=== PATIENT | male | born 1970 | race African-American/Black ===

== ENCOUNTER 2020-05-03 10:42 | Outpatient (NON) | payer BC, SELFPAY ==
[2020-05-04 01:42] LABS: SARS-CoV-2 RNA PCR Positive
== END 2020-05-03 10:43 ==
LOC: ANHCOVIDDT 10:43
PROVIDERS: PCP Internal Medicine; Visit Provider Internal Medicine
DX: U07.1 COVID-19 (principal)
CPT/HCPCS: 87635; C9803; U0003

== ENCOUNTER 2021-07-15 07:28 | Inpatient (IN) | payer BC, SELFPAY ==
[2021-07-15] VITALS (13 sets, daily range): BP systolic 119–167; BP diastolic 54–96; PULSE 67–96; RESP 18–32; TEMP 36.2–36.6; O2SAT 94–100; BMI 32.8
--- NOTE | ~2021-07-15 | XR_ITS ---
EXAMINATION: XR chest 2V EXAM DATE: 07/15/2021 07:59 INDICATION: SOB, No Recent Illness, No Cardiac Hx Per Pt. TECHNIQUE: Frontal and lateral projections of the chest obtained and reviewed. There is no prior ole dy for comparison. FINDINGS: Moderate cardiomegaly. Ill-defined basilar airspace disease, edema or pneumonia. No pneumo thorax. Possible small pleural effusions. IMPRESSION: 1. Moderate cardiomegaly. 2. Moderate basilar edema or pneumonia. Reviewed, dictated and finalized at location A. STANT STRENGTH COACH
--- NOTE | 2021-07-15 07:34 | ECG_ITS ---
Measurements Intervals [place] Rate: 91 P: 58 CA: 172 QRS: -53 QRSD: 161 T: 124 QT: 417 QTc: 515 Interpretive Statements SINUS RHYTHM ATRIAL AND VENTRICULAR PREMATURE COMPLEXES LEFT AXIS DEVIATION LEFT ATRIAL ENLARGEMENT IVCD, CONSIDER ATYPICAL LBBB BASELINE ARTIFACT- V1, V3-V6 ABNORMAL ECG Electronically Signed On 07-15-2021 14:08:14 CURB BUILDER by Deric Johnston D.O.
[2021-07-15 08:22] LABS: Alanine Aminotransferase 89 U/L (4-50); Albumin Level 3.8 g/dL (3.5-5.1); Alkaline Phosphatase 88 U/L (38-126); Anion Gap 7 mmol/L (8-16); Aspartate Amino Transferase 86 U/L (17-59); Bilirubin,Total 1.2 mg/dL (0.2-1.3); Blood Urea Nitrogen 29 mg/dL (9-20); Calcium 8.8 mg/dL (8.4-10.2); Carbon Dioxide 26 mmol/L (22-30); Chloride 108 mmol/L (98-107); Estimated CRCL calculation 68 ml/min; Estimated Glomerular Filt Rate > 60; Glucose 135 mg/dL (65-110); Potassium 3.8 mmol/L (3.4-5.0); Sodium 141 mmol/L (137-145)
[2021-07-15 08:22] LABS: Basophils Percent Auto 0.4 % (0.2-1.2); Eosinophils Percent Auto 0.5 % (0-4.4); Hematocrit 46.5 % (42.0-52.0); Hemoglobin 14.7 g/dL (14.0-18.0); Immature Granulocyte Absolute 0.01 K/mm3 (0.00-0.031); Immature Granulocyte Percent A 0.1 % (0-0.5); Lymphocytes Absolute Auto 1.93 K/mm3 (0.9-3.2); Mean Corpuscular HGB Conc 31.6 g/dl (32-36); Mean Corpuscular Hemoglobin 28.4 pg (26-34); Mean Corpuscular Volume 89.8 fl (80-100); Mean Platelet Volume 12.1 fl (7.4-10.4); Monocytes Absolute Auto 0.5 K/mm3 (0.1-0.6); Neutrophils Absolute Auto 5.3 K/mm3 (1.3-6.7); Platelet Count Result 187 k/mm3 (150-375); Red Blood Count 5.18 M/mm3 (4.6-6.20); Red Cell Distribution Width 13.5 % (11.5-14.5); White Blood Count 7.7 K/mm3 (4.5-10.0)
[2021-07-15 08:37] LABS: Troponin I 0.076 ng/mL (0.000-0.034)
--- NOTE | 2021-07-15 08:57 | ED.SOB ---
HPI - SOB/Dyspnea General Chief Complaint: Shortness of Breath/Dyspnea Stated Complaint: sob Time Seen by Provider: 07/15/21 07:32 Source: patient History of Present Illness HPI Narrative: Patient presents with shortness of breath. Patient reports he was sleeping awoke from sleep and had a difficult time breathing he attempted to use cold air it did not alleviate his symptoms he can you try and manage his symptoms at home however he did a finger pulse ox and he was saturating in the low 90s he was concerned so he came to the ER for further evaluation. Reports he had a mild cough recently but denies congestion fevers. Denies any chest pain over the symptoms denies any nausea vomiting or diaphoresis. Patient reports on arrival to the ER symptoms have been gradually improving Related Data Allergies Allergy/AdvReac Type Severity Reaction Status Date / Time tetracycline Allergy Unknown Hives Verified 07/15/21 08:41 Review of Systems Review of Systems: CONSTITUTIONAL: Denies fever, chills, or sweats. EYES: Denies visual changes, redness, or discharge. ENT: Denies rhinorrhea, congestion, sore throat, or otalgia. CARDIOVASCULAR: Denies chest pain, palpitations, or edema. RESPIRATORY: Reports shortness of breath GASTROINTESTINAL: Denies abdominal pain, nausea, vomiting, or diarrhea. GENITOURINARY: Denies dysuria or hematuria. SKIN: Denies rash or itching. MUSCULOSKELETAL: Denies back pain, joint pain, or myalgia. NEUROLOGIC: Denies headache, numbness, dizziness, or weakness. PSYCHIATRIC: Denies anxiety or depression. [facility] Past Medical History Medical History (Updated 07/15/21 @ 09:02 by Anuj Harris MD) BMI 37.0-37.9, adult Body mass index (BMI) 40.0-44.9, adult Morbid (severe) obesity due to excess calories Family History Family History Sibling Hypertension Family history of gastrointestinal disorder Family history of arthritis Mother Family history of malignant neoplasm, Onset Age: 40 Family history of heart disease in male family member before age 55, Onset Age: 40 Patient's mother is , Onset Age: 40 Father Family history of malignant neoplasm, Onset Age: 70 Patient's father is , Onset Age: 70 Social History Social History Smoking status: Never smoker Second hand tobacco smoke exposure: No Alcohol intake: current Exam Narrative: GENERAL: Well-appearing, well-nourished, and in no acute distress. HEAD: Normocephalic, atraumatic. EYES: PERRLA and EOMI. ENT: Nares clear, no rhinorrhea or epistaxis. Mucous membranes moist. NECK: Supple. No masses. No JVD CHEST: Clear to auscultation. No respiratory distress. No wheezes rales or rhonchi HEART: Regular rate and rhythm. No murmur heard. Normal peripheral pulses. ABDOMEN: Soft, nontender, nondistended, normal active bowel sounds. EXTREMITIES: Normal range of motion. No edema. SKIN: Warm, dry, no rash. NEURO: No focal deficits. Alert and oriented x3. PSYCH: Normal mood and affect. Course Reevaluation(s) Reevaluation #1: Patient resting, reports an improvement in symptoms results and plan reviewed with patient. Patient is comfortable inpatient plan. Date: 07/15/21 Time: 09:00 Vital Signs Vital signs: Vital Signs Temperature 36.4 C L 07/15/21 07:37 Pulse Rate 92 07/15/21 07:37 Respiratory Rate 32 H 07/15/21 07:37 Blood Pressure 156/82 H 07/15/21 07:37 Pulse Oximetry 99 07/15/21 07:37 Temperature 36.4 C L 07/15/21 07:37 Pulse Rate 73 07/15/21 08:53 Respiratory Rate 19 07/15/21 08:53 Blood Pressure 119/96 H 07/15/21 08:53 Pulse Oximetry 100 07/15/21 08:53 MDM - SOB/Dyspnea MDM Narrative Medical decision making narrative: Patient presents with improving shortness of breath overall patient looks clinically well labs and imaging obtained. Labs notable for elevated
[2021-07-15 10:08] LABS: SARS-CoV-2 RNA PCR Negative
[2021-07-15] MEDS: ASPIRIN 81 MG CHEWABLE TABLET 324 MG PO (10:10)
--- NOTE | 2021-07-15 10:15 | PC.NURSE ---
Pt states he already took all his normal morning meds today. EDP notified. Canceled ordered dose of 5mg metoprolol
--- NOTE | 2021-07-15 11:05 | PC.NURSE ---
This patient, Pablo Parikh, was admitted to IMU Room 206-01. Patient/family oriented to hospital policies and general routines including ID bracelet, bed and alarms, visiting hours, pain management, procedures, bathroom and other care routines, personal items, smoking policy, room service/diet, and visiting hours. Information on how to activate the Rapid Response Team has been discussed. Patient/Family are encouraged to report perceived risks to care and to ask questions if they do not understand what they are told or what they should do.
[2021-07-15 11:41] LABS: Troponin I 0.072 ng/mL (0.000-0.034)
--- NOTE | 2021-07-15 12:49 | ECG_ITS ---
Measurements Intervals [place] Rate: 83 P: 53 MD: 162 QRS: -53 QRSD: 154 T: 128 QT: 418 QTc: 492 Interpretive Statements SINUS RHYTHM LEFT AXIS DEVIATION LEFT ATRIAL ENLARGEMENT IVCD, CONSIDER ATYPICAL LBBB ABNORMAL ECG Electronically Signed On 07-15-2021 14:17:32 ANTENNA SPECIALIST by Deric Johnston D.O.
--- NOTE | 2021-07-15 13:01 | PM.IMHP ---
H&P: HPI History of Present Illness Date/Time: Patient was placed observation status for expected length of stay less than 23 hours for management, will plan to re-evaluate tomorrow for improvement. 07/15/21 13:01 Chief Complaint: Shortness of breath Narrative: Mr. Parikh he is a 51-year-old gentleman who presented to the emergency with complaints of shortness of breath. Patient has a known history of hypertension and diabetes mellitus. Patient states that at 1:30 a.m. this morning he woke up and he was extremely short of breath he states he finally took some deep breaths and was able to catch his breath. Patient states he then woke up again with shortness of breath had worsened and he had a set of tubular catch his breath. Patient states that it occurred after 3rd time while he was laying down and he had good down stairs and open his front door to catch his breath it is because he felt like he needed cold air. Patient denies any chest discomfort during this time. Patient denies any diaphoresis, nausea, or vomiting. Patient denied any orthopnea. Patient states that he did have an EKG 1 time when he lived in [place] and he was told was within normal limits. Patient states he has lost over 120 lb and he has been able to be taken off of his diabetic medication. Upon evaluation in emergency room patient was noted to have a mildly elevated troponin at 0.072 and EKG was a new left bundle branch block. Review of Systems Review of Systems: A 12 point review of systems was completed patient all pertinent positive and negative per HPI the remainder are unremarkable. [facility] Past Medical History Medical History (Updated 07/15/21 @ 13:21 by Nichelle Giles APRN) BMI 37.0-37.9, adult Body mass index (BMI) 40.0-44.9, adult Essential hypertension Morbid (severe) obesity due to excess calories Type 2 diabetes mellitus without complication, without long-term current use of insulin Surgical History Surgical History (Updated 07/15/21 @ 13:19 by Nichelle Giles APRN) History of hip surgery Status post left rotator cuff repair Family History Family History Sibling Hypertension Family history of gastrointestinal disorder Family history of arthritis Mother Family history of malignant neoplasm, Onset Age: 40 Family history of heart disease in male family member before age 55, Onset Age: 40 Patient's mother is , Onset Age: 40 Father Family history of malignant neoplasm, Onset Age: 70 Patient's father is , Onset Age: 70 Social History Social History Smoking status: Never smoker Second hand tobacco smoke exposure: No Alcohol intake: never Substance use: never Spiritual care concerns: No Meds Home Medications and Allergies Home Medications Medication Instructions Recorded Confirmed Type blood sugar diagnostic #100 ea 04/06/20 07/15/21 Rx lancets 33 gauge #100 ea 04/06/20 07/15/21 Rx hydrochlorothiazide 25 mg tablet 25 mg PO DAILY #90 tablet 05/23/20 07/15/21 Rx lisinopril 20 mg tablet 20 mg PO DAILY #90 tablet 05/23/20 07/15/21 Rx allopurinol 300 mg tablet 300 mg PO DAILY #90 tablet 09/23/20 07/15/21 Rx clonidine HCl 0.2 mg tablet 0.2 mg PO TID #270 tablet 11/17/20 07/15/21 Rx metoprolol tartrate 25 mg tablet 25 mg PO BID #180 tablet 01/09/21 07/15/21 Rx Allergies Allergy/AdvReac Type Severity Reaction Status Date / Time tetracycline Allergy Unknown Hives Verified 07/15/21 08:41 Vital Signs Vital Signs - 24 hr 07/15/21 07:37 07/15/21 08:53 07/15/21 10:50 Temperature 36.4 C L 36.6 C Pulse Rate 92 73 88 Respiratory Rate 32 H 19 22 H Blood Pressure 156/82 H 119/96 H 147/64 H Pulse Oximetry 99 100 95 07/15/21 12:00 Temperature Pulse Rate 84 Respiratory Rate Blood Pressure Pulse Oximetry Exam Narrative: Constitutional: Pat
[2021-07-15 13:33] LABS: Hemoglobin A1C 4.7 % (<5.7)
--- NOTE | 2021-07-15 13:50 | PM.CNCAR ---
Assessment and Plan Additional Plan This is a 51-year-old black male with a history of longstanding hypertension which requires multi-drug regimen for control but generally has been doing well with this. Develops symptoms that are very typical of congestive heart failure last evening. Chest x-ray she appears to show evidence of cardiomegaly and some bilateral pulmonary congestion that is relatively mild at this time. He of concern on physical exam is a significant mitral regurgitant murmur. I am going to give him a dosage of furosemide at this time and continue his hypertension regimen. 2D Doppler echocardiogram has been requested and will be done shortly. I will review those findings in the provide further impression/recommendation. Navdeep Arredondo MD [facility] History of Present Illness History of Present Illness Consult date/time: 07/15/21 13:50 Consult reason: congestive heart failure Reason For Visit: ACS Narrative: This is a 51-year-old man who has not previously been seen by myself who has been admitted to the emergency room because of shortness of breath and findings of left bundle branch block and elevation of troponin levels in the emergency room. The patient states that he has longstanding hypertension since he was a very young man and is on multi-drug regimen to treat this. He sees 1 of the local physicians in this area for a number of years any indicates his blood pressure generally is under good control. He does not have any prior knowledge of any cardiac problems. He states that he came to the emergency room this morning because of shortness of breath which awakened him from sleep at about 130 in the morning. He sat up on the edge of the bed and felt better shortly after lying down again he had the same symptomatology. It happened a 3rd time early in the morning and he went to his front door to breathe some cold air and then he decided it was time to come to the emergency room be evaluated. In the ER his electrocardiogram was found to show a sinus mechanism with left bundle branch block and his troponin level was slightly elevated. The levels are elevated but flat. Not having any sense of chest pain pressure or heaviness. He denies any lower extremity edema palpitations or history of syncope. He states that in the past he was morbidly obese but when on S significant diet several years ago and lost more than 100 lb. He used to require medication for non insulin-dependent diabetes and that no longer is the case after he achieved significant weight loss. He is a lifelong nonsmoker he works for [employer]. Review of Systems Constitutional: Constitutional: Reports no additional constitutional complaints Eyes: Eyes: Reports no additional eye complaints ENT: Reports system reviewed and no additional complaints, except as documented Cardiovascular: Cardiovascular: Reports as per HPI Respiratory: Respiratory: Reports as per HPI Gastrointestinal: Gastrointestinal: Reports no additional gastrointestinal complaints Musculoskeletal: Musculoskeletal: Reports back pain Integumentary/Breasts: Skin/Breast: Reports system reviewed and no additional complaints, except as docu Neurologic: Reports system reviewed and no additional complaints, except as documented Endocrine: Endocrine: Reports no additional endocrine complaints Hematologic/Lymphatic: Hematologic/Lymphatic: Reports no additional hematologic/lymphatic complaints Allergic/Immunologic: Allergic/Immunologic: Reports no additional allergic/immunologic complaints PMFSH Past Medical History Medical History (Updated 07/15/21 @ 13:21 by Nichelle Giles, CHEMISTRY LECTURER) BMI 37.0-37.9, adult Body mass index (BMI) 40.0-44.9, adult Essential hypertension Morbid (severe) obesity due to excess calories Type 2 diabetes mellitus without complication, without long-term current use of insulin Surgical History Surgical History (Updated 07/15/21 @ 13:19 by Nichelle Arambula
[2021-07-15] MEDS: FUROSEMIDE 80 MG TABLET PO (14:37)
[2021-07-15 14:50] LABS: Troponin I 0.086 ng/mL (0.000-0.034)
[2021-07-15] MEDS: cloNIDine HCL 0.2 MG TABLET PO (17:05)
[2021-07-15] MEDS: BENZONATATE 100 MG CAPSULE PO (18:00)
[2021-07-15] MEDS: METOPROLOL TARTRATE 25 MG TABLET PO (20:07)
[2021-07-15 20:40] LABS: Troponin I 0.107 ng/mL (0.000-0.034)
[2021-07-16] VITALS (16 sets, daily range): BP systolic 126–147; BP diastolic 48–69; PULSE 63–85; RESP 15–20; TEMP 36.2–37.2; O2SAT 97–100
--- NOTE | 2021-07-16 00:26 | ECG_ITS ---
Measurements Intervals [place] Rate: 75 P: 56 WI: 165 QRS: -58 QRSD: 156 T: 125 QT: 436 QTc: 489 Interpretive Statements SINUS RHYTHM LEFT AXIS DEVIATION LEFT ATRIAL ENLARGEMENT LEFT BUNDLE BRANCH BLOCK ABNORMAL ECG Electronically Signed On 07-16-2021 7:26:11 DETECTIVE CHIEF by Deric Johnston D.O.
[2021-07-16 05:13] LABS: Basophils Percent Auto 0.5 % (0.2-1.2); Eosinophils Absolute Auto 0.1 K/mm3 (0-0.3); Eosinophils Percent Auto 1.5 % (0-4.4); Hemoglobin 13.5 g/dL (14.0-18.0); Immature Granulocyte Absolute 0.01 K/mm3 (0.00-0.031); Immature Granulocyte Percent A 0.2 % (0-0.5); Lymphocytes Absolute Auto 2.12 K/mm3 (0.9-3.2); Lymphocytes Percent Auto 32.8 % (18.3-44.2); Mean Corpuscular HGB Conc 32.1 g/dl (32-36); Mean Corpuscular Hemoglobin 28.2 pg (26-34); Mean Corpuscular Volume 87.7 fl (80-100); Mean Platelet Volume 11.8 fl (7.4-10.4); Monocytes Absolute Auto 0.5 K/mm3 (0.1-0.6); Monocytes Percent Auto 7.3 % (2.6-8.5); Neutrophils Absolute Auto 3.7 K/mm3 (1.3-6.7); Neutrophils Percent Auto 57.7 % (45.5-73.1); Platelet Count Result 159 k/mm3 (150-375); Red Blood Count 4.79 M/mm3 (4.6-6.20); Red Cell Distribution Width 13.2 % (11.5-14.5); White Blood Count 6.5 K/mm3 (4.5-10.0)
[2021-07-16 05:25] LABS: Alanine Aminotransferase 92 U/L (4-50); Albumin Level 3.7 g/dL (3.5-5.1); Alkaline Phosphatase 74 U/L (38-126); Anion Gap 7 mmol/L (8-16); Aspartate Amino Transferase 65 U/L (17-59); Bilirubin,Total 1.5 mg/dL (0.2-1.3); Blood Urea Nitrogen 25 mg/dL (9-20); Calcium 8.7 mg/dL (8.4-10.2); Carbon Dioxide 26 mmol/L (22-30); Chloride 108 mmol/L (98-107); Estimated CRCL calculation 73 ml/min; Estimated Glomerular Filt Rate > 60; Glucose 103 mg/dL (65-110); Potassium 3.5 mmol/L (3.4-5.0); Sodium 141 mmol/L (137-145)
[2021-07-16] MEDS: cloNIDine HCL 0.2 MG TABLET PO ×2 (08:53→16:33)
[2021-07-16] MEDS: METOPROLOL TARTRATE 25 MG TABLET PO ×2 (08:53→20:06)
[2021-07-16] MEDS: ENOXAPARIN 40 MG/0.4 ML SYRINGE SUB-Q (08:54)
[2021-07-16] MEDS: ASPIRIN 81 MG ENTERIC TABLET PO (08:54)
[2021-07-16] MEDS: lisinopriL 20 MG TABLET PO (08:54)
[2021-07-16] MEDS: hydroCHLOROthiazide 25 MG TABLET PO (08:54)
[2021-07-16] MEDS: allopurinoL 300 MG TABLET PO (08:54)
[2021-07-16] MEDS: BENZONATATE 100 MG CAPSULE PO ×2 (08:57→17:00)
--- NOTE | 2021-07-16 09:48 | PM.PNCARD ---
Progress Note: A&P Additional Plan 51-year-old man with: Congestive heart failure with no prior history of this longstanding hypertension and left bundle branch block of uncertain chronicity. He does feel better following diuresis yesterday I will continue some oral furosemide today. The echocardiogram will be done tomorrow morning at which time I will be able to discuss those findings with him. It is curious that his MR murmur today is obviously less prominent than yesterday. Navdeep Arredondo MD [facility] Subjective Date/time seen: Date of service: 07/16/21 09:48 Interval history: Follow-up visit in this 51-year-old man with: New onset congestive heart failure in the background of longstanding hypertension, left bundle branch block and physical exam evidence of mitral regurgitation. The patient is more comfortable this morning following diuresis with furosemide yesterday he was able to sleep last night with nasal cannula oxygen in place and feels better this morning. Unfortunately the ultrasound/echocardiogram I ordered was not done yesterday so I do not have those results to discuss with him. Exam HENMT: Mouth: Yes moist mucous membranes Eyes: Sclera: sclerae normal Pupils: Equal, round and reactive pupils present Neck: Neck: supple and no JVD Resp: Effort & Inspection: normal respiratory effort Other: Scant basilar crackles noted Cardio: Rate: regular rate Rhythm: regular rhythm Other: MR murmur today is much more subtle than yesterday GI: GI Palp: Yes Soft to palpation Auscultation: normal bowel sounds Skin: General skin exam: normal color Neuro: Cognition (Neuro): normal cognition Extrem: General: normal to inspection Objective Data Vital Signs Vital Signs: Vital Signs - 24 hr 07/15/21 10:50 07/15/21 12:00 07/15/21 14:00 Temperature 36.6 C Pulse Rate 88 84 90 Respiratory Rate 22 H Blood Pressure 147/64 H Pulse Oximetry 95 07/15/21 14:30 07/15/21 16:00 07/15/21 18:00 Temperature 36.2 C L Pulse Rate 90 96 88 Respiratory Rate 18 20 Blood Pressure 143/71 H 167/60 H Pulse Oximetry 99 98 07/15/21 20:00 07/15/21 20:07 07/15/21 22:00 Temperature 36.2 C L Pulse Rate 80 80 67 Respiratory Rate 20 Blood Pressure 131/55 L Pulse Oximetry 94 07/15/21 22:57 07/15/21 23:21 07/16/21 00:00 Temperature 36.3 C L Pulse Rate 75 85 Respiratory Rate 20 Blood Pressure 150/54 H Pulse Oximetry 98 98 07/16/21 02:00 07/16/21 04:00 07/16/21 05:57 Temperature 36.2 C L Pulse Rate 71 63 68 Respiratory Rate 20 Blood Pressure 147/69 H Pulse Oximetry 97 07/16/21 07:51 07/16/21 08:00 07/16/21 08:53 Temperature 37.2 C Pulse Rate 79 80 Respiratory Rate 16 Blood Pressure 136/64 Pulse Oximetry 97 97 Intake/Output Intake/Output: Intake & Output 07/13/21 07/14/21 07/15/21 07/16/21 23:59 23:59 23:59 23:59 Intake Total 1780 360 Output Total 2050 750 Balance -270 -390 Meds/Results Medications: Active Medications Generic Name Dose Route Start Last Admin Trade Name Rebecca PRN Reason Stop Dose Admin Allopurinol 300 mg 07/16/21 09:00 07/16/21 08:54 Allopurinol 300 Mg Tablet PO 300 mg DAILY TOYA Administration Aspirin 81 mg 07/16/21 09:00 07/16/21 08:54 Aspirin 81 Mg Enteric Tablet PO 81 mg QAM TOYA Administration Benzonatate 100 mg 07/15/21 17:26 07/16/21 08:57 Benzonatate 100 Mg Capsule PO 100 mg TID PRN Administration Cough Clonidine HCl 0.2 mg 07/15/21 17:00 07/16/21 08:53 Clonidine Hcl 0.2 Mg Tablet PO 0.2 mg BID TOYA Administration Enoxaparin Sodium 40 mg 07/16/21 09:00 07/16/21 08:54 Enoxaparin 40 Mg/0.4 Ml Syringe SUB-Q 40 mg DAILY TOYA Administration Furosemide 40 mg 07/16/21 09:50 Furosemide 40 Mg Tablet PO BID TOYA Hydrochlorothiazide 25 mg 07/16/21 09:00 07/16/21 08:54 Hydrochlorothiazide 25 Mg Tablet PO 25 mg DAILY TOYA Administration Li
[2021-07-16] MEDS: FUROSEMIDE 40 MG TABLET PO ×2 (10:33→16:33)
--- NOTE | 2021-07-16 15:12 | PM.IMPN ---
Progress Note: A&P Additional Plan Assessment and plan (1) SOB (shortness of breath): Code(s): R06.02 - Shortness of breath Status: Acute Assessment and Plan: Patient appeared to have multiple episodes of PND since he states that he woke up out of a sleep with shortness of breath. Patient does have flat troponins. Patient has a left bundle branch on EKG that as far as we know is new. Cardiology has been consult and is managing. Patient does appear to have some pulmonary vascular congestion on chest x-ray. Cardiology continuing with IV Lasix and continue to monitor. (2) Elevated troponin: Code(s): R77.8 - Other specified abnormalities of plasma proteins Status: Acute Assessment and Plan: Patient's troponins have flattened. Have discussed with Cardiology and they have been consult and appreciate further recommendations. Patient is already on a beta-zahraa and FIDEL-inhibitor. Will add baby aspirin to patient's regimen. Patient's HEART score is a 5. (3) Left bundle branch block: Code(s): I44.7 - Left bundle-branch block, unspecified Status: Acute Assessment and Plan: Patient states he did have an EKG in [place] that he was told was normal. He is unsure where he had this EKG as well will be unable to obtain it. Will repeat EKG to monitor for any changes. (4) Essential hypertension: Code(s): I10 - Essential (primary) hypertension Status: Acute Assessment and Plan: Will resume home medications and adjust medications accordingly for optimal blood pressure control. (5) Type 2 diabetes mellitus without complication, without long-term current use of insulin: Code(s): E11.9 - Type 2 diabetes mellitus without complications Status: Acute Assessment and Plan: Patient states he was able to stop his metformin after losing 120 lb. HgbA1C is 4.7. Time Spent With Patient Time with patient: 15 - 25 minutes Subjective Date/time seen: 07/16/21 0745 This pt. was examined at the bedside in interval assessment. He states he is feeling more comfortable without any CP, minimal dyspnea as compared to yesterday and he has no other complaints or concerns at this time. We are still awaiting his ECHO to be performed and we are aware that it will not be until morning. Cardiology has consulted and has ordered another dose of Lasix for today. Review of Systems Review of Systems: All systems reviewed & are unremarkable except as noted in HPI and below Exam Const: General: comfortable and no acute distress HENMT: Mouth: Yes moist mucous membranes Eyes: Sclera: sclerae normal Neck: Neck: supple and no JVD Resp: Effort & Inspection: normal respiratory effort Auscultation: clear to auscultation bilaterally Cardio: Rate: regular rate Rhythm: regular rhythm GI: GI Palp: Yes Soft to palpation and No Tenderness to palpation present (GI) Auscultation: normal bowel sounds Skin: General skin exam: normal color and no rashes or lesions noted Neuro: General: gait normal Speech: normal speech Extrem: General: normal to inspection Right upper extremity: normal to inspection Left upper extremity: normal to inspection Right lower extremity: normal to inspection Left lower extremity: normal to inspection Psych: Mental Status: mental status grossly normal Affect: normal affect Thought content: Yes Normal thought content present Objective Data Vital Signs Vital Signs: Vital Signs - 24 hr 07/15/21 16:00 07/15/21 18:00 07/15/21 20:00 Temperature 97.2 F L 97.1 F L Pulse Rate 96 88 80 Respiratory Rate 20 20 Blood Pressure 167/60 H 131/55 L Pulse Oximetry 98 94 07/15/21 20:07 07/15/21 22:00 07/15/21 22:57 Temperature 97.3 F L Pulse Rate 80 67 75 Respiratory Rate 20 Blood Pressure 150/54 H Pulse Oximetry 98 07/15/21 23:21 07/16/21 00:00 07/16/21 02:00 Temperature Pulse Rate 85 71 Respiratory Rate Blood Pre
[2021-07-16] MEDS: ACETAMINOPHEN 325 MG TABLET 650 MG PO (18:26)
[2021-07-17] VITALS (18 sets, daily range): BP systolic 122–142; BP diastolic 47–69; PULSE 59–94; RESP 18–20; TEMP 35.5–36.5; O2SAT 95–100
--- NOTE | 2021-07-17 | ECHO_ITS ---
Patient Info Name: Pablo Parikh Age: 51 years : 1970 Gender: Male Ht: 71 in Wt: 235 lbs BSA: 2.34 m2 HR: 82 bpm BP: 122 / 69 mmHg Heart Rhythm: Sinus Rhythm Exam Date: 07/17/2021 8:27 AM Exam Location: [facility] Patient Status: Inpatient Admit Date: 07/15/2021 Staff Ordering Physician: Corrine Macias Computer Operations Analyst: Jamil Gutierrez RDCS, RT Attending Provider: Corrine Macias Referring Physician: Colleen CARPIO; Exam Type: CA echo dop color flow w con Study Info Indications R06.00 - Dyspnea, unspecified Contrast/Agitated Saline Contrast/Ag. Saline: Definity Amount: 2.00 ml Administered By: Jamil Gutierrez RDCS IV Access Condition: patent with no signs of infiltration Summary 1. Definity contrast used to improve exam quality. 2. Left ventricular chamber dimension is severely enlarged. 3. Left ventricular systolic function is severely reduced, estimated at 20-25%. 4. Left atrial chamber dimension is mildly enlarged. 5. There is moderate aortic valve regurgitation. 6. There is mild mitral valve regurgitation. Left Ventricle Left ventricular chamber dimension is severely enlarged. Left ventricular systolic function is severely reduced, estimated at 20-25%. There is mild concentric increased left ventricular wall thickness. The left ventricular diastolic function is grade I diastolic dysfunction. Definity contrast used to improve exam quality. Right Ventricle Right ventricular chamber dimension is normal. Left Atria Left atrial chamber dimension is mildly enlarged. Right Atria Right atrial chamber dimension is normal. Aortic Valve The aortic valve is trileaflet. There is moderate aortic valve regurgitation. Pulmonic Valve The pulmonic valve is normal. Mitral Valve The mitral valve has normal leaflets. There is mild mitral valve regurgitation. Tricuspid Valve The tricuspid valve leaflets are normal. There is mild tricuspid valve regurgitation. Pericardium/Pleural The pericardium appears normal. Aorta The aortic root size at the sinus of Valsalva is normal. Left Ventricular Outflow Tract Name Value Normal LVOT 2D LVOT Diameter 2.20 cm LVOT Doppler LVOT Peak Gradient 3 mmHg LVOT Mean Gradient 2 mmHg LVOT VTI 21.04 cm LVOT VTI/AV VTI Ratio 0.61 LVOT Stroke Volume 80.01 ml LVOT CO 4.46 l/min LVOT CI 1.90 L/min/m2 Mitral Valve Name Value Normal MV Doppler MV Decel Stokes 641.49 cm/s2 MV PHT 0 s MV Area (PHT) 5.07 cm2 4.00-5.00 MV Diastoli
[2021-07-17] MEDS: PERFLUTREN LIPID MICROSPHERES 1.5 ML VIAL DILUTED TO 10 ML TOTAL VOLUME IV PUSH (08:56)
--- NOTE | 2021-07-17 08:57 | IVDEFINITY ---
Prior to administration of IV Definity the patient was educated on the risks and benefits of the imaging enhancing agent including potential adverse side effects. The patient verbalized understanding. Allergies were verified. No exclusion criteria were identified and at least one of the following inclusion criteria were met: 1) physician request, 2) patient technically difficult to image (per the [place] [employer]ocardi[employer] guidelines of two or more segments not discernable within the apical view), or 3) questionable left ventricular function. ?
[2021-07-17] MEDS: allopurinoL 300 MG TABLET PO (09:22)
[2021-07-17] MEDS: lisinopriL 20 MG TABLET PO (09:22)
[2021-07-17] MEDS: hydroCHLOROthiazide 25 MG TABLET PO (09:22)
[2021-07-17] MEDS: METOPROLOL TARTRATE 25 MG TABLET PO (09:22)
[2021-07-17] MEDS: FUROSEMIDE 40 MG TABLET PO ×2 (09:22→16:23)
[2021-07-17] MEDS: cloNIDine HCL 0.2 MG TABLET PO ×2 (09:23→16:23)
[2021-07-17] MEDS: ENOXAPARIN 40 MG/0.4 ML SYRINGE SUB-Q (09:24)
[2021-07-17] MEDS: ASPIRIN 81 MG ENTERIC TABLET PO (09:24)
--- NOTE | 2021-07-17 13:02 | PM.PNCARD ---
Progress Note: A&P Additional Plan 51-year-old man with: Longstanding hypertension presents with decompensated heart failure and left bundle branch block. Found unfortunately on echo to have a severe dilated cardiomyopathy with LVH as well. This certainly could simply be a sign of end-stage or severe hypertensive heart disease. Also possible that he has an ischemic cardiomyopathy. No symptoms to suggest angina however. Because of these findings I am going to transition his beta-zahraa to carvedilol and his thiazide to spironolactone. I will stop the lisinopril and anticipation of starting Entresto. Spoke to the patient about the need for arranging for left heart catheterization probably later this week and the need for a life vest to be supplied to him prior to discharge. Navdeep Arredondo MD [facility] Subjective Date/time seen: 07/17/21 13:02 Interval history: Follow-up visit in this 51-year-old man with: New onset congestive heart failure in the background of longstanding hypertension, left bundle branch block and physical exam evidence of mitral regurgitation. 07/17/2021: Patient being seen today in follow-up reports to be feeling fairly well in terms of his dyspnea. Echocardiogram was done this morning unfortunately demonstrates that he has a severe dilated cardiomyopathy. Spent a good deal of time discussing these results and the implications with the patient. Exam Const: General: no acute distress Other: Pleasant black male appearing his stated age mildly overweight otherwise no obvious distress but appears to still have some conversational dyspnea. HENMT: Mouth: Yes moist mucous membranes Eyes: Sclera: sclerae normal Pupils: Equal, round and reactive pupils present Neck: Neck: supple and no JVD Resp: Effort & Inspection: normal respiratory effort Other: Scant basilar crackles noted Cardio: Rate: regular rate Rhythm: regular rhythm Other: MR murmur today is much more subtle than yesterday GI: Auscultation: normal bowel sounds Skin: General skin exam: normal color Neuro: Cranial nerves: Yes Equal, round and reactive pupils present Cognition (Neuro): normal cognition Extrem: General: normal to inspection Objective Data Vital Signs Vital Signs: Vital Signs - 24 hr 07/16/21 14:00 07/16/21 16:00 07/16/21 18:00 Temperature 37.2 C Pulse Rate 77 84 77 Respiratory Rate 16 Blood Pressure 143/67 H Pulse Oximetry 100 07/16/21 20:00 07/16/21 20:06 07/16/21 22:00 Temperature 36.8 C Pulse Rate 69 80 68 Respiratory Rate 16 Blood Pressure 129/48 L Pulse Oximetry 100 07/16/21 23:36 07/17/21 00:00 07/17/21 01:59 Temperature 35.6 C L Pulse Rate 62 78 Respiratory Rate 20 Blood Pressure 133/68 Pulse Oximetry 100 100 07/17/21 04:00 07/17/21 06:00 07/17/21 08:00 Temperature 36.2 C L Pulse Rate 74 68 92 Respiratory Rate 20 Blood Pressure 122/69 Pulse Oximetry 97 96 07/17/21 08:27 07/17/21 09:22 07/17/21 10:00 Temperature 36.4 C Pulse Rate 82 94 82 Respiratory Rate 18 Blood Pressure 139/65 Pulse Oximetry 95 07/17/21 12:00 07/17/21 12:19 Temperature 35.8 C L Pulse Rate 63 65 Respiratory Rate 18 Blood Pressure 122/47 L Pulse Oximetry 100 Intake/Output Intake/Output: Intake & Output 07/14/21 07/15/21 07/16/21 07/17/21 23:59 23:59 23:59 23:59 Intake Total 1780 960 490 Output Total 2050 750 Balance -270 210 490 Meds/Results Medications: Active Medications Generic Name Dose Route Start Last Admin Trade Name Freq PRN Reason Stop Dose Admin Acetaminophen 650 mg 07/16/21 17:55 07/16/21 18:26 Acetaminophen 325 Mg Tablet PO 650 mg Q6H PRN Administration Mild Pain (1-3) or Fever Allopurinol 300 mg 07/16/21 09:00 07/17/21 09:22 Allopurinol 300 Mg Tablet PO 300 mg DAILY TOYA Administration Aspirin 81 mg 07/16/21 09:00 07/17/21 09:24 Aspirin 81 Mg Enteric Tablet [facility] [place]
--- NOTE | 2021-07-17 14:01 | PM.IMPN ---
Progress Note: A&P Additional Plan Assessment and plan (1) SOB (shortness of breath): Code(s): R06.02 - Shortness of breath Status: Acute Assessment and Plan: - Dyspnea is resolved after being diuresed. Was caused by acute Heart failure. - ECHO today shows a decompensated heart failure with LVSF and EF of 20-25%. - Cardiology has consulted. - Lisinopril to be changed to Entresto and HCTZ to Spironolactone by Cards. - To be fitted for Life vest this week and also have angiography. (2) Elevated troponin: Code(s): R77.8 - Other specified abnormalities of plasma proteins Status: Acute Assessment and Plan: - Troponins flat. (3) Left bundle branch block: Code(s): I44.7 - Left bundle-branch block, unspecified Status: Acute Assessment and Plan: - New BBB, ECHO results as noted. - Cardiology Managing. (4) Essential hypertension: Code(s): I10 - Essential (primary) hypertension Status: Acute Assessment and Plan: - Stable on current medication regimen. (5) Type 2 diabetes mellitus without complication, without long-term current use of insulin: Code(s): E11.9 - Type 2 diabetes mellitus without complications Status: Acute Assessment and Plan: - Patient states he was able to stop his metformin after losing 120 lb. HgbA1C is 4.7. Time Spent With Patient Time with patient: 15 - 25 minutes Subjective Date/time seen: 07/17/21 0900 This pt. was examined at the bedside today in interval assessment. He has no complaints currently and reports that his breathing has definitely improved. He has no CP, dyspnea, N/V/D. He had ECHO today that showed a decompensated heart failure with LVSD represented by an EF of 20-25%. Cardiology has evaluated and made recommendations of changing his Lisinopril and in anticipation of starting Entresto, changing his HCTZ to spironolactone and also fitting patient for a life vest and arranging a heart catheterization for later this week. Pt. is comfortable currently. Review of Systems Review of Systems: A full 12 point ROS was completed and is unremarkable with exception of what is mentioned in HPI. All systems reviewed & are unremarkable except as noted in HPI and below Exam Const: General: comfortable and no acute distress HENMT: Mouth: Yes moist mucous membranes Neck: Neck: supple and no JVD Lymphatic: lymphadenopathy not noted Resp: Effort & Inspection: normal respiratory effort Auscultation: clear to auscultation bilaterally Cardio: Rate: regular rate Rhythm: regular rhythm Heart sounds: Murmur heart sound present GI: GI Palp: Yes Soft to palpation Auscultation: normal bowel sounds Skin: General skin exam: normal color and no erythema Neuro: General: gait normal Cognition (Neuro): normal cognition Extrem: General: normal to inspection Right upper extremity: normal to inspection Left upper extremity: normal to inspection Right lower extremity: normal to inspection Left lower extremity: normal to inspection Psych: Mental Status: mental status grossly normal Affect: normal affect Thought content: Yes Normal thought content present Objective Data Vital Signs Vital Signs: Vital Signs - 24 hr 07/16/21 16:00 07/16/21 18:00 07/16/21 20:00 Temperature 99.0 F 98.2 F Pulse Rate 84 77 69 Respiratory Rate 16 16 Blood Pressure 143/67 H 129/48 L Pulse Oximetry 100 100 07/16/21 20:06 07/16/21 22:00 07/16/21 23:36 Temperature Pulse Rate 80 68 Respiratory Rate Blood Pressure Pulse Oximetry 100 07/17/21 00:00 07/17/21 01:59 07/17/21 04:00 Temperature 96.1 F L 97.1 F L Pulse Rate 62 78 74 Respiratory Rate 20 20 Blood Pressure 133/68 122/69 Pulse Oximetry 100 97 07/17/21 06:00 07/17/21 08:00 07/17/21 08:27 Temperature 97.6 F Pulse Rate 68 92 82 Respiratory Rate 18 Blood Pressure 139/65 Pulse Oximetry 96 95 07/17/21 09:22 07/17/21 10:00 07/17/21
[2021-07-17] MEDS: carvediloL 12.5 MG TABLET PO (20:32)
[2021-07-18] VITALS (20 sets, daily range): BP systolic 107–150; BP diastolic 41–66; PULSE 65–89; RESP 15–22; TEMP 35.6–36.6; O2SAT 95–100
[2021-07-18 08:20] LABS: Basophils Percent Auto 0.5 % (0.2-1.2); Eosinophils Absolute Auto 0.2 K/mm3 (0-0.3); Eosinophils Percent Auto 2.9 % (0-4.4); Hematocrit 44.4 % (42.0-52.0); Hemoglobin 14.5 g/dL (14.0-18.0); Immature Granulocyte Absolute 0.01 K/mm3 (0.00-0.031); Immature Granulocyte Percent A 0.2 % (0-0.5); Lymphocytes Absolute Auto 2.38 K/mm3 (0.9-3.2); Lymphocytes Percent Auto 43.1 % (18.3-44.2); Mean Corpuscular HGB Conc 32.7 g/dl (32-36); Mean Corpuscular Hemoglobin 28.4 pg (26-34); Mean Corpuscular Volume 86.9 fl (80-100); Mean Platelet Volume 10.7 fl (7.4-10.4); Monocytes Absolute Auto 0.4 K/mm3 (0.1-0.6); Monocytes Percent Auto 7.2 % (2.6-8.5); Neutrophils Absolute Auto 2.5 K/mm3 (1.3-6.7); Neutrophils Percent Auto 46.1 % (45.5-73.1); Platelet Count Result 180 k/mm3 (150-375); Red Blood Count 5.11 M/mm3 (4.6-6.20); Red Cell Distribution Width 12.8 % (11.5-14.5); White Blood Count 5.5 K/mm3 (4.5-10.0)
[2021-07-18 08:33] LABS: Alanine Aminotransferase 72 U/L (4-50); Albumin Level 4.1 g/dL (3.5-5.1); Alkaline Phosphatase 73 U/L (38-126); Anion Gap 7 mmol/L (8-16); Aspartate Amino Transferase 40 U/L (17-59); Bilirubin,Total 1.2 mg/dL (0.2-1.3); Blood Urea Nitrogen 28 mg/dL (9-20); Calcium 8.8 mg/dL (8.4-10.2); Carbon Dioxide 29 mmol/L (22-30); Chloride 106 mmol/L (98-107); Estimated CRCL calculation 64 ml/min; Estimated Glomerular Filt Rate 59; Glucose 108 mg/dL (65-110); Potassium 3.4 mmol/L (3.4-5.0); Sodium 142 mmol/L (137-145)
[2021-07-18] MEDS: carvediloL 12.5 MG TABLET PO ×2 (09:10→20:26)
[2021-07-18] MEDS: ASPIRIN 81 MG ENTERIC TABLET PO (09:10)
[2021-07-18] MEDS: allopurinoL 300 MG TABLET PO (09:10)
[2021-07-18] MEDS: cloNIDine HCL 0.2 MG TABLET PO ×2 (09:12→16:55)
[2021-07-18] MEDS: FUROSEMIDE 40 MG TABLET PO ×2 (09:12→16:55)
[2021-07-18] MEDS: SPIRONOLACTONE 25 MG TABLET PO (09:12)
[2021-07-18] MEDS: ENOXAPARIN 40 MG/0.4 ML SYRINGE SUB-Q (09:12)
--- NOTE | 2021-07-18 09:28 | PM.PNCARD ---
Progress Note: A&P Assessment and Plan (1) Cardiomyopathy: Code(s): I42.9 - Cardiomyopathy, unspecified Status: Acute Assessment and Plan: Presented to the hospital in decompensated heart failure. New diagnosis cardiomyopathy with an EF of 20 - 25%. Possibly secondary to longstanding HTN. Will undergo LHC tomorrow to rule out CAD. He has been started on GDMT for HFrEF. Continue coreg 12.5mg b.i.d Continue spironolactone 25mg daily Can start Entresto tomorrow after 36 hr FIDEL washout is complete Continue diuresis - looks nearly euvolemic at this point NPO after MN in anticipation for coronary angiogram (2) Essential hypertension: Code(s): I10 - Essential (primary) hypertension Status: Acute Assessment and Plan: Reasonably controlled. (3) SOB (shortness of breath): Code(s): R06.02 - Shortness of breath Status: Acute Assessment and Plan: Secondary to CHF. Resolved. (4) Left bundle branch block: Code(s): I44.7 - Left bundle-branch block, unspecified Status: Acute (5) Elevated troponin: Code(s): R77.8 - Other specified abnormalities of plasma proteins Status: Acute Assessment and Plan: Elevated at presentation but flat. 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 Subjective Date/time seen: 07/18/21 09:28 Interval history: Follow-up visit in this 51-year-old man with: New onset congestive heart failure in the background of longstanding hypertension, left bundle branch block and physical exam evidence of mitral regurgitation. 07/17/2021: Patient being seen today in follow-up reports to be feeling fairly well in terms of his dyspnea. Echocardiogram was done this morning unfortunately demonstrates that he has a severe dilated cardiomyopathy. Spent a good deal of time discussing these results and the implications with the patient. 07/18/2021: Feeling well this morning. He notes that his breathing has improved significantly. He is on room air. No specific complaints this morning. Review of Systems Constitutional: Constitutional: Reports no additional constitutional complaints Eyes: Eyes: Reports no additional eye complaints ENT: Reports system reviewed and no additional complaints, except as documented Cardiovascular: Cardiovascular: Reports as per HPI Respiratory: Respiratory: Reports as per HPI Gastrointestinal: Gastrointestinal: Reports no additional gastrointestinal complaints Musculoskeletal: Musculoskeletal: Reports back pain Integumentary/Breasts: Skin/Breast: Reports system reviewed and no additional complaints, except as docu Neurologic: Reports system reviewed and no additional complaints, except as documented Endocrine: Endocrine: Reports no additional endocrine complaints Hematologic/Lymphatic: Hematologic/Lymphatic: Reports no additional hematologic/lymphatic complaints Allergic/Immunologic: Allergic/Immunologic: Reports no additional allergic/immunologic complaints Exam Const: General: no acute distress Other: Pleasant black male sitting up in the chair. HENMT: Mouth: Yes moist mucous membranes Eyes: Sclera: sclerae normal Pupils: Equal, round and reactive pupils present Neck: Neck: supple and no JVD Resp: Effort & Inspection: normal respiratory effort Auscultation: crackles (scant bibasalar crackles) Cardio: Rate: regular rate Rhythm: regular rhythm GI: Auscultation: normal bowel sounds Skin: General skin exam: normal color Neuro: Cranial nerves: Yes Equal, round and reactive pupils present Cognition (Neuro): normal cognition Extrem: General: normal to inspection Objective Data Vital Signs Vital Signs: Vital Signs - 24 hr 07/17/21 10:00 07/17/21 12:00 07/17/21 12:19 Temperature 35.8 C L Pulse Rate 82 63 65 Respiratory Rate 18 Blood Pressure 122/47 L Pulse Oximetry 100 07/17/21 14:00 07/17/21 16:00 07/17/21 16:30 Temperature 36.5 C Pulse Rate 85 89 81 Respir
--- NOTE | 2021-07-18 13:08 | PM.IMPN ---
Progress Note: A&P Additional Plan Assessment and plan (1) SOB (shortness of breath): Code(s): R06.02 - Shortness of breath Status: Acute Assessment and Plan: - Dyspnea is resolved after being diuresed. Was caused by acute Heart failure. - ECHO today shows a decompensated heart failure with LVSF and EF of 20-25%. - Cardiology has consulted. - Lisinopril to be changed to Entresto and HCTZ to Spironolactone by Cards. - OK to start Entresto tomorrow. - To be fitted for Life vest this week and also have angiography tomorrow. 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 (2) Elevated troponin: Code(s): R77.8 - Other specified abnormalities of plasma proteins Status: Acute Assessment and Plan: - Troponins flat. (3) Left bundle branch block: Code(s): I44.7 - Left bundle-branch block, unspecified Status: Acute Assessment and Plan: - New BBB, ECHO results as noted. - Cardiology Managing. (4) Essential hypertension: Code(s): I10 - Essential (primary) hypertension Status: Acute Assessment and Plan: - Stable on current medication regimen. (5) Type 2 diabetes mellitus without complication, without long-term current use of insulin: Code(s): E11.9 - Type 2 diabetes mellitus without complications Status: Acute Assessment and Plan: - Patient states he was able to stop his metformin after losing 120 lb. HgbA1C is 4.7. Time Spent With Patient Time with patient: 15 - 25 minutes Subjective Date/time seen: 07/18/21 0940 This pt. was examined at the bedside in interval assessment today. He is going to be taken for Coronary Angiography tomorrow to further evaluate his Coronaries with an EF of 20-25%. This is possibly secondary to his HTN. Cardiology has made recommendations today for medication changes as well as he has been made NPO for angiogram. He has no new complaints at this time and no new symptoms. Review of Systems Review of Systems: A full 12 point ROS was performed and is otherwise unremarkable with exception of what is in HPI. All systems reviewed & are unremarkable except as noted in HPI and below Exam Narrative: Constitutional: Patient is well-nourished in no acute distress. Patient is alert oriented x3 HEENT: Moist mucous membranes. No scleral icterus. No lymphadenopathy. Neck: No carotid bruits noted no JVD noted Lungs: Lung sounds are clear to auscultation bilaterally. No accessory muscle use. No rhonchi, rales, or wheezes noted. Cardiovascular: Apical pulse is regular rate and rhythm. S1-S2 noted, no S3 or S4 noted. No gallops, murmurs, or rubs noted. Abdomen: Soft, round, and nontender. No palpable masses. Extremities: No edema. Nontender. Skin: No rashes or lesions. Warm and dry. Skin is intact. Neurological: No focal neurological deficits. Cranial nerves II-XII grossly intact. Psychiatric: Cooperative, appropriate mood, and affect Objective Data Vital Signs Vital Signs: Vital Signs - 24 hr 07/17/21 14:00 07/17/21 16:00 07/17/21 16:30 Temperature 97.7 F Pulse Rate 85 89 81 Respiratory Rate 18 Blood Pressure 130/62 Pulse Oximetry 97 07/17/21 18:00 07/17/21 19:54 07/17/21 20:00 Temperature 96 F L Pulse Rate 81 62 83 Respiratory Rate 20 Blood Pressure 142/52 H Pulse Oximetry 99 07/17/21 20:18 07/17/21 21:54 07/18/21 00:00 Temperature Pulse Rate 75 71 Respiratory Rate Blood Pressure Pulse Oximetry 98 96 07/18/21 00:17 07/18/21 02:00 07/18/21 04:00 Temperature 96.6 F L 97.7 F Pulse Rate 68 70 70 Respiratory Rate 20 18 Blood Pressure 136/58 L 133/66 Pulse Oximetry 97 95 07/18/21 06:00 07/18/21 08:00 07/18/21 08:56 Temperature 96.1 F L Pulse Rate 71 74 79 Respiratory Rate 22 H Blood Pressure 147/57 H Pulse Oximetry 99 07/18/21 09:10 07/18/21 10:00 07/18/21 12:25 Temperature 97.7 F Pulse Rate 78 79 67 Respiratory Rate 20 Blood Pressure 1
[2021-07-19] VITALS (24 sets, daily range): BP systolic 114–152; BP diastolic 49–78; PULSE 64–130; RESP 11–20; TEMP 36–37; O2SAT 95–100
--- NOTE | 2021-07-19 06:43 | WPDMODSED ---
Moderate Sedation Note-Pt Data Patient Data Diagnosis: Dilated Cardiomyopathy Present Complaint: None Procedure to be performed/Plan: Left heart cath Allergies Allergy/AdvReac Type Severity Reaction Status Date / Time tetracycline Allergy Unknown Hives Verified 07/15/21 08:41 Home Medications Medication Instructions Recorded Confirmed Type blood sugar diagnostic #100 ea 04/06/20 07/15/21 Rx lancets 33 gauge #100 ea 04/06/20 07/15/21 Rx hydrochlorothiazide 25 mg tablet 25 mg PO DAILY #90 tablet 05/23/20 07/15/21 Rx lisinopril 20 mg tablet 20 mg PO DAILY #90 tablet 05/23/20 07/15/21 Rx allopurinol 300 mg tablet 300 mg PO DAILY #90 tablet 09/23/20 07/15/21 Rx metoprolol tartrate 25 mg tablet 25 mg PO BID #180 tablet 01/09/21 07/15/21 Rx clonidine HCl 0.2 mg PO BID 07/15/21 07/15/21 History Current Medications: Active Medications Acetaminophen (Acetaminophen 325 Mg Tablet) 650 mg PO Q6H PRN PRN Reason: Mild Pain (1-3) or Fever Last Admin: 07/16/21 18:26 Dose: 650 mg Documented by: Allopurinol (Allopurinol 300 Mg Tablet) 300 mg PO DAILY [facility] Last Admin: 07/18/21 09:10 Dose: 300 mg Documented by: Aspirin (Aspirin 81 Mg Enteric Tablet) 81 mg PO QAM [facility] Last Admin: 07/18/21 09:10 Dose: 81 mg Documented by: Benzonatate (Benzonatate 100 Mg Capsule) 100 mg PO TID PRN PRN Reason: Cough Last Admin: 07/16/21 17:00 Dose: 100 mg Documented by: Carvedilol (Carvedilol 12.5 Mg Tablet) 12.5 mg PO Q12HR [facility] Last Admin: 07/18/21 20:26 Dose: 12.5 mg Documented by: Clonidine HCl (Clonidine Hcl 0.2 Mg Tablet) 0.2 mg PO BID [facility] Last Admin: 07/18/21 16:55 Dose: 0.2 mg Documented by: Furosemide (Furosemide 40 Mg Tablet) 40 mg PO BID [facility] Last Admin: 07/18/21 16:55 Dose: 40 mg Documented by: Sodium Chloride (Normal Saline Iv) 500 mls @ 100 mls/hr IV CONT .Q5H [facility] Morphine Sulfate (Morphine Sulfate (*Crx) 4 Mg/Ml Inj) 4 mg IV PUSH Q2H PRN PRN Reason: Pain Rated 7-10 Ondansetron HCl (Ondansetron Inj 4 Mg/2 Ml Vial) 4 mg IV PUSH Q4H PRN PRN Reason: Nausea Perflutren Lipid Microsphere (Perflutren Lipid Microspheres 1.5 Ml Vial Diluted To 10 Ml Total Volume) 0 ml IV PUSH ONCE PRN; Protocol PRN Reason: adequate visualization Spironolactone (Spironolactone 25 Mg Tablet) 25 mg PO QAM [facility] Last Admin: 07/18/21 09:12 Dose: 25 mg Documented by: Sedation/Anesthesia: No previous sedation/anesthesia problems (including family history). [facility] Past Medical History Medical History (Updated 07/18/21 @ 10:49 by VERONICA DaleyN-C) BMI 37.0-37.9, adult Body mass index (BMI) 40.0-44.9, adult Essential hypertension Morbid (severe) obesity due to excess calories Type 2 diabetes mellitus without complication, without long-term current use of insulin Surgical History Surgical History (Updated 07/15/21 @ 13:19 by Nichelle Giles APRN) History of hip surgery Status post left rotator cuff repair Family History Family History Sibling Hypertension Family history of gastrointestinal disorder Family history of arthritis Mother Family history of malignant neoplasm, Onset Age: 40 Family history of heart disease in male family member before age 55, Onset Age: 40 Patient's mother is , Onset Age: 40 Father Family history of malignant neoplasm, Onset Age: 70 Patient's father is , Onset Age: 70 Social History Social History Smoking status: Never smoker Second hand tobacco smoke exposure: No Alcohol intake: never Substance use: never Spiritual care concerns: No Mod Sed Physical Exam Physical Exam Pre Procedural Exam: Normal: Appearance, Neck, Throat, Airway, Lungs, Heart Rate, Heart Rhythm, Neuro Exam and Extremities and Variation: Heart Size (PMI displaced ) Hours since solid foods: 12 Hours since liquid intake: 12 Mallampati Classificatio
--- NOTE | 2021-07-19 07:57 | P.PCNCC_ITS ---
Cardiac Cath Procedure Note Date of procedure:: 07/19/21 Performing physician:: Navdeep Arredondo MD Indication:: Newly diagnosed cardiomyopathy longstanding hypertension Brief clinical history:: this is a 51-year-old patient with longstanding hypertension presenting with symptoms of congestive heart failure of new onset. He by echo was found to severely dilated left ventricle with profound hypocontractility. He appears to have mild mitral regurgitation and moderate aortic regurgitation. Procedure Procedure performed:: Coronary angiogram left ventriculogram Angio-Seal to right femoral artery Sedation/Medication given:: fentanyl 25 mg Versed 2 mg case start time Access site:: right femoral artery Estimated blood loss:: 20 cc Procedure note:: patient was brought to the cardiac catheterization lab postabsorptive state where the right femoral triangle was prepared and draped in the normal fashion. Anesthesia was provided with 1% lidocaine infiltrated locally. Using the modified Seldinger technique the right common femoral artery was punctured and a 5 [place] vascular sheath was placed. After this left heart catheterization was carried out. I used a 5 [place] FL4 catheter engage and inject the left coronary artery. I then used 5 [place] JR4 catheter to engage and inject the right coronary artery. A 5 [place] angled pigtail catheter was used to document left-sided hemodynamics and to inject LV g in the ANDERSON projection. Following this an angiogram was done of the femoral artery through the sheath after which Angio-Seal device was deployed with a good hemostatic result. Patient tolerated procedure well there were no apparent complications. 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 Findings:: Hemodynamics: Central aortic pressure was 140/62 left ventricle 1 40/5 end-diastolic pressure 28. No gradient was seen across pullback. Left ventricle: Left ventricle is massively dilated not ideally opacified with standard 30 cc contrast bolus. There was profound hypocontractility with ejection fraction and visually estimated to be about 25%. The left main coronary artery is large in caliber widely patent the left anterior descending is a large caliber artery extends down to around the apex. The LAD and its branches are angiographically unremarkable. Circumflex is a large caliber vessel giving rise to the marginal branches the circumflex system is angiographically unremarkable. The right coronary artery is large caliber and dominant to the posterior circulation. It is also angiographically unremarkable. Conclusion:: 1. Right coronary dominant circulation with no evidence of coronary disease 2. severe dilated cardiomyopathy LV dilatation and marked hypokinesis. Navdeep Arredondo MD [facility]
--- NOTE | 2021-07-19 08:02 | PM.PNCARD ---
Progress Note: A&P Additional Plan 51-year-old man with: Longstanding hypertension with severe profound dilated cardiomyopathy. No ischemic disease. Today I will start weaning his clonidine in hopes of starting Entresto. The patient has profound LV dilatation relatively wide pulse pressure making the somewhat more concerned about his aortic valve regurgitation. Will look at his echo again in terms of that. Navdeep Arredondo [facility] Subjective Date/time seen: 07/19/21 08:02 Interval history: Follow-up visit in this 51-year-old man with: New onset congestive heart failure in the background of longstanding hypertension, left bundle branch block and physical exam evidence of mitral regurgitation. 07/17/2021: Patient being seen today in follow-up reports to be feeling fairly well in terms of his dyspnea. Echocardiogram was done this morning unfortunately demonstrates that he has a severe dilated cardiomyopathy. Spent a good deal of time discussing these results and the implications with the patient. 07/18/2021: Feeling well this morning. He notes that his breathing has improved significantly. He is on room air. No specific complaints this morning. 07/19/2021: Patient without significant complaints today. Left heart catheterization this morning demonstrates normal coronary anatomy. Left ventricle is markedly dilated and markedly hypodynamic. Exam Const: General: no acute distress Other: Pleasant black male sitting up in the chair. HENMT: Mouth: Yes moist mucous membranes Eyes: Sclera: sclerae normal Pupils: Equal, round and reactive pupils present Neck: Neck: supple and no JVD Resp: Effort & Inspection: normal respiratory effort Auscultation: crackles (scant bibasalar crackles) Other: Scant basilar crackles noted Cardio: Rate: regular rate Rhythm: regular rhythm Other: MR murmur today is much more subtle than yesterday GI: Auscultation: normal bowel sounds Skin: General skin exam: normal color Neuro: Cranial nerves: Yes Equal, round and reactive pupils present Cognition (Neuro): normal cognition Extrem: General: normal to inspection Objective Data Vital Signs Vital Signs: Vital Signs - 24 hr 07/18/21 08:56 07/18/21 09:10 07/18/21 10:00 Temperature 35.6 C L Pulse Rate 79 78 79 Respiratory Rate 22 H Blood Pressure 147/57 H Pulse Oximetry 99 07/18/21 12:00 07/18/21 12:25 07/18/21 14:00 Temperature 36.5 C Pulse Rate 65 67 76 Respiratory Rate 20 Blood Pressure 113/42 L Pulse Oximetry 100 07/18/21 15:30 07/18/21 15:31 07/18/21 16:00 Temperature 35.6 C L Pulse Rate 86 89 Respiratory Rate 20 Blood Pressure 150/63 H Pulse Oximetry 99 100 07/18/21 18:00 07/18/21 19:42 07/18/21 20:00 Temperature 36.6 C Pulse Rate 81 74 74 Respiratory Rate 15 Blood Pressure 137/52 L Pulse Oximetry 97 07/18/21 22:00 07/18/21 23:31 07/19/21 00:00 Temperature 36.1 C L Pulse Rate 73 65 84 Respiratory Rate 15 Blood Pressure 107/41 L Pulse Oximetry 99 07/19/21 01:49 07/19/21 04:00 07/19/21 05:57 Temperature 36.3 C L Pulse Rate 65 80 93 Respiratory Rate 15 Blood Pressure 124/62 Pulse Oximetry 97 Intake/Output Intake/Output: Intake & Output 07/16/21 07/17/21 07/18/21 07/19/21 23:59 23:59 23:59 23:59 Intake Total 960 1470 1460 600 Output Total 811 512 7857 900 Balance 210 720 410 -300 Meds/Results Medications: Active Medications Generic Name Dose Route Start Last Admin Trade Name Freq PRN Reason Stop Dose Admin Acetaminophen 650 mg 07/16/21 17:55 07/16/21 18:26 Acetaminophen 325 Mg Tablet PO 650 mg Q6H PRN Administration Mild Pain (1-3) or Fever Allopurinol 300 mg 07/16/21 09:00 07/18/21 09:10 Allopurinol 300 Mg Tablet PO 300 mg DAILY TOYA Administration Aspirin 81 mg 07/16/21 09:00 07/18/21 09:10 Aspirin 81 Mg Enteric Tablet PO 81 mg QAM TOYA Administration Benzonat
[2021-07-19] MEDS: FUROSEMIDE 40 MG TABLET PO ×2 (10:01→16:56)
[2021-07-19] MEDS: BENZONATATE 100 MG CAPSULE PO (10:01)
[2021-07-19] MEDS: SPIRONOLACTONE 25 MG TABLET PO (10:01)
[2021-07-19] MEDS: ASPIRIN 81 MG ENTERIC TABLET PO (10:01)
[2021-07-19] MEDS: carvediloL 12.5 MG TABLET PO ×2 (10:01→20:14)
[2021-07-19] MEDS: allopurinoL 300 MG TABLET PO (10:02)
[2021-07-19] MEDS: cloNIDine HCL 0.1 MG TABLET PO ×2 (10:08→21:42)
[2021-07-19 10:13] LABS: Anion Gap 1 mmol/L (8-16); Blood Urea Nitrogen 26 mg/dL (9-20); Calcium 7.9 mg/dL (8.4-10.2); Carbon Dioxide 29 mmol/L (22-30); Chloride 109 mmol/L (98-107); Estimated CRCL calculation 73 ml/min; Estimated Glomerular Filt Rate > 60; Glucose 94 mg/dL (65-110); Potassium 3.7 mmol/L (3.4-5.0); Sodium 139 mmol/L (137-145)
--- NOTE | 2021-07-19 13:17 | PM.IMPN ---
Progress Note: A&P Assessment and Plan (1) Cardiomyopathy: Code(s): I42.9 - Cardiomyopathy, unspecified Status: Acute Assessment and Plan: Presented with dyspnea, PND - Echo showed decompensated heart failure with LVEF of 20-25% - Appreciate cardiology consultation - He has had symptomatic improvement with diuresis - Lisinopril discontinued with plans to start Entresto after ACEI washout completed - Started on spironolactone - Clonidine being weaned per Cardiology to initiate Entresto - Coronary angiogram today showed normal coronary anatomy with markedly dilated hypodynamic left ventricle - Patient has been fitted for LifeVest, continue with wearing (2) Elevated troponin: Code(s): R77.8 - Other specified abnormalities of plasma proteins Status: Acute Assessment and Plan: Mildly elevated with flat trend - Not felt to be consistent with acute coronary syndrome - Likely due to decompensated HF (3) Left bundle branch block: Code(s): I44.7 - Left bundle-branch block, unspecified Status: Acute Assessment and Plan: New finding on presentation - Appreciate cardiology consultation (4) Essential hypertension: Code(s): I10 - Essential (primary) hypertension Status: Acute Assessment and Plan: Blood pressure reviewed and has been stable. Last BP 119/49 - Continue Lasix, spironolactone, carvedilol. Weaning clonidine - Monitor blood pressure trends (5) Type 2 diabetes mellitus without complication, without long-term current use of insulin: Code(s): E11.9 - Type 2 diabetes mellitus without complications Status: Acute Assessment and Plan: Diet controlled. A1c is 4.7 - He stopped his metformin some time ago after 120 lb weight loss - No further monitoring required Subjective Date/time seen: 07/19/21 13:17 Interval history: Date of service: 07/19/2021 Pablo Parikh is a 51-year-old male with a history of hypertension and type 2 diabetes mellitus who is seen in follow-up for dilated cardiomyopathy. He had cardiac catheterization today and tolerated this well. At this time, he offers no complaints and feels he is in his usual state of health. He tolerated breakfast this morning. He states his shortness of breath has resolved. He denies chest pain. He does endorse a dry cough that has been persistent for about 1 week. No nausea, vomiting, fever, chills, dizziness, lightheadedness, weakness. He has been tolerating the LifeVest well and states it is not bothering him at all. He has no additional concerns today Review of Systems Review of Systems: All systems reviewed & are unremarkable except as noted in HPI and below Exam Narrative: General: Well-nourished, well-appearing 51 year-old male, semi-recumbent in bed, comfortable, NARD Neuro: awake, alert and oriented x4, speech clear, no focal neuro deficits noted HEENMT: normocephalic, atraumatic, EOMI, sclerae anicteric, wearing eyeglasses Respiratory: clear to auscultation bilaterally, nonlabored breathing Cardio: regular rate, regular rhythm with S1-S2, wearing LifeVest Abdomen: nondistended, normoactive bowel sounds, soft, nontender to palpation Extremities: Trace edema, no erythema or tenderness to palpation, DP pulses 2+ bilaterally Skin: no rashes or lesions, warm and dry Psych: appropriate mood and affect, judgment and insight intact Objective Data Vital Signs Vital Signs: Vital Signs - 24 hr 07/18/21 14:00 07/18/21 15:30 07/18/21 15:31 Temperature 96.0 F L Pulse Rate 76 86 Pulse Rate [Right Pedal (Dorsalis Pedis)] Respiratory Rate 20 Blood Pressure 150/63 H Pulse Oximetry 99 100 07/18/21 16:00 07/18/21 18:00 07/18/21 19:42 Temperature 97.8 F Pulse Rate 89 81 74 Pulse Rate [Right Pedal (Dorsalis Pedis)] Respiratory Rate 15 Blood Pressure 137/52 L Pulse Oximetry 97 07/18/21 20:00 07/18/21 22:00 07/18/21 23:31 Temp
[2021-07-20] VITALS (12 sets, daily range): BP systolic 110–143; BP diastolic 59–91; PULSE 63–89; RESP 18; TEMP 36–36.4; O2SAT 97–100
[2021-07-20 05:04] LABS: Hematocrit 40.8 % (42.0-52.0); Hemoglobin 13.2 g/dL (14.0-18.0); Mean Corpuscular HGB Conc 32.4 g/dl (32-36); Mean Corpuscular Hemoglobin 28.1 pg (26-34); Mean Platelet Volume 11.2 fl (7.4-10.4); Platelet Count Result 177 k/mm3 (150-375); Red Blood Count 4.69 M/mm3 (4.6-6.20); Red Cell Distribution Width 12.7 % (11.5-14.5); White Blood Count 5.5 K/mm3 (4.5-10.0)
[2021-07-20 05:18] LABS: Anion Gap 7 mmol/L (8-16); Blood Urea Nitrogen 25 mg/dL (9-20); Calcium 8.5 mg/dL (8.4-10.2); Carbon Dioxide 28 mmol/L (22-30); Chloride 107 mmol/L (98-107); Estimated CRCL calculation 64 ml/min; Estimated Glomerular Filt Rate 59; Glucose 94 mg/dL (65-110); Potassium 3.6 mmol/L (3.4-5.0); Sodium 142 mmol/L (137-145)
[2021-07-20] MEDS: FUROSEMIDE 40 MG TABLET PO (09:34)
[2021-07-20] MEDS: carvediloL 12.5 MG TABLET PO (09:34)
[2021-07-20] MEDS: ASPIRIN 81 MG ENTERIC TABLET PO (09:34)
[2021-07-20] MEDS: allopurinoL 300 MG TABLET PO (09:36)
[2021-07-20] MEDS: cloNIDine HCL 0.1 MG TABLET PO (09:36)
[2021-07-20] MEDS: SPIRONOLACTONE 25 MG TABLET PO (09:36)
[2021-07-20] MEDS: BENZONATATE 100 MG CAPSULE PO (09:36)
--- NOTE | 2021-07-20 09:42 | PM.PNCARD ---
Progress Note: A&P Assessment and Plan (1) Cardiomyopathy: Code(s): I42.9 - Cardiomyopathy, unspecified Status: Acute Assessment and Plan: Presented to the hospital in decompensated heart failure. New diagnosis cardiomyopathy with an EF of 20 - 25%. Possibly secondary to longstanding HTN. [facility] negative for CAD. He has been started on GDMT for HFrEF. Continue coreg 12.5mg b.i.d Continue spironolactone 25mg daily Start Entresto 24- Reduce furosemide to 40mg daily LifeVest in place Appropriate for discharge home today from a cardiac perspective (2) Essential hypertension: Code(s): I10 - Essential (primary) hypertension Status: Acute Assessment and Plan: Reasonably controlled. (3) SOB (shortness of breath): Code(s): R06.02 - Shortness of breath Status: Acute Assessment and Plan: Secondary to CHF. Resolved. (4) Left bundle branch block: Code(s): I44.7 - Left bundle-branch block, unspecified Status: Acute (5) Elevated troponin: Code(s): R77.8 - Other specified abnormalities of plasma proteins Status: Acute Assessment and Plan: Elevated at presentation but flat. Not construction representative of ACS. [facility] yesterday did not show any coronary artery disease. Additional Plan Subjective Date/time seen: 07/20/21 09:42 Interval history: Follow-up visit in this 51-year-old man with: New onset congestive heart failure in the background of longstanding hypertension, left bundle branch block and physical exam evidence of mitral regurgitation. 07/17/2021: Patient being seen today in follow-up reports to be feeling fairly well in terms of his dyspnea. Echocardiogram was done this morning unfortunately demonstrates that he has a severe dilated cardiomyopathy. Spent a good deal of time discussing these results and the implications with the patient. 07/18/2021: Feeling well this morning. He notes that his breathing has improved significantly. He is on room air. No specific complaints this morning. 07/19/2021: Patient without significant complaints today. Left heart catheterization this morning demonstrates normal coronary anatomy. Left ventricle is markedly dilated and markedly hypodynamic. 07/20/2021: Feeling well today. No shortness of breath, chest pain, or palpitations. He is able to lay flat. Review of Systems Constitutional: Constitutional: Reports no additional constitutional complaints Eyes: Eyes: Reports no additional eye complaints ENT: Reports system reviewed and no additional complaints, except as documented Cardiovascular: Cardiovascular: Reports as per HPI Respiratory: Respiratory: Reports as per HPI Gastrointestinal: Gastrointestinal: Reports no additional gastrointestinal complaints Musculoskeletal: Musculoskeletal: Reports back pain Integumentary/Breasts: Skin/Breast: Reports system reviewed and no additional complaints, except as docu Neurologic: Reports system reviewed and no additional complaints, except as documented Endocrine: Endocrine: Reports no additional endocrine complaints Hematologic/Lymphatic: Hematologic/Lymphatic: Reports no additional hematologic/lymphatic complaints Allergic/Immunologic: Allergic/Immunologic: Reports no additional allergic/immunologic complaints Exam Const: General: no acute distress Other: Pleasant black male lying flat in bed HENMT: Mouth: Yes moist mucous membranes Eyes: Sclera: sclerae normal Pupils: Equal, round and reactive pupils present Neck: Neck: supple and no JVD Resp: Effort & Inspection: normal respiratory effort Cardio: Rate: regular rate Rhythm: regular rhythm Heart sounds: Murmur heart sound present GI: Auscultation: normal bowel sounds Skin: General skin exam: normal color Neuro: Cranial nerves: Yes Equal, round and reactive pupils present Cognition (Neuro): normal cognition Extrem: General: normal to inspection Objecti
--- NOTE | 2021-07-20 12:08 | PCCCNOTE ---
On 07/20/21, the student, [Gina Eldridge], provided care and completed [facility] documentation on this patient. I have reviewed the student's documentation and agree with the findings.
--- NOTE | 2021-07-20 12:32 | PM.DS ---
DS: Admitting Diagnosis Discharge Date 07/20/2021 Admitting Diagnosis Shortness of breath DS: Discharge Diagnosis Discharge Diagnosis (1) Cardiomyopathy: Code(s): I42.9 - Cardiomyopathy, unspecified Status: Acute Assessment and Plan: Presented with dyspnea, PND - Echo showed decompensated heart failure with LVEF of 20-25% - He was seen in consultation by cardiology consultation - He had symptomatic improvement with diuresis. PND and SOB resolved. - Underwent coronary angiogram on 07/19/21 which showed no coronary anatomy with markedly dilated hypodynamic left ventricle - Medication regimen adjusted as follows per cardiology recommendations: - Clonidine weaned to 0.1 mg BID - Lisinopril discontinued - Metoprolol discontinued. Carvedilol 12.5 mg BID started - Started Entresto / BID - Lasix 40 mg daily - Spironolactone 25 mg daily - Follow up with cardiology as an outpatient - Fitted for LifeVest which he will continue wearing (2) Elevated troponin: Code(s): R77.8 - Other specified abnormalities of plasma proteins Status: Acute Assessment and Plan: Mildly elevated on presentation with flat trend - Not felt to be consistent with acute coronary syndrome - Likely due to decompensated HF (3) Left bundle branch block: Code(s): I44.7 - Left bundle-branch block, unspecified Status: Acute Assessment and Plan: New finding on presentation - Continue outpatient cardiology follow up (4) Essential hypertension: Code(s): I10 - Essential (primary) hypertension Status: Acute Assessment and Plan: Blood pressure reviewed and remained relatively stable. - Continue medication regimen as noted above. (5) Type 2 diabetes mellitus without complication, without long-term current use of insulin: Code(s): E11.9 - Type 2 diabetes mellitus without complications Status: Acute Assessment and Plan: Diet controlled. A1c is 4.7 - He stopped his metformin some time ago after 120 lb weight loss - No further monitoring required (6) Elevated serum creatinine: Code(s): R79.89 - Other specified abnormal findings of blood chemistry Status: Acute Assessment and Plan: Baseline creatinine is unknown. Last creatinine in April 2020 was 1.4. - Creatinine during admission ranged between 1.3-1.5 - May be slightly elevated due to need for diuresis - He may have some component of chronic kidney disease - Recheck BMP in 1 week and and follow-up with PCP DS: Summary Hospital Course Hospital Course: Date of admission: 07/15/2021 Date of discharge: 07/20/2021 Pablo Parikh is a 51-year-old male with a history of hypertension and type 2 diabetes mellitus who presented to the emergency department on 07/15/2021 with complaints of shortness of breath, especially PND. On presentation to the ED, he was noted to have an elevated troponin and chest x-ray showed moderate edema. He was admitted to the hospitalist service for further evaluation management was seen in consultation by cardiology. Please see above for further details. He had symptomatic improvement with around therapy. He was feeling back to his usual state of health and was eager for discharge home. Discussed case with cardiology was comfortable with plans for discharge. Given the patient's overall improvement, he was determined to no longer require inpatient care and was felt to be stable for discharge. Discussed with the patient worrisome signs and symptoms for which to return he was educated on his medications. He was discharged in hemodynamically stable condition on 07/20/2021. Status at Discharge Functional status at discharge: independent ambulation Overall status at discharge: patient is progressing back to baseline Time Spent with Patient Time attestation: Total time spent providing and/or coordinating discharge services: 40 minutes Time spent: Greater than 30
== END 2021-07-20 14:46 | disposition home or self-care (01) | DRG 286 ==
LOC: ANHED 09:02 → ANHIMU 10:28
PROVIDERS: Nurse Practitioner Adult Health; Specialist; Admitting Provider Internal Medicine; Emergency Provider Emergency Medicine; PCP Internal Medicine; Visit Provider Physician Assistant
PROC: 4A023N7 Measurement of Cardiac Sampling and Pressure, Left Heart, Percutaneous Approach (ICD-10-PCS; CPT 93452; principal; 2021-07-19 07:00)
PROC: 4A023N7 Measurement of Cardiac Sampling and Pressure, Left Heart, Percutaneous Approach (ICD-10-PCS; 2021-07-19 07:00)
DX: I11.0 Hypertensive heart disease with heart failure (principal); I50.23 Acute on chronic systolic (congestive) heart failure; I42.0 Dilated cardiomyopathy; Z20.822 Contact with and (suspected) exposure to COVID-19; E11.9 Type 2 diabetes mellitus without complications; I44.7 Left bundle-branch block, unspecified; I34.0 Nonrheumatic mitral (valve) insufficiency; R77.8 Other specified abnormalities of plasma proteins; E66.9 Obesity, unspecified; Z68.32 Body mass index [BMI] 32.0-32.9, adult
CPT/HCPCS: 36415; 71046; 80048; 80053; 83036; 83735; 84484; 85025; 85027; 93005; 93458; 96372; 96374; 99285; A9270; C1760; C1887; C1894; C8929; C9803; G0269; G0378; G0379; J0583; J1644; J1650; J2250; J3010; J7040; Q9957; U0003; U0005

== ENCOUNTER 2021-10-23 16:30 | Outpatient (RCR) | payer BC, SELFPAY ==
[2021-09-22 16:02] VITALS: PULSE 83
== END 2021-12-13 08:03 | disposition home or self-care (01) ==
LOC: ANHCPREHAB 16:30
PROVIDERS: PCP Internal Medicine; Visit Provider Nurse Practitioner
DX: I50.89 Other heart failure (principal)
CPT/HCPCS: 93798

== ENCOUNTER 2021-12-22 12:13 | Inpatient (IN) | payer BC, SELFPAY ==
[2021-12-22] VITALS (13 sets, daily range): BP systolic 105–144; BP diastolic 45–114; PULSE 89–150; RESP 17–24; TEMP 36–36.6; O2SAT 98–100; BMI 36.1; BMI 37.0
--- NOTE | ~2021-12-22 | US_ITS ---
US renal BI DATE: 12/23/2021 08:20 INDICATION: Elevated serum creatinine level TECHNIQUE: Real-time imaging of the kidneys and urinary bladder COMPARISON: 08/06/2013 retroperitoneal duplex examination FINDINGS: The right kidney measures 11.1 cm length, left kidney 12 cm. No renal mass lesion or hydron ephrosis is evident. Exophytic 1 cm left renal cyst is suggested. There is no hydronephrosis of eithe r kidney. There is diffuse thickening of the urinary bladder wall. No intraluminal filling defect of the urinar y bladder is noted. IMPRESSION: 1 cm left renal cyst; otherwise no renal mass lesion or hydronephrosis Reviewed, dictated and finalized at [facility]. Reviewed, dictated and finalized at location A. IMPRESSION: 1 cm left renal cyst; otherwise no renal mass lesion or hydronephro sis
--- NOTE | ~2021-12-22 | XR_ITS ---
EXAMINATION: XR chest 1V portable DATE: 12/22/2021 12:34 INDICATION: Shortness of breath. TECHNIQUE: A single frontal view of the chest was obtained. COMPARISON: Chest 2 views 07/15/2021 FINDINGS: There is no pneumonia, pleural effusion, or pneumothorax. Cardiomegaly is noted. IMPRESSION: 1. Cardiomegaly. Reviewed, dictated and finalized at location A. IMPRESSION: 1. Cardiomegaly.
--- NOTE | 2021-12-22 12:14 | ECG_ITS ---
Measurements Intervals [place] Rate: 150 P: IA: 0 QRS: -54 QRSD: 138 T: 122 QT: 313 QTc: 494 Interpretive Statements ATRIAL FIBRILLATION WITH RAPID VENTRICULAR RESPONSE MARKED LEFT AXIS DEVIATION [QRS AXIS < -30] INCOMPLETE LEFT BUNDLE BRANCH BLOCK COMPARED TO ECG 07/16/2021 00:31:11 ATRIAL FIBRILLATION NOW PRESENT Electronically Signed On 12-22-2021 16:31:22 CDT by Navdeep Arredondo M.D.
--- NOTE | 2021-12-22 12:20 | ED.GENADULT ---
HPI - General Adult General Chief complaint: Arrhythmia/Palpitations Stated complaint: irregular heart beat Time Seen by Provider: 12/22/21 12:14 Source: RN notes reviewed History of Present Illness HPI narrative: Patient presents emergency department from cardiology's office for atrial fibrillation. Patient states he got into a routine visit today and was found to be in atrial fibrillation and sent to the ER for further evaluation. States he has not noticed his heart has been racing he denies any chest pain he states he has been having some mild shortness of breath with activity recently but denies any other symptoms states he does have a history of cardiomyopathy has been taking his medications as prescribed which includes Coreg and metoprolol he is not currently on any anticoagulation Related Data Home Medications Medication Instructions Recorded Confirmed sacubitril 49 mg-valsartan 51 mg 1 tablet PO BID 09/22/21 09/22/21 tablet (Entresto) carvedilol 12.5 mg tablet (Coreg) 25 mg PO Q12HR 10/12/21 10/12/21 Allergies Allergy/AdvReac Type Severity Reaction Status Date / Time tetracycline Allergy Unknown Hives Verified 12/22/21 12:23 Review of Systems Review of Systems: Gen.: Denies fevers or chills ENT: Denies congestion Respiratory: Reports shortness of breath with activity CV: See HPI GI: Denies abdominal pain nausea, emesis or diarrhea Musculoskeletal: Denies back pain or muscle pain Neuro: Denies numbness, tingling, weakness or focal weakness Skin: Denies rash Except as documented, all other systems reviewed and negative PMFSH Past Medical History Medical History BMI 37.0-37.9, adult Body mass index (BMI) 40.0-44.9, adult Essential hypertension Morbid (severe) obesity due to excess calories Type 2 diabetes mellitus without complication, without long-term current use of insulin Surgical History Surgical History History of hip surgery Status post left rotator cuff repair Family History Family History (Updated 09/22/21 @ 14:53 by Darlin Herrera RN) Sibling Family history of gastrointestinal disorder Family history of arthritis Hypertension Mother Family history of heart disease in male family member before age 55, Onset Age: 40 Family history of malignant neoplasm, Onset Age: 40 Patient's mother is , Onset Age: 40 Hypertension Father Family history of malignant neoplasm, Onset Age: 70 Patient's father is , Onset Age: 70 Hypertension Social History Social History Smoking status: Never smoker Second hand tobacco smoke exposure: No Alcohol intake: never Substance use: never Substance use type: does not use Spiritual care concerns: No Exam Narrative: APPEARANCE: No acute distress, nontoxic, resting in bed EYES: EOMI HEENT: Normocephalic, atraumatic, OMM RESPIRATORY: No respiratory distress Clear to auscultation bilaterally with no rhonchi wheezing or rales. CARDIOVASCULAR: Tachycardic and irregular without murmurs rubs or gallops. ABDOMINAL: Soft, nontender, nondistended, no rebound or guarding MUSCULOSKELETAl: Moves all extremities. No clubbing, cyanosis or edema. NEURO: Awake and alert. Following commands, speech normal, no focal deficits SKIN:: Warm, dry. No rashes lesions or abrasions PSYCHIATRIC: Normal affect/mood, Course Course Emergency Course: Reviewed old records patient with cardiomyopathy recent echo showing EF of 40% Discussed with ENGINEERING DIRECTOR Anastacia Vargas for Dr. Arredondo with patient's cardiomyopathy recommends not giving Cardizem request at this time patient be given Lopressor IV Call back discussed with BRITNI Galaviz she agrees with consult discussed patient getting Lopressor IV heart rate currently in the 120s recommends patient receive metoprolol 25 p.o.
[2021-12-22] MEDS: METOPROLOL TARTRATE INJ 5 MG/5 ML VIAL IV PUSH (12:28)
[2021-12-22 12:39] LABS: Basophils Percent Auto 0.4 % (0.2-1.2); Eosinophils Percent Auto 0.8 % (0-4.4); Hematocrit 41.7 % (42.0-52.0); Hemoglobin 12.9 g/dL (14.0-18.0); Immature Granulocyte Absolute 0.01 K/mm3 (0.00-0.031); Immature Granulocyte Percent A 0.2 % (0-0.5); Lymphocytes Absolute Auto 1.58 K/mm3 (0.9-3.2); Lymphocytes Percent Auto 31.2 % (18.3-44.2); Mean Corpuscular HGB Conc 30.9 g/dl (32-36); Mean Corpuscular Hemoglobin 28.1 pg (26-34); Mean Corpuscular Volume 90.8 fl (80-100); Mean Platelet Volume 11.5 fl (7.4-10.4); Monocytes Absolute Auto 0.4 K/mm3 (0.1-0.6); Monocytes Percent Auto 6.9 % (2.6-8.5); Neutrophils Absolute Auto 3.1 K/mm3 (1.3-6.7); Neutrophils Percent Auto 60.5 % (45.5-73.1); Nucleated Red Blood Cells Perc 0.6 % (0.0-0.2); Platelet Count Result 185 k/mm3 (150-375); Red Blood Count 4.59 M/mm3 (4.6-6.20); Red Cell Distribution Width 15.1 % (11.5-14.5); White Blood Count 5.1 K/mm3 (4.5-10.0)
[2021-12-22 12:47] LABS: Alanine Aminotransferase 31 U/L (6-50); Alkaline Phosphatase 57 U/L (38-126); Anion Gap 12 mmol/L (8-16); Aspartate Amino Transferase 25 U/L (17-59); Bilirubin,Total 1.1 mg/dL (0.2-1.3); Blood Urea Nitrogen 27 mg/dL (9-20); Carbon Dioxide 19 mmol/L (22-30); Chloride 109 mmol/L (98-107); Estimated CRCL calculation 56 ml/min; Estimated Glomerular Filt Rate 48; Glucose 101 mg/dL (65-110); Magnesium 1.9 mg/dL (1.6-2.3); Potassium 4.4 mmol/L (3.4-5.0); Sodium 140 mmol/L (137-145)
[2021-12-22 12:50] LABS: INR 1.3
[2021-12-22 12:58] LABS: NT Pro B Type Natriuretic Pept 4500 pg/mL (5-100); Troponin I 0.024 ng/mL (0.000-0.034)
[2021-12-22] MEDS: METOPROLOL TARTRATE 25 MG TABLET PO (13:13)
[2021-12-22] MEDS: ENOXAPARIN 120 MG/0.8 ML SYRINGE 116 MG SUB-Q (13:14)
[2021-12-22 13:16] LABS: SARS-CoV-2 RNA PCR Negative
--- NOTE | 2021-12-22 14:50 | PM.IMHP ---
H&P: HPI History of Present Illness Date/Time: 12/22/21 14:50 Chief Complaint: Irregular heartbeat. Narrative: This is a 51-year-old male with a relatively recent diagnosis of nonischemic cardiomyopathy (EF improved to 41% on recent echo on medical therapy, previously 20% in June), hypertension, and diabetes who presented to the emergency department from his vp purchasing's office for evaluation after he was found to be in atrial fibrillation with rapid ventricular response. He has not been feeling great since Saturday with vague symptoms to include fatigue, lightheadedness and dizziness, and exertional dyspnea. He made an appointment with Dr. Arredondo today at which time he was found to be in atrial fibrillation with rapid ventricular response with no prior history of the same. He has no sensations of racing heart, irregular heartbeat, or palpitations and he also denies overall chest discomfort. At this time he is being admitted for further evaluation and treatment as well as Cardiology consultation. He remains in AFib with rates in the low 100s after receiving IV Lopressor. Review of Systems Review of Systems: Twelve systems were reviewed. No fever, chills, or sweats. No recent cold or flu symptoms. No sick contacts. He drinks about 4 cups of coffee a day. No concerns for sleep apnea. No significant alcohol intake. Diabetes is well controlled and glucose is always within acceptable limits. Except as documented, all other systems were reviewed and are negative. [facility] Past Medical History Medical History (Updated 12/22/21 @ 22:57 by Annette Murdock PA-C) Chronic kidney disease Baseline creatinine is around 1.40. Essential hypertension Gout, unspecified Nonischemic cardiomyopathy Ejection fraction was 20% in June 2021, improved to 41% in November 2021 with medical treatment. Type 2 diabetes mellitus without complication, without long-term current use of insulin Surgical History Surgical History (Updated 12/22/21 @ 22:55 by Annette Murdock PA-C) History of cardiac catheterization (07/2021) History of hip surgery Left hip pinning in the early s. History of repair of left rotator cuff Family History Family History Sibling Family history of gastrointestinal disorder Family history of arthritis Hypertension Mother Family history of heart disease in male family member before age 55, Onset Age: 40 Family history of malignant neoplasm, Onset Age: 40 Patient's mother is , Onset Age: 40 Hypertension Father Family history of malignant neoplasm, Onset Age: 70 Patient's father is , Onset Age: 70 Hypertension Social History Social History (Updated 12/22/21 @ 22:55 by Annette Murdock PA-C) Social History: Surrogate medical decision maker: Alesia Quiros, sister. Code status: Full code. Smoking status: Never smoker Second hand tobacco smoke exposure: No Alcohol intake: current Drinks per week: 1 Substance use: never Substance use type: does not use Living arrangements: alone Occupation/Education: occupation Additional occupation/education comments: [employer]. Spiritual care concerns: No Meds Home Medications and Allergies Home Medications Medication Instructions Recorded Confirmed Type sacubitril 49 mg-valsartan 51 mg 1 tablet PO BID 09/22/21 12/22/21 History tablet (Entresto) carvedilol 12.5 mg tablet (Coreg) 25 mg PO Q12HR 10/12/21 12/22/21 History blood sugar diagnostic (Contour #100 ea 12/15/21 12/22/21 Rx Next Test Strips) dapagliflozin 10 mg tablet 10 mg PO DAILY #90 tabs 12/15/21 12/22/21 Rx (Farxiga) allopurinol 300 mg tablet 300 mg PO DAILY #90 tabs 12/18/21 12/22/21 Rx lancets (Microlet Lancet) #100 ea 12/18/21 12/22/21 Rx spironolactone 25 mg tablet 25 mg PO QAM #90 tabs 12/18/21 12/22/21 Rx aspirin 325 mg tablet 325 mg PO H
--- NOTE | 2021-12-22 15:48 | ADMGEN ---
This patient, Pablo Parikh, was admitted to IMU Room 205-01. Patient/family oriented to hospital policies and general routines including ID bracelet, bed and alarms, visiting hours, pain management, procedures, bathroom and other care routines, personal items, smoking policy, room service/diet, and visiting hours. Information on how to activate the Rapid Response Team has been discussed. Patient/Family are encouraged to report perceived risks to care and to ask questions if they do not understand what they are told or what they should do.
[2021-12-22 16:48] LABS: Troponin I 0.024 ng/mL (0.000-0.034)
--- NOTE | 2021-12-22 17:21 | PM.CNCAR ---
Assessment and Plan Assessment and plan (1) Atrial fibrillation with rapid ventricular response: Code(s): I48.91 - Unspecified atrial fibrillation Status: Acute (2) Cardiomyopathy: Code(s): I42.9 - Cardiomyopathy, unspecified Status: Acute Plan This is a 51-year-old man with recently diagnosed nonischemic cardiomyopathy. He has had a very nice response to medical therapy as detailed above with a significant improvement in his LV performance. He had just seen last week in the office and was doing very well. In this substrate he has now developed atrial fibrillation which undoubtedly and not surprisingly he is symptomatic but with. I will recommend continuing his heart failure regimen and also starting amiodarone and systemic anticoagulation at this time. As he is in the hospital I am going to start loading him with IV amiodarone and he will be anticoagulated with apixaban starting tomorrow since he did receive therapeutic Lovenox this afternoon. Hopefully he will convert to sinus rhythm with the amiodarone if he does not early next week I will anticipate electrically cardioverting him Navdeep Arredondo MD [facility] History of Present Illness History of Present Illness Consult date/time: 12/22/21 17:21 Consult reason: atrial fibrillation Reason For Visit: a fib with rvr Narrative: This is a very pleasant 51-year-old man who is known to me with a recently diagnosed nonischemic cardiomyopathy. I am seeing him now because his mid to the hospital with the new onset of atrial fibrillation. The patient called my office staff earlier this week on Saturday reporting that he was feeling lightheaded and somewhat more short of breath with activity. He was asked to come into the office for an EKG and the stated he was unable to come in until today. He came into the office today and was actually not in great distress but was in atrial fib with RVR was admitted sent to the emergency room for evaluation and that admitted to the hospital. The patient is known to me with a history of a nonischemic cardiomyopathy that was diagnosed in July of this year. He came into the hospital at that time with a new onset of decompensated heart failure. He had a very low ejection fraction with LV that was moderately dilated ejection fraction of 20-25%. He was placed on standard medical therapy in came into a good state of compensation. He did undergo a coronary angiogram at that time which demonstrated angiographically non diseased coronary arteries. He was discharged in improved condition. He did have a LifeVest. I saw this gentleman in follow-up on 12/14/2021 just last week at which time he was stable and asymptomatic. I presented to him very good news that a GI ejection fraction was improved to 41% and he returned his life vest device and removed follow-up was scheduled in the office for several months from now. In the last couple of days he has developed these symptoms and is now in atrial fibrillation which is a new diagnosis for him. Obviously the substrate for his AFib is his cardiomyopathy and atrial dilation. Seeing him in the a IMU he is in no distress watching television and appears to be remarkably comfortable. He did receive a dose of therapeutic Lovenox in the emergency department this afternoon. Review of Systems Constitutional: Constitutional: Reports no additional constitutional complaints Eyes: Eyes: Reports no additional eye complaints ENT: Reports system reviewed and no additional complaints, except as documented Cardiovascular: Cardiovascular: Reports as per HPI and Reports palpitations Respiratory: Respiratory: Reports dyspnea on exertion Gastrointestinal: Gastrointestinal: Reports no additional gastrointestinal complaints Musculoskeletal: Musculoskeletal: Reports no additional musculoskeletal complaints Integumentary/Breasts: Skin/Breast: Reports system reviewed and no additional complaints, except as docu Endoc
[2021-12-22] MEDS: AMIODARONE 360 MG/D5W 200 ML 360 MG/200 ML BAG 33.33 MG IV CONT (17:49)
[2021-12-22] MEDS: AMIODARONE 150 MG/D5W 100 ML 150 MG/100 ML BAG 600 MG IV CONT (17:49)
[2021-12-22 19:53] LABS: Troponin I 0.025 ng/mL (0.000-0.034)
[2021-12-22] MEDS: carvediloL 25 MG TABLET PO (20:11)
[2021-12-22] MEDS: SACUBITRIL/VALSARTAN 49-51 MG TABLET 1 TABLET PO (21:13)
[2021-12-22] MEDS: AMIODARONE 360 MG/D5W 200 ML 360 MG/200 ML BAG 16.67 MG IV CONT (23:56)
[2021-12-23] VITALS (20 sets, daily range): BP systolic 107–126; BP diastolic 49–69; PULSE 66–99; RESP 16–20; TEMP 36.2–36.8; O2SAT 99–100
[2021-12-23 05:04] LABS: Basophils Percent Auto 0.4 % (0.2-1.2); Eosinophils Absolute Auto 0.1 K/mm3 (0-0.3); Eosinophils Percent Auto 1.3 % (0-4.4); Hematocrit 37.3 % (42.0-52.0); Hemoglobin 11.7 g/dL (14.0-18.0); Immature Granulocyte Absolute 0.01 K/mm3 (0.00-0.031); Immature Granulocyte Percent A 0.2 % (0-0.5); Lymphocytes Percent Auto 46.7 % (18.3-44.2); Mean Corpuscular HGB Conc 31.4 g/dl (32-36); Mean Corpuscular Hemoglobin 28.1 pg (26-34); Mean Corpuscular Volume 89.4 fl (80-100); Mean Platelet Volume 11.7 fl (7.4-10.4); Monocytes Absolute Auto 0.4 K/mm3 (0.1-0.6); Monocytes Percent Auto 8.7 % (2.6-8.5); Neutrophils Percent Auto 42.7 % (45.5-73.1); Nucleated Red Blood Cells Perc 0.6 % (0.0-0.2); Platelet Count Result 157 k/mm3 (150-375); Red Blood Count 4.17 M/mm3 (4.6-6.20); Red Cell Distribution Width 14.8 % (11.5-14.5); White Blood Count 4.7 K/mm3 (4.5-10.0)
[2021-12-23 05:21] LABS: Anion Gap 7 mmol/L (8-16); Blood Urea Nitrogen 26 mg/dL (9-20); Calcium 8.3 mg/dL (8.4-10.2); Carbon Dioxide 22 mmol/L (22-30); Chloride 112 mmol/L (98-107); Estimated CRCL calculation 61 ml/min; Estimated Glomerular Filt Rate 55; Glucose 126 mg/dL (65-110); Potassium 3.9 mmol/L (3.4-5.0); Sodium 141 mmol/L (137-145)
--- NOTE | 2021-12-23 08:06 | PM.PNCARD ---
Progress Note: A&P Assessment and Plan (1) Nonischemic cardiomyopathy: Code(s): I42.8 - Other cardiomyopathies Status: Acute (2) Atrial fibrillation: Code(s): I48.91 - Unspecified atrial fibrillation Status: Acute Plan 51-year-old man with recently diagnosed nonischemic cardiomyopathy he has responded very well to medical therapy with significant improvement in his ejection fraction is mentioned in my note. He enters the hospital with AF/RVR which is new onset. Amiodarone is being given intravenously and systemic anticoagulation with apixaban. Carvedilol Entresto and spironolactone are also continued for his cardial myopathy. For some reason troponin levels were done on admission despite the fact that he is known not to have coronary artery disease?? Plan is to continue the am amiodarone intravenously. If he does convert to sinus rhythm I will transition him to an oral regimen and allow him to be discharged. If he persists in AF electrical cardioversion will be done on Saturday Navdeep Arredondo MD [facility] Subjective Date/time seen: Date of service: 12/23/21 08:06 Interval history: Follow-up visit in this 51-year-old man with: New onset atrial fibrillation with RVR in the setting of recently diagnosed nonischemic dilated cardiomyopathy. Patient started on intravenous amiodarone yesterday and systemic anticoagulation with apixaban. He feels well this morning. He is still in atrial fibrillation although heart rate is now in the 80s. Exam Const: General: comfortable and no acute distress HENMT: Mouth: Yes moist mucous membranes Eyes: Sclera: sclerae normal Neck: Neck: supple and no JVD Resp: Effort & Inspection: normal respiratory effort Auscultation: clear to auscultation bilaterally Cardio: Rhythm: abnormal rhythm irregularly irregular GI: GI Palp: Yes Soft to palpation Auscultation: normal bowel sounds Skin: General skin exam: normal color Neuro: Other: Alert and oriented, normal cognition Extrem: General: normal to inspection Objective Data Vital Signs Vital Signs: Vital Signs - 24 hr 12/22/21 12:15 12/22/21 12:28 12/22/21 13:05 Temperature 36.6 C Pulse Rate 150 H 130 H 121 H Respiratory Rate 22 H 24 H Blood Pressure 144/114 H 106/93 H Pulse Oximetry 99 99 Oxygen Delivery Room Air 12/22/21 13:13 12/22/21 14:03 12/22/21 14:56 Temperature Pulse Rate 126 H 115 H 108 H Respiratory Rate 17 20 Blood Pressure 118/62 105/68 Pulse Oximetry 100 98 Oxygen Delivery 12/22/21 15:48 12/22/21 17:49 12/22/21 17:49 Temperature 36.1 C L Pulse Rate 129 H 124 H 124 H Respiratory Rate 22 H Blood Pressure 134/96 H Pulse Oximetry 100 Oxygen Delivery 12/22/21 18:00 12/22/21 20:00 12/22/21 20:11 Temperature 36.0 C L Pulse Rate 115 H 92 106 H Respiratory Rate 20 Blood Pressure 110/45 L Pulse Oximetry 98 Oxygen Delivery 12/22/21 20:00 12/22/21 20:00 12/22/21 22:00 Temperature Pulse Rate 92 101 H 96 Respiratory Rate 20 Blood Pressure Pulse Oximetry 98 Oxygen Delivery Room Air 12/22/21 23:56 12/23/21 00:00 12/23/21 00:00 Temperature Pulse Rate 89 89 97 Respiratory Rate 20 Blood Pressure 107/55 L Pulse Oximetry 100 Oxygen Delivery Room Air 12/23/21 00:00 12/23/21 02:00 12/23/21 04:00 Temperature 36.4 C Pulse Rate 92 80 98 Respiratory Rate 20 Blood Pressure 107/55 L Pulse Oximetry 100 Oxygen Delivery 12/23/21 04:00 12/23/21 04:00 12/23/21 06:00 Temperature 36.4 C L Pulse Rate 97 97 89 Respiratory Rate 20 20 Blood Pressure 116/65 Pulse Oximetry 100 100 Oxygen Delivery Room Air Intake/Output Intake/Output: Intake & Output 12/20/21 12/21/21 12/22/21 12/23/21 23:59 23:59 23:59 23:59 Intake Total 540 Output Total 0 550 Balance 540 -550 Meds/Results Medications: Active Medications Generic Name Dose Route Start Last Admin Trade
[2021-12-23] MEDS: carvediloL 25 MG TABLET PO ×2 (09:02→20:23)
[2021-12-23] MEDS: allopurinoL 300 MG TABLET PO (09:02)
[2021-12-23] MEDS: APIXABAN 5 MG TABLET PO ×2 (09:02→20:23)
[2021-12-23] MEDS: EMPAGLIFLOZIN 25 MG TABLET BY MOUTH (09:02)
[2021-12-23] MEDS: SACUBITRIL/VALSARTAN 49-51 MG TABLET 1 TABLET PO ×2 (09:03→20:23)
[2021-12-23] MEDS: THERAPEUTIC MULTIVITAMINS/MINERALS TAB (*BKC) 1 TABLET PO (09:03)
[2021-12-23] MEDS: SPIRONOLACTONE 25 MG TABLET PO (09:04)
[2021-12-23 09:21] LABS: Glucose Point of Care 112 mg/dl (65-105)
[2021-12-23 12:16] LABS: Glucose Point of Care 178 mg/dl (65-105)
[2021-12-23] MEDS: AMIODARONE 360 MG/D5W 200 ML 360 MG/200 ML BAG 16.67 MG IV CONT ×2 (12:23→23:51)
--- NOTE | 2021-12-23 13:12 | PM.IMPN ---
Progress Note: A&P Assessment and Plan (1) Atrial fibrillation with rapid ventricular response: Code(s): I48.91 - Unspecified atrial fibrillation Status: Acute Assessment and Plan: Patient referred from outpatient cardiology appointment as he was found to be in atrial fibrillation with rapid ventricular response Appreciate cardiology consultation Continue IV amiodarone Rate is controlled at this time but remains in atrial fibrillation on review of telemetry Received therapeutic Lovenox on presentation and has now been transitioned to Eliquis 5 mg q12h Per Cardiology, electrical cardioversion will be considered on Saturday if AFib remains persistent (2) Nonischemic cardiomyopathy: Code(s): I42.8 - Other cardiomyopathies Status: Acute Assessment and Plan: Recent EF was 41%, up from 20% in June 2021 with medical therapy. He follows with Dr. Arredondo He was fortunately able to return his Life Vest given his improvement in ejection fraction Continue medication regimen (3) Chronic kidney disease: Code(s): N18.9 - Chronic kidney disease, unspecified Status: Acute Assessment and Plan: Baseline creatinine appears to be around 1.3-1.5 Creatinine elevated just slightly from baseline, 1.8 on arrival Slight improvement today at 1.6 May have been elevated due to rapid ventricular rate vs adverse effect from medication (maintained on Entresto and spironolactone) Renal ultrasound showed incidental 1 cm left renal cyst with no mass lesion or hydronephrosis Monitor function closely. Repeat BMP tomorrow (4) Essential hypertension: Code(s): I10 - Essential (primary) hypertension Status: Acute Assessment and Plan: Blood pressures have been stable. Last BP 107/62 Continue antihypertensives (5) Type 2 diabetes mellitus without complication, without long-term current use of insulin: Code(s): E11.9 - Type 2 diabetes mellitus without complications Status: Acute Assessment and Plan: Last A1c was 4.8. Blood sugars have been well controlled Continue Accu-Cheks, sliding scale insulin, and hypoglycemic protocol Continue empagliflozin Subjective Date/time seen: 12/23/21 13:12 Interval history: Date of service: 12/23/2021 Pablo Parikh is a very pleasant 51 year old male with a history of recently diagnosed nonischemic cardiomyopathy maintained on medical therapy with improvement in EF from 20% to 40% on recent echo, HTN, type 2 DM, and CKD who is seen in follow up for new onset atrial fibrillation. He is feeling well today. For the first time in about a week, he was able to walk around without experiencing dizziness or lightheadedness. He denies palpitations. No chest pain. No SOB. Denies peripheral edema. He does endorse fatigue and weakness but feels that this is improving. He denies headache, nausea, vomiting, fever, chills, dysuria, hematuria, diarrhea. Review of Systems Review of Systems: All systems reviewed & are unremarkable except as noted in HPI and below Exam Narrative: General: Well-nourished, well-appearing 51-year-old male, sitting up in bed, comfortable, NARD Neuro: awake, alert and oriented x4, speech clear, no focal neuro deficits noted HEENMT: normocephalic, atraumatic, EOMI, sclerae anicteric Respiratory: clear to auscultation bilaterally, nonlabored breathing Cardio: Regular rate, irregularly irregular rhythm Abdomen: nondistended, normoactive bowel sounds, soft, nontender to palpation Extremities: no edema, erythema, or tenderness to palpation, DP pulses 2+ bilaterally Skin: no rashes or lesions, warm and dry Psych: appropriate mood and affect, judgment and insight intact Objective Data Vital Signs Vital Signs: Vital Signs - 24 hr 12/22/21 13:13 12/22/21 14:03 12/22/21 14:56 Temperature Pulse Rate 126 H 115 H 108 H Respiratory Rate 17 20 Blood Pressure 118/62 105/68 Pulse Oxi
[2021-12-23 18:21] LABS: Glucose Point of Care 97 mg/dl (65-105)
--- NOTE | 2021-12-23 18:52 | ECG_ITS ---
Measurements Intervals [place] Rate: 70 P: 44 NV: 193 QRS: -51 QRSD: 154 T: 122 QT: 425 QTc: 460 Interpretive Statements SINUS RHYTHM MARKED LEFT AXIS DEVIATION [QRS AXIS < -30] LEFT BUNDLE BRANCH BLOCK [120+ ms QRS DURATION, 80+ ms Q/S IN V1/V2, 85+ ms R IN I/aVL/V5/V6] WARNING: DATA QUALITY MAY AFFECT INTERPRETATION COMPARED TO ECG 12/22/2021 12:18:47 SINUS RHYTHM REPLACES ATRIAL FIBRILLATION Electronically Signed On 12-24-2021 8:22:22 CDT by Navdeep Arredondo M.D.
[2021-12-23 20:34] LABS: Glucose Point of Care 140 mg/dl (65-105)
[2021-12-24] VITALS (11 sets, daily range): BP systolic 100–128; BP diastolic 41–49; PULSE 60–70; RESP 20; TEMP 36.4–36.8; O2SAT 97–100
[2021-12-24 05:09] LABS: Anion Gap 6 mmol/L (8-16); Blood Urea Nitrogen 21 mg/dL (9-20); Calcium 8.4 mg/dL (8.4-10.2); Carbon Dioxide 23 mmol/L (22-30); Chloride 109 mmol/L (98-107); Estimated CRCL calculation 64 ml/min; Estimated Glomerular Filt Rate 55; Glucose 86 mg/dL (65-110); Potassium 4.7 mmol/L (3.4-5.0); Sodium 138 mmol/L (137-145)
[2021-12-24 05:10] LABS: Hematocrit 38.4 % (42.0-52.0); Hemoglobin 11.9 g/dL (14.0-18.0)
[2021-12-24 09:41] LABS: Glucose Point of Care 94 mg/dl (65-105)
[2021-12-24] MEDS: APIXABAN 5 MG TABLET PO (10:03)
[2021-12-24] MEDS: EMPAGLIFLOZIN 25 MG TABLET BY MOUTH (10:04)
[2021-12-24] MEDS: THERAPEUTIC MULTIVITAMINS/MINERALS TAB (*BKC) 1 TABLET PO (10:05)
[2021-12-24] MEDS: allopurinoL 300 MG TABLET PO (10:05)
[2021-12-24] MEDS: SPIRONOLACTONE 25 MG TABLET PO (10:15)
[2021-12-24] MEDS: carvediloL 25 MG TABLET PO (10:15)
[2021-12-24] MEDS: SACUBITRIL/VALSARTAN 49-51 MG TABLET 1 TABLET PO (10:16)
--- NOTE | 2021-12-24 10:49 | PM.PNCARD ---
Progress Note: A&P Assessment and Plan (1) Atrial fibrillation: Code(s): I48.91 - Unspecified atrial fibrillation Status: Acute (2) Nonischemic cardiomyopathy: Code(s): I42.8 - Other cardiomyopathies Status: Acute Plan Recently diagnosed nonischemic cardiomyopathy admitted because of symptomatic AFib. Patient is medically converted to sinus rhythm with amiodarone treatment. IV amiodarone will be stopped at this point I will transition to oral regimen of 400 mg per day. Follow-up in the office will be scheduled and we will ultimately intend to wean this down to at least 200 mg daily as a maintenance dose. Systemic anticoagulation with apixaban has been started as well. The remainder of his heart failure regimen remains unchanged. Okay with me to discharge today and I will make sure for appropriate follow-up is scheduled in my office. Navdeep Arredondo MD [facility] Subjective Date/time seen: Date of service: 12/24/21 10:49 Interval history: Follow-up visit in this 51-year-old man with: Recently diagnosed nonischemic dilated cardiomyopathy. Patient had responded very well to initiation of guideline directed medical therapy. Admitted with development of symptomatic atrial fibrillation. Patient was loaded with IV amiodarone and last night converted to sinus rhythm. Systemic anticoagulation with apixaban has been started as well. The patient feels well this morning and offers no complaints. Questioning why a ultrasound was done of his kidneys yesterday Exam Const: General: comfortable and no acute distress Other: Very pleasant gentleman no apparent distress HENMT: Mouth: Yes moist mucous membranes Eyes: Sclera: sclerae normal Pupils: Equal, round and reactive pupils present Neck: Neck: supple and no JVD Resp: Effort & Inspection: normal respiratory effort Auscultation: clear to auscultation bilaterally Cardio: Rate: regular rate Rhythm: regular rhythm GI: GI Palp: Yes Soft to palpation Auscultation: normal bowel sounds Skin: General skin exam: normal color Neuro: Other: Alert and oriented x3 no abnormality Extrem: General: normal to inspection Objective Data Vital Signs Vital Signs: Vital Signs - 24 hr 12/23/21 11:54 12/23/21 12:00 12/23/21 11:56 Temperature 36.8 C Pulse Rate 99 89 Respiratory Rate 20 Blood Pressure 107/62 Pulse Oximetry 99 100 Oxygen Delivery Room Air 12/23/21 12:23 12/23/21 12:00 12/23/21 14:00 Temperature Pulse Rate 89 83 98 Respiratory Rate Blood Pressure Pulse Oximetry Oxygen Delivery 12/23/21 16:00 12/23/21 16:00 12/23/21 18:00 Temperature 36.8 C Pulse Rate 91 90 83 Respiratory Rate 16 Blood Pressure 120/57 L Pulse Oximetry 99 Oxygen Delivery 12/23/21 20:23 12/23/21 20:00 12/23/21 20:00 Temperature 36.2 C L Pulse Rate 69 72 72 Respiratory Rate 20 20 Blood Pressure 126/59 L Pulse Oximetry 100 100 Oxygen Delivery Room Air 12/23/21 20:00 12/23/21 21:59 12/23/21 23:03 Temperature 36.5 C Pulse Rate 70 73 68 Respiratory Rate 20 Blood Pressure 122/49 L Pulse Oximetry 100 Oxygen Delivery 12/23/21 23:15 12/23/21 23:51 12/24/21 00:00 Temperature Pulse Rate 68 66 67 Respiratory Rate 20 Blood Pressure 122/49 L Pulse Oximetry 100 Oxygen Delivery Room Air 12/24/21 01:36 12/24/21 04:00 12/24/21 04:00 Temperature 36.4 C L Pulse Rate 60 63 63 Respiratory Rate 20 20 Blood Pressure 115/45 L Pulse Oximetry 100 100 Oxygen Delivery Room Air 12/24/21 04:00 12/24/21 06:00 12/24/21 08:00 Temperature 36.4 C L Pulse Rate 63 66 66 Respiratory Rate 20 Blood Pressure 100/44 L Pulse Oximetry 99 Oxygen Delivery 12/24/21 10:14 12/24/21 10:15 Temperature Pulse Rate 69 70 Respiratory Rate Blood Pressure 128/49 L Pulse Oximetry Oxygen Delivery Intake/Output Intake/Output: Intake & Output 12/21/21
[2021-12-24] MEDS: AMIODARONE HCL 200 MG TABLET 400 MG PO (11:21)
[2021-12-24 11:30] LABS: Glucose Point of Care 193 mg/dl (65-105)
--- NOTE | 2021-12-24 12:43 | PM.DS ---
DS: Admitting Diagnosis Discharge Date 12/24/2021 Admitting Diagnosis Atrial fibrillation with rapid ventricular response DS: Discharge Diagnosis Discharge Diagnosis (1) Atrial fibrillation with rapid ventricular response: Code(s): I48.91 - Unspecified atrial fibrillation Status: Acute Assessment and Plan: Patient referred from outpatient cardiology appointment as he was found to be in atrial fibrillation with rapid ventricular response He was seen in consultation by Cardiology Started on IV amiodarone and eventually converted to normal sinus rhythm Will continue p.o. amiodarone 400 mg daily Will follow-up with cardiology as an outpatient to wean down amiodarone to maintenance dose Started on Eliquis 5 mg q12h. Patient educated on risks versus benefits of anticoagulation and agreed to proceed. Anticoagulation precautions discussed. (2) Nonischemic cardiomyopathy: Code(s): I42.8 - Other cardiomyopathies Status: Acute Assessment and Plan: Recent EF was 41%, up from 20% in June 2021 with medical therapy. He follows with Dr. Arredondo He was fortunately able to return his Life Vest given his improvement in ejection fraction Continue medication regimen (3) Chronic kidney disease: Code(s): N18.9 - Chronic kidney disease, unspecified Status: Acute Assessment and Plan: Baseline creatinine appears to be around 1.3-1.5 Creatinine elevated just slightly from baseline, 1.8 on arrival Improved to 1.6 and remained stable May have been elevated due to rapid ventricular rate 1.6 may be his new baseline due his medications (maintained on Entresto and spironolactone) Renal ultrasound showed incidental 1 cm left renal cyst with no mass lesion or hydronephrosis (4) Essential hypertension: Code(s): I10 - Essential (primary) hypertension Status: Acute Assessment and Plan: Blood pressures controlled Continue antihypertensives (5) Type 2 diabetes mellitus without complication, without long-term current use of insulin: Code(s): E11.9 - Type 2 diabetes mellitus without complications Status: Acute Assessment and Plan: Last A1c was 4.8. Blood sugars controlled during admission. 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 He had been experiencing dizziness and lightheadedness for approximately 1 week. On presentation to the ED, his heart rate was 150, he was mildly tachypneic and BP was elevated, creatinine was 1.8, CXR showed cardiomegaly and EKG demonstrated atrial fibrillation with rapid ventricular response. He was admitted to the hospitalist service for further evaluation and management was seen in consultation by cardiology. Please see above for further details. Patient was able to convert to sinus rhythm following amiodarone therapy which she will continue as an outpatient. He was started on systemic anticoagulation. He will follow-up with his lead burner. His symptoms improved and he was feeling back to his usual state of health. Given his overall improvement, he was determined to no longer require inpatient care and was discharged in hemodynamically stable condition on 12/24/2021. Cardiology in agreement with discharge plans. Discussed with the patient worrisome signs and symptoms for which to return and he was educated on his medications. Status at Discharge Functional st
== END 2021-12-24 13:22 | disposition home or self-care (01) | DRG 309 ==
LOC: ANHED 13:04 → ANHIMU 15:16
PROVIDERS: Physician Assistant; Admitting Provider Family Medicine; Emergency Provider Emergency Medicine; PCP Family Medicine; Visit Provider Student in an Organized Health Care Education/Training Program
DX: I48.91 Unspecified atrial fibrillation (principal); I13.0 Hypertensive heart and chronic kidney disease with heart failure and stage 1 through stage 4 chronic kidney disease, or unspecified chronic kidney disease; I42.8 Other cardiomyopathies; Z20.822 Contact with and (suspected) exposure to COVID-19; E11.22 Type 2 diabetes mellitus with diabetic chronic kidney disease; I50.9 Heart failure, unspecified; E66.01 Morbid (severe) obesity due to excess calories; M10.9 Gout, unspecified; N18.9 Chronic kidney disease, unspecified; Z68.34 Body mass index [BMI] 34.0-34.9, adult; Z79.82 Long term (current) use of aspirin; Z79.84 Long term (current) use of oral hypoglycemic drugs
CPT/HCPCS: 36415; 71045; 76775; 80048; 80053; 82948; 83735; 83880; 84443; 84484; 85014; 85018; 85025; 85610; 85730; 93005; 96365; 96366; 96372; 96375; 99285; A9270; C9803; G0378; J0282; J1650; U0003; U0005

== ENCOUNTER → 2022-02-02 15:01 | Outpatient (CLI) | payer BC, SELFPAY ==
--- NOTE | ~2022-02-02 | XR_ITS ---
EXAMINATION: XR shoulder RT min 2V DATE: 02/02/2022 15:22 INDICATION: Right shoulder pain. TECHNIQUE: 3 views of right shoulder were obtained. COMPARISON: None. FINDINGS: Bone alignment is normal. No fracture. There is likely an os acromiale. There is severe ost eoarthritis of glenohumeral joint and mild osteoarthritis of acromioclavicular joint. IMPRESSION: 1. Severe right glenohumeral joint osteoarthritis. Reviewed, dictated and finalized at location A.
--- NOTE | ~2022-02-02 | XR_ITS ---
EXAMINATION: XR knee LT min 4V DATE: 02/02/2022 15:21 INDICATION: Left knee pain. TECHNIQUE: 4 views of left knee were obtained. COMPARISON: None. FINDINGS: Bone alignment is normal. No fracture. There is mild osteoarthritis of medial and patellofe moral compartments characterized by tiny osteophytes. No joint space narrowing. There is chondrocalci nosis involving the medial meniscus. No knee joint effusion. IMPRESSION: 1. Mild left knee osteoarthritis. Reviewed, dictated and finalized at location A.
== END ==
PROVIDERS: PCP Family Medicine; Visit Provider Family Medicine
DX: M17.12 Unilateral primary osteoarthritis, left knee (principal); M19.011 Primary osteoarthritis, right shoulder
CPT/HCPCS: 73030; 73564

== ENCOUNTER 2022-04-17 17:33 | Outpatient (CLI) | payer BC, SELFPAY ==
--- NOTE | ~2022-04-17 | CT_ITS ---
EXAMINATION: CT hip LT wo con DATE: 04/17/2022 18:08 INDICATION: Left hip pain. TECHNIQUE: Computed tomography (CT) of the left hip was performed without intravenous contrast. Autom ated exposure control and iterative reconstruction technique were employed. The dose-length product w as 568.13 mGy-cm. 3-D volume rendered reconstructions were created by the technologist on a separate workstation. COMPARISON: Pelvis and left hip radiographs 03/08/2022 FINDINGS: LEFT HIP CT: Bone alignment is normal. No fracture. There are old pin tracks in left femoral neck. Th ere is advanced left hip osteoarthritis with loose bodies. 3D RECONSTRUCTION: There is advanced left hip osteoarthritis. IMPRESSION: 1. Advanced left hip osteoarthritis with loose bodies. Reviewed, dictated and finalized at location A. RRAGE MAN
== END 2022-04-17 17:34 | disposition home or self-care (01) ==
PROVIDERS: PCP Family Medicine; Visit Provider Orthopaedic Surgery
DX: M25.552 Pain in left hip (principal); M16.12 Unilateral primary osteoarthritis, left hip; M23.42 Loose body in knee, left knee; Z98.890 Other specified postprocedural states
CPT/HCPCS: 73700

== ENCOUNTER 2022-04-18 13:04 | Outpatient (CLI) | payer BC, SELFPAY ==
--- NOTE | ~2022-04-18 | XR_ITS ---
EXAMINATION: XR lg joint inject/asp w image DATE: 04/18/2022 13:50 INDICATION: Left hip arthritis. TECHNIQUE: A time-out was performed to verify the patient's name, date of , and procedure to b e performed. The procedure including the risks, benefits, and alternatives was discussed with the pat ient. Risks discussed included bleeding and infection. The patient understood the risks and agreed to proceed. The skin overlying the left hip joint was prepped and draped in usual sterile fashion. An esthetic was administered with 1% lidocaine subcutaneously. A 22 G needle was advanced under fluoros copic guidance into the joint. Subsequently, injectate consisting of 2 mL 0.5% bupivacaine and 1 mL 80 mg/mL Depo-Medrol was instilled. The needle was removed and the entry site was cleaned and dresse d. There were no immediate complications. Fluoroscopy exposure time was 0.0 minutes. The total numbe r of images was 1. FINDINGS: Real-time fluoroscopy demonstrates the needle in the left hip joint. Patient's pain prior t o procedure:07/27. Patient's pain following the procedure: 07/27. IMPRESSION: 1. Fluoroscopy guided left hip joint injection of local anesthetic and steroid . Reviewed, dictated and finalized at location A. DAY DIRECTOR
== END 2022-04-18 13:05 | disposition home or self-care (01) ==
PROVIDERS: PCP Family Medicine; Visit Provider Orthopaedic Surgery
DX: M16.12 Unilateral primary osteoarthritis, left hip (principal)
CPT/HCPCS: 20610; 77002; J1040

== ENCOUNTER 2022-06-25 14:11 | Outpatient (CLI) | payer BC, SELFPAY ==
--- NOTE | 2022-06-25 14:59 | ECG_ITS ---
Measurements Intervals [place] Rate: 53 P: 52 GA: 168 QRS: -58 QRSD: 162 T: 114 QT: 463 QTc: 437 Interpretive Statements SINUS BRADYCARDIA LEFT AXIS DEVIATION LEFT BUNDLE BRANCH BLOCK ABNORMAL ECG COMPARED TO ECG 12/23/2021 18:01:28 HER RATE HAS DECREASED Electronically Signed On 06-25-2022 16:25:27 BUILD MANAGER by Ervin Dukes M.D.
[2022-06-25 15:26] LABS: Basophils Percent Auto 0.4 % (0.2-1.2); Eosinophils Absolute Auto 0.1 K/mm3 (0-0.3); Hematocrit 46.5 % (42.0-52.0); Hemoglobin 14.3 g/dL (14.0-18.0); Immature Granulocyte Absolute 0.01 K/mm3 (0.00-0.031); Immature Granulocyte Percent A 0.2 % (0-0.5); Lymphocytes Absolute Auto 2.23 K/mm3 (0.9-3.2); Lymphocytes Percent Auto 43.1 % (18.3-44.2); Mean Corpuscular HGB Conc 30.8 g/dl (32-36); Mean Corpuscular Volume 94.3 fl (80-100); Mean Platelet Volume 11.2 fl (7.4-10.4); Monocytes Absolute Auto 0.5 K/mm3 (0.1-0.6); Monocytes Percent Auto 9.1 % (2.6-8.5); Neutrophils Absolute Auto 2.4 K/mm3 (1.3-6.7); Neutrophils Percent Auto 46.2 % (45.5-73.1); Platelet Count Result 156 k/mm3 (150-375); Red Blood Count 4.93 M/mm3 (4.6-6.20); White Blood Count 5.2 K/mm3 (4.5-10.0)
[2022-06-25 15:28] LABS: Appearance Urine Clear (Clear); Bilirubin Urine Negative (Negative); Blood Urine Negative (Negative); Color Urine Yellow (Yellow); Glucose Urine UA 2+ mg/dL (Negative); Ketones Urine Negative (Negative); Leukocyte Esterase Ur Negative LEU/UL (Negative); Nitrate Urine Negative (Negative); Protein Urine Negative (Negative); Specific Grav Ur 1.025 (1.001-1.035); Urobilinogen Urine 0.2 mg/dL (<2.0); pH Urine 5.5 (5.0-9.0)
[2022-06-25 15:35] LABS: Mucus Urine Rare /lpf; RBC Urine 0-2 /hpf (0-2); WBC Urine 0-3 /hpf
[2022-06-25 15:36] LABS: Anion Gap 4 mmol/L (8-16); Blood Urea Nitrogen 28 mg/dL (9-20); Carbon Dioxide 29 mmol/L (22-30); Chloride 111 mmol/L (98-107); Estimated Glomerular Filt Rate 45; Glucose 84 mg/dL (65-110); Potassium 4.6 mmol/L (3.4-5.0); Sodium 144 mmol/L (137-145)
[2022-06-25 15:45] LABS: Add Urine Microscopic? YES
== END 2022-06-25 14:12 | disposition home or self-care (01) ==
PROVIDERS: PCP Family Medicine; Visit Provider Orthopaedic Surgery
DX: M17.11 Unilateral primary osteoarthritis, right knee (principal); I10 Essential (primary) hypertension; I44.7 Left bundle-branch block, unspecified; R00.1 Bradycardia, unspecified
CPT/HCPCS: 36415; 80048; 81001; 85025; 93005

== ENCOUNTER 2022-08-08 13:51 | Outpatient (CLI) | payer BC, SELFPAY ==
[2022-08-08 15:24] LABS: Appearance Urine Clear (Clear); Bilirubin Urine Negative (Negative); Blood Urine Negative (Negative); Color Urine Yellow (Yellow); Glucose Urine UA 3+ mg/dL (Negative); Ketones Urine Trace mg/dL (Negative); Leukocyte Esterase Ur Negative LEU/UL (Negative); Nitrate Urine Negative (Negative); Protein Urine Negative (Negative); Specific Grav Ur 1.024 (1.001-1.035); pH Urine 5.5 (5.0-9.0)
[2022-08-08 15:27] LABS: Albumin Level 4.4 g/dL (3.5-5.1)
[2022-08-08 15:31] LABS: Urine Cotinine NEGATIVE
[2022-08-08 15:37] LABS: Add Urine Microscopic? NO
[2022-08-08 15:46] LABS: INR 1.4; Prothrombin Time 16.4 Seconds (11.1-14.7)
[2022-08-08 15:47] LABS: Partial Thromboplastin Time 32.1 SECONDS (22.3-36.8)
[2022-08-08 18:59] LABS: Hemoglobin A1C 4.8 % (<5.7)
== END 2022-08-08 13:52 | disposition home or self-care (01) ==
LOC: ANHSURGERY 14:03
PROVIDERS: PCP Family Medicine; Visit Provider Orthopaedic Surgery
DX: Z01.812 Encounter for preprocedural laboratory examination (principal); M16.12 Unilateral primary osteoarthritis, left hip
CPT/HCPCS: 80307; 81003; 82040; 83036; 85610; 85730; 87081

== ENCOUNTER 2022-08-22 00:03 | Day surgery (SDC) | payer BC, SELFPAY ==
[2022-08-08 14:08] VITALS: BMI 36.4
--- NOTE | 2022-08-08 14:29 | PC.NURSE ---
Report to the Outpatient Waiting Room, entrance under the green pavilion located off [facility], at time ___0600____ on date __08/22/22 . Planned Procedure Time: __729 . Time changes happen often and if your time is changed the preop area will call you the afternoon before. - You and your visitor will be asked to self-screen and do not enter if you have any COVID symptoms. - Only one visitor is requested with a max of two and NO children visitors are allowed at this time. - The patient visitor may be requested to leave or wait in car when not with patient due to distancing restrictions. - A mask is optional within the hospital at this time. Patients may have clear liquids (water, carbonated beverages, clear teas, apple juice) until 3 hours prior to surgery with a maximum of 20 ounces. - No food from midnight until time of surgery - Infants may have breast milk until 4 hours before surgery, formula 6 hours prior to surgery. - Children will be allowed to drink immediately following surgery. If applicable, please bring a bottle or sippy cup to assist with drinking. Juice, water, soda, and popsicles are readily available. For infants on formula, please bring formula the day of surgery. Pacifiers are allowed. Take the following medications with a SIP of water the morning of surgery: __AMIODARONE,CARVEDILOL,_FARXIGA AND ENTRESTO DO NOT STOP ANY OF YOUR OTHER PRESCRIPTION MEDICATIONS PRIOR TO SURGERY ?EXCEPT THE FOLLOWING Medications to discontinue per physician ___ELIQUIS PER DR ARVIZU Please no make-up, nail macedonian, hairspray, perfume, deodorant, or body powder the day of surgery. No jewelry (including any body piercings) or valuables the day of surgery, leave them at home. Please take a shower or bath the night before, or the morning of, surgery with an antibacterial soap. Wear comfortable, loose fitting clothing. Children are encouraged to wear pajamas. - Jewelry must be removed prior to entering the operating room. Rings and piercings that are not removed may be cut off. - The hospital will not accept responsibility for valuables. - Please leave all valuables, including medications, at home the day of surgery. If you are going home after surgery, a licensed compressed air pile driver operator must drive you home. - NO public transportation without another adult if you receive anesthesia. - We recommend that an adult stay with you for 24 hours following discharge. - We also recommend that you do not drive, make important decision, drink alcoholic beverages, or take any drugs that were not prescribed by your health care provider for at least 24 hours after your discharge time. Follow any additional instructions given to you from your surgeon. If you or anyone in your household have experienced Covid symptoms in the past week, please notify your surgeon or the nurse liaison at the phone number below for possible testing. VERBAL AND WRITTEN instructions given to __PATIENT and asked if any additional questions and then verbalized understanding. Patient advised to call surgeon office or pre surgery nurse liaison [phone] if any additional questions.
[2022-08-08 14:50] VITALS: BP 151/54; PULSE 60; RESP 18; TEMP 37.1; O2SAT 97
--- NOTE | 2022-08-21 13:00 | WPDANESEPPF ---
Anes - Initial Pre Proc Eval Procedure: Operation Date: 08/22/22 07:30 Proposed Procedures p Left Total Hip Arthroplasty - Rolando West MD Date/Time: 08/21/22 13:00 Surgeon: Rolando West MD Pre Op Diagnosis: Lt Hip DJD Patient Data Age: 52 Gender: M Height: 1.8 m Weight: 118.6 kg Last Vital Signs Temp 37.1 C 08/08/22 14:50 Pulse 60 08/08/22 14:50 Resp 18 08/08/22 14:50 BP 151/54 H 08/08/22 14:50 Pulse Ox 97 08/08/22 14:50 O2 Del Method Room Air 08/08/22 14:50 Allergies Allergy/AdvReac Type Severity Reaction Status Date / Time tetracycline Allergy Unknown Hives Verified 08/22/22 06:19 Home Medications Medication Instructions Recorded Confirmed Type sacubitril 49 mg-valsartan 51 mg 1 tablet PO BID 09/22/21 08/22/22 History tablet (Entresto) carvedilol 12.5 mg tablet (Coreg) 25 mg PO Q12HR 10/12/21 08/22/22 History allopurinol 300 mg tablet 300 mg PO DAILY #90 tabs 12/18/21 08/22/22 Rx lancets (Microlet Lancet) #100 ea 12/18/21 08/03/22 Rx apixaban 5 mg tablet (Eliquis) 5 mg PO Q12HR #60 tabs 12/24/21 08/22/22 Rx blood sugar diagnostic (Contour #100 ea 06/19/22 08/03/22 Rx Next Test Strips) spironolactone 25 mg tablet 25 mg PO QAM #90 tabs 06/19/22 08/22/22 Rx amiodarone 200 mg tablet (Pacerone) 200 mg PO DAILY@0800 08/08/22 08/22/22 History dapagliflozin 10 mg tablet 10 mg PO DAILY HEARTFAILURE 08/08/22 08/22/22 History (Farxiga) chlorhexidine gluconate 4 % 1 applic topical ONCE #237 mL 08/10/22 08/22/22 Rx topical liquid (Hibiclens) Patient hx anesthesia problems: none Family hx anesthesia problems: none Results Review: All pre-operative results and documents have been reviewed as part of the pre-operative evaluation. [facility] Past Medical History Medical History (Updated 08/21/22 @ 13:01 by Dilip Jones MD) Atrial fibrillation with rapid ventricular response Cardiomyopathy Chronic kidney disease Baseline creatinine is around 1.40. Essential hypertension Gout, unspecified Left hip pain Nonischemic cardiomyopathy Ejection fraction was 20% in June 2021, improved to 41% in November 2021 with medical treatment. Obesity (BMI 30-39.9) Type 2 diabetes mellitus without complication, without long-term current use of insulin Surgical History Surgical History ) History of cardiac catheterization (07/2021) History of hip surgery Left hip pinning in the early s. History of repair of left rotator cuff 1999 Family History Family History ) Sibling Family history of gastrointestinal disorder Family history of arthritis Hypertension Mother Family history of heart disease in male family member before age 55, Onset Age: 40 Family history of malignant neoplasm, Onset Age: 40 Patient's mother is , Onset Age: 40 Hypertension Father Family history of malignant neoplasm, Onset Age: 70 Patient's father is , Onset Age: 70 Hypertension Social History Social History ) Social History: Surrogate medical decision maker: Alesia Pablocey, sister. Code status: Full code. Smoking status: Never smoker Second hand tobacco smoke exposure: No Additional smoking assessment comments: DENIES ANY FORM OF TOBACCO USE Alcohol intake: current Drinks per week: 1 Substance use: never Substance use type: does not use Lack of Transportation: No Lack of Food: Never True Current Housing: I Have Housing Concerned About Future Housing: No Difficulty Paying Gas/Electric Bills: No Difficulty Paying for Meds: No Currently Unemployed: No Education: Bachelor's Degree Difficulty w/ Childcare or Family Care: No Living arrangements: alone Occupation/Education: occupation Additional occupation/education comments: [employer]
[2022-08-22] VITALS (15 sets, daily range): BP systolic 100–162; BP diastolic 34–53; PULSE 55–80; RESP 13–18; TEMP 36–36.6; O2SAT 93–100
--- NOTE | ~2022-08-22 | XR_ITS ---
EXAMINATION: XR surgery orthopedic DATE: 08/22/2022 10:07 INDICATION: Intraoperative evaluation during left total hip arthroplasty TECHNIQUE: Frontal view of the left hip was obtained. COMPARISON: None. FINDINGS: Intraoperative image during a left total hip arthroplasty demonstrate placement of an acetabular comp onent which appears in near anatomic alignment on the single image provided. A femoral broach is in place with the proximal tip centered over the acetabular component. Portions of the pelvis are obscur ed by a bolster. Suggestion of a nondisplaced fracture of the left lesser trochanter. Expected lucent gas the operative bed. IMPRESSION: 1. Intraoperative images during left total hip arthroplasty demonstrate nondisplaced periprosthetic f racture of the left lesser trochanter. Dr. West was aware of this finding. Reviewed, dictated and finalized at location A. IMPRESSION: 1. Intraoperative images during left total hip arthroplasty demonstrate nondisp laced periprosthetic fracture of the left lesser trochanter. Dr. West was aw are of this finding.
--- NOTE | ~2022-08-22 | XR_ITS ---
EXAMINATION: XR hip LT min 2V DATE: 08/22/2022 12:34 INDICATION: Postoperative evaluation following left total hip arthroplasty TECHNIQUE: Anteroposterior and lateral views of the left hip were obtained. COMPARISON: Intraoperative radiograph dated 08/22/2022 FINDINGS: Interval completion of the left total hip arthroplasty which appears well seated in near anatomic ali gnment. There is a nondisplaced periprosthetic fracture of the left lesser trochanter which is fixed with a pin and cerclage wire. No other fractures identified. Expected small amount of soft tissue gas at the operative bed. IMPRESSION: 1. Left total hip arthroplast with internal fixation of a periprosthetic nondisplaced lesser trochant lacey fracture. Reviewed, dictated and finalized at location A. IMPRESSION: 1. Left total hip arthroplast with internal fixation of a periprosthetic nondis placed lesser trochanteric fracture.
[2022-08-22] MEDS: LACTATED RINGERS 1,000 ML 30 ML IV CONT ×2 (06:50→12:17)
[2022-08-22] MEDS: ACETAMINOPHEN 500 MG TABLET 1000 MG PO (06:54)
[2022-08-22] MEDS: TRANEXAMIC ACID 1,000MG/ISO100 1,000 MG/100 ML BAG 200 MG IVPB (07:02)
[2022-08-22 07:08] LABS: INR 1.3; Prothrombin Time 15.5 Seconds (11.1-14.7)
--- NOTE | 2022-08-22 07:14 | WPDHPUPDATE1 ---
History and Physical Update Update Date/Time: 08/22/22 07:14 History and Physical has been reviewed, including an updated exam of the patient. There are NO changes in the patient's condition. Risks, benefits, and alternatives have been discussed and questions answered. Patient agrees to proceed with procedure.
[2022-08-22 07:27] LABS: Glucose Point of Care 77 mg/dl (65-105)
[2022-08-22] MEDS: ceFAZolin 2 GM/D5W 50 ML 2 GM/50 ML BAG IVPB ×3 (07:29→23:20)
[2022-08-22] MEDS: ceFAZolin SODIUM 1 GM VIAL IV PUSH (11:09)
[2022-08-22] MEDS: TRANEXAMIC ACID 1,000 MG/10 ML AMPUL 1000 MG IV PUSH (11:16)
--- NOTE | 2022-08-22 11:54 | SUR.OPER ---
EBL: 500ml
--- NOTE | 2022-08-22 11:56 | SUR.OPER ---
EBL adjusted to 300ml
[2022-08-22 12:27] LABS: Glucose Point of Care 134 mg/dl (65-105)
--- NOTE | 2022-08-22 12:40 | P.OP_ITS ---
Procedure Note - Detailed Date of Procedure 08/22/22 Pre-op Diagnosis Lt Hip Post Traumatic DJD Post-op Diagnosis Same Procedure Performed L CHELE Surgeon Rolando West MD Anesthesia General Description of Procedure THE PATIENT WAS TAKEN TO THE OPERATING ROOM IN STABLE CONDITION AND WAS PLACED IN THE LATERAL DECUBITUS AND THE LEFT LOWER EXTREMITY WAS PREPPED AND DRAPED IN THE STERILE FASHION. INCISION WAS MADE IN THE POSTERIOR LATERAL SIDE OF THE HIP, DOWN TO THE FASCIA LAYER. THE FASCIA WAS INCISED. THE HIP WAS EXPOSED. THE SHORT EXTERNAL ROTATORS WERE EXPOSED. THE SCIATIC NERVE WAS IDENTIFIED. INCISION WAS MADE THROUGH THE SHORT EXTERNAL ROTATORS AND THE CAPSULE OF THE HIP JOINT. THE HIP WAS DISLOCATED. AN OSTEOTOMY WAS MADE TO THE FEMORAL NECK ABOUT 1 CM PROXIMAL TO THE LESSER TROCHANTER. THE ACETABULUM WAS EXPOSED. THERE WAS SEVERE DJD SEEN. BEGINNING WITH A 48 REAMER THE ACETABULUM WAS REAMED TO 53 MM. A 53 MM TRIAL WAS PLACED IN 35 DEG OF ABDUCTION AND ANTEVERSION WAS IN ALIGNMENT WITH THE TRANS ACETABULAR LIGAMENT. THE FIT WAS EXCELLENT. THE TRIAL WAS REMOVED. A 54 MM BIOMET G7 COMPONENT WAS THEN TAPPED IN TO PLACE IN 35 DEG OF ABDUCTION AND ANTEVERSION IN ALIGNMENT WITH THE TRANSVERSE ACETABULAR LIGAMENT. THE FIT WAS EXCELLENT. OSTEOPHYTES WERE REMOVED FROM THE MOJGAN FIDEL TABULAR REGION. THE ACETABULAR LINER WAS PLACED AND CHECKED FOR STABILITY. NEXT, THE PROXIMAL FEMUR WAS IDENTIFIED. THE ENTRANCE TO THE FEMORAL CANAL SHOWED TO BE NARROW DUE TO PRIOR FEMORAL NECK FRACTURE HEALING AND CALLUS FORMATION. THE FEMUR WAS PREPARED WITH INITIAL CANAL FINDER THEN SEQUENTIAL BROACHING WITH A TAPERLOC HIP SYSTEM, UNTIL A 10 BROACH FIT WELL IN 15 OF ANTEVERSION. A +3 HIGH OFFSET NECK WITH 36 MM HEAD TRIAL WAS PLACED. THE SHUCK TEST WAS EXCELLENT AND THE STABILITY IN FLEXION AND ROTATION WAS EXCELLENT. LEG LENGTHS WERE GROSSLY EQUAL. THERE WAS A NON DISPLACED FRACTURE TO THE CALCAR IN THE AREA OF THE OLD FRACTURE. IT EXTENDED IN TO THE LESSER TROCHANTER. INTRAOPERATIVE XRAYS CONFIRMED THR FRACTURE LINE. THE TRIALSWERE REMOVED. THE FRACTURE WAS REDUCED WITH A FRACTURE CLAMP AND MAINTAINED REDUCTION WITH A 0.45 K WIRE. A TITANIUM CABLE WAS PLACED OVER THE FRACTURE SECURING IT IN REDUCTION. THE CABLE WAS STABLE WAS THE FRACTURE. NEXT A BIOMET TAPERLOC 10 STEM WAS PLACED WITH A HIGH OFFSET NECK THE FIT WAS EXCELLENT IN 15 DEG OF ANTEVERSION. THE FRACTURE WAS STABLE WELL WITH NO DISPLACEMENT FROM IMPLANT INSERTION. A +3 CERAMIC 36 MM FEMORAL CERAMIC HEAD WAS PLACED. THE HIP WAS TRIALED AND THE STABILITY WAS EXCELLENT WERE THE LEG LENGTHS AND THE SHUCK TEST.INTRAOPERATIVE XRAYS WERE PREFORMED SHOWING GOOD POSITION OF FRACTURE AND HARDWARE. THE HIP WAS TAKEN THROUGH A RANGE OF MOTION AND THE FRACTURE WAS VISUALIZED WITH NO GROSS MOTION APPRECIATED. THE WOUND WAS IRRIGATED WITH STERILE BETADINE AND WATER FOR 3 MINUTES, THEN WASHED AGAIN. THE CAPSULE AND THE EXTERNAL ROTATORS WERE APPROXIMATED WITH NUMBER 1 VICRYL. THE FASCIA WITH NUMBER 2 QUIL AND THE SUB CUTANEOUS LAYER WITH 2-0 ABSORBABLE SUTURE WITH A RUNNING 3-0 SUBCUTICULAR LAYER WELL. DERMABOND WAS PLACED AND STERILE DRESSING WAS APPLIED. PATIENT WAS PLACED BACK ON TO THE SUPINE POSITION AND WAS EXTUBATED Estimated Blood Loss -300.0 Complications No immediate complications (FRACTURE OF CALCAR) Condition Stable Disposition PACU
--- NOTE | 2022-08-22 12:57 | SUR.PHASEI ---
1230: Dr. Jones at patient bedside. Notified Dr. Jones of patient's low blood pressure. No new orders.
[2022-08-22] MEDS: fentaNYL CITRATE INJ (*CRX) 100 MCG/2 ML VIAL 25 MCG IV PUSH ×4 (13:25→13:45)
[2022-08-22] MEDS: DEXTROSE 5%/0.45% SOD CHL 1,000 ML 80 ML IV CONT (14:12)
--- NOTE | 2022-08-22 14:25 | ADMGEN ---
This patient, Pablo Parikh, was admitted to [facility] Room 329-01 at 1400. Patient/family oriented to hospital policies and general routines including ID bracelet, bed and alarms, visiting hours, pain management, procedures, bathroom and other care routines, personal items, smoking policy, room service/diet, and visiting hours. Information on how to activate the Rapid Response Team has been discussed. Patient/Family are encouraged to report perceived risks to care and to ask questions if they do not understand what they are told or what they should do.
[2022-08-22 14:30] LABS: Hematocrit 38.4 % (42.0-52.0); Hemoglobin 11.9 g/dL (14.0-18.0)
[2022-08-22] MEDS: SENNA/DOCUSATE SODIUM TABLET 2 TAB PO (17:32)
[2022-08-22] MEDS: KETOROLAC 15 MG/ML VIAL (*BKC) IV PUSH ×2 (17:33→23:20)
[2022-08-22] MEDS: BENZOCAINE/MENTHOL (*BKC) 18 EA LOZENGE 1 LOZENGE PO (20:35)
[2022-08-22] MEDS: FAMOTIDINE 20 MG TABLET PO (20:35)
[2022-08-22] MEDS: carvediloL 12.5 MG TABLET 25 MG PO (20:35)
[2022-08-22] MEDS: SACUBITRIL/VALSARTAN 49-51 MG TABLET 1 TABLET PO (20:37)
[2022-08-22 21:32] LABS: Glucose Point of Care 195 mg/dl (65-105)
[2022-08-23] MEDS: DEXTROSE 5%/0.45% SOD CHL 1,000 ML 80 ML IV CONT (02:17)
[2022-08-23 03:36] VITALS: BP 115/34; PULSE 71; RESP 14; TEMP 36.9; O2SAT 100
[2022-08-23] MEDS: KETOROLAC 15 MG/ML VIAL (*BKC) IV PUSH ×2 (05:40→12:58)
[2022-08-23 06:36] LABS: Basophils Percent Auto 0.1 % (0.2-1.2); Hematocrit 33.9 % (42.0-52.0); Hemoglobin 10.5 g/dL (14.0-18.0); Immature Granulocyte Absolute 0.02 K/mm3 (0.00-0.031); Immature Granulocyte Percent A 0.2 % (0-0.5); Immature Platelet Fraction Pct 6.8 % (0.9-11.2); Lymphocytes Percent Auto 10.6 % (18.3-44.2); Mean Corpuscular Hemoglobin 28.6 pg (26-34); Mean Corpuscular Volume 92.4 fl (80-100); Mean Platelet Volume 11.5 fl (7.4-10.4); Monocytes Percent Auto 9.8 % (2.6-8.5); Neutrophils Absolute Auto 7.8 K/mm3 (1.3-6.7); Neutrophils Percent Auto 79.3 % (45.5-73.1); Platelet Count Result 135 k/mm3 (150-375); Red Blood Count 3.67 M/mm3 (4.6-6.20); Red Cell Distribution Width 13.3 % (11.5-14.5); White Blood Count 9.8 K/mm3 (4.5-10.0)
[2022-08-23 06:37] LABS: Lymphocytes Absolute Auto 1.04 K/mm3 (0.9-3.2)
[2022-08-23 06:44] LABS: Anion Gap 4 mmol/L (8-16); Blood Urea Nitrogen 28 mg/dL (9-20); Calcium 8.1 mg/dL (8.4-10.2); Carbon Dioxide 26 mmol/L (22-30); Chloride 109 mmol/L (98-107); Estimated CRCL calculation 58 ml/min; Estimated Glomerular Filt Rate 51; Glucose 138 mg/dL (65-110); Potassium 4.2 mmol/L (3.4-5.0); Sodium 139 mmol/L (137-145)
[2022-08-23 07:36] VITALS: BP 120/41; PULSE 62; RESP 18; TEMP 36.9; O2SAT 100
[2022-08-23 07:41] LABS: Glucose Point of Care 160 mg/dl (65-105)
[2022-08-23] MEDS: ceFAZolin 2 GM/D5W 50 ML 2 GM/50 ML BAG IVPB (09:16)
[2022-08-23] MEDS: SENNA/DOCUSATE SODIUM TABLET 2 TAB PO (09:17)
[2022-08-23] MEDS: carvediloL 12.5 MG TABLET 25 MG PO (09:17)
[2022-08-23] MEDS: EMPAGLIFLOZIN 25 MG TABLET BY MOUTH (09:18)
[2022-08-23] MEDS: SPIRONOLACTONE 25 MG TABLET PO (09:18)
[2022-08-23] MEDS: AMIODARONE HCL 200 MG TABLET PO (09:18)
[2022-08-23] MEDS: FAMOTIDINE 20 MG TABLET PO (09:18)
[2022-08-23] MEDS: SACUBITRIL/VALSARTAN 49-51 MG TABLET 1 TABLET PO (09:18)
[2022-08-23] MEDS: APIXABAN 5 MG TABLET PO (09:18)
[2022-08-23] MEDS: allopurinoL 300 MG TABLET PO (09:18)
--- NOTE | 2022-08-23 09:32 | WPDANESPN ---
Anes - Prog Note Post-Op Date/Time: 08/23/22 09:32 Cardiovascular status: normal Respiratory status: normal Airway patency: baseline Mental status: baseline Post-Op hydration status: normal Vital Signs: Last Vital Signs Temp 36.9 C 08/23/22 03:36 Pulse 71 08/23/22 03:36 Resp 14 08/23/22 03:36 BP 115/34 L 08/23/22 03:36 Pulse Ox 100 08/23/22 03:36 O2 Del Method Room Air 08/23/22 08:39 O2 Flow Rate 3 08/22/22 13:43 Pain Score (VAS): Pt asleep, no nonverbal signs of pain present at this time I/O: Intake & Output 08/22/22 08/23/22 08/23/22 23:59 07:59 15:59 Intake Total 600 1300 Output Total 575 Balance 600 725 Laboratory Tests 08/23/22 06:08 08/23/22 06:08 08/22/22 08/22/22 08/22/22 12:25 14:23 21:29 WBC RBC Hgb 11.9 L Hct 38.4 L MCV MCH MCHC RDW Plt Count MPV Immature Gran % (Auto) Neut % (Auto) Lymph % (Auto) Mckinley % (Auto) Eos % (Auto) Baso % (Auto) Lymph # (Auto) Mckinley # (Auto) Eos # (Auto) Baso # (Auto) Abs Immat Gran (auto) Absolute Neuts (auto) Absolute Nucleated RBC Nucleated RBC % % Immature Plt Fraction Sodium Potassium Chloride Carbon Dioxide Anion Gap BUN Creatinine Estim Creat Clear Calc Estimated GFR Glucose POC Capillary Glucose 134 H 195 H Calcium 08/23/22 08/23/22 08/23/22 06:08 06:08 07:36 WBC 9.8 RBC 3.67 L Hgb 10.5 L Hct 33.9 L MCV 92.4 MCH 28.6 MCHC 31.0 L RDW 13.3 Plt Count 135 L MPV 11.5 H Immature Gran % (Auto) 0.2 Neut % (Auto) 79.3 H Lymph % (Auto) 10.6 L Mckinley % (Auto) 9.8 H Eos % (Auto) 0.0 Baso % (Auto) 0.1 L Lymph # (Auto) 1.04 Mckinley # (Auto) 1.0 H Eos # (Auto) 0.0 Baso # (Auto) 0.0 Abs Immat Gran (auto) 0.02 Absolute Neuts (auto) 7.8 H Absolute Nucleated RBC 0.0 Nucleated RBC % 0.0 % Immature Plt Fraction 6.8 Sodium 139 Potassium 4.2 Chloride 109 H Carbon Dioxide 26 Anion Gap 4 L BUN 28 H Creatinine 1.70 H Estim Creat Clear Calc 58 Estimated GFR 51 L Glucose 138 H POC Capillary Glucose 160 H Calcium 8.1 L Post-procedural complaints: none Patient Feedback: Patient satisfied with anesthetic care.
[2022-08-23 10:11] VITALS: O2SAT 96
[2022-08-23 11:36] VITALS: BP 114/38; PULSE 63; RESP 18; TEMP 36.9; O2SAT 98
[2022-08-23 11:47] LABS: Glucose Point of Care 190 mg/dl (65-105)
--- NOTE | 2022-08-23 12:32 | PM.PNORT ---
Progress Note: A&P Assessment and Plan (1) S/P total hip arthroplasty: Qualifiers: Laterality: left Qualified Code(s): Z96.642 - Presence of left artificial hip joint Code(s): Z96.649 - Presence of unspecified artificial hip joint Status: Acute Assessment and Plan: POD #1 : Left CHELE Continue PT/OT. WBAT. Walker. HIGH FALL RISK. Continue pain control. Ice hip. Protect skin. DVT prophylaxis with resumed Eliquis. SCDs. Incentive Spirometry Use reviewed. Monitor Dressing. Change prior to discharge. Bowel Regimen. Dispo: Home with Home Health pending progress with PT/OT and clearance with stair climbing. (2) Atrial fibrillation with rapid ventricular response: Code(s): I48.91 - Unspecified atrial fibrillation Status: Acute Assessment and Plan: Resumed Eliquis. (3) Cardiomyopathy: Code(s): I42.9 - Cardiomyopathy, unspecified Status: Acute Subjective Subjective Date/Time Seen: 08/23/22 12:32 Post Op day: 1 Interval history: POD #1: Left CHELE Patient doing very well. Pain well controlled. Only concern is ability to stair climb at discharge. Hopeful for discharge today. Review of Systems Constitutional: Constitutional: Denies chills, Denies fatigue, Denies fever(s), Denies night sweats and Denies weakness Cardiovascular: Cardiovascular: Denies chest pain, Denies lightheadedness, Denies palpitations and Denies dyspnea Respiratory: Respiratory: Denies cough, Denies dyspnea and Denies wheezing Gastrointestinal: Gastrointestinal: Denies abdominal pain, Denies diarrhea, Denies nausea and Denies vomiting Musculoskeletal: Musculoskeletal: Reports arthralgias (left hip ), Reports joint swelling (left hip ) and Denies numbness Neurologic: Denies numbness and Denies weakness Endocrine: Endocrine: Denies fatigue and Denies palpitations Allergic/Immunologic: Allergic/Immunologic: Denies wheezing Exam Const: General: comfortable and no acute distress Orientation/consciousness: patient oriented x3 Limitations: no limitations Resp: Effort & Inspection: normal respiratory effort Cardio: Rate: regular rate Rhythm: regular rhythm GI: Inspection: non-distended Skin: General skin exam: normal color and wounds noted (incision left hip C/D/I ) Wounds: wounds noted (incision left hip C/D/I ) Neuro: General: patient oriented x3 Extrem: Left lower extremity: hip/thigh Details: tenderness Location: of the hip Location: laterally and anteriorly, swelling (thigh soft ) Location: of the hip (lateral. ), abnormal ROM (limitations with internal/external rotation and flexion/extension due to recent surgical intervention ) and other (incision lateral hip c/d/i. ), knee Details: normal to inspection and normal ROM; no tenderness and no swelling, lower leg (Negative Lise's Sign ) Details: no edema, ankle (+ankle dorsiflexion/plantarflexion ) Details: normal to inspection, no edema and normal ROM; no tenderness, no swelling and no warmth and foot Details: normal capillary refill, toes with normal ROM, vascular exam Details: dorsalis pedis pulse present and motor-sensory exam light-touch normal in all toes; no tenderness, no ecchymosis and no crepitus Psych: Mental Status: mental status grossly normal Affect: normal affect Objective Data Vital Signs Vital Signs: Vital Signs - 24 hr 08/22/22 12:45 08/22/22 13:00 08/22/22 13:15 Temperature Pulse Rate 61 62 61 Respiratory Rate 16 16 15 Blood Pressure 100/35 L 112/37 L 105/37 L Pulse Oximetry 95 93 93 Oxygen Delivery Room Air Room Air Room Air Oxygen Flow Rate 08/22/22 13:15 08/22/22 13:43 08/22/22 13:30 Temperature Pulse Rate 60 60 55 L Respiratory Rate 15 15 Blood Pressure 106/36 L 104/38 L 105/37 L Pulse Oximetry 93 97 97 Oxygen Delivery Room Air Nasal Cannula Nasal Cannula Oxygen Flow Rate 3 3 08/22/22 13:51 08/22/22 14:06 08/22/22 14:36 Temperature 36.1 C L 36.0 C L 36.2 C L Puls
[2022-08-23 14:00] VITALS: BP 107/32; PULSE 62; RESP 18; TEMP 36.3; O2SAT 98
--- NOTE | 2022-08-23 15:16 | PM.DS ---
DS: Admitting Diagnosis Discharge Date 08/23/2022 Admitting Diagnosis Left CHELE DS: Discharge Diagnosis Discharge Diagnosis (1) S/P total hip arthroplasty: Qualifiers: Laterality: left Qualified Code(s): Z96.642 - Presence of left artificial hip joint Code(s): Z96.649 - Presence of unspecified artificial hip joint Status: Acute Assessment and Plan: POD #1 : Left CHELE Continue PT/OT. WBAT. Walker. HIGH FALL RISK. Continue pain control. Ice hip. Protect skin. DVT prophylaxis with resumed Eliquis. SCDs. Incentive Spirometry Use reviewed. Monitor Dressing. Change prior to discharge. Bowel Regimen. Dispo: Home with Home Health pending progress with PT/OT and clearance with stair climbing. (2) Atrial fibrillation with rapid ventricular response: Code(s): I48.91 - Unspecified atrial fibrillation Status: Acute Assessment and Plan: Resumed Eliquis. (3) Cardiomyopathy: Code(s): I42.9 - Cardiomyopathy, unspecified Status: Acute DS: Summary Hospital Course Reason for hospitalization: Left CHELE Hospital Course: 52 year old male admitted s/p Left CHELE for postoperative medical management, pain control and mobilization with PT/OT. Patient progressed well with PT/OT. Pain and vitals remained stable throughout. The patient has been cleared to be discharged home with home health at this time. He will be toe touch weight bearing per Dr. West. All discharge care instructions reviewed at depth. New medications reviewed. Follow up planned for 3 weeks in the outpatient orthopedic clinic with Dr. West. Status at Discharge Functional status at discharge: uses cane/walker Overall status at discharge: patient is progressing back to baseline Time Spent with Patient Time attestation: Total time spent providing and/or coordinating discharge services: Exam Const: General: comfortable and no acute distress Orientation/consciousness: patient oriented x3 Limitations: no limitations Resp: Effort & Inspection: normal respiratory effort Cardio: Rate: regular rate Rhythm: regular rhythm GI: Inspection: non-distended Skin: General skin exam: normal color and wounds noted (incision left hip C/D/I ) Wounds: wounds noted (incision left hip C/D/I ) Neuro: General: patient oriented x3 Extrem: Left lower extremity: hip/thigh Details: tenderness Location: of the hip Location: laterally and anteriorly, swelling (thigh soft ) Location: of the hip (lateral. ), abnormal ROM (limitations with internal/external rotation and flexion/extension due to recent surgical intervention ) and other (incision lateral hip c/d/i. ), knee Details: normal to inspection and normal ROM; no tenderness and no swelling, lower leg (Negative Lise's Sign ) Details: no edema, ankle (+ankle dorsiflexion/plantarflexion ) Details: normal to inspection, no edema and normal ROM; no tenderness, no swelling and no warmth and foot Details: normal capillary refill, toes with normal ROM, vascular exam Details: dorsalis pedis pulse present and motor-sensory exam light-touch normal in all toes; no tenderness, no ecchymosis and no crepitus Psych: Mental Status: mental status grossly normal Affect: normal affect DS: Data Data Completed and Pending Labs on day of discharge: Labs from last 24 hours 08/23/22 08/23/22 08/23/22 11:18 07:36 06:08 WBC RBC Hgb Hct MCV MCH MCHC RDW Plt Count MPV Immature Gran % (Auto) Neut % (Auto) Lymph % (Auto) Cole % (Auto) Eos % (Auto) Baso % (Auto) Lymph # (Auto) Cole # (Auto) Eos # (Auto) Baso # (Auto) Abs Immat Gran (auto) Absolute Neuts (auto) Absolute Nucleated RBC Nucleated RBC % % Immature Plt Fraction Sodium 139 Potassium 4.2 Chloride 109 H Carbon Dioxide 26 Anion Gap 4 L BUN 28 H Creatinine 1.70 H Estim Creat Clear Calc 58 Estimated GFR 51 L Glucose 1
== END 2022-08-23 16:15 | disposition home health service (06) ==
LOC: ANHSURGERY 06:03 → ANH3MEDSUR 13:54
PROVIDERS: PCP Family Medicine; Visit Provider Orthopaedic Surgery
PROC: (CPT 27130; principal; 2022-08-22 07:30)
DX: M16.52 Unilateral post-traumatic osteoarthritis, left hip (principal); I12.9 Hypertensive chronic kidney disease with stage 1 through stage 4 chronic kidney disease, or unspecified chronic kidney disease; E11.22 Type 2 diabetes mellitus with diabetic chronic kidney disease; N18.9 Chronic kidney disease, unspecified; I42.8 Other cardiomyopathies; M10.9 Gout, unspecified; I48.91 Unspecified atrial fibrillation; Z79.01 Long term (current) use of anticoagulants; Z79.84 Long term (current) use of oral hypoglycemic drugs; E66.9 Obesity, unspecified; Z68.35 Body mass index [BMI] 35.0-35.9, adult
CPT/HCPCS: 27130; 36415; 73502; 80048; 82948; 85014; 85018; 85025; 85055; 85610; 86850; 86900; 86901; 97110; 97116; 97161; 97165; 97530; 97535; 99199; A9270; C1713; C1776; J0171; J0690; J1100; J1170; J1885; J2250; J2270; J2370; J2405; J2704; J2710; J2795; J3010; J7120

== ENCOUNTER 2022-09-07 04:39 | Day surgery (SDC) | payer BC, SELFPAY ==
[2022-09-07] VITALS (22 sets, daily range): BP systolic 113–158; BP diastolic 46–64; PULSE 60–75; RESP 12–20; TEMP 36.6–36.8; O2SAT 96–100
--- NOTE | ~2022-09-07 | CT_ITS ---
EXAMINATION: CT abdomen pelvis w con DATE: 09/07/2022 06:26 INDICATION: Right upper quadrant and epigastric pain TECHNIQUE: Computed tomography (CT) of the abdomen and pelvis was performed without intravenous contr ast. The dose-length product was 1297.55 mGy-cm. Automated exposure control and iterative reconstruct ion technique were employed. COMPARISON: None. FINDINGS: Lung bases are unremarkable. Cardiomegaly. Small pericardial effusion. No pleural effusion. No significant vascular abnormality. No lymphadenopathy. There is thickening of the gallbladder wall with subtle pericholecystic infiltration of the fat, suspicious for cholecystitis. No definite stone s identified. No significant biliary dilatation. The liver, spleen, adrenal glands and right kidney a re unremarkable. There is a small subcentimeter hypodensities of the left kidney, most likely benign cysts. There are pancreatic calcifications, consistent with chronic pancreatitis. Nonobstructive marisol l pattern. Normal appendix. No evidence for diverticulitis. No free air or free fluid. Tiny fat-conta ining umbilical hernia. No lymphadenopathy. There is a left total hip arthroplasty. There is mild lum bar spondylosis. IMPRESSION: 1. Mildly thickened gallbladder with subtle pericholecystic fatty infiltration, suspicious for acute cholecystitis. Correlate clinically. Reviewed, dictated and finalized at location A.
--- NOTE | ~2022-09-07 | US_ITS ---
US abdomen limited INDICATION: Abdominal pain. Concern for cholecystitis. PROCEDURE: Realtime right upper abdominal ultrasound. COMPARISON: CT dated 09/07/2022 FINDINGS: Pancreas is obscured by bowel gas. Liver echotexture is normal without focal mass or intra hepatic biliary dilatation. There is normal directional flow in the portal vein. There is a stone at the gallbladder neck. There is mild gallbladder wall thickening. No definite shaun cholecystic fluid. Common bile duct measures 5.7 mm. No sonographic Gutierrez's sign. IMPRESSION: 1: Cholelithiasis with mild gallbladder wall thickening. Consider cholecystitis in the appropriate cl inical setting. Reviewed, dictated and finalized at location A. IMPRESSION: 1: Cholelithiasis with mild gallbladder wall thickening. Consider cholecystitis in the appropriate clinical setting.
[2022-09-07 05:03] LABS: Basophils Percent Auto 0.3 % (0.2-1.2); Eosinophils Absolute Auto 0.1 K/mm3 (0-0.3); Eosinophils Percent Auto 0.7 % (0-4.4); Hematocrit 31.1 % (42.0-52.0); Hemoglobin 9.4 g/dL (14.0-18.0); Immature Granulocyte Absolute 0.04 K/mm3 (0.00-0.031); Immature Granulocyte Percent A 0.5 % (0-0.5); Lymphocytes Absolute Auto 1.29 K/mm3 (0.9-3.2); Mean Corpuscular HGB Conc 30.2 g/dl (32-36); Mean Corpuscular Hemoglobin 28.7 pg (26-34); Mean Corpuscular Volume 94.8 fl (80-100); Mean Platelet Volume 9.7 fl (7.4-10.4); Monocytes Absolute Auto 0.3 K/mm3 (0.1-0.6); Monocytes Percent Auto 3.7 % (2.6-8.5); Neutrophils Absolute Auto 6.9 K/mm3 (1.3-6.7); Neutrophils Percent Auto 79.8 % (45.5-73.1); Platelet Count Result 283 k/mm3 (150-375); Red Blood Count 3.28 M/mm3 (4.6-6.20); Red Cell Distribution Width 14.1 % (11.5-14.5); White Blood Count 8.6 K/mm3 (4.5-10.0)
[2022-09-07 05:18] LABS: Alanine Aminotransferase 17 U/L (6-50); Albumin Level 3.9 g/dL (3.5-5.1); Alkaline Phosphatase 109 U/L (38-126); Anion Gap 4 mmol/L (8-16); Aspartate Amino Transferase 23 U/L (17-59); Bilirubin,Total 0.8 mg/dL (0.2-1.3); Blood Urea Nitrogen 28 mg/dL (9-20); Calcium 8.8 mg/dL (8.4-10.2); Carbon Dioxide 28 mmol/L (22-30); Chloride 109 mmol/L (98-107); Estimated CRCL calculation 57 ml/min; Estimated Glomerular Filt Rate 51; Glucose 123 mg/dL (65-110); Lipase 58 U/L (23-300); Sodium 141 mmol/L (137-145)
--- NOTE | 2022-09-07 05:40 | ED.ABDPAIN ---
HPI - Abdominal Pain General Chief Complaint: Abdominal Pain <Yolande Hinkle MD - Last Filed: 09/13/22 14:24> Stated Complaint: abd pain <Yolande Hinkle MD - Last Filed: 09/13/22 14:24> Time Seen by Provider: 09/07/22 04:48 <Yolande Hinkle MD - Last Filed: 09/13/22 14:24> History of Present Illness HPI narrative: Patient is a 52-year-old male with a history of hypertension, A-fib, diabetes presenting with abdominal pain. Patient states that for the last 7 or 8 hours he has had right upper quadrant and epigastric pain that radiates into his back. Denies nausea or vomiting. States that he had a normal bowel movement a couple of hours ago. Denies chest pain or shortness of breath. No fevers, cough, headache, numbness or weakness, dysuria, hematuria. <Yolande Hinkle MD - Last Filed: 09/13/22 14:24> Related Data Home Medications: Home Medications Medication Instructions Recorded Confirmed sacubitril 49 mg-valsartan 51 mg 1 tablet PO BID 09/22/21 09/13/22 tablet (Entresto) carvedilol 12.5 mg tablet (Coreg) 25 mg PO Q12HR 10/12/21 09/13/22 amiodarone 200 mg tablet (Pacerone) 200 mg PO DAILY@0800 08/08/22 09/13/22 dapagliflozin 10 mg tablet 10 mg PO DAILY HEARTFAILURE 08/08/22 09/13/22 (Farxiga) <Yolande Hinkle MD - Last Filed: 09/13/22 14:24> Allergies/Adverse Reactions: Allergies Allergy/AdvReac Type Severity Reaction Status Date / Time tetracycline Allergy Unknown Hives Verified 09/13/22 09:17 <Yolande Hinkle MD - Last Filed: 09/13/22 14:24> Review of Systems Review of Systems: All systems reviewed & are unremarkable except as noted in HPI and below <Yolande Hinkle MD - Last Filed: 09/13/22 14:24> [facility] Past Medical History Medical History: Medical History ) Atrial fibrillation with rapid ventricular response Cardiomyopathy Chronic kidney disease Baseline creatinine is around 1.40. Essential hypertension Gout, unspecified Left hip pain Nonischemic cardiomyopathy Ejection fraction was 20% in June 2021, improved to 41% in November 2021 with medical treatment. Obesity (BMI 30-39.9) Type 2 diabetes mellitus without complication, without long-term current use of insulin <Yolande Hinkle MD - Last Filed: 09/13/22 14:24> Surgical History Surgical History: Surgical History (Updated 09/13/22 @ 09:40 by RT Catarino(R)) History of cardiac catheterization (07/2021) History of hip surgery Left hip pinning in the early s. History of repair of left rotator cuff 2000 S/P total hip arthroplasty S/P total left hip arthroplasty <Yolande Hinkle MD - Last Filed: 09/13/22 14:24> Family History Family History: Family History ) Sibling Family history of gastrointestinal disorder Family history of arthritis Hypertension Mother Family history of heart disease in male family member before age 55, Onset Age: 40 Family history of malignant neoplasm, Onset Age: 40 Patient's mother is , Onset Age: 40 Hypertension Father Family history of malignant neoplasm, Onset Age: 70 Patient's father is , Onset Age: 70 Hypertension <Yolande Hinkle MD - Last Filed: 09/13/22 14:24> Social History Social History: Social History ) Social History: Surrogate medical decision maker: Alesia Helms Ishaan, sister. Code status: Full code. Smoking status: Never smoker Second hand tobacco smoke exposure: No Additional smoking assessment comments: DENIES ANY FORM OF TOBACCO USE Alcohol intake: current Drinks per week: 1 Substance use: never Substance use type: does not use Lack of Transportation: No Lack of Food: Never True Current Housing: I Have Housing Concerned About Future
[2022-09-07 05:41] LABS: Appearance Urine Clear (Clear); Bilirubin Urine Negative (Negative); Blood Urine Negative (Negative); Color Urine Yellow (Yellow); Glucose Urine UA 3+ mg/dL (Negative); Ketones Urine Trace mg/dL (Negative); Leukocyte Esterase Ur Negative LEU/UL (Negative); Nitrate Urine Negative (Negative); Protein Urine Negative (Negative); Specific Grav Ur 1.029 (1.001-1.035); pH Urine 5.5 (5.0-9.0)
[2022-09-07] MEDS: HYDROmorphone HCL INJ (*CRX) 1 MG/ML SYR 0.5 MG IV PUSH (05:53)
[2022-09-07] MEDS: FAMOTIDINE 20 MG/2 ML VIAL IV PUSH (05:53)
[2022-09-07] MEDS: SODIUM CHLORIDE 0.9% IV 1,000 ML 999 ML IV CONT (05:54)
[2022-09-07 06:08] LABS: Add Urine Microscopic? NO
--- NOTE | 2022-09-07 09:11 | PM.IMHP ---
H&P: HPI History of Present Illness Date/Time: 09/07/22 09:11 Chief Complaint: acute cholecystitis Narrative: 52 y/o M c multiple med issues presenting to ED c/o severe RUQ abd pain. Pt reports pain started acutely yesterday and was constant, sharp. Pt reports assoc nausea, bloating. Pt denies any previous episodes. Pt reports he is somewhat better now after pain meds but is still quite tender. Review of Systems Constitutional: Constitutional: Reports as per HPI, Reports anorexia, Denies fatigue, Denies fever(s), Denies lethargy, Denies malaise, Reports poor appetite, Denies weakness, Denies weight gain and Denies weight loss Eyes: Eyes: Reports no additional eye complaints ENT: Reports system reviewed and no additional complaints, except as documented Cardiovascular: Cardiovascular: Reports no additional cardiovascular complaints Respiratory: Respiratory: Reports no additional respiratory complaints Gastrointestinal: Gastrointestinal: Reports as per HPI, Reports abdominal pain, Reports bloating, Denies constipation, Reports GI cramping, Reports early satiety, Denies dyspepsia, Denies diarrhea, Denies loose stools, Reports nausea and Denies vomiting Genitourinary: Genitourinary: Reports no additional male genitourinary complaints Musculoskeletal: Musculoskeletal: Reports no additional musculoskeletal complaints Integumentary/Breasts: Skin/Breast: Reports system reviewed and no additional complaints, except as docu Neurologic: Reports system reviewed and no additional complaints, except as documented Psychiatric: Psychiatric: Reports no additional psychiatric complaints Endocrine: Endocrine: Reports no additional endocrine complaints Hematologic/Lymphatic: Hematologic/Lymphatic: Reports no additional hematologic/lymphatic complaints Allergic/Immunologic: Allergic/Immunologic: Reports no additional allergic/immunologic complaints [facility] Past Medical History Medical History Atrial fibrillation with rapid ventricular response Cardiomyopathy Chronic kidney disease Baseline creatinine is around 1.40. Essential hypertension Gout, unspecified Left hip pain Nonischemic cardiomyopathy Ejection fraction was 20% in June 2021, improved to 41% in November 2021 with medical treatment. Obesity (BMI 30-39.9) Type 2 diabetes mellitus without complication, without long-term current use of insulin Surgical History Surgical History History of cardiac catheterization (07/2021) History of hip surgery Left hip pinning in the early 80s. History of repair of left rotator cuff 2000 S/P total hip arthroplasty Family History Family History Sibling Family history of gastrointestinal disorder Family history of arthritis Hypertension Mother Family history of heart disease in male family member before age 55, Onset Age: 40 Family history of malignant neoplasm, Onset Age: 40 Patient's mother is , Onset Age: 40 Hypertension Father Family history of malignant neoplasm, Onset Age: 70 Patient's father is , Onset Age: 70 Hypertension Social History Social History Social History: Surrogate medical decision maker: Alesia Quiros, sister. Code status: Full code. Smoking status: Never smoker Second hand tobacco smoke exposure: No Additional smoking assessment comments: DENIES ANY FORM OF TOBACCO USE Alcohol intake: current Drinks per week: 1 Substance use: never Substance use type: does not use Lack of Transportation: No Lack of Food: Never True Current Housing: I Have Housing Concerned About Future Housing: No Difficulty Paying Gas/Electric Bills: No Difficulty Paying for Meds: No Currently Unemployed: No Education: Bachelor's Degree Diffic
--- NOTE | 2022-09-07 09:18 | WPDHPUPDATE1 ---
History and Physical Update Update Date/Time: 09/07/22 09:18 History and Physical has been reviewed, including an updated exam of the patient. There are NO changes in the patient's condition. Risks, benefits, and alternatives have been discussed and questions answered. Patient agrees to proceed with procedure.
--- NOTE | 2022-09-07 10:07 | WPDANESEPPF ---
Anes - Initial Pre Proc Eval Procedure: Operation Date: 09/07/22 13:30 Proposed Procedures p Laparoscopic Cholecystectomy - Ophelia Broussard MD Date/Time: 09/07/22 10:07 Surgeon: Ophelia Broussard MD Pre Op Diagnosis: abd pain Patient Data Age: 52 Gender: M Height: 1.8 m Weight: 112.49 kg Last Vital Signs Temp 36.8 C 09/07/22 04:42 Pulse 68 09/07/22 09:31 Resp 16 09/07/22 09:31 BP 127/50 L 09/07/22 09:31 Pulse Ox 100 09/07/22 09:31 O2 Del Method Room Air 09/07/22 04:42 Allergies Allergy/AdvReac Type Severity Reaction Status Date / Time tetracycline Allergy Unknown Hives Verified 09/07/22 09:59 Home Medications Medication Instructions Recorded Confirmed Type sacubitril 49 mg-valsartan 51 mg 1 tablet PO BID 09/22/21 08/22/22 History tablet (Entresto) carvedilol 12.5 mg tablet (Coreg) 25 mg PO Q12HR 10/12/21 08/22/22 History allopurinol 300 mg tablet 300 mg PO DAILY #90 tabs 12/18/21 08/22/22 Rx lancets (Microlet Lancet) #100 ea 12/18/21 08/22/22 Rx apixaban 5 mg tablet (Eliquis) 5 mg PO Q12HR #60 tabs 12/24/21 08/22/22 Rx blood sugar diagnostic (Contour #100 ea 06/19/22 08/22/22 Rx Next Test Strips) spironolactone 25 mg tablet 25 mg PO QAM #90 tabs 06/19/22 08/22/22 Rx amiodarone 200 mg tablet (Pacerone) 200 mg PO DAILY@0800 08/08/22 08/22/22 History dapagliflozin 10 mg tablet 10 mg PO DAILY HEARTFAILURE 08/08/22 08/22/22 History (Farxiga) hydrocodone 7.5 mg-acetaminophen 1 tablet PO Q4-6H PRN pain #50 tabs 08/23/22 Rx 325 mg tablet Laboratory Tests 09/07/22 09/07/22 09/07/22 04:58 04:58 05:30 WBC 8.6 K/mm3 K/mm3 (4.5-10.0) RBC 3.28 M/mm3 L M/mm3 (4.6-6.20) Hgb 9.4 g/dL L g/dL (14.0-18.0) Hct 31.1 % L % (42.0-52.0) MCV 94.8 fl fl (80-100) MCH 28.7 pg pg (26-34) MCHC 30.2 g/dl L g/dl (32-36) RDW 14.1 % % (11.5-14.5) Plt Count 283 k/mm3 D k/mm3 (150-375) MPV 9.7 fl fl (7.4-10.4) Immature Gran % (Auto) 0.5 % % (0-0.5) Neut % (Auto) 79.8 % H % (45.5-73.1) Lymph % (Auto) 15.0 % L % (18.3-44.2) Bowman % (Auto) 3.7 % % (2.6-8.5) Eos % (Auto) 0.7 % % (0-4.4) Baso % (Auto) 0.3 % % (0.2-1.2) Lymph # (Auto) 1.29 K/mm3 K/mm3 (0.9-3.2) Bowman # (Auto) 0.3 K/mm3 K/mm3 (0.1-0.6) Eos # (Auto) 0.1 K/mm3 K/mm3 (0-0.3) Baso # (Auto) 0.0 K/mm3 K/mm3 (0.0-0.1) Abs Immat Gran (auto) 0.04 K/mm3 H K/mm3 (0.00-0.031) Absolute Neuts (auto) 6.9 K/mm3 H K/mm3 (1.3-6.7) Absolute Nucleated RBC 0.0 K/mm3 K/mm3 (0.0-0.012) Nucleated RBC % 0.0 % % (0.0-0.2) Sodium 141 mmol/L mmol/L (137-145) Potassium 4.0 mmol/L mmol/L (3.4-5.0) Chloride 109 mmol/L H mmol/L (98-107) Carbon Dioxide 28 mmol/L mmol/L (22-30) Anion Gap 4 mmol/L L mmol/L (8-16) BUN 28 mg/dL H mg/dL (9-20) Creatinine 1.70 mg/dL H mg/dL (0.7-1.3) Estim Creat Clear Calc 57 ml/min ml/min Estimated GFR 51 L (59 - ) Glucose 123 mg/dL H mg/dL (65-110) Calcium 8.8 mg/dL mg/dL (8.4-10.2) Total Bilirubin 0.8 mg/dL mg/dL (0.2-1.3) AST 23 U/L U/L (17-59) ALT 17 U/L U/L (6-50) Alkaline Phosphatase 109 U/L U/L (38-126) Total Protein 7.0 g/dL g/dL (6.3-8.2) Albumin 3.9 g/dL g/dL (3.5-5.1) Lipase 58 U/L U/L (23-300) Urine Color Yellow (Yellow) Urine Appearance Clear (Clear) Urine pH 5.5 (5.0-9.0) Ur Specific Hamilton 1.029 (1.001-1.035) Urine Protein Negative mg/dL mg/dL (Negative) Urine Glucose (UA) 3+ mg/dL H mg/dL (Negative) Urine Ketones Trace mg/dL mg/dL (Negative)
[2022-09-07] MEDS: LACTATED RINGERS 1,000 ML 30 ML IV CONT ×2 (10:32→11:46)
[2022-09-07] MEDS: ceFAZolin 2 GM/D5W 50 ML 2 GM/50 ML BAG IVPB (10:35)
[2022-09-07] MEDS: BUPIVACAINE/EPINEPHRINE 0.5% 50 ML VIAL 30 ML INFILTRATE (11:04)
--- NOTE | 2022-09-07 11:43 | W.PM.PROC2 ---
Procedure Note - Detailed Date of Procedure 09/07/22 Pre-op Diagnosis Acute cholecystitis, cholelithiasis Post-op Diagnosis Same Procedure Performed Laparoscopic cholecystectomy Surgeon Ophelia Broussard MD Anesthesia General Indications 52-year-old male presented to the emergency department complaining of severe right upper quadrant abdominal pain associated with nausea. Workup including imaging significant for acute cholecystitis, cholelithiasis. Findings acute cholecystitis with cholelithiasis Description of Procedure The patient was taken to the operating room placed in the supine position. After adequate induction of general anesthesia, the patient was prepped and draped in normal sterile fashion. A time-out was then performed to verify the patient's identity as well as the procedure being performed. I then made a 5 mm incision in the infraumbilical region. Through this, a Veress needle was placed into the peritoneal cavity and CO2 gas was then insufflated. After adequate pneumoperitoneum was achieved, the Veress needle was removed and a 5 mm optiview trocar was placed through this incision under direct visualization. I then placed the laparoscope through this trocar site and under direct visualization placed a further 12 mm subxiphoid port as well as 2 additional 5 mm ports in the right upper abdomen. The gallbladder was then identified and was noted to be inflamed, distended, and full of gallstones. I was able to place a grasper at the dome of the gallbladder and this was retracted anterior and cephalad up over the liver. A 2nd retractor was then placed at the infundibulum and retracted laterally, this allowed visualization of the triangle of Calot. I then was able to visualize the cystic duct in its entirety from its proximal insertion into the gallbladder, to its distal junction with the common hepatic/common bile duct junction. At this point, I carefully skeletonized the proximal cystic duct with the [place] dissector. I then clipped and transected the proximal cystic duct. Next I visualized the cystic artery. Again the artery was skeletonized, clipped, and transected. I then used the Bovie cautery to take down the peritoneal attachments of the gallbladder off the liver bed. This was somewhat difficult given the amount of inflammation in the posterior space. Once the gallbladder specimen was completely detached, an endo-pouch was placed through the 12 mm port site. I then placed the gallbladder specimen into the Endo pouch and removed the endo-pouch from the 12 mm port site. The specimen will now be sent to pathology for further review. I then copiously irrigated the right upper quadrant. Hemostasis was noted in the liver bed, the clips were noted to be in good position on both the cystic duct stump and the cystic artery stump. No other pathology was noted in the right upper quadrant. I then moved the laparoscope to the subxiphoid port. No iatrogenic injury or other pathology was noted in the lower abdomen. I then closed the 12 mm trocar site under direct visualization using the Paul cone and 0 Vicryl suture. At this point, the abdomen was desufflated and all ports removed. All port sites were then closed with 4.O Monocryl subcuticular sutures. Dermabond was placed on each incision. The patient tolerated the procedure well, was extubated in the operating room postoperative and will be transferred to the recovery room in stable condition Estimated Blood Loss 10 Drains No Packing No Pathology Yes Complications No immediate complications Condition Stable Disposition PACU [facility] Billing Surgery - Charge Forward: Surgery Billing
[2022-09-07] MEDS: fentaNYL CITRATE INJ (*CRX) 100 MCG/2 ML VIAL 25 MCG IV PUSH ×2 (12:18→12:59)
[2022-09-07] MEDS: oxyCODONE HCL (*CRX) 5 MG TAB IR PO (14:05)
--- NOTE | 2022-09-07 14:06 | SUR.PHASEII ---
1405 - c/o pain level of 5-6. Medicated for pain.
== END 2022-09-07 15:15 | disposition home or self-care (01) ==
LOC: ANHED 07:59 → ANHSURGERY 08:12
PROVIDERS: Emergency Medicine; Emergency Provider Emergency Medicine; PCP Family Medicine; Visit Provider Surgery
PROC: 0FT44ZZ Resection of Gallbladder, Percutaneous Endoscopic Approach (ICD-10-PCS; CPT 47562; principal; 2022-09-07 13:30)
DX: K80.00 Calculus of gallbladder with acute cholecystitis without obstruction (principal); I48.91 Unspecified atrial fibrillation; I12.9 Hypertensive chronic kidney disease with stage 1 through stage 4 chronic kidney disease, or unspecified chronic kidney disease; E11.22 Type 2 diabetes mellitus with diabetic chronic kidney disease; N18.9 Chronic kidney disease, unspecified; I42.8 Other cardiomyopathies; Z79.84 Long term (current) use of oral hypoglycemic drugs; E66.9 Obesity, unspecified; Z68.34 Body mass index [BMI] 34.0-34.9, adult
CPT/HCPCS: 47562; 36415; 74177; 76705; 80053; 81003; 83690; 85025; 88304; 96365; 96375; 99285; A9270; J0131; J0330; J0690; J1170; J2250; J2270; J2704; J3010; J7030; J7120; Q9967

== ENCOUNTER 2024-01-31 12:18 | Outpatient (CLI) | payer BC, SELFPAY ==
[2024-01-31 12:58] LABS: Hemoglobin A1C 5.1 % (<5.7)
[2024-01-31 13:02] LABS: Alanine Aminotransferase 18 U/L (6-50); Albumin Level 4.1 g/dL (3.5-5.1); Alkaline Phosphatase 60 U/L (38-126); Anion Gap 9 mmol/L (4-12); Aspartate Amino Transferase 26 U/L (17-59); Bilirubin,Total 1.3 mg/dL (0.2-1.3); Blood Urea Nitrogen 27 mg/dL (9-20); Carbon Dioxide 27 mmol/L (22-30); Chloride 105 mmol/L (98-107); Cholesterol 155 mg/dL (0-200); Estimated Glomerular Filt Rate 51; Glucose 99 mg/dL (65-110); HDL Direct 46 mg/dL; Potassium 4.6 mmol/L (3.4-5.0); Sodium 141 mmol/L (137-145); Triglycerides 77 mg/dL (<150)
[2024-01-31 13:13] LABS: LDL Cholesterol Direct 82 mg/dL
[2024-01-31 13:30] LABS: Prostate Specific Antigen 3.2 ng/mL (< OR = 4.0)
[2024-01-31 13:47] LABS: Thyroid Stimulating Hormone Reflex 0.558 uIU/mL (0.465-4.68)
== END 2024-01-31 12:19 | disposition home or self-care (01) ==
LOC: ANHLAB 12:19
PROVIDERS: PCP Family Medicine; Visit Provider Family Medicine
DX: E11.9 Type 2 diabetes mellitus without complications (principal); Z13.220 Encounter for screening for lipoid disorders; Z13.29 Encounter for screening for other suspected endocrine disorder; Z13.228 Encounter for screening for other metabolic disorders; Z12.5 Encounter for screening for malignant neoplasm of prostate
CPT/HCPCS: 36415; 80053; 80061; 83036; 84153; 84443; G0103

== ENCOUNTER 2024-03-10 08:51 | Day surgery (SDC) | payer BC, SELFPAY ==
[2024-03-10 12:26] VITALS: BMI 36.6
[2024-03-11 09:00] VITALS: BP 134/48; PULSE 60; RESP 21; TEMP 36.3; O2SAT 97; BMI 36.6
--- NOTE | 2024-03-11 10:51 | WPDANESEPPF ---
Anes - Initial Pre Proc Eval Procedure: Operation Date: 03/11/24 10:30 Proposed Procedures p Trans Esophageal Echo - Navdeep Arredondo MD Date/Time: 03/11/24 10:51 Surgeon: Navdeep Arredondo MD Pre Op Diagnosis: aortic regurgitation Patient Data Age: 53 Gender: M Height: 1.83 m Weight: 122.5 kg Last Vital Signs Temp 97.4 F L 03/11/24 09:00 Pulse 60 03/11/24 09:00 Resp 21 H 03/11/24 09:00 BP 134/48 L 03/11/24 09:00 Pulse Ox 97 03/11/24 09:00 O2 Del Method Room Air 03/11/24 09:00 Allergies Allergy/AdvReac Type Severity Reaction Status Date / Time tetracycline Allergy Unknown Hives Verified 03/10/24 12:55 Home Medications Medication Instructions Recorded Confirmed Type sacubitril 49 mg-valsartan 51 mg 1 tablet PO BID 09/22/21 03/11/24 History tablet (Entresto) carvedilol 12.5 mg tablet (Coreg) 25 mg PO Q12HR 10/12/21 03/11/24 History lancets (Microlet Lancet) #100 ea 12/18/21 11/04/23 Rx apixaban 5 mg tablet (Eliquis) 5 mg PO Q12HR #60 tabs 12/24/21 03/11/24 Rx amiodarone 200 mg tablet (Pacerone) 200 mg PO DAILY@0800 08/08/22 03/11/24 History blood sugar diagnostic (Contour #100 ea 03/06/23 01/31/24 Rx Next Test Strips) allopurinol 300 mg tablet 300 mg PO DAILY #90 tabs 03/21/23 03/11/24 Rx dapagliflozin propanediol 10 mg 10 mg PO DAILY HEARTFAILURE #90 11/05/23 03/11/24 Rx tablet (Farxiga) tabs spironolactone 25 mg tablet 25 mg PO QAM #90 tabs 11/25/23 03/11/24 Rx Patient hx anesthesia problems: none Family hx anesthesia problems: none Results Review: All pre-operative results and documents have been reviewed as part of the pre-operative evaluation. [facility] Past Medical History Medical History Atrial fibrillation with rapid ventricular response Cardiomyopathy Chronic kidney disease Baseline creatinine is around 1.40. DJD of right shoulder Essential hypertension Gout, unspecified Left hip pain Nonischemic cardiomyopathy Ejection fraction was 20% in June 2021, improved to 41% in November 2021 with medical treatment. Obesity (BMI 30-39.9) Type 2 diabetes mellitus without complication, without long-term current use of insulin Surgical History Surgical History History of cardiac catheterization (07/2021) History of hip replacement (08/22/22) History of hip surgery Left hip pinning in the early 80s. History of repair of left rotator cuff 2000 S/P laparoscopic cholecystectomy 09/07/22 S/P total hip arthroplasty S/P total left hip arthroplasty Family History Family History Sibling Family history of gastrointestinal disorder Family history of arthritis Hypertension Mother Family history of heart disease in male family member before age 55, Onset Age: 40 Family history of malignant neoplasm, Onset Age: 40 Patient's mother is , Onset Age: 40 Hypertension Father Family history of malignant neoplasm, Onset Age: 70 Patient's father is , Onset Age: 70 Hypertension Social History Social History Social History: Surrogate medical decision maker: Alesia Quiros, sister. Code status: Full code. Smoking status: Never smoker Second hand tobacco smoke exposure: Yes Additional smoking assessment comments: DENIES ANY FORM OF TOBACCO USE Alcohol intake: current Drinks per week: 1 Substance use: never Substance use type: does not use Lack of Transportation: No Lack of Food: Never True Current Housing: I Have Housing Concerned About Future Housing: No Difficulty Paying Gas/Electric Bills: No Difficulty Paying for Meds: No Currently Unemployed: No Education: Bachelor's Degree Difficulty w/ Childcare or Family Care: No Living arrangements: with family Occupation/Education: occupation Additional occupation/education comments: [employer]. Gender identity (if verbalized by the patient): Male Sexual Orientation (if Verbalized by the Patient): Straight or Heterosexual Spiritual care concerns: No Anes - Eval Final PreProcedure Day of Procedure 03/11/24 10:51 Patient weight: obese Heart: regular rate and rhythm Lungs: clear to auscultation Airway: Mallampati scale class 1 Neurological: alert and oriented Last oral intake: >/= 8 hours ASA classification: III Emergent: no Anesthetic plan: proceed Anesthesia type and monitoring: general GIVS and standard monitoring Results Review: All pre-operative results and documents have been reviewed as part of the pre-operative evaluation. HTN, hx of afib, ECHO most recently w LVEF 41%. No known ABY. Informed Consent: The patient's anesthetic plan and its attendant risks and benefits were discussed with the patient/family/POA. Questions were solicited and answers provided to the satisfaction of the patient/family/POA.
--- NOTE | 2024-03-11 10:58 | WPDCARDPROC ---
Cardiac Cath Procedure Note Date of procedure:: 03/11/24 Performing physician:: Navdeep Arredondo MD Indication:: Aortic regurgitation Left ventricular systolic dysfunction Brief clinical history:: This is a 53-year-old man who was been found to have congestive heart failure with left ventricular enlargement and low ejection fraction. He was found to have no evidence of coronary disease at the time of the diagnosis. Follow-up echocardiogram as an outpatient however demonstrates severe aortic regurgitation. For follow-up of this transesophageal exam has been scheduled for this morning Procedure Procedure performed:: Transesophageal echocardiogram Sedation/Medication given:: Sedation per Anesthesia see their separately dictated no Estimated blood loss:: No blood loss Procedure note:: Patient was brought to the cardiac catheterization lab postanesthesia unit where he was in the postabsorptive state with peripheral IV access established. Or pharyngeal benzocaine was sprayed for topical anesthesia. He was then sedated with the anesthesia service. Please see their separately dictated note. After this the soft LALITA probe was placed into the hypopharynx and advanced into the esophagus without any difficulty. Multiplane are LALITA was performed examining the aortic valve and the aortic regurgitation. Mitral valve, left ventricular imaging as well as imaging of the aortic arch and root were obtained. Following this patient was recovered by the anesthesia service and was taken back to the holding area the procedure was well tolerated and unremarkable. Findings:: The left atrium is moderately dilated. The mitral valve leaflets appear normal in appearance there is no significant mitral regurgitation identified. The left ventricle is significantly dilated with global systolic dysfunction. Endocardial services were not ideally visualized but the ejection fraction appears to be no more than 25-30%. The aortic valve is a trileaflet structure. There is thickening of the right coronary cusp and failure of coaptation of the leaflets. There is a fairly large central jet of aortic regurgitation. In the four-chamber long axis view this jet fills up the entire LV outflow tract and is severe by color Doppler criteria. The right-sided chambers appear to be unremarkable the interatrial septum appears to be normal there is no pericardial effusion. Conclusion:: 1. Trileaflet aortic valve with thickening of the right coronary cusp, failure of leaflet coaptation and severe AI 2. Left ventricular enlargement with global systolic dysfunction and lower ejection fraction Navdeep Arredondo MD [facility]
[2024-03-11 11:14] VITALS: BP 140/51; PULSE 66; RESP 17; O2SAT 97
[2024-03-11 11:15] VITALS: BP 140/51; PULSE 69; RESP 18; O2SAT 98
[2024-03-11 11:36] VITALS: BP 140/55; PULSE 59; RESP 20; O2SAT 97
[2024-03-11 12:00] VITALS: BP 123/54; PULSE 59; RESP 15; O2SAT 96
[2024-03-11 12:15] VITALS: BP 135/46; PULSE 60; RESP 20; O2SAT 95
--- NOTE | 2024-03-13 07:59 | P.HP_ITS ---
H&P: HPI History of Present Illness Date/Time: 03/13/24 07:59 Chief Complaint: no complaints this morning Narrative: this is a 53-year-old man who has been under treatment for left ventricular systolic dysfunction and congestive heart failure. Follow-up echocardiogram as an outpatient appears to demonstrate severe aortic regurgitation and for this reason transesophageal ECHO has been requested and scheduled for this morning. The patient is doing well clinically and taking guideline directed medical therapy for systolic dysfunction Review of Systems Constitutional: Constitutional: Reports no additional constitutional complaints Eyes: Eyes: Reports no additional eye complaints ENT: Reports system reviewed and no additional complaints, except as documented Cardiovascular: Cardiovascular: Reports no additional cardiovascular complaints Respiratory: Respiratory: Reports dyspnea on exertion Gastrointestinal: Gastrointestinal: Reports no additional gastrointestinal complaints Genitourinary: Genitourinary: Reports no additional male genitourinary complaints Musculoskeletal: Musculoskeletal: Reports no additional musculoskeletal complaints Integumentary/Breasts: Skin/Breast: Reports system reviewed and no additional complaints, except as docu Neurologic: Reports system reviewed and no additional complaints, except as documented [facility] Past Medical History Medical History Atrial fibrillation with rapid ventricular response Cardiomyopathy Chronic kidney disease Baseline creatinine is around 1.40. DJD of right shoulder Essential hypertension Gout, unspecified Left hip pain Nonischemic cardiomyopathy Ejection fraction was 20% in June 2021, improved to 41% in November 2021 with medical treatment. Obesity (BMI 30-39.9) Type 2 diabetes mellitus without complication, without long-term current use of insulin Surgical History Surgical History History of cardiac catheterization (07/2021) History of hip replacement (08/22/22) History of hip surgery Left hip pinning in the early 80s. History of repair of left rotator cuff 2000 S/P laparoscopic cholecystectomy 09/07/22 S/P total hip arthroplasty S/P total left hip arthroplasty Family History Family History Sibling Family history of gastrointestinal disorder Family history of arthritis Hypertension Mother Family history of heart disease in male family member before age 55, Onset Age: 40 Family history of malignant neoplasm, Onset Age: 40 Patient's mother is , Onset Age: 40 Hypertension Father Family history of malignant neoplasm, Onset Age: 70 Patient's father is , Onset Age: 70 Hypertension Social History Social History Social History: Surrogate medical decision maker: Alesia Quiros, sister. Code status: Full code. Smoking status: Never smoker Second hand tobacco smoke exposure: Yes Additional smoking assessment comments: DENIES ANY FORM OF TOBACCO USE Alcohol intake: current Drinks per week: 1 Substance use: never Substance use type: does not use Lack of Transportation: No Lack of Food: Never True Current Housing: I Have Housing Concerned About Future Housing: No Difficulty Paying Gas/Electric Bills: No Difficulty Paying for Meds: No Currently Unemployed: No Education: Bachelor's Degree Difficulty w/ Childcare or Family Care: No Living arrangements: with family Occupation/Education: occupation Additional occupation/education comments: [employer]. Gender identity (if verbalized by the patient): Male Sexual Orientation (if Verbalized by the Patient): Straight or Heterosexual Spiritual care concerns: No Meds Home Medications and Allergies Home Medications Medication Instructions Recorded Confirmed Type sacubitril 49 mg-valsartan 51 mg 1 tablet PO BID 09/22/21 03/11/24 History tablet (Entresto) carvedilol 12.5 mg tablet (Coreg) 25 mg PO Q12HR 10/12/21 03/11/24 History lancets (Microlet Lancet) #100 ea 12/18/21 11/04/23 Rx apixaban 5 mg tablet (Eliquis) 5 mg PO Q12HR #60 tabs 12/24/21 03/11/24 Rx amiodarone 200 mg tablet (Pacerone) 200 mg PO DAILY@0800 08/08/22 03/11/24 History blood sugar diagnostic (Contour #100 ea 03/06/23 01/31/24 Rx Next Test Strips) allopurinol 300 mg tablet 300 mg PO DAILY #90 tabs 03/21/23 03/11/24 Rx dapagliflozin propanediol 10 mg 10 mg PO DAILY HEARTFAILURE #90 11/05/23 03/11/24 Rx tablet (Farxiga) tabs spironolactone 25 mg tablet 25 mg PO QAM #90 tabs 11/25/23 03/11/24 Rx Allergies Allergy/AdvReac Type Severity Reaction Status Date / Time tetracycline Allergy Unknown Hives Verified 03/10/24 12:55 Exam Const: Other: pleasant well-developed well-nourished black male overweight otherwise no distress HENMT: Mouth: Yes moist mucous membranes Eyes: Sclera: sclerae normal Neck: Neck: supple and no JVD Resp: Effort & Inspection: normal respiratory effort Auscultation: clear to auscultation bilaterally Cardio: Rate: regular rate Rhythm: regular rhythm Other: patient has a grade 1/6 diastolic decrescendo murmur audible at the left sternal border GI: GI Palp: Yes Soft to palpation Auscultation: normal bowel sounds Skin: General skin exam: normal color Neuro: Other: alert and oriented x3 Extrem: General: normal to inspection Assessment and Plan Assessment and plan (1) Nonischemic cardiomyopathy: Code(s): I42.8 - Other cardiomyopathies Status: Acute Plan this is a 53-year-old man has been found recently to have left ventricular syst olic dysfunction is doing well with medical therapy. Unexpectedly he was found by echo to have what appears to be severe aortic regurgitation and esophageal ECHO has been scheduled for this morning for further evaluation of this. Navdeep Arredondo MD [facility]
== END 2024-03-11 12:24 | disposition home or self-care (01) ==
PROVIDERS: PCP Family Medicine; Visit Provider Specialist
PROC: (CPT 93312; principal; 2024-03-11 10:30)
DX: I35.1 Nonrheumatic aortic (valve) insufficiency (principal); E11.9 Type 2 diabetes mellitus without complications; I13.0 Hypertensive heart and chronic kidney disease with heart failure and stage 1 through stage 4 chronic kidney disease, or unspecified chronic kidney disease; N18.9 Chronic kidney disease, unspecified; I50.9 Heart failure, unspecified; M19.011 Primary osteoarthritis, right shoulder; I48.20 Chronic atrial fibrillation, unspecified; E66.9 Obesity, unspecified; Z68.36 Body mass index [BMI] 36.0-36.9, adult; Z79.01 Long term (current) use of anticoagulants; Z79.84 Long term (current) use of oral hypoglycemic drugs; Z98.890 Other specified postprocedural states; Z98.61 Coronary angioplasty status; Z90.49 Acquired absence of other specified parts of digestive tract; Z80.9 Family history of malignant neoplasm, unspecified; Z82.49 Family history of ischemic heart disease and other diseases of the circulatory system
CPT/HCPCS: 93312; 93320; 93325; J2003; J2704; J7040; J7050

== ENCOUNTER 2024-04-27 00:23 | Day surgery (SDC) | payer BC, SELFPAY ==
[2024-04-24 17:16] VITALS: BMI 36.9
[2024-04-27] VITALS (15 sets, daily range): BP systolic 116–156; BP diastolic 44–67; PULSE 58–76; RESP 12–22; TEMP 37.4; O2SAT 95–98
[2024-04-27 07:12] LABS: Basophils Percent Auto 0.5 % (0.2-1.2); Eosinophils Absolute Auto 0.1 K/mm3 (0-0.3); Eosinophils Percent Auto 2.5 % (0-4.4); Hematocrit 42.1 % (42.0-52.0); Hemoglobin 13.2 g/dL (14.0-18.0); Immature Granulocyte Absolute 0.01 K/mm3 (0.00-0.031); Immature Granulocyte Percent A 0.2 % (0-0.5); Lymphocytes Absolute Auto 0.65 K/mm3 (0.9-3.2); Lymphocytes Percent Auto 11.6 % (18.3-44.2); Mean Corpuscular HGB Conc 31.4 g/dl (32-36); Mean Corpuscular Hemoglobin 28.8 pg (26-34); Mean Corpuscular Volume 91.7 fl (80-100); Mean Platelet Volume 11.3 fl (7.4-10.4); Monocytes Absolute Auto 0.4 K/mm3 (0.1-0.6); Neutrophils Absolute Auto 4.4 K/mm3 (1.3-6.7); Neutrophils Percent Auto 78.2 % (45.5-73.1); Platelet Count Result 141 k/mm3 (150-375); Red Blood Count 4.59 M/mm3 (4.6-6.20); Red Cell Distribution Width 13.4 % (11.5-14.5); White Blood Count 5.6 K/mm3 (4.5-10.0)
[2024-04-27 07:20] LABS: Anion Gap 8 mmol/L (4-12); Blood Urea Nitrogen 28 mg/dL (9-20); Carbon Dioxide 23 mmol/L (22-30); Chloride 109 mmol/L (98-107); Estimated CRCL calculation 60 ml/min; Estimated Glomerular Filt Rate 51; Glucose 114 mg/dL (65-110); Potassium 4.5 mmol/L (3.4-5.0); Sodium 140 mmol/L (137-145)
--- NOTE | 2024-04-27 09:41 | WPDHPUPDATE1 ---
History and Physical Update Update Date/Time: 04/27/24 09:41 History and Physical has been reviewed, including an updated exam of the patient. There are NO changes in the patient's condition. Risks, benefits, and alternatives have been discussed and questions answered. Patient agrees to proceed with procedure.
--- NOTE | 2024-04-27 09:42 | P.SEDATION_ITS ---
Moderate Sedation Note-Pt Data Patient Data Allergies Allergy/AdvReac Type Severity Reaction Status Date / Time tetracycline Allergy Unknown Hives Verified 04/24/24 18:49 Home Medications Medication Instructions Recorded Confirmed Type sacubitril 49 mg-valsartan 51 mg 1 tablet PO BID 09/22/21 04/24/24 History tablet (Entresto) lancets (Microlet Lancet) #100 ea 12/18/21 11/04/23 Rx apixaban 5 mg tablet (Eliquis) 5 mg PO Q12HR #60 tabs 12/24/21 04/24/24 Rx amiodarone 200 mg tablet (Pacerone) 200 mg PO DAILY@0800 08/08/22 04/24/24 History blood sugar diagnostic (Contour #100 ea 03/06/23 01/31/24 Rx Next Test Strips) allopurinol 300 mg tablet 300 mg PO DAILY #90 tabs 03/21/23 04/24/24 Rx dapagliflozin propanediol 10 mg 10 mg PO DAILY HEARTFAILURE #90 11/05/23 04/24/24 Rx tablet (Farxiga) tabs spironolactone 25 mg tablet 25 mg PO QAM #90 tabs 11/25/23 04/24/24 Rx carvedilol 25 mg tablet 25 mg PO BID 04/24/24 04/24/24 History Sedation/Anesthesia: No previous sedation/anesthesia problems (including family history). [facility] Past Medical History Medical History Atrial fibrillation with rapid ventricular response Cardiomyopathy Chronic kidney disease Baseline creatinine is around 1.40. DJD of right shoulder Essential hypertension Gout, unspecified Left hip pain Nonischemic cardiomyopathy Ejection fraction was 20% in June 2021, improved to 41% in November 2021 with medical treatment. Obesity (BMI 30-39.9) Type 2 diabetes mellitus without complication, without long-term current use of insulin Surgical History Surgical History History of cardiac catheterization (07/2021) History of hip replacement (08/22/22) History of hip surgery Left hip pinning in the early 80s. History of repair of left rotator cuff 2000 S/P laparoscopic cholecystectomy 09/07/22 S/P total hip arthroplasty S/P total left hip arthroplasty Family History Family History Sibling Family history of gastrointestinal disorder Family history of arthritis Hypertension Mother Family history of heart disease in male family member before age 55, Onset Age: 40 Family history of malignant neoplasm, Onset Age: 40 Patient's mother is , Onset Age: 40 Hypertension Father Family history of malignant neoplasm, Onset Age: 70 Patient's father is , Onset Age: 70 Hypertension Social History Social History Social History: Surrogate medical decision maker: ChristelAnalia Quiros, sister. Code status: Full code. Smoking packs per day: 0 Smoking cigarettes per day: 0.0 Smoking status: Never smoker Second hand tobacco smoke exposure: Yes Additional smoking assessment comments: DENIES ANY FORM OF TOBACCO USE Alcohol intake: current Drinks per week: 1 Substance use: never Substance use type: does not use Lack of Transportation: No Lack of Food: Never True Current Housing: I Have Housing Concerned About Future Housing: No Difficulty Paying Gas/Electric Bills: No Difficulty Paying for Meds: No Currently Unemployed: No Education: Bachelor's Degree Difficulty w/ Childcare or Family Care: No Living arrangements: with family Occupation/Education: occupation Additional occupation/education comments: [employer]. Gender identity (if verbalized by the patient): Male Sexual Orientation (if Verbalized by the Patient): Straight or Heterosexual Spiritual care concerns: No Mod Sed Physical Exam Physical Exam Pre Procedural Exam: Normal: Lungs, Heart Rate and Heart Rhythm Hours since solid foods: 12 Hours since liquid intake: 12 Mallampati Classification: class II Internal Medicine - PN: Obj Da Vital Signs Vital Signs: Vital Signs - 24 hr 04/27/24 07:00 Temperature 37.4 C Pulse Rate 67 Respiratory Rate 15 Blood Pressure 141/57 H Pulse Oximetry 96 Oxygen Delivery Room Air Labs 04/27/24 06:52 04/27/24 06:52 Labs: Laboratory Results - last 24 hr 04/27/24 06:52 WBC 5.6 RBC 4.59 L Hgb 13.2 L D Hct 42.1 MCV 91.7 MCH 28.8 MCHC 31.4 L RDW 13.4 Plt Count 141 L D MPV 11.3 H Immature Gran % (Auto) 0.2 Neut % (Auto) 78.2 H Lymph % (Auto) 11.6 L [place] % (Auto) 7.0 Eos % (Auto) 2.5 Baso % (Auto) 0.5 Lymph # (Auto) 0.65 L [place] # (Auto) 0.4 Eos # (Auto) 0.1 Baso # (Auto) 0.0 Abs Immat Gran (auto) 0.01 Absolute Neuts (auto) 4.4 Absolute Nucleated RBC 0.000 Nucleated RBC % 0.0 Sodium 140 Potassium 4.5 Chloride 109 H Carbon Dioxide 23 Anion Gap 8 BUN 28 H Creatinine 1.70 H Estim Creat Clear Calc 60 Estimated GFR 51 L Glucose 114 H Calcium 9.0 ASA Classification/Sedation ASA Classification/Sedation ASA Class: III Emergent: No Risks: Risks, benefits and alternatives explained and patient/family accepted plan for sedation. Patient re-evaluated immediately prior to sedation.
--- NOTE | 2024-04-27 09:42 | WPDCARDPROC ---
Cardiac Cath Procedure Note Date of procedure:: 04/27/24 Performing physician:: CATHETERIZATION LABORATORY REPORT Procedure Date: 04/27/2024 Referring Physician: Dr. Arredondo Anesthesia: Versed and Fentanyl were ordered and given in my presence at 0858, procedure ended at 0935. Supervision of nurse, Jamil Ang monitored moderate sedation with 2mg Versed and 100mcg Fentanyl was provided for 37 minutes. Pre-op Diagnosis: Severe Aortic Regurgitation Post-op Diagnosis: Severe Aortic Regurgitation Procedure(s): Left heart catheterization with coronary angiography Right Heart Catheterization Access Site: Right radial artery and hemostasis with TR band Right brachial vein and hemostasis with manual compression Right femoral vein and hemostasis with Mynx Brief History and Clinical Indications: 54-year-old man with severe aortic insufficiency presents for left and right heart catheterization prior to surgical correction of severe aortic insufficiency. All risks, benefits and alternatives to left heart catheterization with or without percutaneous coronary intervention was discussed at length with the patient. Risk of complications including but not limited to bleeding, infection, arrhythmia, stroke, worsening kidney function, blood loss, groin hematoma, limb loss, emergency coronary artery bypass grafting, and even were discussed with the patient and all questions were answered. The patient understood and wished to proceed. Time out called, patient name, date of , medical record number, allergies, procedure performed, identify Trim Technician, patient and staff member concurred with accurate data, procedure carried on. Findings: LEFT HEART CATHETERIZATION FINDINGS: 1. Left main: The left main coronary artery is widely patent without any significant obstructive disease. 2. Left anterior descending: The LAD and the diagonal branches have mild luminal irregularities without any significant obstructive angiographic disease. 3. Left circumflex: The left circumflex artery and the main marginal branches have mild luminal irregularities without any significant obstructive angiographic disease. 4. Right coronary artery: The RCA has mild luminal irregularities without any significant obstructive angiographic disease. The RCA is the dominant vessel. 5. Left ventricle: A. End-diastolic pressure 18 mmHg. B. LV gram deferred. C. No significant gradient across aortic valve on catheter pullback. 6. Opening AO pressure 107/64 and closing AO pressure 128/73 RIGHT HEART CATHETERIZATION FINDINGS: Pressures (mmHg): RA: 15 (a 18, v 15) RV: 35/6 PA: 37/23 (27) PCWP: 22 (v 25) Saturations (%): PA: 60.6 Arterial: 93.8 CO/CI: Yasmine: 5.1/2.1 Description of Procedure: Informed consent signed and placed in the chart. Patient transferred to paint laboratory technician room. Prepped and draped in usual sterile fashion. 2% lidocaine injected subcutaneously in the right brachial area. The 7F sheath was unable to be advanced into the vein at which point venous access was converted to right femoral vein. Right femoral vein was accessed using micropuncture technique and 7-FR sheath placed. 7F [place]-Magdiel catheter was advanced into the right side of the heart chambers and pressures were measured. Hemostasis was achieved by Mynx device. 2% lidocaine injected subcutaneously in right wrist area. 22-gauge venipuncture catheter used to access the right radial artery with the Seldinger technique. 6-FR slender sheath placed in right radial artery. Nitroglycerin 200mcg, Verapamil 2.5mg, and Heparin 5000U was given intraarterial through the sheath. J wire advanced under fluoroscopy 5F TIG diagnostic catheter engaged Left Main Coronary Artery. 5F TIG diagnostic catheter was unable to engage Right Coronary Artery due to dilated aortic root and the 5F TIG was exchanged out over a wire for a JR4 Diagnostic catheter which engaged the right coronary artery. Multiple orthogonal angiogram obtained and reviewed 5F TIG diagnostic catheter crossed aortic valve to obtain LVEDP, LV angiogram deferred. Hemostasis was achieved by application of TR band. Assessment: No significant CAD. Elevated filling pressures Post Operative Condition: Stable No significant blood loss Disposition: Home Plan: The patient will be monitored in the recovery area. The patient will follow-up with primary stenographic court reporter and obtain a CT scan to evaluate the aorta. Oscar Lau Interventional Cardiology
== END 2024-04-27 13:15 | disposition home or self-care (01) ==
PROVIDERS: PCP Family Medicine; Visit Provider Internal Medicine
PROC: 4A023N8 Measurement of Cardiac Sampling and Pressure, Bilateral, Percutaneous Approach (ICD-10-PCS; CPT 93453; principal; 2024-04-27 08:00)
DX: Z01.810 Encounter for preprocedural cardiovascular examination (principal); I35.1 Nonrheumatic aortic (valve) insufficiency; I48.20 Chronic atrial fibrillation, unspecified; I42.8 Other cardiomyopathies; E11.22 Type 2 diabetes mellitus with diabetic chronic kidney disease; I12.9 Hypertensive chronic kidney disease with stage 1 through stage 4 chronic kidney disease, or unspecified chronic kidney disease; N18.9 Chronic kidney disease, unspecified; M19.011 Primary osteoarthritis, right shoulder; Z98.890 Other specified postprocedural states; Z98.61 Coronary angioplasty status; Z90.49 Acquired absence of other specified parts of digestive tract; Z79.01 Long term (current) use of anticoagulants; Z79.84 Long term (current) use of oral hypoglycemic drugs; Z80.9 Family history of malignant neoplasm, unspecified; Z82.49 Family history of ischemic heart disease and other diseases of the circulatory system
CPT/HCPCS: 36415; 80048; 85025; 93460; C1760; C1769; C1887; C1894; G0269; J1644; J2003; J2250; J2305; J3010; J7040

== ENCOUNTER 2024-04-30 15:25 | Outpatient (CLI) | payer BC, SELFPAY ==
--- NOTE | ~2024-04-30 | CT_ITS ---
EXAMINATION: CTA chest DATE: 04/30/2024 16:06 INDICATION: Abdominal aortic aneurysm for preoperative evaluation. TECHNIQUE: Computed tomographic angiography (CTA) of the chest was performed without and with 100 mL Omnipaque-350 intravenous contrast. Volume-rendered 3D-reconstructions of the aorta and large arterie s were constructed by the technologist on a separate workstation. Automated exposure control and iter ative reconstruction technique were employed. The dose-length product was 2096.2 mGy-cm. COMPARISON: None. FINDINGS: Mild discoid atelectasis in the right middle and left lower lobes. No pneumonia, pulmonary edema susp icious pulmonary nodules or pleural effusion. Cardiomegaly. Small pericardial effusion. Minimal ather osclerotic calcific location along the left anterior descending coronary artery. Thoracic aorta is no rmal in caliber. No pathologically enlarged thoracic lymphadenopathy. Cholecystectomy clips the gallb ladder fossa. Mild thoracic spondylosis. IMPRESSION: 1. Normal caliber thoracic aorta. 2. Cardiomegaly with small pericardial effusion. Reviewed, dictated and finalized at location A. RECOVERY UNIT OPERATOR
== END 2024-04-30 15:26 | disposition home or self-care (01) ==
PROVIDERS: PCP Family Medicine; Visit Provider Specialist
DX: Z01.818 Encounter for other preprocedural examination (principal); I51.7 Cardiomegaly; I31.39 Other pericardial effusion (noninflammatory); I35.1 Nonrheumatic aortic (valve) insufficiency; I42.0 Dilated cardiomyopathy
CPT/HCPCS: 71275; Q9967

== ENCOUNTER 2024-07-16 01:44 | Day surgery (SDC) | payer BC, SELFPAY ==
[2024-07-15 11:01] VITALS: BMI 37.2
[2024-07-16] VITALS (7 sets, daily range): BP systolic 108–129; BP diastolic 83–105; PULSE 57–102; RESP 14–20; O2SAT 97–100
--- OUTSIDE RECORDS SUMMARY | 2024-07-16 01:47 | XMS_ITS | Encounter Summary ---
Author Organization [facility] Address [address] [place] [id number] Care Team Providers Care School Standards Coach Name Role Phone Aly Ward MD Primary Care Provider [phone] Encounter Details Date Type Department Care Team (Latest Contact Info) Description 07/09/2024 Scan HEALTH INFO SRVCS Scanned, Doc Med Group Social History Tobacco Use Types Packs/Day Years Used Date Smoking Tobacco: Never Smokeless Tobacco: Never Alcohol Use Standard Drinks/Week Comments Never 0 (1 standard drink = 0.6 oz pur e alcohol) Sex and Gender Information Value Date Recorded Sex Assigned at Male 07/06/2024 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 Legal Sex Male 4:22 PM CDT Gender Identity Not on file Sexual Orientation Not on file documented as of this encounter Plan of Treatment Upcoming Encounters Date Type Department Care Team (Latest Contact Info) Description 07/28/2024 8:30 AM CDT Hospital Encounter [facility] [address] [place] [address] Navdeep Arredondo MD [address] [facility] [address] [address] 07/30/2024 3:00 PM CDT Appointment [facility] [address] [place] [address] Blake Curtis MD [address] [place] [address] 08/03/2024 3:00 PM CDT Appointment [facility] [address] [place] [address] Blake Curtis MD [address] [place] [address] 08/05/2024 3:00 PM CDT Appointment [facility] [address] [place] [address] Blake Curtis MD [address] [place] [address] 08/06/2024 3:00 PM CDT Appointment [facility] [address] [place] [address] Blake Curtis MD [address] [place] [address] 08/10/2024 3:00 PM CDT Appointment [facility] [address] [place] [address] Blake Curtis MD [address] [place] [address] 08/12/2024 3:00 PM CDT Appointment [facility] [address] [place] [address] Blake Curtis MD [address] [place] [address] 08/13/2024 3:00 PM CDT Appointment [facility] [address] [place] [address] Blake Curtis MD [address] [place] [address] 08/17/2024 3:00 PM CDT Appointment [facility] [address] [place] [address] Blake Curtis MD [address] [facility] [address] [place] [address] documented as of this encounter Visit Diagnoses Not on filedocumented in this encounter Care Teams School Standards Coach Relationship Specialty Start Date End Date Aly Ward MD [address] [place] [id number] PCP - General FAMILY PRACTICE 03/27/24 documented as of this encounter
--- OUTSIDE RECORDS SUMMARY | 2024-07-16 01:47 | XMS_ITS | Clinical Summary ---
Author Organization [facility] Address [address] [place] [id number] Care Team Providers Care Director Dermatology Name Role Phone Aly Ward MD Primary Care Provider [phone] Allergies Active Allergy Reactions Criticality Noted Date Comments Tetracycline Hives High 08/30/2021 Medications allopurinol (ZYLOPRIM) 300 MG tablet Take 1 tablet (300 mg total) by mouth daily. Active amiodarone (PACERONE) 200 MG tablet Take 1 tablet (200 mg total) by mouth daily. 4 Active ELIQUIS 5 MG tablet Take 1 tablet (5 mg total) by mouth every 12 (twelve) hours. Active carvedilol (COREG) 25 MG tablet Take 1 tablet (25 mg total) by mouth 2 (two) times daily with meals. 4 Active FARXIGA 10 MG tablet TAKE 1 TABLET BY MOUTH ONCE DAILY FOR HEART FAILURE 4 Active CONTOUR NEXT TEST test strip 1 strip daily. 4 Active ENTRESTO 49-51 MG tablet Take 1 tablet by mouth 2 (two) times daily. Active spironolactone (ALDACTONE) 25 MG tablet Take 1 tablet (25 mg total) by mouth every morning. Active albuterol sulfate HFA 108 (90 Base) MCG/ACT inhaler Inhale 2 puffs into the lungs every 6 (six) hours as needed for Wheezing. 8 g 4 Active methylPREDNISo LISBET rainey, (MEDROL DOSEPAK) 4 MG tablet Take 1 tablet (4 mg total) by mouth see administration instructions. 6 TABLETS ON DAY ONE, 5 TABLETS DAY TWO, 4 TABLETS DAY THREE, 3 TABLETS DAY FOUR, 2 TABLETS DAY FIVE, AND 1 TABLET DAY SIX 1 each 4 Active diclofenac sodium (VOLTAREN) 1 % gel Apply 2 g topically 4 (four) times daily. 100 g 4 Active Active Problems Problem Noted Date Diagnosed Date Congestive cardiomyopathy (CMS/HCC HHS/HCC) 08/2023 Aortic incompetence 04/15/2024 Encounters Date Type Department Care Team Description 07/09/2024 Scan [facility] Scanned, [facility] 06/26/2024 Scan [facility] Scanned, [facility] 06/18/2024 Scan [facility] Scanned, [facility] 06/11/2024 Scan [facility] Scanned, [facility] Procedure (SCAN) 05/09/2024 8:02 PM FOREST BOTANY INSTRUCTOR - 05/09/2024 11:30 PM [facility] Emergency [facility] [place] [address] Victor Hugo Rogers MD Chest Pain Discharge Disposition: Home or Self Care (Routine Discharge) 05/09/2024 Travel 04/30/2024 Scan [facility] Scanned, [facility] CT (SCAN) 04/22/[address] [phone] Aly Ward MD Referral 04/15/[address] [phone] Aly Ward MD Referral; Information from Last 3 Months Social History Tobacco Use Types Packs/Day Years Used Date Smoking Tobacco: Never Smokeless Tobacco: Never Tobacco Cessation:Counseling Given: Not Answered Alcohol Use Standard Drinks/Week Comments Never 0 (1 standard drink = 0.6 oz pur e alcohol) Sex and Gender Information Value Date Recorded Sex Assigned at Male 07/06/2024 11:05 AM [employer] IN[employer]CTOR Legal Sex Male 4:22 PM CDT Gender Identity Not on file Sexual Orientation Not on file Last Filed Vital Signs Vital Sign Reading Time Taken Comments Blood Pressure 167/56 05/09/2024 11:00 PM [employer] IN[employer] Pulse 55 05/09/2024 11:00 PM [employer] IN[employer] Temperature 37.1 C (98.8 F) 05/09/2024 7:57 PM [employer] IN[employer]CTOR Respiratory Rate 20 05/09/2024 11:00 PM [employer] IN[employer]CTOR Oxygen Saturation 96% 05/09/2024 11:00 PM [employer] IN[employer]CTOR Inhaled Oxygen Concentration - - Weight 122.5 kg (270 lb) 05/09/2024 7:57 PM FOREST [employer]OT[employer] IN[employer]CTOR Height 180.3 cm (5' 11 ) 05/09/2024 7:57 PM [employer] IN[employer]CTOR Body Mass Index 37.66 05/09/2024 7:57 PM FOR[employer] IN[employer]CTOR Plan of Treatment Upcoming Encounters Date Type Department Care Team (Latest Contact Info) Description 07/28/2024 8:30 AM CDT Hospital Encounter [facility] [address] [place] [address] Navdeep Arredondo MD [address] [facility] [address], [place] [id number] 07/30/2024 3:00 PM CDT Appointment [facility] [address] [place] [address] Blake Curtis MD [address] [facility] [address], [place] [address] 08/03/2024 3:00 PM CDT Appointment [facility] [address] [place] [address] Blake Curtis MD [address] [facility] [address] [place] [address] 08/05/2024 3:00 PM CDT Appointment [facility] [address] [place] [address] Blake Curtis MD [address] [facility] [address] [place] [address] 08/06/2024 3:00 PM CDT Appointment [facility] [address] [place] [address] Blake Curtis MD [address] [place] [address] 08/10/2024 3:00 PM CDT Appointment [facility] [address] [place] [address] Blake Curtis MD [address] [place] [address] 08/12/2024 3:00 PM CDT Appointment [facility] [address] [place] [address] Blake Curtis MD [address] [place] [address] 08/13/2024 3:00 PM CDT Appointment [facility] [address] [place] [address] Blake Curtis MD [address] [place] [address] 08/17/2024 3:00 PM CDT Appointment [facility] [address] [place] [address] Blake Curtis MD [address] [place], [place] [id number] Health Maintenance Due Date Last Done Comments Colorectal Cancer Screening Colonoscopy (10 Years) 1968 Annual Physical 1971 Pneumococcal Vaccine: Pediatrics (0 to 5 Years) and At-Risk Patients (6 to 64 Years) (1 of 2 - PCV) 1974 Hepatitis C 1986 DTaP, Tdap and Td Vaccines (1 - Tdap) 1987 Hepatitis B Vaccines (1 of 3 - 19+ 3-dose series) 1987 Zoster Vaccines (1 of 2) 2018 COVID-19 Vaccine (5 - season) 2024 04/05/2022, 04/05/2021, 09/11/2020, Additional history exists Influenza Adult (#1) 2024 02/20/2023 PHQ-2 (Physician Salineno) 05/20/2024 Meningococcal B Vaccine Aged Out No l onger eligible based on patient's age to complete this topic Meningococcal Vaccine Aged Out No varinder deonte eligible based on patient's age to complete this topic RSV Immunizations Under 20 Months Aged Out No longer eligible based on patient's age to complete this topic Procedures Procedure Name Priority Date/Time Associated Diagnosis Comments PROCEDURE GENERIC (SCAN ORDER) 06/11/2024 ECG 12-LEAD STAT 05/09/2024 10:31 PM FOREST [employer] INSTRUCTOR TROPONIN, QUANT STAT 05/09/2024 10:26 PM [employer]EST [employer] IN[employer]CTOR XR CHEST PORTABLE STAT 05/09/2024 8:2 6 PM [employer] IN[employer]CTOR TROPONIN, QUANT STAT 05/09/2024 8:06 PM FOREST [employer]OT[employer] INSTRUCTOR COMPREHENSIVE METABOLIC PANEL STAT 05/09/2024 8:06 PM FOREST [employer] INSTRUCTOR CBC W/DIFF AUTOMATED STAT 05/09/2024 8:06 PM FOREST [employer] INSTRUCTOR ECG 12-LEAD STAT 05/09/2024 8:[address] [address] GENERIC 04/30/2024 from Last 3 Months Results * PROCEDURE GENERIC (SCAN ORDER) (06/11/2024) 06/11/2024 us [facility] Scanned SCANNING Final Resu lt * ECG 12 lead (05/09/2024 10:31 PM FOREST BOTANY INSTRUCTOR) Only the most recent of2 resultswithin the time period is included. 05/09/2024 10:3 1 PM [employer]EST BOTANY INSTRUCTOR Narrative [facility] ([facility] RAD - 05/10/2024 12:[address] [address] [facility] Test Date: 2024-05-09 Pat Name: PABLO TOBARCLAUDIA Department: 41 Room: EXAM11 Gender: Male Quality Assurance Monitor Body: : 1970 Requested By: SERENA OCAMPO Order Number: [id number] Reading MD: Haydee Dale Measurements Intervals [place] Rate: 57 P: 58 OR: 176 QRS: -51 QRSD: 164 T: 116 QT: 473 QTc: 461 Interpretive Statements SINUS BRADYCARDIA LEFT AXIS DEVIATION [QRS AXIS < -30] LEFT BUNDLE BRANCH BLOCK [120+ ms QRS DURATION, 80+ ms Q/S IN V1/V2, 85+ ms R IN I/aVL/V5/V6] Compared to ECG 05/09/2024 20:05:18 Sinus rhythm no longer present [facility] [employer] Procedure Note Haydee Dale MD - 05/10/2024 [facility] Test Date: 2024-05-09 Pat Name: PABLO PARIKH Department: 41 Room: EXAM11 Gender: Male Quality Assurance Monitor Body: : 1970 Requested By: SERENA OCAMPO Order Number: [id number] Reading MD: Haydee Dale Measurements Intervals [place] Rate: 57 P: 58 OR: 176 QRS: -51 QRSD: 164 T: 116 QT: 473 QTc: 461 Interpretive Statements SINUS BRADYCARDIA LEFT AXIS DEVIATION [QRS AXIS < -30] LEFT BUNDLE BRANCH BLOCK [120+ ms QRS DURATION, 80+ ms Q/S IN V1/V2, 85+ms R IN I/aVL/V5/V6] Compared to ECG 05/09/2024 20:05:18 Sinus rhythm no longer present [facility] [employer]CTOR Serena Ocampo QUALITY ASSURANCE MONITOR BODY ECG ORDERABLES Final Result [facility] ([facility]) RAD * TROPONIN, QUANT (05/09/2024 10:26 PM FOREST BOTANY INSTRUCTOR) Only the most recent of2 resultswithin the time period is included. TROPONIN I HIGH SENSITIVITY 40 <79 ng/L 05/09/2024 10:54 PM FOREST BOTANY INSTRUCTOR [facility] Comment: HIGH DOSES OF BIOTIN, TROPONIN-SPECIFIC AUTOANTIBODIES, AND ANTIBODY THERAPY CONTAINING HAMA MAY INTERFERE WITH THIS TEST RESULT. CORRELATION TO CLINICAL HISTORY AND PRESENTATION RECOMMENDED. 05/09/2024 10:2 6 PM FOREST BOT[employer] INSTRUCTOR Serena Ocampo NP LABORATORY Final Result Performing Organization Address City/[facility]/ZIP Co de Phone Number [facility] [address] [place] [address], [place] [phone] * XR CHEST PORTABLE (05/09/2024 8:26 PM FOREST BOTANY INSTRUCTOR) Anatomical Region Laterality Modality Chest Radiographic Marcia ging 05/09/2024 8:40 PM FOREST BOTANY INSTRUCTOR Impressions 05/09/2024 8:43 PM FOREST BOTANY INSTRUCTOR IMPRESSION: Mild vascular congestion and stable cardiomegaly. Referred By: Interpreted By: Pascual Mix MD, 05/09/2024 8:40 PM Narrative 05/09/2024 8:[address] [facility] [address] [place], [place] [address] Examination: Chest x-ray 1 view Exam Date/Time: 05/09/2024 8:15 PM REASON FOR EXAM: 54 years-old Male with Chest pain Comparison: Chest x-ray 09/13/2023 Technique: Single AP view of the chest was obtained. Findings: Heart size is enlarged, similar to prior. Mild vascular congestion. Lungs are otherwise clear. There is no pleural effusion or pneumothorax. No acute osseous lesions are seen. Procedure Note Pascual Mix MD - 05/09/[address] [address] Examination: Chest x-ray 1 view Exam Date/Time: 05/09/2024 8:15 PM REASON FOR EXAM: 54 years-old Male with Chest pain Comparison: Chest x-ray 09/13/2023 Technique: Single AP view of the chest was obtained. Findings: Heart size is enlarged, similar to prior. Mild vascular congestion. Lungs are otherwise clear. There is no pleuraleffusion or pneumothorax. No acute osseous lesions are seen. IMPRESSION: Mild vascular congestion and stable cardiomegaly. Referred By: Interpreted By: Pascual Mix MD, 05/09/2024 8:40 PM Serena Ocampo NP GENERAL IMAGING Final Result * (ABNORMAL) COMPREHENSIVE METABOLIC PANEL (05/09/2024 8:06 PM FOREST BOTANY INSTRUCTOR) GLUCOSE 106(H) 70 - 99 MG/DL 05/09/2024 8:46 PM FOREST BOTANY INSTRUCTOR [facility] BUN 29(H) 7 - 18 MG/DL 05/09/2024 8:46 PM FOREST BOTANY INSTRUCTOR [facility] CREATININE S/P/B 1.82(H) 0.7 - 1.3 MG/DL 05/09/2024 8:46 PM FOREST BOTANY INSTRUCTOR [facility] SODIUM S/P/B 140 136 - 145 MMOL/L 05/09/2024 8:46 PM FOREST BOTANY INSTRUCTOR [facility] POTASSIUM S/P/B 4.7 3.5 - 5.1 MMOL/L 05/09/2024 8:[address] [facility] Comment:SLIGHT HEMOLYSIS, RE SULT MAY BE AFFECTED. CHLORIDE S/P/B 111 97 - 115 MMOL/L 05/09/2024 8:[address] [facility] CO2 24.5 21 - 32 MMOL/L 05/09/2024 8:[address] [facility] CALCIUM S/P/B 8.9 8.5 - 10.1 MG/DL 05/09/2024 8:[address] [facility] BILIRUBIN TOTAL S/P/B 0.8 0.2 - 1.2 MG/DL 05/09/2024 8:[address] [facility] Comment: THIS ASSAY IS NOT RECOMMENDED FOR PATIENTS UNDERGOING TREATMENT WITH ELTROMBOPAG DUE TO THE POTENTIAL FOR FALSELY ELEVATED RESULTS. TOTAL PROTEIN S/P/B 7.2 6.4 - 8.2 G/DL 05/09/2024 8:[address] [facility] ALBUMIN S/P/B 3.5 3.4 - 5.0 G/DL 05/09/2024 8:[address] [facility] AST 25 15 - 37 U/L 05/09/2024 8:[address] [facility] Comment:SLIGHT HEMOLYSIS, RE SULT MAY BE AFFECTED. ALT 24 16 - 60 U/L 05/09/2024 8:[address] [facility] ALKALINE PHOSPHATASE S/P/B 70 50 - 136 U/L 05/09/2024 8:[address] [facility] ANION GAP 4.5 2 - 10 MMOL/L 05/09/2024 8:[address] [facility] BUN CREATININE RATIO 15.9 6 - 26 05/09/2024 8:[address] [facility] A/G RATIO 0.9(L) 1.0 - 2.0 RATIO 05/09/2024 8:[address] [facility] GFR ESTIMATE 43(L) >90 ML/MIN/1.7 3 M2 05/09/2024 8:[address] [facility] Comment: NOTE: eGFR is not calculated for patients <18 years of age or gender unknown. This is an estimated GFR calculation using the new CKD EPI creatinine equation without race and so does not require a correction factor for race. This estimated GFR should not be used for calculating drug doses. 05/09/2024 8:06 PM FOREST BOTANY INSTRUCTOR us Serena Ocampo NP LABORATORY Final Result [facility] [address] [place] [address], [place] [phone] * (ABNORMAL) CBC W/DIFF AUTOMATED (05/09/2024 8:06 PM FOREST BOTANY INSTRUCTOR) WBC 7.83 4.5 - 11.0 x10'3/uL 05/09/2024 8:[address] [facility] RBC 4.63(L) 4.70 - 6.10 x10'6/uL 05/09/2024 8:[address] [facility] HGB 13.2(L) 14.0 - 18.0 G/DL 05/09/2024 8:29 PM FOREST BOTANY INSTRUCTOR [facility] HCT 41.9(L) 43.0 - 54.0 % 05/09/2024 8:[address] [facility] MCV 90.5 80.0 - 94.0 FL 05/09/2024 8:[address] [facility] MCH 28.5 27.0 - 31.0 PG 05/09/2024 8:[address] [facility] MCHC 31.5(L) 32.0 - 36.0 G/DL 05/09/2024 8:[address] [facility] RDW 13.4 11.5 - 14.5 % 05/09/2024 8:[address] [facility] PLT 175 130 - 400 x10'3/uL 05/09/2024 8:[address] [facility] MPV 11.1 9.3 - 12.2 FL 05/09/2024 8:[address] [facility] DIFFERENTIAL TYPE AUTOMATED DIFFERENTIAL 05/09/2024 8:[address] [facility] NEUTROPHILS % 54.5 % 05/09/2024 8:[address] [facility] LYMPHOCYTES % 36.7 % 05/09/2024 8:[address] [facility] MONOCYTES % 6.5 % 05/09/2024 8:[address] [facility] EOSINOPHILS 1.5 % 05/09/2024 8:[address] [facility] BASOPHILS 0.4 % 05/09/2024 8:[address] [facility] IMMATURE GRANS % 0.4 % 05/09/20 8:[address] [facility] ABS. NEUTROPHILS 4.27 1.80 - 7.70 x10'3/uL 05/09/2024 8:[address] [facility] ABS. LYMPHOCYTES 2.87 1.00 - 4.80 x10'3/uL 05/09/2024 8:[address] [facility] ABS. MONOCYTES 0.51 0.30 - 0.82 x10'3/uL 05/09/2024 8:[address] [facility] ABS. EOSINOPHILS 0.12 0.04 - 0.54 x10'3/uL 05/09/2024 8:29 PM FOREST BOTANY INSTRUCTOR [facility] ABS. BASOPHILS 0.03 0.01 - 0.08 x10'3/uL 05/09/2024 8:29 PM FOREST BOTANY INSTRUCTOR [facility] ABS. IMMATURE GRANULOCYTES 0.03 0.00 - 0.49 x10'3/uL 05/09/2024 8:29 PM FOREST BOTANY INSTRUCTOR [facility] 05/09/2024 8:06 PM FOREST BOT[employer] INSTRUCTOR Serena Ocampo QUALITY ASSURANCE MONITOR BODY LABORATORY Final Result [facility] [address] [place] [address], * CT GENERIC (04/30/2024) Anatomical Region Laterality Modality Other 04/30/2024 [facility] Scanned SCANNING Final Resu lt from Last 3 Months Insurance [facility] [address] [place] [id number] Care Teams Director Dermatology Relationship Specialty Start Date End Date Aly Ward MD [address] [place] [phone] PCP - General FAMILY PRACTICE 03/27/24
--- OUTSIDE RECORDS SUMMARY | 2024-07-16 01:48 | XMS_ITS | Referral Summary ---
Author Organization [facility] [address] Address [address] [place] [address] Care Team Providers Care Hotel Maintenance Worker Name Role Phone Navdeep Laurent MD Unavailable [phone] Navdeep Arredondo MD Unavailable [phone] Aly Ward MD Primary Care Provider [phone] Encounters Date Type Department Care Team Description 07/15/2024 Telephone Cardiovascular and Thoracic Surgery [address] [place] [phone] Blake Curtis MD INR Report 07/15/2024 9:30 AM FLEET MAINTENANCE FOREMAN Home Care Visit [address] [address] [address] [place] [address] Isha Hughes RN SN NON OASIS DISCHARGE 07/11/2024 Orders Only Cardiovascular and Thoracic Surgery [address] [place] [address] [address], [place] [address] Blake Curtis MD 07/10/2024 Telephone Cardiovascular and Thoracic Surgery [address] [place] [phone] Blake Curtis MD INR/Home Health 07/10/2024 10:00 AM FLEET MAINTENANCE FOREMAN Home Care Visit [address] [address] [address] [place] [address] Isha Hughes RN SN HOME VISIT 07/09/2024 Telephone [facility] Cardiology [address] [place] [address] [place] [phone] Yany Renee NP 07/09/2024 11:30 AM FLEET MAINTENANCE FOREMAN Office Visit [facility] Cardiology [address] [place] [address] [address] [place] [phone] Yany Renee NP Atrial fibrillation with rapid ventricular response (CMS/HCC) (HCC) (Primary Dx); Status post mechanical aortic valve replacement; Dilated cardiomyopathy (CMS/HCC) (HCC); Hospital discharge follow-up 07/06/2024 Telephone Cardiovascular and Thoracic Surgery [address] [place] [address] [address], [place] [address] Blake Curtis MD INR Report 07/06/2024 12:00 PM FLEET MAINTENANCE FOREMAN Home Care Visit [address] [address] [place] [address] Julio Levi RN SN HOME VISIT 07/02/2024 Telephone Cardiovascular and Thoracic Surgery [address] [place] [address] [address], [place] [address] Blake Curtis MD Anticoagulation 07/02/2024 Telephone Cardiovascular and Thoracic Surgery [address] [place] [phone] Juana Hall Disabilty Claims 07/02/2024 10:00 AM FLEET MAINTENANCE FOREMAN Home Care Visit [address] [address] [place] [address] Mariaelena Huntley RN SN HOME VISIT 06/30/2024 Telephone Cardiovascular and Thoracic Surgery [address] [place] [address] [address], [place] [address] Blake Curtis MD Anticoagulation 06/30/2024 10:00 AM FLEET MAINTENANCE FOREMAN Home Care Visit [address] [address] [place] [address] Isha Hughes RN SN HOME VISIT 06/25/2024 Telephone Cardiovascular and Thoracic Surgery [address] [facility] [address] [place] [address] Blake Curtis MD Test Results (INR); Anticoagulation 06/25/2024 10:30 AM FLEET MAINTENANCE FOREMAN Home Care Visit [address] [address] [place] [address] Isha Hughes RN SN HOME VISIT 06/24/2024 Home Care Visit [address] [address] [place] [address] Isha Hughes RN CARE CONFERENCE 06/23/2024 Telephone Cardiovascular and Thoracic Surgery [address] [facility] [address] [place] [address] Blake Curtis MD Test Results (INR) 06/23/2024 9:30 AM FLEET MAINTENANCE FOREMAN Home Care Visit [address] [address] [place] [address] Isha Hughes, MALU SN HOME VISIT 06/21/2024 Anticoagulation Telephone Call [address] [phone] Shayy Ames PA 06/21/2024 Plan of Care Documentation [address] [address] [place] [address] 06/21/2024 11:30 AM FLEET MAINTENANCE FOREMAN Home Care Visit [address] [address] [place] [address] Augusta Herrera, MALU SN NON OASIS START OF CARE 06/20/[address] [phone] Shayy Ames PA 06/20/2024 Home Care Visit [address] [address] [place] [address] Jane Epstein, RN TELEPHONE ENCOUNTER 06/19/2024 Telephone Cardiovascular and Thoracic Surgery [address] [facility] [address] [place] [address] Jacob De La Cruz, RN Home health inquiry 06/18/2024 Telephone [facility] [address] [place] [address] Bibiana Ambrocio 06/11/2024 6:03 AM FLEET MAINTENANCE FOREMAN - 06/18/2024 1:14 PM FLEET MAINTENANCE FOREMAN Hospital Encounter [address] [address] Blake Curtis MD Paroxysmal atrial fibrillation (CMS/HCC) (HCC) (Primary Dx); Nonrheumatic aortic valve insufficiency; Severe aortic valve regurgitation; S/P AVR (aortic valve replacement); Persistent atrial fibrillation (HCC) Discharge Disposition: Discharge to home, home health skilled care 06/17/2024 10:11 AM FLEET MAINTENANCE FOREMAN Anesthesia Event [facility] [address] [place] [phone] Emeterio Laguna DO [place], Miranda Louise, DIRECTOR TRIAL 06/12/2024 Telephone Cardiovascular and Thoracic Surgery [address] [facility] [address] [place] [phone] Blake Curtis MD Post-op Problem 06/11/2024 7:00 AM FLEET MAINTENANCE FOREMAN Ancillary Procedure [facility] [address] [place] [phone] 06/11/2024 7:47 AM FLEET MAINTENANCE FOREMAN Anesthesia Event [facility] [address] [place] [phone] Chip Howe MD Curdt, Nicholas Christopher, DIRECTOR TRIAL 06/11/2024 8:00 AM FLEET MAINTENANCE FOREMAN - 06/11/2024 1:05 PM FLEET MAINTENANCE FOREMAN Surgery [facility] [address] [place] [phone] Blake Curtis MD Aortic Valve Replacement and Left Atrial Appendage Clip 06/10/2024 Documentation Cardiovascular and Thoracic Surgery [address] [facility] [address] [place] [address] Steff Cummings NP 05/21/2024 3:35 PM FLEET MAINTENANCE FOREMAN Lab [facility] [address] [place] [address] Aortic valve insufficiency, etiology of cardiac valve disease unspecified; Pre-op evaluation 05/18/2024 Telephone Cardiovascular and Thoracic Surgery [address] [facility] [address] [place] [address] Blake Curtis MD 05/15/2024 Documentation Cardiovascular and Thoracic Surgery [address] [place] [address] [address], [place] [address] Anel Ross 05/14/2024 Orders Only Cardiovascular and Thoracic Surgery [address] [place] [address] [address], [place] [address] Steff Cummings NP Aortic valve insufficiency, etiology of cardiac valve disease unspecified (Primary Dx); Pre-op evaluation 05/11/2024 Orders Only [facility] Cardiology [address] [facility] [address] [place] [phone] Oscar Lau MD 05/01/2024 Telephone Cardiovascular and Thoracic Surgery [address] [place] [address] [address] [place] [address] Navdeep Laurent MD Surgery Confirmation 04/30/2024 - 04/30/2024 11:59 PM FLEET MAINTENANCE FOREMAN Hospital Encounter [facility] [phone] Aortic valve insufficiency, etiology of cardiac valve disease unspecified Discharge Disposition: Discharge to home or self care 04/30/2024 Orders Only [facility] Health Information Management [address] [place] [address] Navdeep Arredondo MD 04/27/2024 - 04/27/2024 11:59 PM FLEET MAINTENANCE FOREMAN Hospital Encounter [facility] [phone] Discharge Disposition: Discharge to home or self care 04/21/2024 Orders Only Cardiovascular and Thoracic Surgery [address] [facility] [address] [place] [address] Steff Cummings NP Dilated cardiomyopathy (CMS/HCC) (HCC) (Primary Dx); Aortic valve insufficiency, etiology of cardiac valve disease unspecified; Pre-op evaluation 04/20/2024 Telephone Cardiovascular and Thoracic Surgery [address] [facility] [address] [place] [address] Blake Curtis MD from Last 3 Months Allergies Active Allergy Reactions Criticality Noted Date Comments Tetracycline Hives High 08/30/2021 Medications spironolactone (ALDACTONE) 25 mg tabletIndications: chronic heart failure Take 1 tablet (25 mg total) by mouth Active allopurinoL (ZYLOPRIM) 300 mg tabletIndications: prevention of acute gout attack Take 1 tablet (300 mg total) by mouth daily Active dapagliflozin (FARXIGA) 10 mg tabletIndications: Heart Failure Take 1 tablet (10 mg total) by mouth daily 30 tablet 3 08/31/19 22 Active amiodarone (PACERONE) 200 mg tabletIndications: Prevention of A. Fib Post Cardio-Thoracic Surgery Take 1 tablet (200 mg total) by mouth 2 (two) times a day 60 tablet 1 06/18/19 25 Active acetaminophen 500 mg capsuleIndications :Pain Take 1 capsule (500 mg total) by mouth every 6 (six) hours as needed for pain 06/18/19 25 Active aspirin 81 mg enteric coated tabletIndications: prevention of thrombosis Take 1 tablet (81 mg total) by mouth daily 30 tablet 11 06/19/19 25 2025 Active HYDROcodone-acetam inophen (NORCO) 5-325 mg per tabletIndications: Pain Take 1 tablet by mouth every 4 (four) hours as needed for pain 30 tablet 06/18/19 25 Active warfarin (COUMADIN) 2 mg tabletIndications: Mechanical Valve Thromboembolism Prophylaxis Take 1.5 tablets (3 mg total) by mouth daily Take 3mg (1.5 tablets) daily, starting 07/03/24, or as directed 07/03/19 25 Active metoprolol tartrate (LOPRESSOR) 50 mg immediate release tabletIndications: Atrial Arrhythmia Take 1 tablet (50 mg total) by mouth 2 (two) times a day 60 tablet 2 07/09/19 Active sacubitriL-valsart an (ENTRESTO) 49-51 mg tabletIndications: chronic heart failure Take 1 tablet by mouth 2 (two) times a day 180 tablet 11 06/05/19 24 2024 Discontinued(S top Taking at Discharge) carvediloL (COREG) 25 mg tabletIndications: hypertension TAKE 1 TABLET BY MOUTH TWICE DAILY WITH MEALS 180 tablet 3 09/30/19 24 2024 Discontinued(A lternate therapy) amiodarone (PACERONE) 200 mg tablet Take 1 tablet by mouth once daily 90 tablet 2 04/17/20 24 2024 Discontinued warfarin (COUMADIN) 2 mg tabletIndications: Mechanical Valve Thromboembolism Prophylaxis Take 4 mg (2 tabs) daily with dinner, or as directed 60 tablet 1 06/18/19 25 2024 Discontinued Active Problems Patient Care Coordination No te Formatting of this note migh t be different from the original. Transthoracic Echocardiogram 01/17/2024 Moderate concentric left ventricular hypertrophy. Severe enlargement of left ventricle cavity. Moderate global left ventricular systolic dysfunction. There is pseudonormal diastolic dysfunction Grade II. Ejection fraction is visually estimated at 40-45 %. There is mild enlargement of left atrium. Mild mitral valve regurgitation. Severe aortic valve regurgitation. There appears to be eccentric AI with prolapse of AV cusp. Recommend LALITA. Small pericardial effusion. Normal sinus rhythm. Problem Noted Date Diagnosed Date Severe aortic valve regurgitation 05/14/2024 Paroxysmal atrial fibrillation (CMS/HCC) 022 Dilated cardiomyopathy (CMS/HCC) 10/12/2021 Aortic valve regurgitation Social History Tobacco Use Types Packs/Day Years Used Date Smoking Tobacco: Never Smokeless Tobacco: Never Tobacco Cessation:Counseling Given: Not Answered OASIS D0700: Social Isolation Answer Da te Recorded Frequency of experiencing loneliness or isolatio n Never 06/21/2024 [facility] Utilities Answer Date Recorded In the past 12 months has [employer], [employer], oil, or water [employer] threatened to shut off services in your home? No 06/12/2024 Social Connection and Isolat ion Panel [NHANES] Answer Date Recorded In a typical week, how many times do you talk on the phone with family, friends, or neighbors? More than three times a week 06/12/2024 How often do you get togethe r with friends or relatives? More than three times a week 06/12/2024 How often do you attend chur ch or yarsani services? More than 4 times per year 06/12/2024 Do you belong to any clubs o r organizations such as gnosticist groups, unions, fraternal or athletic groups, or school groups? Yes 06/12/2024 How often do you attend meet ings of the clubs or organizations you belong to? More than 4 times per year 06/12/2024 Are you , , di vorced, , never , or living with a partner? 06/12/2024 AUDIT-C Answer Date Recorded Frequency of Alcohol Consumption Not on file 03/24/2024 Q2: How many drinks containi ng alcohol do you have on a typical day when you are drinking? Patient does not drink Frequency of Binge Drinking Not on file 09/2023 Overall Financial Resource Strain (CARDIA) Answe r Date Recorded How hard is it for you to pa y for the very basics like food, housing, medical care, and heating? Not very hard 06/12/2024 Hunger Vital Sign Answer Date Recorded Within the past 12 months, y ou worried that your food would run out before you got the money to buy more. Never true 06/12/19 25 Within the past 12 months, t he food you bought just didn't last and you didn't have money to get more. Never true 06/12/2024 PRAPARE - Transportation Answer Date Re corded In the past 12 months, has l ack of transportation kept you from medical appointments or from getting medications? No 05/21 In the past 12 months, has l ack of transportation kept you from meetings, work, or from getting things needed for daily living? No 06/12/2024 Housing Stability Vital Sign Answer Chuck e Recorded In the last 12 months, was t here a time when you were not able to pay the mortgage or rent on time? No 06/12/2024 In the past 12 months, how m any times have you moved where you were living? 0 06/12/2024 At any time in the past 12 m [facility], were you homeless or living in a long term (including now)? No 06/12/2024 Personal Safety Answer Date Recorded Have you ever been in or are you currently in a harmful physical or emotional relationship or is someone making you feel afraid or unsafe? Denies 06/11/2024 Sex and Gender Information Value Date Recorded Sex Assigned at Not on file Legal Sex Male 7:59 PM FLEET MAINTENANCE FOREMAN Gender Identity Not on file Sexual Orientation Not on file Last Filed Vital Signs Vital Sign Reading Time Taken Comments Blood Pressure 108/70 07/15/2024 10:19 AM FLEET MAINTENANCE FOREMAN Pulse 56 07/15/2024 10:19 AM FLEET MAINTENANCE FOREMAN Temperature 36.2 C (97.2 F) 07/15/2024 10:19 AM FLEET MAINTENANCE FOREMAN Respiratory Rate 18 07/15/2024 10:19 AM FLEET MAINTENANCE FOREMAN Oxygen Saturation 99% 07/15/2024 10:19 AM FLEET MAINTENANCE FOREMAN Inhaled Oxygen Concentration - - Weight 121.6 kg (268 lb) 07/09/2024 11:41 AM FLEET MAINTENANCE FOREMAN Height 180.3 cm (5' 11 ) 07/09/2024 11:41 AM FLEET MAINTENANCE FOREMAN Body Mass Index 37.38 07/09/2024 11:41 AM FLEET MAINTENANCE FOREMAN Plan of Treatment Not on file Medical Devices Implanted Type Area Custom Frame Assembler Device Identifier Shelf Expiration Date Model / Serial / Lot Atricure Device Left Atrial Appendage Malleable Shaft 180 Degree Rotation White Atriclip Flex V 40mm Flexv40 Achv40 - [id number] Implanted:Qty : 1 on 06/11/2024 by Blake Curtis MD at [facility] Clip Left: Atrial Appendage Atricure 02/17/2027 [id number] / / [id number] On-X Intrnl Valve Coronary Aortic Mechanical On X 27-29mm Onxane- - [id number] - [id number] Implanted:Qty : 1 on 06/11/2024 by Blake Curtis MD at [facility] Prosthetic Valve N/A: Aortic Valve On-X Intrnl 04/05/2028 ONXANE-2 12/15 / [id number] / [employer] Device Closure Fibertape Sternal Cerclage Blunt Needle [id number] - [id number] Implanted:Qty : 1 on 06/11/2024 by Blake Curtis MD at [facility] N/A: Sternum [employer] 03/19/2029 [id number] / / [id number] [employer] Device Closure Fibertape Sternal Cerclage Blunt Needle Ar-[id number] - [id number] Implanted:Qty : 1 on 06/11/2024 by Blake Curtis MD at [facility] N/A: Sternum [employer] 03/19/2029 AR-[id number] / / [id number] Procedures Procedure Name Priority Date/Time Associated Diagnosis Comments POCT PROTHROMBIN TIME/INR Routine 07/15/2024 10:12 AM FLEET MAINTENANCE FOREMAN POCT PROTHROMBIN TIME/INR Routine 07/10/2024 10:32 AM FLEET MAINTENANCE FOREMAN ECG 12-LEAD Routine 07/09/2024 12:28 PM FLEET MAINTENANCE FOREMAN Atrial fibrillation with rapid ventricular response (CMS/HCC) (HCC) POCT PROTHROMBIN TIME/INR Routine 07/06/2024 12:39 PM FLEET MAINTENANCE FOREMAN XR CHEST 1 VIEW IP Routine 06/18/2024 6:33 AM FLEET MAINTENANCE FOREMAN EGFR Routine 06/18/2024 12:59 AM FLEET MAINTENANCE FOREMAN APTT Routine 06/18/2024 12:59 AM FLEET MAINTENANCE FOREMAN PROTIME-INR Routine 06/18/2024 12:59 AM FLEET MAINTENANCE FOREMAN MAGNESIUM Routine 06/18/2024 12:59 AM FLEET MAINTENANCE FOREMAN RENAL FUNCTION PANEL Routine 06/18/2024 12:59 AM FLEET MAINTENANCE FOREMAN CBC WITHOUT DIFFERENTIAL Routine 06/18/2024 12:59 AM FLEET MAINTENANCE FOREMAN PROTIME-INR Routine 06/17/2024 3:36 PM FLEET MAINTENANCE FOREMAN TRANSESOPHAGEAL ECHO (LALITA) WO DOPPLER/CF W CARDIOVERSION W CONTRAST Routine 06/17/2024 11:17 AM FLEET MAINTENANCE FOREMAN Persistent atrial fibrillation (HCC) TRANSESOPHAGEAL ECHO (LALITA) WO DOPPLER/CF W CARDIOVERSION Routine 06/17/2024 11:17 AM FLEET MAINTENANCE FOREMAN Persistent atrial fibrillation (HCC) TRANSESOPHAGEAL ECHO (LALITA) W LTD DOPPLER/CF W CARDIOVERSION W CONTRAST Routine 06/17/2024 11:17 AM FLEET MAINTENANCE FOREMAN Persistent atrial fibrillation (HCC) TRANSESOPHAGEAL ECHO (LALITA) W LTD DOPPLER/CF W CARDIOVERSION Routine 06/17/2024 11:17 AM FLEET MAINTENANCE FOREMAN Persistent atrial fibrillation (HCC) TRANSESOPHAGEAL ECHO (LALITA) W DOPPLER/CF W CARDIOVERSION W CONTRAST Routine 06/17/2024 11:17 AM FLEET MAINTENANCE FOREMAN Persistent atrial fibrillation (HCC) TRANSESOPHAGEAL ECHO (LALITA) W DOPPLER/CF W CARDIOVERSION Routine 06/17/2024 11:17 AM FLEET MAINTENANCE FOREMAN Persistent atrial fibrillation (HCC) ECG 12-LEAD STAT 06/17/2024 10:51 AM FLEET MAINTENANCE FOREMAN TRANSESOPHAGEAL ECHO (LALITA) W DOPPLER/CF W CARDIOVERSION Routine 06/17/2024 10:40 AM FLEET MAINTENANCE FOREMAN XR CHEST 1 VIEW IP Routine 06/17/2024 5:22 AM FLEET MAINTENANCE FOREMAN EGFR Routine 06/17/2024 12:32 AM FLEET MAINTENANCE FOREMAN APTT Routine 06/17/2024 12:32 AM FLEET MAINTENANCE FOREMAN PROTIME-INR Routine 06/17/2024 12:32 AM FLEET MAINTENANCE FOREMAN MAGNESIUM Routine 06/17/2024 12:32 AM FLEET MAINTENANCE FOREMAN RENAL FUNCTION PANEL Routine 06/17/2024 12:32 AM FLEET MAINTENANCE FOREMAN CBC WITHOUT DIFFERENTIAL Routine 06/17/2024 12:32 AM FLEET MAINTENANCE FOREMAN XR CHEST 1 VIEW IP Routine 06/16/2024 6:01 AM FLEET MAINTENANCE FOREMAN EGFR Routine 06/16/2024 12:45 AM FLEET MAINTENANCE FOREMAN PROTIME-INR Routine 06/16/2024 12:45 AM FLEET MAINTENANCE FOREMAN APTT Routine 06/16/2024 12:45 AM FLEET MAINTENANCE FOREMAN MAGNESIUM Routine 06/16/2024 12:45 AM FLEET MAINTENANCE FOREMAN RENAL FUNCTION PANEL Routine 06/16/2024 12:45 AM FLEET MAINTENANCE FOREMAN CBC WITHOUT DIFFERENTIAL Routine 06/16/2024 12:45 AM FLEET MAINTENANCE FOREMAN XR CHEST 1 VIEW IP Routine 06/15/2024 6:47 AM FLEET MAINTENANCE FOREMAN APTT Routine 06/15/2024 1:38 AM FLEET MAINTENANCE FOREMAN EGFR Routine 06/15/2024 1:38 AM FLEET MAINTENANCE FOREMAN PROTIME-INR Routine 06/15/2024 1:38 AM FLEET MAINTENANCE FOREMAN MAGNESIUM Routine 06/15/2024 1:38 AM FLEET MAINTENANCE FOREMAN RENAL FUNCTION PANEL Routine 06/15/2024 1:38 AM FLEET MAINTENANCE FOREMAN CBC WITHOUT DIFFERENTIAL Routine 06/15/2024 1:38 AM FLEET MAINTENANCE FOREMAN APTT STAT 06/14/2024 2:16 PM FLEET MAINTENANCE FOREMAN APTT Timed 06/14/2024 7:07 AM FLEET MAINTENANCE FOREMAN XR CHEST 1 VIEW IP Routine 06/14/2024 6:22 AM FLEET MAINTENANCE FOREMAN EGFR Routine 06/14/2024 12:52 AM FLEET MAINTENANCE FOREMAN PROTIME-INR Timed 06/14/2024 12:52 AM FLEET MAINTENANCE FOREMAN APTT Timed 06/14/2024 12:52 AM FLEET MAINTENANCE FOREMAN MAGNESIUM Routine 06/14/2024 12:52 AM FLEET MAINTENANCE FOREMAN RENAL FUNCTION PANEL Routine 06/14/2024 12:52 AM FLEET MAINTENANCE FOREMAN CBC WITHOUT DIFFERENTIAL Routine 06/14/2024 12:52 AM FLEET MAINTENANCE FOREMAN POCT GLUCOSE DEVICE Routine 06/13/2024 5 :27 PM FLEET MAINTENANCE FOREMAN APTT Timed 06/13/2024 1:10 PM FLEET MAINTENANCE FOREMAN POCT GLUCOSE DEVICE Routine 06/13/2024 12:44 PM FLEET MAINTENANCE FOREMAN CRITICAL CARE Routine 06/13/2024 11:57 AM FLEET MAINTENANCE FOREMAN Paroxysmal atrial fibrillation (CMS/HCC) (HCC) POCT GLUCOSE DEVICE Routine 06/13/2024 8 :04 AM FLEET MAINTENANCE FOREMAN XR CHEST 1 VIEW IP Routine 06/13/2024 5:49 AM FLEET MAINTENANCE FOREMAN APTT Routine 06/13/2024 4:55 AM FLEET MAINTENANCE FOREMAN POCT GLUCOSE DEVICE Routine 06/13/2024 4 :54 AM FLEET MAINTENANCE FOREMAN POCT GLUCOSE DEVICE Routine 06/13/2024 12:14 AM FLEET MAINTENANCE FOREMAN EGFR Routine 06/13/2024 12:11 AM FLEET MAINTENANCE FOREMAN PROTIME-INR Routine 06/13/2024 12:11 AM FLEET MAINTENANCE FOREMAN MAGNESIUM Routine 06/13/2024 12:11 AM FLEET MAINTENANCE FOREMAN CALCIUM, IONIZED Routine 06/13/2024 12:11 AM FLEET MAINTENANCE FOREMAN RENAL FUNCTION PANEL Routine 06/13/2024 12:11 AM FLEET MAINTENANCE FOREMAN CBC WITHOUT DIFFERENTIAL Routine 06/13/2024 12:11 AM FLEET MAINTENANCE FOREMAN APTT Routine 06/12/2024 10:27 PM FLEET MAINTENANCE FOREMAN CRITICAL CARE Routine 06/12/2024 8:58 PM FLEET MAINTENANCE FOREMAN Paroxysmal atrial fibrillation (CMS/HCC) (HCC) POCT GLUCOSE DEVICE Routine 06/12/2024 7 :33 PM FLEET MAINTENANCE FOREMAN POCT GLUCOSE DEVICE Routine 06/12/2024 5 :00 PM FLEET MAINTENANCE FOREMAN APTT STAT 06/12/2024 3:46 PM FLEET MAINTENANCE FOREMAN POCT GLUCOSE DEVICE Routine 06/12/2024 11:33 AM FLEET MAINTENANCE FOREMAN POCT GLUCOSE DEVICE Routine 06/12/2024 7 :43 AM FLEET MAINTENANCE FOREMAN ADD ON LAB TEST Add-On 06/12/2024 7:11 AM FLEET MAINTENANCE FOREMAN CRITICAL CARE Routine 06/12/2024 7:06 AM FLEET MAINTENANCE FOREMAN Paroxysmal atrial fibrillation (CMS/HCC) (HCC) XR CHEST 1 VIEW IP Routine 06/12/2024 5:40 AM FLEET MAINTENANCE FOREMAN TRANSFUSE PLATELETS Timed 06/12/2024 1 :36 AM FLEET MAINTENANCE FOREMAN PREPARE PLATELETS STAT 06/12/2024 1:0 9 AM FLEET MAINTENANCE FOREMAN FIBRINOGEN Routine 06/12/2024 12:19 AM FLEET MAINTENANCE FOREMAN PROTIME-INR Routine 06/12/2024 12:19 AM FLEET MAINTENANCE FOREMAN OXYHEMOGLOBIN, PULMONARY ARTERY Routine 06/11/2024 11:57 PM FLEET MAINTENANCE FOREMAN LIPID PANEL Routine 06/11/2024 11:56 PM FLEET MAINTENANCE FOREMAN EGFR Routine 06/11/2024 11:56 PM FLEET MAINTENANCE FOREMAN LACTATE Routine 06/11/2024 11:56 PM FLEET MAINTENANCE FOREMAN MAGNESIUM Routine 06/11/2024 11:56 PM FLEET MAINTENANCE FOREMAN CALCIUM, IONIZED Routine 06/11/2024 11:56 PM FLEET MAINTENANCE FOREMAN RENAL FUNCTION PANEL Routine 06/11/2024 11:56 PM FLEET MAINTENANCE FOREMAN CBC WITHOUT DIFFERENTIAL Routine 06/11/2024 11:56 PM FLEET MAINTENANCE FOREMAN CRITICAL CARE Routine 06/11/2024 6:51 PM FLEET MAINTENANCE FOREMAN Nonrheumatic aortic valve insufficiency EGFR Timed 06/11/2024 4:36 PM FLEET MAINTENANCE FOREMAN RENAL FUNCTION PANEL Timed 06/11/2024 4:36 PM FLEET MAINTENANCE FOREMAN POCT GLUCOSE DEVICE Routine 06/11/2024 2 :20 PM FLEET MAINTENANCE FOREMAN OXYHEMOGLOBIN, CENTRAL VENOUS STAT 06/11/2024 2:10 PM FLEET MAINTENANCE FOREMAN OXYHEMOGLOBIN, PULMONARY ARTERY Routine 06/11/2024 2:10 PM FLEET MAINTENANCE FOREMAN EXTUBATION Routine 06/11/2024 1:27 PM FLEET MAINTENANCE FOREMAN POCT GLUCOSE DEVICE Routine 06/11/2024 12:45 PM FLEET MAINTENANCE FOREMAN BLOOD GAS, ARTERIAL STAT 06/11/2024 12:44 PM FLEET MAINTENANCE FOREMAN XR CHEST 1 VIEW ED Urgent/IP Urgent 06/11/2024 11:51 AM FLEET MAINTENANCE FOREMAN EGFR STAT 06/11/2024 11:37 AM FLEET MAINTENANCE FOREMAN APTT STAT 06/11/2024 11:37 AM FLEET MAINTENANCE FOREMAN PROTIME-INR STAT 06/11/2024 11:37 AM FLEET MAINTENANCE FOREMAN CBC WITHOUT DIFFERENTIAL STAT 06/11/2024 11:37 AM FLEET MAINTENANCE FOREMAN BLOOD GAS, ARTERIAL STAT 06/11/2024 11:37 AM FLEET MAINTENANCE FOREMAN CALCIUM, IONIZED STAT 06/11/2024 11:37 AM FLEET MAINTENANCE FOREMAN MAGNESIUM STAT 06/11/2024 11:37 AM FLEET MAINTENANCE FOREMAN BASIC METABOLIC PANEL STAT 06/11/2024 11:37 AM FLEET MAINTENANCE FOREMAN PHOSPHORUS STAT 06/11/2024 11:37 AM FLEET MAINTENANCE FOREMAN CRITICAL CARE Routine 06/11/2024 11:33 AM FLEET MAINTENANCE FOREMAN POCT GLUCOSE DEVICE Routine 06/11/2024 11:33 AM FLEET MAINTENANCE FOREMAN VA AN PROCEDURE PLACEHOLDER Routine 06/11/2024 11:32 AM FLEET MAINTENANCE FOREMAN VA AN CENTRAL LINE QUADRUPLE LUMEN Routine 06/11/2024 11:32 AM FLEET MAINTENANCE FOREMAN VA AN PROCEDURE PLACEHOLDER Routine 06/11/2024 11:32 AM FLEET MAINTENANCE FOREMAN PULMONARY ARTERY CATH Routine 06/11/2024 11:32 AM FLEET MAINTENANCE FOREMAN BW AN SHEATH INTRODUCER PERFORMABLE Routine 06/11/2024 11:32 AM FLEET MAINTENANCE FOREMAN VA AN PROCEDURE PLACEHOLDER Routine 06/11/2024 11:15 AM FLEET MAINTENANCE FOREMAN MANUAL DIFFERENTIAL STAT 06/11/2024 10:52 AM FLEET MAINTENANCE FOREMAN PROTIME-INR STAT 06/11/2024 10:52 AM FLEET MAINTENANCE FOREMAN FIBRINOGEN STAT 06/11/2024 10:52 AM FLEET MAINTENANCE FOREMAN CBC WITHOUT DIFFERENTIAL STAT 06/11/2024 10:52 AM FLEET MAINTENANCE FOREMAN APTT STAT 06/11/2024 10:52 AM FLEET MAINTENANCE FOREMAN POC BLOOD GAS AND CHEMISTRIES, ARTERIAL Routine 06/11/2024 10:34 AM FLEET MAINTENANCE FOREMAN POCT ACTIVATED CLOTTING TIME, HIGH RANGE Routine 06/11/2024 10:33 AM FLEET MAINTENANCE FOREMAN POC BLOOD GAS AND CHEMISTRIES, ARTERIAL Routine 06/11/2024 9:44 AM FLEET MAINTENANCE FOREMAN POCT ACTIVATED CLOTTING TIME, HIGH RANGE Routine 06/11/2024 9:43 AM FLEET MAINTENANCE FOREMAN POC BLOOD GAS AND CHEMISTRIES, VENOUS Routine 06/11/2024 9:24 AM FLEET MAINTENANCE FOREMAN POC BLOOD GAS AND CHEMISTRIES, ARTERIAL Routine 06/11/2024 9:16 AM FLEET MAINTENANCE FOREMAN POCT ACTIVATED CLOTTING TIME, HIGH RANGE Routine 06/11/2024 9:15 AM FLEET MAINTENANCE FOREMAN POC BLOOD GAS AND CHEMISTRIES, ARTERIAL Routine 06/11/2024 8:56 AM FLEET MAINTENANCE FOREMAN POCT ACTIVATED CLOTTING TIME, HIGH RANGE Routine 06/11/2024 8:55 AM FLEET MAINTENANCE FOREMAN VA AN PROCEDURE PLACEHOLDER Routine 06/11/2024 8:44 AM FLEET MAINTENANCE FOREMAN VA AN PROCEDURE PLACEHOLDER Routine 06/11/2024 8:44 AM FLEET MAINTENANCE FOREMAN VA AN ELECTIVE ENDOTRACHEAL AIRWAY Routine 06/11/2024 8:44 AM FLEET MAINTENANCE FOREMAN POC BLOOD GAS AND CHEMISTRIES, ARTERIAL Routine 06/11/2024 8:03 AM FLEET MAINTENANCE FOREMAN POCT ACTIVATED CLOTTING TIME, HIGH RANGE Routine 06/11/2024 8:02 AM FLEET MAINTENANCE FOREMAN REPLACEMENT AORTIC VALVE 06/11/2024 7:47 AM FLEET MAINTENANCE FOREMAN Severe aortic valve regurgitation HEMOGLOBIN A1C STAT 06/11/2024 7:32 AM FLEET MAINTENANCE FOREMAN PROTIME-INR STAT 06/11/2024 7:32 AM FLEET MAINTENANCE FOREMAN TYPE AND SCREEN STAT 06/11/2024 7:32 AM FLEET MAINTENANCE FOREMAN APTT STAT 06/11/2024 7:32 AM FLEET MAINTENANCE FOREMAN LALITA ADD-ON FOR OR Routine 06/11/2024 6:5 7 AM FLEET MAINTENANCE FOREMAN PREPARE RBC STAT 06/11/2024 6:51 AM FLEET MAINTENANCE FOREMAN EGFR Routine 05/21/2024 3:47 PM FLEET MAINTENANCE FOREMAN Aortic valve insufficiency, etiology of cardiac valve disease unspecified Pre-op evaluation DIFFERENTIAL AUTO Routine 05/21/2024 3:4 7 PM [employer]LEET [employer]TE[employer]EMAN Aortic valve insufficiency, etiology of cardiac valve disease unspecified Pre-op evaluation BASIC METABOLIC PANEL Routine 05/21/2024 3:47 PM FLEET MAINTENANCE FOREMAN Aortic valve insufficiency, etiology of cardiac valve disease unspecified Pre-op evaluation CBC WITH AUTO DIFFERENTIAL Routine 05/21/2024 3:47 PM FLEET MAINTENANCE FOREMAN Aortic valve insufficiency, etiology of cardiac valve disease unspecified Pre-op evaluation CT BODY OUTSIDE REFERENCE Routine 04/30/2024 12:00 AM FLEET MAINTENANCE FOREMAN SCAN - RADIOLOGY/IMAGING 04/30/2024 CARDIOLOGY DOCUMENT SCAN Routine 04/27/2024 9:42 AM FLEET MAINTENANCE FOREMAN XR TRANSFER OF OUTSIDE FILMS Routine 04/27/2024 12:00 AM FLEET MAINTENANCE FOREMAN from Last 3 Months Results * POCT PT/INR (07/15/2024 10:12 AM FLEET MAINTENANCE FOREMAN) INR, POC 1.80 HH POCT RESULTING LABORATORY Comment:2-3 Blood 07/15/2024 10:1 2 AM FLEET MAINTENANCE FOREMAN us Blake Curtis MD POINT OF CARE TEST ORDER FELICIA Final Result POCT RESULTING LABORATORY * POCT PT/INR (07/10/2024 10:32 AM FLEET MAINTENANCE FOREMAN) INR, POC 2.30 HH POCT RESULTING LABORATORY Comment:INR, 3mg coumadin Blood 07/10/2024 10:3 2 AM FLEET MAINTENANCE FOREMAN Blake Curtis MD POINT OF CARE TEST ORDER FELICIA Final Result Performing Organization Address [facility] de Phone Number POCT RESULTING LABORATORY * ECG 12 lead (07/09/2024 12:28 PM FLEET MAINTENANCE FOREMAN) 07/09/2024 12:2 8 PM FLEET MAINTENANCE FOREMAN Yany Renee NP ECG ORDERABLES Edited Re sult - Final * POCT PT/INR (07/06/2024 12:39 PM FLEET MAINTENANCE FOREMAN) INR, POC 2.30 HH POCT RESULTING LABORATORY Comment:PT TAKING 3MG COUMAD IN Q EVENING Blood 07/06/2024 12:3 9 PM FLEET MAINTENANCE FOREMAN Blake Curtis MD POINT OF CARE TEST ORDER FELICIA Final Result Performing Organization Address [facility] de Phone Number POCT RESULTING LABORATORY * XR Chest 1 View - Portable - in AM (06/18/2024 6:33 AM FLEET MAINTENANCE FOREMAN) Anatomical Region Laterality Modality Body, Chest N/A Computed Radiogr aphy 06/18/2024 7:31 AM FLEET MAINTENANCE FOREMAN Impressions 06/18/2024 7:31 AM FLEET MAINTENANCE FOREMAN A right internal jugular central venous catheter terminates at the superior vena cava. Median sternotomy wires are intact and aligned. The lung volumes remain small bilaterally with unchanged moderate bibasilar atelectasis. A small left pleural effusion is present. There is no pneumothorax. The cardiomediastinal silhouette is unchanged with unchanged cardiomegaly. Severe right glenohumeral degenerative joint disease is noted. Electronically signed by: Bayron Irwin M.D. Narrative 06/18/2024 7:31 AM FLEET MAINTENANCE FOREMAN EXAMINATION: XR CHEST 1 VIEW COMPARISON: 06/17/2024 5:18 AM Procedure Note Bayron Irwin MD PhD - 06/18/2024 EXAMINATION: XR CHEST 1 VIEW COMPARISON: 06/17/2024 5:18 AM IMPRESSION: A right internal jugular central venous catheter terminates at the superior vena cava. Median sternotomy wires are intact and aligned. The lung volumes remain small bilaterally with unchanged moderate bibasilar atelectasis. A small left pleural effusion is present. There is no pneumothorax. The cardiomediastinal silhouette is unchanged with unchanged cardiomegaly. Severe right glenohumeral degenerative joint disease is noted. Electronically signed by: Bayron Irwin M.D. us Krishan Causey MD PhD IMG XR PROCEDURES Final Re sult * (ABNORMAL) eGFR (06/18/2024 12:59 AM FLEET MAINTENANCE FOREMAN) eGFR 42(L) >=60 mL/min/1. 73 m2 Comment: Interpretive Data Reference Interval Normal >/= 90 mL/min/1.73m2 Mildly decreased* 60 - 89 mL/min/1.73m2 Mildly to moderately decreased 45 - 59 mL/min/1.73m2 Moderately to severely decreased 30 - 44 mL/min/1.73m2 Severely decreased 15 - 29 mL/min/1.73m2 Kidney Failure < 15 mL/min/1.73m2 *Relative to young adult level Estimated glomerular filtration rate is determined by the 2020 CKD-EPI equation recommended by the National Kidney Foundation (A Unifying Approach to GFR Estimation: Recommendations of the NKF-ASK Task Force on Reassessing the Inclusion of Race in Diagnosing Kidney Disease, JASN 2020). The CKD-EPI equation should not be used for patients with unstable renal function and has not been validated in children and those over 70. Current interpretive data was last reviewed 2021. Blood 06/18/2024 12:5 9 AM FLEET MAINTENANCE FOREMAN 06/18/2024 1:08 AM FLEET MAINTENANCE FOREMAN us Krishan Causey MD PhD LAB BLOOD ORDERABLES Final Result [facility] [address] [facility] [place] [address] * aPTT (06/18/2024 12:59 AM FLEET MAINTENANCE FOREMAN) Pathologist [facility] aPTT 36 28 - 38 sec Comment: Interpretive Data Heparin therapeutic range: 66.0 - 100.0 seconds. Range based on correlation with therapeutic heparin activity range of 0.3 - 0.7 Units/mL. Current interpretive data was last revised on 2023. Blood 06/18/2024 12:5 9 AM FLEET MAINTENANCE FOREMAN 06/18/2024 1:00 AM FLEET MAINTENANCE FOREMAN us Blake Curtis MD LAB BLOOD ORDERABLES Fin al Result Performing Organization Address [facility] de Phone Number [facility] [address] [facility] [place] [address] * (ABNORMAL) Protime-INR (06/18/2024 12:59 AM FLEET MAINTENANCE FOREMAN) [facility] PT 27.7(H) 9.7 - 13.0 sec INR 2.52(H) 0.90 - 1.20 [facility] Comment: Interpretive data Oral anticoagulant therapeutic ranges: Venous thromboembolism prophylaxis or treatment: 2.0-3.0 CARDIOLOGY Standard range: 2.0-3.0 High-intensity range: 2.5-3.5 Refer to indication-specific guidelines for appropriate target ranges for prosthetic heart valve replacement. Current interpretive data was last revised on 2019. Blood 06/18/2024 12:5 9 AM FLEET MAINTENANCE FOREMAN 06/18/2024 1:09 AM FLEET MAINTENANCE FOREMAN us Krishan Causey MD PhD LAB BLOOD ORDERABLES Final Result Performing Organization Address [facility] Co de Phone Number [facility] [address] [facility] [place] [address] * (ABNORMAL) CBC without differential (06/18/2024 12:59 AM FLEET MAINTENANCE FOREMAN) Pathologist [facility] WBC 8.1 3.8 - 9.9 K/cumm Hgb 9.3(L) 13.0 - 17.5 g/dL [facility] Hct 29.6(L) 38.9 - 50.3 % [facility] Plt 216 150 - 400 K/cumm [facility] MPV 10.3 9.1 - 12.3 fL [facility] RBC 3.28(L) 4.30 - 5.80 M/cumm [facility] MCV 90.2 81.3 - 96.4 fL [facility] MCH 28.4 27.1 - 33.3 pg [facility] MCHC 31.4(L) 32.3 - 35.7 g/dL [facility] RDW CV 13.1 11.1 - 14.9 % [facility] RDW SD 43.1 35.7 - 48.1 fL [facility] NRBC abs 0.06(H) 0.00 - 0.01 K/cumm [facility] Blood 06/18/2024 12:5 9 AM FLEET MAINTENANCE FOREMAN 06/18/2024 1:09 AM FLEET MAINTENANCE FOREMAN Krishan Causey MD PhD LAB BLOOD ORDERABLES Final Result Performing Organization Address City/[facility]/ZIP Co de Phone Number [facility] [address] [facility] [place] [address] * Magnesium (06/18/2024 12:59 AM FLEET MAINTENANCE FOREMAN) [facility] Magnesium 2.2 1.4 - 2.5 mg/dL Blood 06/18/2024 12:5 9 AM FLEET MAINTENANCE FOREMAN 06/18/2024 1:08 AM FLEET MAINTENANCE FOREMAN Krishan Causey MD PhD LAB BLOOD ORDERABLES Final Result [facility] [address] [facility] [place] [address] * (ABNORMAL) Renal function panel (06/18/2024 12:59 AM FLEET MAINTENANCE FOREMAN) [facility] Sodium 140 135 - 145 mmol/L Potassium, pl 4.1 3.3 - 4.9 mmol/L [facility] Chloride 106 97 - 110 mmol/L [facility] CO2 22 22 - 32 mmol/L [facility] Anion gap 12 2 - 15 mmol/L [facility] BUN 36(H) 6 - 25 mg/dL [facility] Creatinine 1.87(H) 0.80 - 1.30 mg/dL [facility] Glucose 115 70 - 199 mg/dL [facility] Comment: Interpretive Data Fasting glucose >/= 126 mg/dl is diagnostic for diabetes. Fasting is defined as no caloric intake for at least 8 hours. Fasting glucose between 100 mg/dl to 125 mg/dl is diagnostic of prediabetes. In a patient with classic symptoms of hyperglycemia or hyperglycemic crisis, a random glucose >/= 200 mg/dl is diagnostic for diabetes. In the absence of unequivocal hyperglycemia, results should be confirmed by repeat testing. The classification and Diagnosis of Diabetes Diabetes Care 202; 46: S19-S40. Current interpretive data was last revised 2022. Calcium 8.7 8.5 - 10.3 mg/dL [facility] Phosphorus, pl 3.4 2.3 - 4.5 mg/dL [facility] Albumin 3.3(L) 3.5 - 5.0 g/dL [facility] Blood 06/18/2024 12:5 9 AM FLEET MAINTENANCE FOREMAN 06/18/2024 1:08 AM FLEET MAINTENANCE FOREMAN us Krishan Causey MD PhD LAB BLOOD ORDERABLES Final Result [facility] [address] Department of Laboratories [place], [place] [id number] * (ABNORMAL) Protime-INR (06/17/2024 3:36 PM FLEET MAINTENANCE FOREMAN) [facility] PT 28.4(H) 9.7 - 13.0 sec INR 2.58(H) 0.90 - 1.20 [facility] Comment: Interpretive data Oral anticoagulant therapeutic ranges: Venous thromboembolism prophylaxis or treatment: 2.0-3.0 CARDIOLOGY Standard range: 2.0-3.0 High-intensity range: 2.5-3.5 Refer to indication-specific guidelines for appropriate target ranges for prosthetic heart valve replacement. Current interpretive data was last revised on 2019. Blood 06/17/2024 3:36 PM FLEET MAINTENANCE FOREMAN 06/17/2024 3:59 PM FLEET MAINTENANCE FOREMAN us Blake Curtis MD LAB BLOOD ORDERABLES Fin al Result [facility] [address] Department [place] [address] * TRANSESOPHAGEAL ECHO (LALITA) W DOPPLER/CF W CARDIOVERSION, TRANSESOPHAGEAL ECHO (LALITA) W DOPPLER/CF W CARDIOVERSION W CONTRAST, TRANSESOPHAGEAL ECHO (LALITA) W LTD DOPPLER/CF W CARDIOVERSION, TRANSESOPHAGEAL ECHO (LALITA) W LTD DOPPLER/CF W CARDIOVERSION W CONTRAST, TRANSESOPHAGEAL ECHO (LALITA) WO DOPPLER/CF W CARDIOVERSION, TRANSESOPHAGEAL ECHO (LALITA) WO DOPPLER/CF W CARDIOVERSION W CONTRAST (06/17/2024 11:17 AM FLEET MAINTENANCE FOREMAN) Anatomical Region Laterality Modality Ultrasound Narrative 06/17/2024 11:17 AM FLEET MAINTENANCE FOREMAN Emeterio Bower MD 06/17/2024 11:19 AM Transesophageal Echocardiogram (LALITA) with Possible Cardioversion Date/Time: 06/17/2024 11:17 AM Performed by: Emeterio Bower MD Authorized by: Emeterio Bower MD Consent: Verbal consent obtained. Written consent obtained. Risks and benefits: risks, benefits and alternatives were discussed Consent given by: patient Patient understanding: patient states understanding of the procedure being performed Patient consent: the patient's understanding of the procedure matches consent given Procedure consent: procedure consent matches procedure scheduled Relevant documents: relevant documents present and verified Test results: test results available and properly labeled Imaging studies: imaging studies available Required items: required blood products, implants, devices, and special equipment available Patient identity confirmed: verbally with patient, arm band and hospital-assigned identification number Time out: Immediately prior to procedure a time out was called to verify the correct patient, procedure, equipment, technical support specialist and site/side marked as required. Sedation: Patient sedated: yes Sedatives: propofol Vitals: Vital signs were monitored during sedation. Patient tolerance: patient tolerated the procedure well with no immediate complications Comments: Indication: Persistent atrial fibrillation Procedure details: After sedation was administered, the transesophageal echocardiogram probe was successfully advanced into the patient's esophagus and stomach. No left atrial thrombus was identified; the left atrial appendage has been surgically ligated. While still sedated, 200 joules of synchronized energy was delivered via appropriately placed anterior-posterior defibrillator pads, restoring sinus rhythm. us Emeterio Bower MD CV ECHO PROCEDURES Final Re sult * ECG 12 lead (06/17/2024 10:51 AM FLEET MAINTENANCE FOREMAN) 06/17/2024 10:5 1 AM FLEET MAINTENANCE FOREMAN Narrative [facility] - 06/18/2024 9:23 AM FLEET MAINTENANCE FOREMAN Vent Rate: 71 bpm RR Interval: 841 msec VA Interval: 252 msec QRS Duration: 158 msec QT Interval: 456 msec QTC Interval: 478 msec P-R-T [place]: 49 - -51 - 108 degrees IMPRESSION: SINUS RHYTHM WITH FIRST DEGREE AV BLOCK LEFT AXIS DEVIATION LEFT BUNDLE BRANCH BLOCK ABNORMAL ECG Electronically Signed By: Emeterio Dial MD PhD us Emeterio Bower MD ECG ORDERABLES Final Resul t [facility] [employer] [facility] * TRANSESOPHAGEAL ECHO (LALITA) W DOPPLER/CF W CARDIOVERSION (06/17/2024 10:40 AM FLEET MAINTENANCE FOREMAN) LV EF 25-30 % CONS SCIMAGE Anatomical Region Laterality Modality Echocardiography 06/17/2024 10:0 6 AM FLEET MAINTENANCE FOREMAN Narrative 06/17/2024 9:41 PM FLEET MAINTENANCE FOREMAN [facility] [address] [place] [address] TRANSESOPHAGEAL ECHOCARDIOGRAM Patient Name: PABLO EVERETT : 1970 (54y 2m) Gender: M Study Date: 06/17/2024 10:06:58 AM Ht(Inch): 72 Wt(Lb): 275.99 BSA: 2.52 Branding Specialist: Location: [id number] Order Provider: AUGUSTA GU BMI: 37.43 BP: 125/77 Ref Provider: AUGUSTA GU - PROCEDURES: Transesophageal Echo Report: Transesophageal echocardiogram including 2D imaging, spectral doppler and color doppler was performed bedside. The procedure was monitored with automatic blood pressure monitoring, ECG tracings, and pulse oximetry. Sedation was achieved by anesthesia using Propofol IV. The transesophageal probe was placed in the esophagus posterior to the heart without any complications. The patient tolerated the procedure well. INDICATIONS: Atrial fibrillation. MEASUREMENTS: 2D/MM Value Range LVIDd 2D 6.93 cm [ 4.20 - 5.80 ] Estimated EF 25-30 % 2D/MM Value Range - FINDINGS: Study Quality: Technically difficult study. BP: Blood pressure: 125/77 mmHg. Left Ventricle: Severe left ventricular systolic dysfunction. There is global hypokinesis. Ejection Fraction is estimated to be 25-30 %. Severe enlargement of left ventricle. Moderate concentric left ventricular hypertrophy. Right Ventricle: Normal right ventricular size. Low normal right ventricular systolic function. Left Atrium: There is mild enlargement of the left atrium. No left atrial thrombus. LA Appendage: No left atrial appendage seen; it has been surgically ligated. Right Atrium: The right atrium is normal in size. Atrial Septum: Saline contrast study slightly positive for R to L shunt consistent with PFO. Thin and hypermobile atrial septum. Mitral Valve: Grossly normal appearing mitral valve. Trace mitral valve regurgitation. Aortic Valve: Normal functioning, bileaflet, mechanical aortic valve prosthesis. No significant regurgitation. Tricuspid Valve: Grossly normal appearing tricuspid valve. Normal right ventricular systolic pressure. There is trace tricuspid regurgitation. Pulmonic Valve: Grossly normal appearing pulmonic valve. Pericardium: Trivial pericardial effusion. Aorta: Normal aortic root size. CONCLUSIONS: 1. Severe left ventricular systolic dysfunction. There is global hypokinesis. Ejection Fraction is estimated to be 25-30 %. Severe enlargement of left ventricle. Moderate concentric left ventricular hypertrophy. 2. Normal right ventricular size. Low normal right ventricular systolic function. 3. There is mild enlargement of the left atrium. No left atrial thrombus. 4. Normal functioning, bileaflet, mechanical aortic valve prosthesis. No significant regurgitation. 5. No left atrial appendage seen; it has been surgically ligated. 6. Direct current cardioversion was performed successfully resulting in shinto of sinus rhythm. Electronically Signed By: Emeterio Bower MD [facility] 06/17/2024 9:40:46 PM FLEET MAINTENANCE FOREMAN Procedure Note Emeterio Bower MD - 06/17/2024 [place] [id number] [place] [address] TRANSESOPHAGEAL ECHOCARDIOGRAM Patient Name: PABLO EVERETT : 1970 (54y 2m) Gender: M Study Date: 06/17/2024 10:06:58 AM Ht(Inch): 72 Wt(Lb): 275.99 BSA: 2.52 Branding Specialist: Location: [id number] Order Provider: AUGUSTA GU BMI: 37.43 BP: 125/77 Ref Provider: AUGUSTA GU - PROCEDURES: Transesophageal Echo Report: Transesophageal echocardiogram including 2Dimaging, spectral doppler and color doppler was performed bedside. The procedurewas monitored with automatic blood pressure monitoring, ECG tracings, and pulseoximetry. Sedation was achieved by anesthesia using Propofol IV. The transesophageal probe wasplaced in the esophagus posterior to the heart without any complications. The patienttolerated the procedure well. INDICATIONS: Atrial fibrillation. MEASUREMENTS: 2D/MM Value Range LVIDd 2D 6.93 cm [ 4.20 - 5.80 ] Estimated EF 25-30 % 2D/MM Value Range - FINDINGS: Study Quality: Technically difficult study. BP: Blood pressure: 125/77 mmHg. Left Ventricle: Severe left ventricular systolic dysfunction. There isglobal hypokinesis. Ejection Fraction is estimated to be 25-30 %. Severeenlargement of left ventricle. Moderate concentric left ventricular hypertrophy. Right Ventricle: Normal right ventricular size. Low normal rightventricular systolic function. Left Atrium: There is mild enlargement of the left atrium. No left atrialthrombus. LA Appendage: No left atrial appendage seen; it has been surgicallyligated. Right Atrium: The right atrium is normal in size. Atrial Septum: Saline contrast study slightly positive for R to L shuntconsistent with PFO. Thin and hypermobile atrial septum. Mitral Valve: Grossly normal appearing mitral valve. Trace mitral valveregurgitation. Aortic Valve: Normal functioning, bileaflet, mechanical aortic valveprosthesis. No significant regurgitation. Tricuspid Valve: Grossly normal appearing tricuspid valve. Normal rightventricular systolic pressure. There is trace tricuspid regurgitation. Pulmonic Valve: Grossly normal appearing pulmonic valve. Pericardium: Trivial pericardial effusion. Aorta: Normal aortic root size. CONCLUSIONS: 1. Severe left ventricular systolic dysfunction. There is globalhypokinesis. Ejection Fraction is estimated to be 25-30 %. Severe enlargement of left ventricle.Moderate concentric left ventricular hypertrophy. 2. Normal right ventricular size. Low normal right ventricular systolicfunction. 3. There is mild enlargement of the left atrium. No left atrialthrombus. 4. Normal functioning, bileaflet, mechanical aortic valve prosthesis. Nosignificant regurgitation. 5. No left atrial appendage seen; it has been surgically ligated. 6. Direct current cardioversion was performed successfully resulting inrestoration of sinus rhythm. Electronically Signed By: Emeterio Bower MD [facility] 06/17/2024 9:40:46 PM FLEET MAINTENANCE FOREMAN [place] [facility] CV ECHO PROCEDURES Final Result * XR Chest 1 View - Portable - in AM (06/17/2024 5:22 AM FLEET MAINTENANCE FOREMAN) Anatomical Region Laterality Modality Body, Chest N/A Computed Radiogr aphy 06/17/2024 7:12 AM FLEET MAINTENANCE FOREMAN Impressions 06/17/2024 7:12 AM FLEET MAINTENANCE FOREMAN Comparison is made to 06/08/2024. Replaced aortic valve unchanged in position. Surgeries catheter and mediastinal wires unchanged in position. There is likely some posterior layering left-sided pleural fluid with left basilar retrocardiac atelectasis. No pneumothorax or pneumonic consolidation. Stable cardiomegaly. Electronically signed by: Finesse Oleary M.D. Narrative 06/17/2024 7:12 AM FLEET MAINTENANCE FOREMAN Examination: Chest 1 view Procedure Note Finesse Oleary MD - 06/17/2024 Examination: Chest 1 view IMPRESSION: Comparison is made to 06/08/2024. Replaced aortic valve unchanged in position. Surgeries catheter and mediastinal wires unchanged in position. There is likely some posterior layering left-sided pleural fluid with left basilar retrocardiac atelectasis. No pneumothorax or pneumonic consolidation. Stable cardiomegaly. Electronically signed by: Finesse Oleary M.D. us Krishan Causey MD PhD IMG XR PROCEDURES Final Re sult * (ABNORMAL) eGFR (06/17/2024 12:32 AM FLEET MAINTENANCE FOREMAN) eGFR 41(L) >=60 mL/min/1. 73 m2 Comment: Interpretive Data Reference Interval Normal >/= 90 mL/min/1.73m2 Mildly decreased* 60 - 89 mL/min/1.73m2 Mildly to moderately decreased 45 - 59 mL/min/1.73m2 Moderately to severely decreased 30 - 44 mL/min/1.73m2 Severely decreased 15 - 29 mL/min/1.73m2 Kidney Failure < 15 mL/min/1.73m2 *Relative to young adult level Estimated glomerular filtration rate is determined by the 2020 CKD-EPI equation recommended by the National Kidney Foundation (A Unifying Approach to GFR Estimation: Recommendations of the NKF-ASK Task Force on Reassessing the Inclusion of Race in Diagnosing Kidney Disease, JASN 202). The CKD-EPI equation should not be used for patients with unstable renal function and has not been validated in children and those over 70. Current interpretive data was last reviewed 2021. Blood 06/17/2024 12:3 2 AM [employer]LEET MAINTENANCE [employer]EMAN 06/17/2024 12:43 AM FLEET MAINTENANCE FOREMAN Krishan Causey MD PhD LAB BLOOD ORDERABLES Final Result Performing Organization Address [facility] Co de Phone Number [facility] [address] [facility] [place] [address] * (ABNORMAL) aPTT (06/17/2024 12:32 AM FLEET MAINTENANCE FOREMAN) aPTT 49(H) 28 - 38 sec Comment: Interpretive Data Heparin therapeutic range: 66.0 - 100.0 seconds. Range based on correlation with therapeutic heparin activity range of 0.3 - 0.7 Units/mL. Current interpretive data was last revised on 2023. Blood 06/17/2024 12:3 2 AM FLEET MAINTENANCE FOREMAN 06/17/2024 12:41 AM FLEET MAINTENANCE FOREMAN Blake Curtis MD LAB BLOOD ORDERABLES Fin al Result Performing Organization Address [facility] Co de Phone Number [facility] [address] [place] [address] * (ABNORMAL) Protime-INR (06/17/2024 12:32 AM FLEET MAINTENANCE FOREMAN) PT 25.5(H) 9.7 - 13.0 sec INR 2.32(H) 0.90 - 1.20 [facility] Comment: Interpretive data Oral anticoagulant therapeutic ranges: Venous thromboembolism prophylaxis or treatment: 2.0-3.0 CARDIOLOGY Standard range: 2.0-3.0 High-intensity range: 2.5-3.5 Refer to indication-specific guidelines for appropriate target ranges for prosthetic heart valve replacement. Current interpretive data was last revised on 2019. Blood 06/17/2024 12:3 2 AM FLEET MAINTENANCE FOREMAN 06/17/2024 12:41 AM FLEET MAINTENANCE FOREMAN Krishan Causey MD PhD LAB BLOOD ORDERABLES Final Result Performing Organization Address [facility]/ZIP Co de Phone Number [facility] [address] Department [place] [address] * (ABNORMAL) CBC without differential (06/17/2024 12:32 AM FLEET MAINTENANCE FOREMAN) WBC 9.1 3.8 - 9.9 K/cumm Hgb 9.4(L) 13.0 - 17.5 g/dL [facility] Hct 29.9(L) 38.9 - 50.3 % [facility] Plt 177 150 - 400 K/cumm [facility] MPV 10.9 9.1 - 12.3 fL [facility] RBC 3.31(L) 4.30 - 5.80 M/cumm [facility] MCV 90.3 81.3 - 96.4 fL [facility] MCH 28.4 27.1 - 33.3 pg [facility] MCHC 31.4(L) 32.3 - 35.7 g/dL [facility] RDW CV 12.9 11.1 - 14.9 % [facility] RDW SD 42.7 35.7 - 48.1 fL [facility] NRBC abs 0.05(H) 0.00 - 0.01 K/cumm [facility] Blood 06/17/2024 12:3 2 AM FLEET MAINTENANCE [employer]EMAN 06/17/2024 12:43 AM FLEET MAINTENANCE FOREMAN Krishan Causey MD PhD LAB BLOOD ORDERABLES Final Result [facility] [address] Department [place] [address] * Magnesium (06/17/2024 12:32 AM FLEET MAINTENANCE FOREMAN) Pathologist [facility] Magnesium 2.1 1.4 - 2.5 mg/dL Blood 06/17/2024 12:3 2 AM FLEET MAINTENANCE FOREMAN 06/17/2024 12:43 AM FLEET MAINTENANCE FOREMAN us Krishan Causey MD PhD LAB BLOOD ORDERABLES Final Result [facility] [address] [place] [address] * (ABNORMAL) Renal function panel (06/17/2024 12:32 AM FLEET MAINTENANCE FOREMAN) Sodium 140 135 - 145 mmol/L Potassium, pl 4.0 3.3 - 4.9 mmol/L [facility] Chloride 106 97 - 110 mmol/L [facility] CO2 21(L) 22 - 32 mmol/L [facility] Anion gap 13 2 - 15 mmol/L [facility] BUN 40(H) 6 - 25 mg/dL [facility] Creatinine 1.90(H) 0.80 - 1.30 mg/dL [facility] Glucose 135 70 - 199 mg/dL [facility] Comment: Interpretive Data Fasting glucose >/= 126 mg/dl is diagnostic for diabetes. Fasting is defined as no caloric intake for at least 8 hours. Fasting glucose between 100 mg/dl to 125 mg/dl is diagnostic of prediabetes. In a patient with classic symptoms of hyperglycemia or hyperglycemic crisis, a random glucose >/= 200 mg/dl is diagnostic for diabetes. In the absence of unequivocal hyperglycemia, results should be confirmed by repeat testing. The classification and Diagnosis of Diabetes Diabetes Care 202; 46: S19-S40. Current interpretive data was last revised 2022. Calcium 8.7 8.5 - 10.3 mg/dL [facility] Phosphorus, pl 3.0 2.3 - 4.5 mg/dL [facility] Albumin 3.4(L) 3.5 - 5.0 g/dL [facility] Blood 06/17/2024 12:3 2 AM FLEET MAINTENANCE [employer]EMAN 06/17/2024 12:43 AM FLEET MAINTENANCE FOREMAN Krishan Causey MD PhD LAB BLOOD ORDERABLES Final Result [facility] [address] Department [employer] [address] * XR Chest 1 View - Portable - in AM (06/16/2024 6:01 AM FLEET MAINTENANCE FOREMAN) Anatomical Region Laterality Modality Body, Chest N/A Computed Radiogr aphy 06/16/2024 11:4 4 AM FLEET MAINTENANCE FOREMAN Impressions 06/16/2024 11:44 AM FLEET MAINTENANCE FOREMAN Comparison yesterday Right internal jugular catheter tip superior vena cava. Stable median sternotomy wire alignment and aortic valve prosthetic. Stable moderate to marked cardiomegaly. Stable mild right lung base and mild to moderate left lung base atelectasis. No pleural effusion on the right and no definite pleural effusion on the left. No pulmonary edema. Overall, no substantial change in the lung findings compared to yesterday. Electronically signed by: Amos Medeiros M.D. Narrative 06/16/2024 11:44 AM FLEET MAINTENANCE FOREMAN EXAMINATION: XR CHEST 1 VIEW HISTORY: Pleural effusion follow-up Procedure Note Amos Medeiros MD - 06/16/2024 EXAMINATION: XR CHEST 1 VIEW HISTORY: Pleural effusion follow-up IMPRESSION: Comparison yesterday Right internal jugular catheter tip superior vena cava. Stable median sternotomy wire alignment and aortic valve prosthetic. Stable moderate to marked cardiomegaly. Stable mild right lung base and mild to moderate left lung base atelectasis. No pleural effusion on the right and no definite pleural effusion on the left. No pulmonary edema. Overall, no substantial change in the lung findings compared to yesterday. Electronically signed by: Amos Medeiros M.D. Krishan Causey MD PhD IMG XR PROCEDURES Final Re sult * (ABNORMAL) eGFR (06/16/2024 12:45 AM FLEET MAINTENANCE FOREMAN) eGFR 49(L) >=60 mL/min/1. 73 m2 Comment: Interpretive Data Reference Interval Normal >/= 90 mL/min/1.73m2 Mildly decreased* 60 - 89 mL/min/1.73m2 Mildly to moderately decreased 45 - 59 mL/min/1.73m2 Moderately to severely decreased 30 - 44 mL/min/1.73m2 Severely decreased 15 - 29 mL/min/1.73m2 Kidney Failure < 15 mL/min/1.73m2 *Relative to young adult level Estimated glomerular filtration rate is determined by the 2020 CKD-EPI equation recommended by the National Kidney Foundation (A Unifying Approach to GFR Estimation: Recommendations of the NKF-ASK Task Force on Reassessing the Inclusion of Race in Diagnosing Kidney Disease, JASN 2020). The CKD-EPI equation should not be used for patients with unstable renal function and has not been validated in children and those over 70. Current interpretive data was last reviewed 2021. Blood 06/16/2024 12:4 5 AM FLEET MAINTENANCE FOREMAN 06/16/2024 1:21 AM FLEET MAINTENANCE FOREMAN Krishan Causey MD PhD LAB BLOOD ORDERABLES Final Result Performing Organization Address [facility] Co de Phone Number [facility] [address] [employer] [place], [place] [id number] * (ABNORMAL) aPTT (06/16/2024 12:45 AM FLEET MAINTENANCE FOREMAN) aPTT 78(H) 28 - 38 sec Comment: Interpretive Data Heparin therapeutic range: 66.0 - 100.0 seconds. Range based on correlation with therapeutic heparin activity range of 0.3 - 0.7 Units/mL. Current interpretive data was last revised on 2023. Blood 06/16/2024 12:4 5 AM FLEET MAINTENANCE FOREMAN 06/16/2024 1:20 AM FLEET MAINTENANCE FOREMAN us Blake Curtis MD LAB BLOOD ORDERABLES Fin al Result Performing Organization Address [facility]/ZIP Co de Phone Number [facility] [address] Department [employer] [place], [place] [id number] * (ABNORMAL) Protime-INR (06/16/2024 12:45 AM FLEET MAINTENANCE FOREMAN) PT 16.3(H) 9.7 - 13.0 sec INR 1.50(H) 0.90 - 1.20 [facility] Comment: Interpretive data Oral anticoagulant therapeutic ranges: Venous thromboembolism prophylaxis or treatment: 2.0-3.0 CARDIOLOGY Standard range: 2.0-3.0 High-intensity range: 2.5-3.5 Refer to indication-specific guidelines for appropriate target ranges for prosthetic heart valve replacement. Current interpretive data was last revised on 2019. Blood 06/16/2024 12:4 5 AM FLEET MAINTENANCE FOREMAN 06/16/2024 12:45 AM FLEET MAINTENANCE FOREMAN us Blake Curtis MD LAB BLOOD ORDERABLES Fin al Result Performing Organization Address City/[facility]/ZIP Co de Phone Number [facility] [address] Department [place] [address] * (ABNORMAL) CBC without differential (06/16/2024 12:45 AM FLEET MAINTENANCE FOREMAN) WBC 10.0(H) 3.8 - 9.9 K/cumm Hgb 9.9(L) 13.0 - 17.5 g/dL [facility] Hct 32.1(L) 38.9 - 50.3 % [facility] Plt 167 150 - 400 K/cumm [facility] MPV 11.7 9.1 - 12.3 fL [facility] RBC 3.49(L) 4.30 - 5.80 M/cumm [facility] MCV 92.0 81.3 - 96.4 fL [facility] MCH 28.4 27.1 - 33.3 pg [facility] MCHC 30.8(L) 32.3 - 35.7 g/dL [facility] RDW CV 12.9 11.1 - 14.9 % [facility] RDW SD 43.1 35.7 - 48.1 fL [facility] NRBC abs 0.00 0.00 - 0.01 K/cumm [facility] Blood 06/16/2024 12:4 5 AM FLEET MAINTENANCE [employer]EMAN 06/16/2024 1:20 AM FLEET MAINTENANCE FOREMAN us Krishan Causey MD PhD LAB BLOOD ORDERABLES Final Result Performing Organization Address City/[facility]/ZIP Co de Phone Number [facility] [address] Department of [place] [address] * Magnesium (06/16/2024 12:45 AM FLEET MAINTENANCE FOREMAN) [facility] Magnesium 2.0 1.4 - 2.5 mg/dL Blood 06/16/2024 12:4 5 AM FLEET MAINTENANCE FOREMAN 06/16/2024 1:21 AM FLEET MAINTENANCE FOREMAN us Krishan Causey MD PhD LAB BLOOD ORDERABLES Final Result [facility] [address] Department [place] [address] * (ABNORMAL) Renal function panel (06/16/2024 12:45 AM FLEET MAINTENANCE FOREMAN) [facility] Sodium 139 135 - 145 mmol/L Potassium, pl 4.3 3.3 - 4.9 mmol/L [facility] Chloride 106 97 - 110 mmol/L [facility] CO2 20(L) 22 - 32 mmol/L [facility] Anion gap 13 2 - 15 mmol/L [facility] BUN 41(H) 6 - 25 mg/dL [facility] Creatinine 1.64(H) 0.80 - 1.30 mg/dL [facility] Glucose 134 70 - 199 mg/dL [facility] Comment: Interpretive Data Fasting glucose >/= 126 mg/dl is diagnostic for diabetes. Fasting is defined as no caloric intake for at least 8 hours. Fasting glucose between 100 mg/dl to 125 mg/dl is diagnostic of prediabetes. In a patient with classic symptoms of hyperglycemia or hyperglycemic crisis, a random glucose >/= 200 mg/dl is diagnostic for diabetes. In the absence of unequivocal hyperglycemia, results should be confirmed by repeat testing. The classification and Diagnosis of Diabetes Diabetes Care 202; 46: S19-S40. Current interpretive data was last revised 2022. Calcium 8.5 8.5 - 10.3 mg/dL [facility] Phosphorus, pl 2.6 2.3 - 4.5 mg/dL [facility] Albumin 3.2(L) 3.5 - 5.0 g/dL [facility] Blood 06/16/2024 12:4 5 AM FLEET MAINTENANCE FOREMAN 06/16/2024 1:21 AM FLEET MAINTENANCE FOREMAN Krishan Causey MD PhD LAB BLOOD ORDERABLES Final Result [facility] [address] Department of [place] [address] * XR Chest 1 View - Portable - in AM (06/15/2024 6:47 AM FLEET MAINTENANCE FOREMAN) Anatomical Region Laterality Modality Body, Chest N/A Computed Radiogr aphy 06/15/2024 8:40 AM FLEET MAINTENANCE FOREMAN Impressions 06/15/2024 8:40 AM FLEET MAINTENANCE FOREMAN Median sternotomy wires and aortic valve prosthesis again seen. Right internal jugular catheter tip in superior vena cava. Stable enlargement the cardiac silhouette. Left basilar opacity Large part to the enlarged cardiac silhouette probable mild left basilar atelectasis. Mild right base atelectasis unchanged. No pulmonary edema, new consolidation, or pneumothorax. Electronically signed by: Amos Lema M.D. Narrative 06/15/2024 8:40 AM FLEET MAINTENANCE FOREMAN EXAMINATION: Chest 1 view COMPARISON: 06/14/2024 Procedure Note Amos Lmea MD - 06/15/2024 EXAMINATION: Chest 1 view COMPARISON: 06/14/2024 IMPRESSION: Median sternotomy wires and aortic valve prosthesis again seen. Right internal jugular catheter tip in superior vena cava. Stable enlargement the cardiac silhouette. Left basilar opacity Large part to the enlarged cardiac silhouette probable mild left basilar atelectasis. Mild right base atelectasis unchanged. No pulmonary edema, new consolidation, or pneumothorax. Electronically signed by: Amos Lema M.D. Krishan Causey MD PhD IMG XR PROCEDURES Final Re sult * (ABNORMAL) eGFR (06/15/2024 1:38 AM FLEET MAINTENANCE FOREMAN) eGFR 45(L) >=60 mL/min/1. 73 m2 Comment: Interpretive Data Reference Interval Normal >/= 90 mL/min/1.73m2 Mildly decreased* 60 - 89 mL/min/1.73m2 Mildly to moderately decreased 45 - 59 mL/min/1.73m2 Moderately to severely decreased 30 - 44 mL/min/1.73m2 Severely decreased 15 - 29 mL/min/1.73m2 Kidney Failure < 15 mL/min/1.73m2 *Relative to young adult level Estimated glomerular filtration rate is determined by the 2020 CKD-EPI equation recommended by the National Kidney Foundation (A Unifying Approach to GFR Estimation: Recommendations of the NKF-ASK Task Force on Reassessing the Inclusion of Race in Diagnosing Kidney Disease, JASN 2020). The CKD-EPI equation should not be used for patients with unstable renal function and has not been validated in children and those over 70. Current interpretive data was last reviewed 2021. Blood 06/15/2024 1:38 AM FLEET MAINTENANCE FOREMAN 06/15/2024 1:38 AM FLEET MAINTENANCE FOREMAN us Krishan Causey MD PhD LAB BLOOD ORDERABLES Final Result [facility] [address] [place] [address] * (ABNORMAL) aPTT (06/15/2024 1:38 AM FLEET MAINTENANCE FOREMAN) aPTT 68(H) 28 - 38 sec Comment: Interpretive Data Heparin therapeutic range: 66.0 - 100.0 seconds. Range based on correlation with therapeutic heparin activity range of 0.3 - 0.7 Units/mL. Current interpretive data was last revised on 2023. Blood 06/15/2024 1:38 AM FLEET MAINTENANCE FOREMAN 06/15/2024 1:38 AM FLEET MAINTENANCE FOREMAN us Blake Curtis MD LAB BLOOD ORDERABLES Fin al Result [facility] [address] Department [employer] [address] * (ABNORMAL) Protime-INR (06/15/2024 1:38 AM FLEET MAINTENANCE FOREMAN) Pathologist [facility] PT 14.2(H) 9.7 - 13.0 sec INR 1.31(H) 0.90 - 1.20 [facility] Comment: Interpretive data Oral anticoagulant therapeutic ranges: Venous thromboembolism prophylaxis or treatment: 2.0-3.0 CARDIOLOGY Standard range: 2.0-3.0 High-intensity range: 2.5-3.5 Refer to indication-specific guidelines for appropriate target ranges for prosthetic heart valve replacement. Current interpretive data was last revised on 2019. Blood 06/15/2024 1:38 AM FLEET MAINTENANCE FOREMAN 06/15/2024 1:38 AM FLEET MAINTENANCE FOREMAN us Krishan Causey MD PhD LAB BLOOD ORDERABLES Final Result [facility] [address] Department [place] [address] * (ABNORMAL) CBC without differential (06/15/2024 1:38 AM FLEET MAINTENANCE FOREMAN) [facility] WBC 10.6(H) 3.8 - 9.9 K/cumm Hgb 10.6(L) 13.0 - 17.5 g/dL [facility] Hct 34.4(L) 38.9 - 50.3 % [facility] Plt 140(L) 150 - 400 K/cumm [facility] MPV 12.2 9.1 - 12.3 fL [facility] RBC 3.75(L) 4.30 - 5.80 M/cumm [facility] MCV 91.7 81.3 - 96.4 fL [facility] MCH 28.3 27.1 - 33.3 pg [facility] MCHC 30.8(L) 32.3 - 35.7 g/dL [facility] RDW CV 12.9 11.1 - 14.9 % [facility] RDW SD 43.6 35.7 - 48.1 fL [facility] NRBC abs 0.00 0.00 - 0.01 K/cumm [facility] Blood 06/15/2024 1:38 AM FLEET MAINTENANCE [employer]EMAN 06/15/2024 1:38 AM FLEET MAINTENANCE FOREMAN us Krishan Causey MD PhD LAB BLOOD ORDERABLES Final Result [facility] [address] [facility] [place] [address] * Magnesium (06/15/2024 1:38 AM FLEET MAINTENANCE FOREMAN) Pathologist [facility] Magnesium 2.0 1.4 - 2.5 mg/dL Blood 06/15/2024 1:38 AM FLEET MAINTENANCE FOREMAN 06/15/2024 1:38 AM FLEET MAINTENANCE FOREMAN us Krishan Causey MD PhD LAB BLOOD ORDERABLES Final Result Performing Organization Address [facility] de Phone Number [facility] [address] [facility] [place] [address] * (ABNORMAL) Renal function panel (06/15/2024 1:38 AM FLEET MAINTENANCE FOREMAN) Pathologist [facility] Sodium 138 135 - 145 mmol/L Potassium, pl 4.3 3.3 - 4.9 mmol/L [facility] Chloride 106 97 - 110 mmol/L [facility] CO2 22 22 - 32 mmol/L [facility] Anion gap 10 2 - 15 mmol/L [facility] BUN 43(H) 6 - 25 mg/dL [facility] Creatinine 1.77(H) 0.80 - 1.30 mg/dL [facility] Glucose 117 70 - 199 mg/dL [facility] Comment: Interpretive Data Fasting glucose >/= 126 mg/dl is diagnostic for diabetes. Fasting is defined as no caloric intake for at least 8 hours. Fasting glucose between 100 mg/dl to 125 mg/dl is diagnostic of prediabetes. In a patient with classic symptoms of hyperglycemia or hyperglycemic crisis, a random glucose >/= 200 mg/dl is diagnostic for diabetes. In the absence of unequivocal hyperglycemia, results should be confirmed by repeat testing. The classification and Diagnosis of Diabetes Diabetes Care 2021; 46: S19-S40. Current interpretive data was last revised 2022. Calcium 8.7 8.5 - 10.3 mg/dL [facility] Phosphorus, pl 1.9(L) 2.3 - 4.5 mg/dL [facility] Albumin 3.5 3.5 - 5.0 g/dL [facility] Blood 06/15/2024 1:38 AM FLEET MAINTENANCE [employer]EMAN 06/15/2024 1:38 AM FLEET MAINTENANCE FOREMAN Krishan Causey MD PhD LAB BLOOD ORDERABLES Final Result Performing Organization Address [facility]/ZIP Co de Phone Number [facility] [address] [employer] [place], [place] [id number] * (ABNORMAL) aPTT (06/14/2024 2:16 PM FLEET MAINTENANCE FOREMAN) aPTT 80(H) 28 - 38 sec Comment: Interpretive Data Heparin therapeutic range: 66.0 - 100.0 seconds. Range based on correlation with therapeutic heparin activity range of 0.3 - 0.7 Units/mL. Current interpretive data was last revised on 2023. Blood 06/14/2024 2:16 PM FLEET MAINTENANCE FOREMAN 06/14/2024 2:25 PM FLEET MAINTENANCE FOREMAN Jose Darling PA LAB BLOOD ORDERABLES Final R esult Performing Organization Address [facility]/ZIP Co de Phone Number [facility] [address] Department [employer] [address] * (ABNORMAL) aPTT (06/14/2024 7:07 AM FLEET MAINTENANCE FOREMAN) aPTT 71(H) 28 - 38 sec Comment: Interpretive Data Heparin therapeutic range: 66.0 - 100.0 seconds. Range based on correlation with therapeutic heparin activity range of 0.3 - 0.7 Units/mL. Current interpretive data was last revised on 2023. Blood 06/14/2024 7:07 AM FLEET MAINTENANCE [employer]EMAN 06/14/2024 7:07 AM FLEET MAINTENANCE FOREMAN us Blake Curtis MD LAB BLOOD ORDERABLES Fin al Result [facility] [address] Department [place] [address] * XR Chest 1 View - Portable - in AM (06/14/2024 6:22 AM FLEET MAINTENANCE FOREMAN) Anatomical Region Laterality Modality Body, Chest N/A Computed Radiogr aphy 06/14/2024 7:24 AM FLEET MAINTENAN[employer]EMAN Impressions 06/14/2024 7:24 AM FLEET MAINTENANCE FOREMAN Right internal jugular central venous catheter terminates at the superior cavoatrial junction. There is a mediastinal drain present. Median sternotomy. Moderate cardiomegaly. Bibasilar subsegmental atelectasis. Questionable trace left pleural effusion. No pneumothorax. Electronically signed by: Andre Lynn M.D. Narrative 06/14/2024 7:24 AM FLEET MAINTENANCE FOREMAN PORTABLE CHEST RADIOGRAPH INDICATION: pleural effusion COMPARISON: 06/13/2024 VIEWS: 1 Procedure Note Andre Lynn MD - 06/14/2024 PORTABLE CHEST RADIOGRAPH INDICATION: pleural effusion COMPARISON: 06/13/2024 VIEWS: 1 IMPRESSION: Right internal jugular central venous catheter terminates at the superior cavoatrial junction. There is a mediastinal drain present. Median sternotomy. Moderate cardiomegaly. Bibasilar subsegmental atelectasis. Questionable trace left pleural effusion. No pneumothorax. Electronically signed by: Andre Lynn M.D. us Krishan Causey MD PhD IMG XR PROCEDURES Final Re sult * (ABNORMAL) eGFR (06/14/2024 12:52 AM FLEET MAINTENANCE FOREMAN) eGFR 53(L) >=60 mL/min/1. 73 m2 Comment: Interpretive Data Reference Interval Normal >/= 90 mL/min/1.73m2 Mildly decreased* 60 - 89 mL/min/1.73m2 Mildly to moderately decreased 45 - 59 mL/min/1.73m2 Moderately to severely decreased 30 - 44 mL/min/1.73m2 Severely decreased 15 - 29 mL/min/1.73m2 Kidney Failure < 15 mL/min/1.73m2 *Relative to young adult level Estimated glomerular filtration rate is determined by the 2020 CKD-EPI equation recommended by the National Kidney Foundation (A Unifying Approach to GFR Estimation: Recommendations of the NKF-ASK Task Force on Reassessing the Inclusion of Race in Diagnosing Kidney Disease, JASN 2020). The CKD-EPI equation should not be used for patients with unstable renal function and has not been validated in children and those over 70. Current interpretive data was last reviewed 2021. Blood 06/14/2024 12:5 2 AM FLEET MAINTENANCE [employer]EMAN 06/14/2024 12:52 AM FLEET MAINTENANCE FOREMAN us Krishan Causey MD PhD LAB BLOOD ORDERABLES Final Result Performing Organization Address [facility] [facility] Co de Phone Number [facility] [address] [place] [address] * (ABNORMAL) aPTT (06/14/2024 12:52 AM FLEET MAINTENANCE FOREMAN) aPTT 54(H) 28 - 38 sec Comment: Interpretive Data Heparin therapeutic range: 66.0 - 100.0 seconds. Range based on correlation with therapeutic heparin activity range of 0.3 - 0.7 Units/mL. Current interpretive data was last revised on 2023. Blood 06/14/2024 12:5 2 AM FLEET MAINTENANCE FOREMAN 06/14/2024 12:52 AM FLEET MAINTENANCE FOREMAN us Blake Curtis MD LAB BLOOD ORDERABLES Fin al Result Performing Organization Address City/[facility]/ZIP Co de Phone Number [facility] [address] Department of [employer] [place], [place] [id number] * (ABNORMAL) Protime-INR (06/14/2024 12:52 AM FLEET MAINTENANCE FOREMAN) PT 14.6(H) 9.7 - 13.0 sec INR 1.34(H) 0.90 - 1.20 [facility] Comment: Interpretive data Oral anticoagulant therapeutic ranges: Venous thromboembolism prophylaxis or treatment: 2.0-3.0 CARDIOLOGY Standard range: 2.0-3.0 High-intensity range: 2.5-3.5 Refer to indication-specific guidelines for appropriate target ranges for prosthetic heart valve replacement. Current interpretive data was last revised on 2019. Blood 06/14/2024 12:5 2 AM FLEET MAINTENANCE FOREMAN 06/14/2024 12:52 AM FLEET MAINTENANCE FOREMAN us Blake Curtis MD LAB BLOOD ORDERABLES Fin al Result [facility] [address] Department of Laboratories [place], [place] [id number] * (ABNORMAL) CBC without differential (06/14/2024 12:52 AM FLEET MAINTENANCE FOREMAN) WBC 12.9(H) 3.8 - 9.9 K/cumm Hgb 11.4(L) 13.0 - 17.5 g/dL [facility] Hct 36.5(L) 38.9 - 50.3 % [facility] Plt 110(L) 150 - 400 K/cumm [facility] Comment:Consistent with prev ious result. MPV 11.8 9.1 - 12.3 fL [facility] RBC 3.99(L) 4.30 - 5.80 M/cumm [facility] MCV 91.5 81.3 - 96.4 fL [facility] MCH 28.6 27.1 - 33.3 pg [facility] MCHC 31.2(L) 32.3 - 35.7 g/dL [facility] RDW CV 13.2 11.1 - 14.9 % [facility] RDW SD 44.6 35.7 - 48.1 fL [facility] NRBC abs 0.00 0.00 - 0.01 K/cumm [facility] Blood 06/14/2024 12:5 2 AM FLEET MAINTENANCE FOREMAN 06/14/2024 12:52 AM FLEET MAINTENANCE FOREMAN us Krishan Causey MD PhD LAB BLOOD ORDERABLES Final Result [facility] [address] Department of [place] [address] * Magnesium (06/14/2024 12:52 AM FLEET MAINTENANCE FOREMAN) [facility] Magnesium 2.0 1.4 - 2.5 mg/dL Blood 06/14/2024 12:5 2 AM FLEET MAINTENANCE FOREMAN 06/14/2024 12:52 AM FLEET MAINTENANCE FOREMAN us Krishan Causey MD PhD LAB BLOOD ORDERABLES Final Result Performing Organization Address [facility] Co de Phone Number [facility] [address] Department of [place] [address] * (ABNORMAL) Renal function panel (06/14/2024 12:52 AM FLEET MAINTENANCE FOREMAN) [facility] Sodium 137 135 - 145 mmol/L Potassium, pl 4.6 3.3 - 4.9 mmol/L [facility] Chloride 104 97 - 110 mmol/L [facility] CO2 23 22 - 32 mmol/L [facility] Anion gap 10 2 - 15 mmol/L [facility] BUN 33(H) 6 - 25 mg/dL [facility] Creatinine 1.53(H) 0.80 - 1.30 mg/dL [facility] Glucose 113 70 - 199 mg/dL [facility] Comment: Interpretive Data Fasting glucose >/= 126 mg/dl is diagnostic for diabetes. Fasting is defined as no caloric intake for at least 8 hours. Fasting glucose between 100 mg/dl to 125 mg/dl is diagnostic of prediabetes. In a patient with classic symptoms of hyperglycemia or hyperglycemic crisis, a random glucose >/= 200 mg/dl is diagnostic for diabetes. In the absence of unequivocal hyperglycemia, results should be confirmed by repeat testing. The classification and Diagnosis of Diabetes Diabetes Care 2021; 46: S19-S40. Current interpretive data was last revised 2022. Calcium 8.6 8.5 - 10.3 mg/dL [facility] Phosphorus, pl 2.4 2.3 - 4.5 mg/dL [facility] Albumin 3.3(L) 3.5 - 5.0 g/dL [facility] Blood 06/14/2024 12:5 2 AM FLEET MAINTENANCE FOREMAN 06/14/2024 12:52 AM FLEET MAINTENANCE FOREMAN Krishan Causey MD PhD LAB BLOOD ORDERABLES Final Result Performing Organization Address City/[facility]/ZIP Co de Phone Number [facility] [address] Department [place] [address] * POCT glucose (06/13/2024 5:27 PM FLEET MAINTENANCE FOREMAN) Glucose, POC 154 70 - 199 mg/dL Comment: For Glucose values <35 mg/dl when Hematocrit is >60 mg/dl,the test may not accurately detect significant hypoglycemia,and testing in the Laboratory should be considered if clinically indicated. Blood 06/13/2024 5:27 PM FLEET MAINTENANCE FOREMAN 06/13/2024 5:27 PM FLEET MAINTENANCE FOREMAN Blake Curtis MD LAB POCT ORDERABLES - DE VICE Final Result Performing Organization Address [facility] Co de Phone Number [facility] [address] Department [place] [address] * aPTT (06/13/2024 1:10 PM FLEET MAINTENANCE FOREMAN) Pathologist [facility] aPTT 29 28 - 38 sec Comment: Interpretive Data Heparin therapeutic range: 66.0 - 100.0 seconds. Range based on correlation with therapeutic heparin activity range of 0.3 - 0.7 Units/mL. Current interpretive data was last revised on 2023. Blood 06/13/2024 1:10 PM FLEET MAINTENANCE FOREMAN 06/13/2024 1:44 PM FLEET MAINTENANCE FOREMAN Cammy Lucero NP LAB BLOOD ORDERABLES Julieta l Result Performing Organization Address City/[facility]/ZIP Co de Phone Number [facility] [address] Department [place] [address] * POCT glucose (06/13/2024 12:44 PM FLEET MAINTENANCE FOREMAN) Glucose, POC 150 70 - 199 mg/dL Comment: For Glucose values <35 mg/dl when Hematocrit is >60 mg/dl,the test may not accurately detect significant hypoglycemia,and testing in the Laboratory should be considered if clinically indicated. Blood 06/13/2024 12:4 4 PM FLEET MAINTENANCE FOREMAN 06/13/2024 12:44 PM FLEET MAINTENANCE FOREMAN us Blake Curtis MD LAB POCT ORDERABLES - DE VICE Final Result [facility] [address] Department [place] [address] * Critical Care (06/13/2024 11:57 AM FLEET MAINTENANCE FOREMAN) Narrative Krishan Causey MD PhD - 06/13/2024 11:57 AM FLEET MAINTENANCE FOREMAN Cammy Lucero NP 06/13/2024 5:19 PM Critical Care Performed by: Cammy Lucero NP Authorized by: Cammy Lucero NP CRITICAL CARE: Team: [facility] CT Shift: AM Level of Billing: Subsequent Hospital Visit Level 3 My time spent with this patient was 45 minutes: Critical Provider Statement: I have seen and examined the patient on this day of service. I have reviewed and confirmed the history, physical exam, laboratory, and radiographic data as documented in the ICU note. I have reviewed and discussed my treatment plan with the patient's team and other medical/center consultant staff. This time was in addition to and separate from care provided by other practitioners on this day of service. I spent time reviewing and interpreting data from bedside monitors, laboratory results, and imaging, I spent time discussing the management of this critically ill patient with consultants and the medical staff and I spent time documenting in the medical record us Cammy Lucero [employer]ING [employer] CUTTING PRESS FEEDER IN CLINIC/BEDSIDE ORDERAB LES Final Result * POCT glucose (06/13/2024 8:04 AM FLEET MAINTENANCE FOREMAN) Glucose, POC 134 70 - 199 mg/dL Comment: For Glucose values <35 mg/dl when Hematocrit is >60 mg/dl,the test may not accurately detect significant hypoglycemia,and testing in the Laboratory should be considered if clinically indicated. Blood 06/13/2024 8:04 AM FLEET MAINTENANCE FOREMAN 06/13/2024 8:04 AM FLEET MAINTENANCE FOREMAN us Blake Curtis MD LAB POCT ORDERABLES - DE VICE Final Result [facility] [address] Department [place] [address] * XR Chest 1 View - Portable - in AM (06/13/2024 5:49 AM FLEET MAINTENANCE FOREMAN) Anatomical Region Laterality Modality Body, Chest N/A Computed Radiogr aphy 06/13/2024 9:40 AM FLEET MAINTENANCE FOREMAN Impressions 06/13/2024 9:40 AM FLEET MAINTENANCE FOREMAN Interval removal of Monroe-Magdiel catheter. Mediastinal drain and right internal jugular central venous catheter remain in place. Median sternotomy wires are intact. Moderate cardiomegaly similar to prior. Left basilar consolidation likely represents small effusion and associated atelectasis. No new focal pulmonary consolidation. No acute osseous abnormality. Left atrial appendage clip. Aortic valve replacement. Electronically signed by: Lopez Hernández D.O. Narrative 06/13/2024 9:40 AM FLEET MAINTENANCE FOREMAN EXAMINATION: XR CHEST 1 VIEW Procedure Note Lopez Hernández, DO - 06/13/2024 EXAMINATION: XR CHEST 1 VIEW IMPRESSION: Interval removal of Monroe-Madgiel catheter. Mediastinal drain and right internal jugular central venous catheter remain in place. Median sternotomy wires are intact. Moderate cardiomegaly similar to prior. Left basilar consolidation likely represents small effusion and associated atelectasis. No new focal pulmonary consolidation. No acute osseous abnormality. Left atrial appendage clip. Aortic valve replacement. Electronically signed by: Lopez Hernández D.O. us Krishan Causey MD PhD IMG XR PROCEDURES Final Re sult * (ABNORMAL) aPTT (06/13/2024 4:55 AM FLEET MAINTENANCE FOREMAN) aPTT 61(H) 28 - 38 sec Comment: Interpretive Data Heparin therapeutic range: 66.0 - 100.0 seconds. Range based on correlation with therapeutic heparin activity range of 0.3 - 0.7 Units/mL. Current interpretive data was last revised on 2023. Blood 06/13/2024 4:55 AM FLEET MAINTENANCE FOREMAN 06/13/2024 5:23 AM FLEET MAINTENANCE FOREMAN Stephany Arreola [employer] CUTTING PRESS FEEDER LAB BLOOD ORDERABLES Julieta l Result Performing Organization Address City/[facility]/ZIP Co de Phone Number [facility] [address] Department [place] [employer] [address] * POCT glucose (06/13/2024 4:54 AM FLEET MAINTENANCE FOREMAN) Glucose, POC 122 70 - 199 mg/dL Comment: For Glucose values <35 mg/dl when Hematocrit is >60 mg/dl,the test may not accurately detect significant hypoglycemia,and testing in the Laboratory should be considered if clinically indicated. Blood 06/13/2024 4:54 AM FLEET MAINTENANCE FOREMAN 06/13/2024 4:54 AM FLEET MAINTENANCE FOREMAN Blake Curtis MD LAB POCT ORDERABLES - DE VICE Final Result Performing Organization Address [facility] Co de Phone Number [facility] [address] Department [place] [employer] [address] * POCT glucose (06/13/2024 12:14 AM FLEET MAINTENANCE FOREMAN) Glucose, POC 140 70 - 199 mg/dL Comment: For Glucose values <35 mg/dl when Hematocrit is >60 mg/dl,the test may not accurately detect significant hypoglycemia,and testing in the Laboratory should be considered if clinically indicated. Blood 06/13/2024 12:1 4 AM FLEET MAINTENANCE FOREMAN 06/13/2024 12:14 AM FLEET MAINTENANCE FOREMAN Blake Curtis MD LAB POCT ORDERABLES - DE VICE Final Result Performing Organization Address City/[facility]/ZIP Co de Phone Number [facility] [address] Department of [employer] [place], [place] [id number] * (ABNORMAL) eGFR (06/13/2024 12:11 AM FLEET MAINTENANCE FOREMAN) eGFR 57(L) >=60 mL/min/1. 73 m2 Comment: Interpretive Data Reference Interval Normal >/= 90 mL/min/1.73m2 Mildly decreased* 60 - 89 mL/min/1.73m2 Mildly to moderately decreased 45 - 59 mL/min/1.73m2 Moderately to severely decreased 30 - 44 mL/min/1.73m2 Severely decreased 15 - 29 mL/min/1.73m2 Kidney Failure < 15 mL/min/1.73m2 *Relative to young adult level Estimated glomerular filtration rate is determined by the 2020 CKD-EPI equation recommended by the National Kidney [employer] (A Unifying Approach to GFR Estimation: Recommendations of the NKF-ASK Task Force on Reassessing the Inclusion of Race in Diagnosing Kidney Disease, JASN 2020). The CKD-EPI equation should not be used for patients with unstable renal function and has not been validated in children and those over 70. Current interpretive data was last reviewed 2021. Blood 06/13/2024 12:1 1 AM FLEET MAINTENANCE FOREMAN 06/13/2024 12:21 AM FLEET MAINTENANCE FOREMAN us Steff Davila NP LAB BLOOD ORDERABLES Julieta l Result [facility] [address] Department of [employer] [place], [place] [id number] * Calcium, ionized (06/13/2024 12:11 AM FLEET MAINTENANCE FOREMAN) Calcium, Ionized 4.62 4.50 - 5.10 mg/dL Blood 06/13/2024 12:1 1 AM FLEET MAINTENANCE FOREMAN 06/13/2024 12:14 AM FLEET MAINTENANCE FOREMAN Steff Davila [employer] C[employer]TING PRESS FEEDER LAB BLOOD ORDERABLES Julieta l Result [facility] [address] Department [place] [address] * (ABNORMAL) Protime-INR (06/13/2024 12:11 AM FLEET MAINTENANCE FOREMAN) PT 16.9(H) 9.7 - 13.0 sec INR 1.55(H) 0.90 - 1.20 [facility] Comment: Interpretive data Oral anticoagulant therapeutic ranges: Venous thromboembolism prophylaxis or treatment: 2.0-3.0 CARDIOLOGY Standard range: 2.0-3.0 High-intensity range: 2.5-3.5 Refer to indication-specific guidelines for appropriate target ranges for prosthetic heart valve replacement. Current interpretive data was last revised on 2019. Blood 06/13/2024 12:1 1 AM FLEET MAINTENANCE FOREMAN 06/13/2024 12:21 AM FLEET MAINTENANCE FOREMAN us Krishan Causey MD PhD LAB BLOOD ORDERABLES Final Result [facility] [address] Department [place] [address] * (ABNORMAL) CBC without differential (06/13/2024 12:11 AM FLEET MAINTENANCE FOREMAN) WBC 12.5(H) 3.8 - 9.9 K/cumm Hgb 12.4(L) 13.0 - 17.5 g/dL [facility] Hct 38.5(L) 38.9 - 50.3 % [facility] Plt 101(L) 150 - 400 K/cumm [facility] MPV 11.5 9.1 - 12.3 fL [facility] RBC 4.28(L) 4.30 - 5.80 M/cumm [facility] MCV 90.0 81.3 - 96.4 fL [facility] MCH 29.0 27.1 - 33.3 pg [facility] MCHC 32.2(L) 32.3 - 35.7 g/dL [facility] RDW CV 13.4 11.1 - 14.9 % [facility] RDW SD 44.1 35.7 - 48.1 fL [facility] NRBC abs 0.00 0.00 - 0.01 K/cumm [facility] Blood 06/13/2024 12:1 1 AM FLEET MAINTENANCE FOREMAN 06/13/2024 12:21 AM FLEET MAINTENANCE FOREMAN Krishan Causey MD PhD LAB BLOOD ORDERABLES Final Result [facility] [address] Department [employer] [place], [place] [id number] * Magnesium (06/13/2024 12:11 AM FLEET MAINTENANCE FOREMAN) [facility] Magnesium 2.0 1.4 - 2.5 mg/dL Blood 06/13/2024 12:1 1 AM FLEET MAINTENANCE FOREMAN 06/13/2024 12:21 AM FLEET MAINTENANCE FOREMAN Krishan Causey MD PhD LAB BLOOD ORDERABLES Final Result Performing Organization Address City/[facility]/ZIP Co de Phone Number [facility] [address] [place] [address] * (ABNORMAL) Renal function panel (06/13/2024 12:11 AM FLEET MAINTENANCE FOREMAN) Pathologist [facility] Sodium 136 135 - 145 mmol/L Potassium, pl 4.2 3.3 - 4.9 mmol/L [facility] Chloride 103 97 - 110 mmol/L [facility] CO2 22 22 - 32 mmol/L [facility] Anion gap 11 2 - 15 mmol/L [facility] BUN 25 6 - 25 mg/dL [facility] Creatinine 1.45(H) 0.80 - 1.30 mg/dL [facility] Glucose 156 70 - 199 mg/dL [facility] Comment: Interpretive Data Fasting glucose >/= 126 mg/dl is diagnostic for diabetes. Fasting is defined as no caloric intake for at least 8 hours. Fasting glucose between 100 mg/dl to 125 mg/dl is diagnostic of prediabetes. In a patient with classic symptoms of hyperglycemia or hyperglycemic crisis, a random glucose >/= 200 mg/dl is diagnostic for diabetes. In the absence of unequivocal hyperglycemia, results should be confirmed by repeat testing. The classification and Diagnosis of Diabetes Diabetes Care 2021; 46: S19-S40. Current interpretive data was last revised 2022. Calcium 8.8 8.5 - 10.3 mg/dL [facility] Phosphorus, pl 2.8 2.3 - 4.5 mg/dL [facility] Albumin 3.6 3.5 - 5.0 g/dL [facility] Blood 06/13/2024 12:1 1 AM FLEET MAINTENANCE FOREMAN 06/13/2024 12:21 AM FLEET MAINTENANCE FOREMAN Krishan Causey MD PhD LAB BLOOD ORDERABLES Final Result Performing Organization Address [facility] Co de Phone Number [facility] [address] Department [place] [employer] [address] * (ABNORMAL) aPTT (06/12/2024 10:27 PM FLEET MAINTENANCE FOREMAN) [facility] aPTT 50(H) 28 - 38 sec Comment: Interpretive Data Heparin therapeutic range: 66.0 - 100.0 seconds. Range based on correlation with therapeutic heparin activity range of 0.3 - 0.7 Units/mL. Current interpretive data was last revised on 2023. Blood 06/12/2024 10:2 7 PM FLEET MAINTENANCE FOREMAN 06/12/2024 11:00 PM FLEET MAINTENANCE FOREMAN us Stephany Arreola [employer]TING PRESS FEEDER LAB BLOOD ORDERABLES Julieta l Result Performing Organization Address City/[facility]/ZIP Co de Phone Number [facility] [address] Department [place] [address] * Critical Care (06/12/2024 8:58 PM FLEET MAINTENANCE FOREMAN) Narrative Krishan Causey MD PhD - 06/12/2024 8:58 PM FLEET MAINTENANCE FOREMAN Stephany Arreola NP 06/13/2024 4:40 AM Critical Care Performed by: Stephany Arreola NP Authorized by: Stephany Arreola NP CRITICAL CARE: Team: [facility] CT Shift: PM Level of Billing: Critical Care My time spent with this patient was 30 minutes: Critical Provider Statement: I have seen and examined the patient on this day of service. I have reviewed and confirmed the history, physical exam, laboratory and radiologic data as documented in the signed ICU note. I have reviewed and discussed my treatment plan with the ICU team and other medical/center consultant staff, making frequent assessments and decisions regarding this patient's complex medical care. Critical Care time was exclusive of time spent performing separately billed procedures, treating other patients, and teaching. This time was in addition to and separate from critical care provided by other practitioners in my group on this day of service. Critical Care was necessary to treat or prevent imminent or life-threatening deterioration of the following conditions: I spent time documenting in the medical record, I spent time discussing the management of this critically ill patient with consultants and the medical staff and I spent time reviewing and interpreting data from bedside monitors, laboratory results, and imaging us Stephany Arreola [employer]ING [employer] CUTTING PRESS FEEDER IN CLINIC/BEDSIDE ORDERAB LES Final Result * POCT glucose (06/12/2024 7:33 PM FLEET MAINTENANCE FOREMAN) Glucose, POC 129 70 - 199 mg/dL Comment: For Glucose values <35 mg/dl when Hematocrit is >60 mg/dl,the test may not accurately detect significant hypoglycemia,and testing in the Laboratory should be considered if clinically indicated. Blood 06/12/2024 7:33 PM FLEET MAINTENANCE FOREMAN 06/12/2024 7:33 PM FLEET MAINTENANCE FOREMAN us Blake Curtis MD LAB POCT ORDERABLES - DE VICE Final Result [facility] [address] Department [place] [address] * POCT glucose (06/12/2024 5:00 PM FLEET MAINTENANCE FOREMAN) Glucose, POC 134 70 - 199 mg/dL Comment: For Glucose values <35 mg/dl when Hematocrit is >60 mg/dl,the test may not accurately detect significant hypoglycemia,and testing in the Laboratory should be considered if clinically indicated. Blood 06/12/2024 5:00 PM FLEET MAINTENANCE FOREMAN 06/12/2024 5:00 PM FLEET MAINTENANCE FOREMAN Blake Curtis MD LAB POCT ORDERABLES - DE VICE Final Result Performing Organization Address [facility] Co de Phone Number [facility] [address] Department [place] [address] * (ABNORMAL) aPTT (06/12/2024 3:46 PM FLEET MAINTENANCE FOREMAN) aPTT 40(H) 28 - 38 sec Comment: Interpretive Data Heparin therapeutic range: 66.0 - 100.0 seconds. Range based on correlation with therapeutic heparin activity range of 0.3 - 0.7 Units/mL. Current interpretive data was last revised on 2023. Blood 06/12/2024 3:46 PM FLEET MAINTENANCE FOREMAN 06/12/2024 3:57 PM FLEET MAINTENANCE FOREMAN Narrative [facility] - 06/12/2024 4:07 PM FLEET MAINTENANCE FOREMAN STAT PTT timing: - Draw 6 hours after heparin infusion initiation - Draw 6 hours after every dose change until 2 consecutive PTTs are therapeutic - Once 2 consecutive PTTs are therapeutic, obtain with daily labs until infusion is discontinued - - Restart every 6 hour lab draws and follow instructions accordingly if PTT is outside of therapeutic range Do not draw lab from IV line that is actively infusing heparin. Use the opposite arm. If arm with actively infusing heparin must be used, pause the infusion for at least 2 minutes, and draw specimen below the IV site. For patients with a central venous catheter (CVC), lab must be drawn peripherally (not from CVC). us Krishan Causey MD PhD LAB BLOOD ORDERABLES Final Result Performing Organization Address [facility]/ZIP Co de Phone Number [facility] [address] Department [place] [address] * POCT glucose (06/12/2024 11:33 AM FLEET MAINTENANCE FOREMAN) Pathologist [facility] Glucose, POC 141 70 - 199 mg/dL Comment: For Glucose values <35 mg/dl when Hematocrit is >60 mg/dl,the test may not accurately detect significant hypoglycemia,and testing in the Laboratory should be considered if clinically indicated. Blood 06/12/2024 11:3 3 AM FLEET MAINTENANCE FOREMAN 06/12/2024 11:33 AM FLEET MAINTENANCE FOREMAN Blake Curtis MD LAB POCT ORDERABLES - DE VICE Final Result Performing Organization Address City/[facility]/ZIP Co de Phone Number [facility] [address] Department [place] [address] * POCT glucose (06/12/2024 7:43 AM FLEET MAINTENANCE FOREMAN) [facility] Glucose, POC 131 70 - 199 mg/dL Comment: For Glucose values <35 mg/dl when Hematocrit is >60 mg/dl,the test may not accurately detect significant hypoglycemia,and testing in the Laboratory should be considered if clinically indicated. Blood 06/12/2024 7:43 AM [employer]LEET MAINTENANCE [employer]EMAN 06/12/2024 7:43 AM FLEET MAINTENANCE FOREMAN Blake Curtis MD LAB POCT ORDERABLES - DE VICE Final Result Performing Organization Address [facility]/ZIP Co de Phone Number [facility] [address] Department [place] [address] * Lipid panel - Add on lab test (06/12/2024 7:11 AM FLEET MAINTENANCE FOREMAN) [facility] Acceptable Yes Blood 06/12/2024 7:11 AM FLEET MAINTENANCE FOREMAN 06/12/2024 7:11 AM FLEET MAINTENANCE FOREMAN Narrative [facility] - 06/12/2024 7:12 AM FLEET MAINTENANCE FOREMAN Name of Test->Lipid panel Blake Curtis MD LAB BLOOD ORDERABLES Fin al Result Performing Organization Address City/[facility]/ZIP Co de Phone Number [facility] [address] Department [place] [address] * Critical Care (06/12/2024 7:06 AM FLEET MAINTENANCE FOREMAN) Narrative Rene Laurent MD - 06/12/2024 7:06 AM FLEET MAINTENANCE FOREMAN Steff Davila NP 06/12/2024 5:20 PM Critical Care Performed by: Steff Davila NP Authorized by: Steff Davila NP CRITICAL CARE: Team: [facility] CT Shift: AM Level of Billing: Critical Care My time spent with this patient was 70 minutes: Critical Provider Statement: I have seen and examined the patient on this day of service. I have reviewed and confirmed the history, physical exam, laboratory and radiologic data as documented in the signed ICU note. I have reviewed and discussed my treatment plan with the ICU team and other medical/center consultant staff, making frequent assessments and decisions regarding this patient's complex medical care. Critical Care time was exclusive of time spent performing separately billed procedures, treating other patients, and teaching. This time was in addition to and separate from critical care provided by other practitioners in my group on this day of service. Critical Care was necessary to treat or prevent imminent or life-threatening deterioration of the following conditions: I spent time documenting in the medical record, I spent time reviewing and interpreting data from bedside monitors, laboratory results, and imaging and I spent time discussing the management of this critically ill patient with consultants and the medical staff us Steff Davila NP IN CLINIC/BEDSIDE ORDERAB LES Final Result * XR Chest 1 View - Portable - in AM (06/12/2024 5:40 AM FLEET MAINTENANCE FOREMAN) Anatomical Region Laterality Modality Body, Chest N/A Computed Radiogr aphy 06/12/2024 8:08 AM FLEET MAINTENANCE FOREMAN Impressions 06/12/2024 8:08 AM FLEET MAINTENANCE FOREMAN Comparison 06/11/2024 11:48 AM. Median sternotomy wires are aligned and intact. Left atrial appendage clip again seen. Aortic valve replacement again noted. Gastric tube has been removed. Right internal jugular central venous catheter tip overlies superior vena cava. Monroe-Magdiel catheter tip projects over the proximal portion of the right pulmonary artery. Mediastinal drain again seen. Cardiomediastinal silhouette stable and in keeping with postoperative change. Left retrocardiac atelectasis again seen. Mild right base atelectasis again noted. No pulmonary edema seen. No pneumothorax seen. Electronically signed by: Colten Joyce M.D. Narrative 06/12/2024 8:08 AM FLEET MAINTENANCE FOREMAN EXAMINATION: Chest 1 view Procedure Note Colten Joyce MD - 06/12/2024 EXAMINATION: Chest 1 view IMPRESSION: Comparison 06/11/2024 11:48 AM. Median sternotomy wires are aligned and intact. Left atrial appendage clip again seen. Aortic valve replacement again noted. Gastric tube has been removed. Right internal jugular central venous catheter tip overlies superior vena cava. Monroe-Magdiel catheter tip projects over the proximal portion of the right pulmonary artery. Mediastinal drain again seen. Cardiomediastinal silhouette stable and in keeping with postoperative change. Left retrocardiac atelectasis again seen. Mild right base atelectasis again noted. No pulmonary edema seen. No pneumothorax seen. Electronically signed by: Colten Joyce M.D. us Krishan Causey MD PhD IMG XR PROCEDURES Final Re sult * Transfuse platelets (06/12/2024 5:12 AM FLEET MAINTENANCE FOREMAN) Blood us Mario LAM BLOOD TRANSFUSION ORDERAB LES Final Result [facility] [address] Department of [place] [address] * Prepare platelets: 1 Units (06/12/2024 1:09 AM FLEET MAINTENANCE FOREMAN) Product code [id number] Unit Number [id number] [facility] Product Blood Type BPOS [facility] Dispense Status PRESUMED TRANSFUSED [facility] Blood (Blood, Venous) 06/12/2024 1:09 AM FLEET MAINTENANCE FOREMAN Narrative [facility] - 06/12/2024 10:15 AM FLEET MAINTENANCE FOREMAN Are special requirements needed? (all products are leukoreduced)->No Date required:-20240612 PLT # of Units:-1-Units Reasons:-Major active bleeding} Mario LAM BLOOD BANK PRODUCT ORDERA BLES Final Result Performing Organization Address [facility]/ZIP Co de Phone Number [facility] [address] [facility] [place] [address] * (ABNORMAL) Protime-INR (06/12/2024 12:19 AM FLEET MAINTENANCE FOREMAN) PT 15.3(H) 9.7 - 13.0 sec INR 1.41(H) 0.90 - 1.20 [facility] Comment: Interpretive data Oral anticoagulant therapeutic ranges: Venous thromboembolism prophylaxis or treatment: 2.0-3.0 CARDIOLOGY Standard range: 2.0-3.0 High-intensity range: 2.5-3.5 Refer to indication-specific guidelines for appropriate target ranges for prosthetic heart valve replacement. Current interpretive data was last revised on 2019. Blood 06/12/2024 12:1 9 AM FLEET MAINTENANCE FOREMAN 06/12/2024 12:38 AM FLEET MAINTENANCE FOREMAN Mario LAM LAB BLOOD ORDERABLES Julieta l Result Performing Organization Address City/[facility] Co de Phone Number [facility] [address] Department [place] [address] * Fibrinogen (06/12/2024 12:19 AM FLEET MAINTENANCE FOREMAN) Pathologist [facility] Fibrinogen 272 170 - 400 mg/dL Blood 06/12/2024 12:1 9 AM FLEET MAINTENANCE FOREMAN 06/12/2024 12:38 AM FLEET MAINTENANCE FOREMAN Mario LAM LAB BLOOD ORDERABLES Julieta l Result Performing Organization Address City/[facility]/ZIP Co de Phone Number [facility] [address] Department [place] [address] * Oxyhemoglobin, pulmonary artery (06/11/2024 11:57 PM FLEET MAINTENANCE FOREMAN) Pathologist [facility] Oxyhemoglobin, PA 79.0 % Comment: Interpretive Data No reference range established. Current interpretive data was last revised 2019. Blood 06/11/2024 11:5 7 PM FLEET MAINTENANCE FOREMAN 06/12/2024 12:23 AM FLEET MAINTENANCE FOREMAN Mario LAM LAB BLOOD ORDERABLES Julieta l Result Performing Organization Address [facility] Co de Phone Number [facility] [address] [facility] [place] [address] * Lactate (06/11/2024 11:56 PM FLEET MAINTENANCE FOREMAN) Lactate 1.5 0.7 - 2.0 mmol/L Blood 06/11/2024 11:5 6 PM FLEET MAINTENANCE FOREMAN 06/12/2024 12:23 AM FLEET MAINTENANCE FOREMAN Mario LAM LAB BLOOD ORDERABLES Julieta l Result Performing Organization Address [facility] Co de Phone Number [facility] [address] [facility] [place] [address] * eGFR (06/11/2024 11:56 PM FLEET MAINTENANCE FOREMAN) eGFR 60 >=60 mL/min/1. 73 m2 Comment: Interpretive Data Reference Interval Normal >/= 90 mL/min/1.73m2 Mildly decreased* 60 - 89 mL/min/1.73m2 Mildly to moderately decreased 45 - 59 mL/min/1.73m2 Moderately to severely decreased 30 - 44 mL/min/1.73m2 Severely decreased 15 - 29 mL/min/1.73m2 Kidney Failure < 15 mL/min/1.73m2 *Relative to young adult level Estimated glomerular filtration rate is determined by the 2020 CKD-EPI equation recommended by the National Kidney Foundation (A Unifying Approach to GFR Estimation: Recommendations of the NKF-ASK Task Force on Reassessing the Inclusion of Race in Diagnosing Kidney Disease, JASN 2020). The CKD-EPI equation should not be used for patients with unstable renal function and has not been validated in children and those over 70. Current interpretive data was last reviewed 2021. Blood 06/11/2024 11:5 6 PM FLEET MAINTENANCE FOREMAN 06/12/2024 12:38 AM FLEET MAINTENANCE FOREMAN Steff Davila NP LAB BLOOD ORDERABLES Julieta l Result Performing Organization Address City/[facility]/ZIP Co de Phone Number [facility] [address] [facility] [place] [address] * (ABNORMAL) Calcium, ionized (06/11/2024 11:56 PM FLEET MAINTENANCE FOREMAN) Pathologist [facility] Calcium, Ionized 4.08(L) 4.50 - 5.10 mg/dL Blood 06/11/2024 11:5 6 PM FLEET MAINTENANCE FOREMAN 06/12/2024 12:23 AM FLEET MAINTENANCE FOREMAN Steff Davila NP LAB BLOOD ORDERABLES Julieta l Result Performing Organization Address [facility] Co de Phone Number [facility] [address] [facility] [place] [address] * (ABNORMAL) CBC without differential (06/11/2024 11:56 PM FLEET MAINTENANCE FOREMAN) [facility] WBC 9.4 3.8 - 9.9 K/cumm Hgb 11.8(L) 13.0 - 17.5 g/dL [facility] Hct 37.3(L) 38.9 - 50.3 % [facility] Plt 93(L) 150 - 400 K/cumm [facility] Comment:Consistent with prev ious result. MPV 11.8 9.1 - 12.3 fL [facility] RBC 4.10(L) 4.30 - 5.80 M/cumm [facility] MCV 91.0 81.3 - 96.4 fL [facility] MCH 28.8 27.1 - 33.3 pg [facility] MCHC 31.6(L) 32.3 - 35.7 g/dL [facility] RDW CV 13.0 11.1 - 14.9 % [facility] RDW SD 43.8 35.7 - 48.1 fL [facility] NRBC abs 0.00 0.00 - 0.01 K/cumm [facility] Blood 06/11/2024 11:5 6 PM FLEET MAINTENANCE FOREMAN 06/12/2024 12:38 AM FLEET MAINTENANCE FOREMAN us Krishan Causey MD PhD LAB BLOOD ORDERABLES Final Result Performing Organization Address City/[facility]/ZIP Co de Phone Number [facility] [address] Department [place] [address] * Magnesium (06/11/2024 11:56 PM FLEET MAINTENANCE FOREMAN) [facility] Magnesium 1.7 1.4 - 2.5 mg/dL Comment:Reviewed Blood 06/11/2024 11:5 6 PM FLEET MAINTENANCE FOREMAN 06/12/2024 12:38 AM FLEET MAINTENANCE FOREMAN Krishan Causey MD PhD LAB BLOOD ORDERABLES Final Result Performing Organization Address City/[facility] Co de Phone Number [facility] [address] Department [place] [address] * (ABNORMAL) Renal function panel (06/11/2024 11:56 PM FLEET MAINTENANCE FOREMAN) [facility] Sodium 139 135 - 145 mmol/L Potassium, pl 4.4 3.3 - 4.9 mmol/L [facility] Chloride 108 97 - 110 mmol/L [facility] CO2 20(L) 22 - 32 mmol/L [facility] Anion gap 11 2 - 15 mmol/L [facility] BUN 22 6 - 25 mg/dL [facility] Creatinine 1.38(H) 0.80 - 1.30 mg/dL [facility] Glucose 185 70 - 199 mg/dL [facility] Comment: Interpretive Data Fasting glucose >/= 126 mg/dl is diagnostic for diabetes. Fasting is defined as no caloric intake for at least 8 hours. Fasting glucose between 100 mg/dl to 125 mg/dl is diagnostic of prediabetes. In a patient with classic symptoms of hyperglycemia or hyperglycemic crisis, a random glucose >/= 200 mg/dl is diagnostic for diabetes. In the absence of unequivocal hyperglycemia, results should be confirmed by repeat testing. The classification and Diagnosis of Diabetes Diabetes Care 2021; 46: S19-S40. Current interpretive data was last revised 2022. Calcium 8.3(L) 8.5 - 10.3 mg/dL [facility] Phosphorus, pl 3.2 2.3 - 4.5 mg/dL [facility] Albumin 3.8 3.5 - 5.0 g/dL [facility] Blood 06/11/2024 11:5 6 PM FLEET MAINTENANCE FOREMAN 06/12/2024 12:38 AM FLEET MAINTENANCE FOREMAN us Krishan Causey MD PhD LAB BLOOD ORDERABLES Final Result [facility] [address] Department [place] [address] * Lipid panel (06/11/2024 11:56 PM FLEET MAINTENANCE FOREMAN) Cholesterol 127 30 - 199 mg/dL Comment: Interpretive Data Ages < or = 19 years Acceptable: <170 mg/dL Borderline high: 170-199 mg/dL High: >or= 200 mg/dL Ages > or = 20 years Desirable: <200 mg/dL Borderline high: 200-239 mg/dL High: >or= 240 mg/dL Literature References: 1. Expert Panel on Integrated Guidelines for Cardiovascular Health and Risk Reduction in Children and Adolescents. Pediatrics 2011;128:S213 2. NCEP Expert Panel. Circulation 2004;110:227 Current Interpretive Data was last revised on 2018. Triglycerides 90 <=149 mg/dL [facility] Comment: Interpretive Data Ages < or = 9 years Acceptable: <75 mg/dL Borderline high: 75-99 mg/dL High: >or= 100 mg/dL Ages 10 to 20 years Acceptable: <90 mg/dL Borderline high: 90-129 mg/dL High: >or= 130 mg/dL Ages > or = 20 years Desirable: <150 mg/dL Borderline high: 150-199 mg/dL High: 200-499 mg/dL Very high: >or= 499 mg/dL Literature References: 1. Expert Panel on Integrated Guidelines for Cardiovascular Health and Risk Reduction in Children and Adolescents. Pediatrics 2011;128:S213 2. NCEP Expert Panel. Circulation 2004;110:227 Current Interpretive Data was last revised on 2018. HDL 45 >=40 mg/dL [facility] Comment: Interpretive Data Ages < or = 19 years Acceptable: >45 mg/dL Borderline low: 40-45 mg/dL Low: <40 mg/dL Ages > or = 20 years Desirable: >or= 60 mg/dL Low: <40 mg/dL Literature References: 1. Expert Panel on Integrated Guidelines for Cardiovascular Health and Risk Reduction in Children and Adolescents. Pediatrics 2011;128:S213 2. NCEP Expert Panel. Circulation 2004;110:227 Current Interpretive Data was last revised on 2018. LDL, calculated 65 <=129 mg/dL [facility] Comment: Interpretive Data Ages < or = 19 years Acceptable: <110 mg/dL Borderline high: 110-129 mg/dL High: >or= 130 mg/dL Ages > or = 20 years Optimal: <100 mg/dL Near optimal: 100-129 mg/dL Borderline high: 130-159 mg/dL High: >160 mg/dL Calculated using the Weston LDL-C estimating equation. This equation was implemented on 2024. Prior to this date LDL-C was estimated using the Friedewald equation. Literature References: 1. Expert Panel on Integrated Guidelines for Cardiovascular Health and Risk Reduction in Children and Adolescents. Pediatrics 2011;128:S213 2. NCEP Expert Panel. Circulation 2004;110:227 3. Weston Vitale et al. ROSETTA Cardiol. 2019September 17;5(5):540-548. doi: 10.1001/jamacardio.2020.0013 Current Interpretive Data was last revised on 2024. Non-HDL Cholesterol 82 mg/dL [facility] Comment: Interpretive Data Ages < or = 19 years Acceptable: <120 mg/dL Borderline high: 120-144 mg/dL High: >145 mg/dL Ages > or = 20 years When triglycerides are >200 mg/dL, Non-HDL cholesterol is a secondary target of therapy with treatment goals that are 30 mg/dL greater than the LDL cholesterol target. Literature References: 1. Expert Panel on Integrated Guidelines for Cardiovascular Health and Risk Reduction in Children and Adolescents. Pediatrics 2011;128:S213 2. NCEP Expert Panel. Circulation 2004;110:227 Current Interpretive Data was last revised on 2018. Chol/HDL ratio 3 [facility] Blood 06/11/2024 11:5 6 PM FLEET MAINTENANCE FOREMAN 06/12/2024 12:38 AM FLEET MAINTENANCE FOREMAN Blake Curtis MD LAB BLOOD ORDERABLES Fin al Result [facility] [address] Department [place] [address] * Critical Care (06/11/2024 6:51 PM FLEET MAINTENANCE FOREMAN) Narrative Rene Laurent MD - 06/11/2024 6:51 PM FLEET MAINTENANCE FOREMAN Mario Araiza PA 06/12/2024 5:20 AM Critical Care Performed by: Mario Araiza PA Authorized by: Mario Araiza PA CRITICAL CARE: Team: [facility] CT Shift: PM Level of Billing: Critical Care My time spent with this patient was 100 minutes: Critical Provider Statement: I have seen and examined the patient on this day of service. I have reviewed and confirmed the history, physical exam, laboratory and radiologic data as documented in the signed ICU note. I have reviewed and discussed my treatment plan with the ICU team and other medical/center consultant staff, making frequent assessments and decisions regarding this patient's complex medical care. Critical Care time was exclusive of time spent performing separately billed procedures, treating other patients, and teaching. This time was in addition to and separate from critical care provided by other practitioners in my group on this day of service. Critical Care was necessary to treat or prevent imminent or life-threatening deterioration of the following conditions: I spent time reviewing and interpreting data from bedside monitors, laboratory results, and imaging, I spent time discussing the management of this critically ill patient with consultants and the medical staff and I spent time documenting in the medical record us Mario LAM IN CLINIC/BEDSIDE ORDERAB LES Final Result * eGFR (06/11/2024 4:36 PM FLEET MAINTENANCE FOREMAN) eGFR 61 >=60 mL/min/1. 73 m2 Comment: Interpretive Data Reference Interval Normal >/= 90 mL/min/1.73m2 Mildly decreased* 60 - 89 mL/min/1.73m2 Mildly to moderately decreased 45 - 59 mL/min/1.73m2 Moderately to severely decreased 30 - 44 mL/min/1.73m2 Severely decreased 15 - 29 mL/min/1.73m2 Kidney Failure < 15 mL/min/1.73m2 *Relative to young adult level Estimated glomerular filtration rate is determined by the 2020 CKD-EPI equation recommended by the National Kidney Foundation (A Unifying Approach to GFR Estimation: Recommendations of the NKF-ASK Task Force on Reassessing the Inclusion of Race in Diagnosing Kidney Disease, JASN 2020). The CKD-EPI equation should not be used for patients with unstable renal function and has not been validated in children and those over 70. Current interpretive data was last reviewed 2021. Blood 06/11/2024 4:36 PM FLEET MAINTENANCE FOREMAN 06/11/2024 4:39 PM FLEET MAINTENANCE FOREMAN Steff Davila NP LAB BLOOD ORDERABLES Julieta l Result [facility] [address] Department of [place] [address] * (ABNORMAL) Renal function panel (06/11/2024 4:36 PM FLEET MAINTENANCE FOREMAN) Sodium 142 135 - 145 mmol/L Potassium, pl 4.3 3.3 - 4.9 mmol/L [facility] Chloride 112(H) 97 - 110 mmol/L [facility] CO2 18(L) 22 - 32 mmol/L [facility] Anion gap 12 2 - 15 mmol/L [facility] BUN 26(H) 6 - 25 mg/dL [facility] Creatinine 1.36(H) 0.80 - 1.30 mg/dL [facility] Glucose 160 70 - 199 mg/dL [facility] Comment: Interpretive Data Fasting glucose >/= 126 mg/dl is diagnostic for diabetes. Fasting is defined as no caloric intake for at least 8 hours. Fasting glucose between 100 mg/dl to 125 mg/dl is diagnostic of prediabetes. In a patient with classic symptoms of hyperglycemia or hyperglycemic crisis, a random glucose >/= 200 mg/dl is diagnostic for diabetes. In the absence of unequivocal hyperglycemia, results should be confirmed by repeat testing. The classification and Diagnosis of Diabetes Diabetes Care 202; 46: S19-S40. Current interpretive data was last revised 2022. Calcium 7.5(L) 8.5 - 10.3 mg/dL [facility] Phosphorus, pl 2.0(L) 2.3 - 4.5 mg/dL [facility] Albumin 3.5 3.5 - 5.0 g/dL [facility] Blood 06/11/2024 4:36 PM FLEET MAINTENANCE FOREMAN 06/11/2024 4:39 PM FLEET MAINTENANCE FOREMAN Steff Davila NP LAB BLOOD ORDERABLES Julieta l Result Performing Organization Address [facility]/ZIP Co de Phone Number [facility] [address] Department of [facility] [place], [place] [id number] * POCT glucose (06/11/2024 2:20 PM FLEET MAINTENANCE FOREMAN) Glucose, POC 108 70 - 199 mg/dL Comment: For Glucose values <35 mg/dl when Hematocrit is >60 mg/dl,the test may not accurately detect significant hypoglycemia,and testing in the Laboratory should be considered if clinically indicated. Blood 06/11/2024 2:20 PM FLEET MAINTENANCE FOREMAN 06/11/2024 2:20 PM FLEET MAINTENANCE FOREMAN us Blake Curtis MD LAB POCT ORDERABLES - DE VICE Final Result Performing Organization Address [facility]/ZIP Co de Phone Number [facility] [address] Department of [facility] [place], [place] [id number] * Oxyhemoglobin, central venous (06/11/2024 2:10 PM FLEET MAINTENANCE FOREMAN) Oxyhemoglobin, CV 74.3 % Comment: Interpretive Data No reference range established. Current interpretive data was last revised 2019. Blood 06/11/2024 2:10 PM FLEET MAINTENANCE FOREMAN 06/11/2024 2:16 PM FLEET MAINTENANCE FOREMAN Krishan Causey MD PhD LAB BLOOD ORDERABLES Final Result Performing Organization Address [facility]/ZIP Co de Phone Number [facility] [address] Department [facility] [place], [place] [id number] * Oxyhemoglobin, pulmonary artery (06/11/2024 2:10 PM FLEET MAINTENANCE FOREMAN) Pathologist [facility] Oxyhemoglobin, PA 78.0 % Comment: Interpretive Data No reference range established. Current interpretive data was last revised 2019. Blood 06/11/2024 2:10 PM FLEET MAINTENANCE FOREMAN 06/11/2024 2:16 PM FLEET MAINTENANCE FOREMAN Steff Davila [employer] LAB BLOOD ORDERABLES Julieta l Result Performing Organization Address [facility] Co de Phone Number [facility] [address] Department [facility] [place], [place] [id number] * POCT glucose (06/11/2024 12:45 PM FLEET MAINTENANCE FOREMAN) [facility] Glucose, POC 95 70 - 199 mg/dL Comment: For Glucose values <35 mg/dl when Hematocrit is >60 mg/dl,the test may not accurately detect significant hypoglycemia,and testing in the Laboratory should be considered if clinically indicated. Blood 06/11/2024 12:4 5 PM FLEET MAINTENANCE FOREMAN 06/11/2024 12:45 PM FLEET MAINTENANCE FOREMAN Blake Curtis MD LAB POCT ORDERABLES - DE VICE Final Result Performing Organization Address [facility] Co de Phone Number [facility] [address] [address] Department [facility] [place], [place] [id number] * (ABNORMAL) Blood gas, arterial (06/11/2024 12:44 PM FLEET MAINTENANCE FOREMAN) [facility] pH, Art 7.35 7.35 - 7.45 PCO2, Arterial 25(L) 35 - 45 mmHg [facility] PO2, Arterial 116(H) 83 - 108 mmHg [facility] HCO3 Art (Calculated) 14(L) 20 - 30 mmol/L [facility] BE, art -10 mmol/L [facility] Comment: Interpretive Data No Reference Range Established Current Interpretive Data was last revised on 2017 O2 Sat Art (Calculated) 98 94 - 98 % [facility] Blood 06/11/2024 12:4 4 PM [employer]LEET MAINTENANCE FOREMAN 06/11/2024 12:50 PM FLEET MAINTENANCE FOREMAN us Krishan Causey MD PhD LAB BLOOD ORDERABLES Final Result [facility] [address] Department of [place] [address] * XR Chest 1 View - Portable (06/11/2024 11:51 AM FLEET MAINTENANCE FOREMAN) Anatomical Region Laterality Modality Body, Chest N/A Computed Radiogr aphy 06/11/2024 12:0 0 PM FLEET MAINTENANCE FOREMAN Impressions 06/11/2024 12:00 PM FLEET MAINTENANCE FOREMAN No prior radiograph for comparison. Endotracheal and nasogastric tubes are in place terminating in the mid thoracic trachea and in the distal esophagus, respectively. Recommend advancement of the nasogastric tube by approximately 10 cm. Clear lungs. No pleural effusion or pneumothorax. Right internal jugular central venous and Monroe-Magdiel catheters terminate in the superior vena cava and right pulmonary artery, respectively. Surgical changes from median sternotomy and aortic valve replacement are present. Mediastinal drain in place. Mild cardiomegaly. Electronically signed by: Deven Gonzalez M.D. Narrative 06/11/2024 12:00 PM FLEET MAINTENANCE FOREMAN EXAMINATION: 1 view chest radiograph Procedure Note Deven Gonzalez MD - 06/11/2024 EXAMINATION: 1 view chest radiograph IMPRESSION: No prior radiograph for comparison. Endotracheal and nasogastric tubes are in place terminating in the mid thoracic trachea and in the distal esophagus, respectively. Recommend advancement of the nasogastric tube by approximately 10 cm. Clear lungs. No pleural effusion or pneumothorax. Right internal jugular central venous and Monroe-Magdiel catheters terminate in the superior vena cava and right pulmonary artery, respectively. Surgical changes from median sternotomy and aortic valve replacement are present. Mediastinal drain in place. Mild cardiomegaly. Electronically signed by: Deven Gonzalez M.D. Steff Davila NP IMG XR PROCEDURES Final R esult * (ABNORMAL) eGFR (06/11/2024 11:37 AM FLEET MAINTENANCE FOREMAN) eGFR 40(L) >=60 mL/min/1. 73 m2 Comment: Interpretive Data Reference Interval Normal >/= 90 mL/min/1.73m2 Mildly decreased* 60 - 89 mL/min/1.73m2 Mildly to moderately decreased 45 - 59 mL/min/1.73m2 Moderately to severely decreased 30 - 44 mL/min/1.73m2 Severely decreased 15 - 29 mL/min/1.73m2 Kidney Failure < 15 mL/min/1.73m2 *Relative to young adult level Estimated glomerular filtration rate is determined by the 2020 CKD-EPI equation recommended by the National Kid[employer] (A Unifying Approach to GFR Estimation: Recommendations of the NKF-ASK Task Force on Reassessing the Inclusion of Race in Diagnosing Kidney Disease, JASN 2020). The CKD-EPI equation should not be used for patients with unstable renal function and has not been validated in children and those over 70. Current interpretive data was last reviewed 2021. Blood 06/11/2024 11:3 7 AM FLEET MAINTENANCE FOREMAN 06/11/2024 12:28 PM FLEET MAINTENANCE FOREMAN Steff Davila NP LAB BLOOD ORDERABLES Julieta l Result [facility] [address] [place] [address] * Calcium, ionized (06/11/2024 11:37 AM FLEET MAINTENANCE FOREMAN) Calcium, Ionized 5.07 4.50 - 5.10 mg/dL Blood 06/11/2024 11:3 7 AM FLEET MAINTENANCE FOREMAN 06/11/2024 11:49 AM FLEET MAINTENANCE FOREMAN Steff Davila NP LAB BLOOD ORDERABLES Julieta l Result Performing Organization Address [facility] Co de Phone Number [facility] [address] [place] [address] * (ABNORMAL) aPTT (06/11/2024 11:37 AM FLEET MAINTENANCE FOREMAN) aPTT 26(L) 28 - 38 sec Comment: Interpretive Data Heparin therapeutic range: 66.0 - 100.0 seconds. Range based on correlation with therapeutic heparin activity range of 0.3 - 0.7 Units/mL. Current interpretive data was last revised on 2023. Blood 06/11/2024 11:3 7 AM FLEET MAINTENANCE FOREMAN 06/11/2024 12:34 PM FLEET MAINTENANCE FOREMAN Result [facility] Steff Davila NP LAB BLOOD ORDERABLES Julieta l Result Performing Organization Address [facility] de Phone Number [facility] [address] [place] [address] * (ABNORMAL) Protime-INR (06/11/2024 11:37 AM FLEET MAINTENANCE FOREMAN) PT 16.5(H) 9.7 - 13.0 sec INR 1.51(H) 0.90 - 1.20 [facility] Comment: Interpretive data Oral anticoagulant therapeutic ranges: Venous thromboembolism prophylaxis or treatment: 2.0-3.0 CARDIOLOGY Standard range: 2.0-3.0 High-intensity range: 2.5-3.5 Refer to indication-specific guidelines for appropriate target ranges for prosthetic heart valve replacement. Current interpretive data was last revised on 2019. Blood 06/11/2024 11:3 7 AM FLEET MAINTENANCE FOREMAN 06/11/2024 12:34 PM FLEET MAINTENANCE FOREMAN Steff Davila NP LAB BLOOD ORDERABLES Julieta l Result Performing Organization Address [facility] Co de Phone Number [facility] [address] [facility] [address] * (ABNORMAL) CBC without differential (06/11/2024 11:37 AM FLEET MAINTENANCE FOREMAN) [facility] WBC 11.7(H) 3.8 - 9.9 K/cumm Hgb 11.2(L) 13.0 - 17.5 g/dL [facility] Hct 36.1(L) 38.9 - 50.3 % [facility] Plt 105(L) 150 - 400 K/cumm [facility] Comment:Consistent with prev ious result. MPV 11.1 9.1 - 12.3 fL [facility] RBC 3.86(L) 4.30 - 5.80 M/cumm [facility] MCV 93.5 81.3 - 96.4 fL [facility] MCH 29.0 27.1 - 33.3 pg [facility] MCHC 31.0(L) 32.3 - 35.7 g/dL [facility] RDW CV 13.2 11.1 - 14.9 % [facility] RDW SD 44.7 35.7 - 48.1 fL [facility] NRBC abs 0.00 0.00 - 0.01 K/cumm [facility] Blood 06/11/2024 11:3 7 AM FLEET MAINTENANCE FOREMAN 06/11/2024 12:28 PM FLEET MAINTENANCE FOREMAN Steff Davila NP LAB BLOOD ORDERABLES Julieta l Result [facility] [address] Department of [place] [address] * Phosphorus (06/11/2024 11:37 AM FLEET MAINTENANCE FOREMAN) [facility] Phosphorus, pl 2.7 2.3 - 4.5 mg/dL Blood 06/11/2024 11:3 7 AM FLEET MAINTENANCE FOREMAN 06/11/2024 12:28 PM FLEET MAINTENANCE FOREMAN Steff Davila NP LAB BLOOD ORDERABLES Julieta l Result [facility] [address] [facility] [employer] [address] * Magnesium (06/11/2024 11:37 AM FLEET MAINTENANCE FOREMAN) [facility] Magnesium 2.5 1.4 - 2.5 mg/dL Blood 06/11/2024 11:3 7 AM FLEET MAINTENANCE FOREMAN 06/11/2024 12:28 PM FLEET MAINTENANCE FOREMAN Steff Davila NP LAB BLOOD ORDERABLES Julieta l Result Performing Organization Address [facility] Co de Phone Number [facility] [address] [facility] [place] [address] * (ABNORMAL) Blood gas, arterial (06/11/2024 11:37 AM FLEET MAINTENANCE FOREMAN) [facility] pH, Art 7.31(L) 7.35 - 7.45 PCO2, Arterial 41 35 - 45 mmHg [facility] PO2, Arterial 158(H) 83 - 108 mmHg [facility] HCO3 Art (Calculated) 21 20 - 30 mmol/L [facility] BE, art -5 mmol/L [facility] Comment: Interpretive Data No Reference Range Established Current Interpretive Data was last revised on 2017 O2 Sat Art (Calculated) 99(H) 94 - 98 % [facility] Blood 06/11/2024 11:3 7 AM FLEET MAINTENANCE FOREMAN 06/11/2024 11:49 AM FLEET MAINTENANCE FOREMAN Steff Davila NP LAB BLOOD ORDERABLES Julieta l Result Performing Organization Address City/[facility]/ZIP Co de Phone Number [facility] [address] [facility] [place] [address] * (ABNORMAL) Basic metabolic panel (06/11/2024 11:37 AM FLEET MAINTENANCE FOREMAN) [facility] Sodium 145 135 - 145 mmol/L Potassium, pl 5.3(H) 3.3 - 4.9 mmol/L [facility] Chloride 114(H) 97 - 110 mmol/L [facility] CO2 23 22 - 32 mmol/L [facility] Anion gap 8 2 - 15 mmol/L [facility] BUN 34(H) 6 - 25 mg/dL [facility] Creatinine 1.94(H) 0.80 - 1.30 mg/dL [facility] Glucose 108 70 - 199 mg/dL [facility] Comment: Interpretive Data Fasting glucose >/= 126 mg/dl is diagnostic for diabetes. Fasting is defined as no caloric intake for at least 8 hours. Fasting glucose between 100 mg/dl to 125 mg/dl is diagnostic of prediabetes. In a patient with classic symptoms of hyperglycemia or hyperglycemic crisis, a random glucose >/= 200 mg/dl is diagnostic for diabetes. In the absence of unequivocal hyperglycemia, results should be confirmed by repeat testing. The classification and Diagnosis of Diabetes Diabetes Care 2021; 46: S19-S40. Current interpretive data was last revised 2022. Calcium 8.6 8.5 - 10.3 mg/dL [facility] Blood 06/11/2024 11:3 7 AM FLEET MAINTENANCE FOREMAN 06/11/2024 12:28 PM FLEET MAINTENANCE FOREMAN us Steff Davila NP LAB BLOOD ORDERABLES Julieta l Result [facility] [address] Department [place] [address] * Critical Care (06/11/2024 11:33 AM FLEET MAINTENANCE FOREMAN) Narrative Rene Laurent MD - 06/11/2024 11:33 AM FLEET MAINTENANCE FOREMAN Steff Davila NP 06/11/2024 5:44 PM Critical Care Performed by: Steff Davila NP Authorized by: Steff Davila NP CRITICAL CARE: Team: [facility] CT Shift: AM Level of Billing: Critical Care My time spent with this patient was 120 minutes: Critical Provider Statement: I have seen and examined the patient on this day of service. I have reviewed and confirmed the history, physical exam, laboratory and radiologic data as documented in the signed ICU note. I have reviewed and discussed my treatment plan with the ICU team and other medical/center consultant staff, making frequent assessments and decisions regarding this patient's complex medical care. Critical Care time was exclusive of time spent performing separately billed procedures, treating other patients, and teaching. This time was in addition to and separate from critical care provided by other practitioners in my group on this day of service. Critical Care was necessary to treat or prevent imminent or life-threatening deterioration of the following conditions: I spent time discussing the management of this critically ill patient with consultants and the medical staff, I spent time reviewing and interpreting data from bedside monitors, laboratory results, and imaging and I spent time documenting in the medical record us Steff Davila NP IN CLINIC/BEDSIDE ORDERAB LES Final Result * POCT glucose (06/11/2024 11:33 AM FLEET MAINTENANCE FOREMAN) [facility] Signature Glucose, POC 80 70 - 199 mg/dL Comment: For Glucose values <35 mg/dl when Hematocrit is >60 mg/dl,the test may not accurately detect significant hypoglycemia,and testing in the Laboratory should be considered if clinically indicated. Blood 06/11/2024 11:3 3 AM FLEET MAINTENANCE FOREMAN 06/11/2024 11:33 AM FLEET MAINTENANCE FOREMAN us Blake Curtis MD LAB POCT ORDERABLES - DE VICE Final Result [facility] [address] Department [place] [address] * VA AN CENTRAL LINE QUADRUPLE LUMEN, VA AN PROCEDURE PLACEHOLDER (06/11/2024 11:32 AM FLEET MAINTENANCE FOREMAN) Narrative Chip Howe MD - 06/11/2024 11:32 AM FLEET MAINTENANCE FOREMAN Chip Howe MD 06/11/2024 11:32 AM Central Venous Line Patient location: OR Indication: central venous access and CVP monitoring Staff: Placed by: Anesthesiologist: Cihp Howe MD Procedure prep: Patient position: Trendelenburg. PPE: provider hand hygiene, provider hat/mask, sterile gloves, sterile gown, full body drape, sterile gel, sterile probe covers and large sterile drape. Prep solution: chlorhexadine/alcohol was applied to area. Ultrasound Evaluation: Ultrasound was prepped into field. Prior to the procedure, the cannulated vein was evaluated by ultrasound and deemed suitably patent for access.This vessel was accessed using real-time ultrasound guidance and an image was placed in the patient's medical record Central line: Laterality: right Site: internal jugular An individually distinct skin insertion site is being utilized for placement of the catheter. Catheter type: quad lumen Catheter size: 8.5 Fr. Catheter length: 16 cm Catheter length at skin: 16 cm Technique: anatomy identified with surface landmarks, anatomy identified with ultrasound, Seldinger technique, wire threaded easily and wire removed intact Venous verification: ultrasound confirmation Post insertion: all ports aspirated, all ports flushed easily, line sutured in place and occlusive dressing applied Number of attempts: 1 Assessment: Events: patient tolerated procedure well with no complications Chip Howe MD ANESTHESIA ORDERABLES Fin al Result * BW AN SHEATH INTRODUCER PERFORMABLE, PULMONARY ARTERY CATH, VA AN PROCEDURE PLACEHOLDER (1:32 AM FLEET MAINTENANCE FOREMAN) Narrative Chip Howe MD - 06/11/2024 11:32 AM FLEET MAINTENANCE FOREMAN Chip Howe MD 06/11/2024 11:32 AM Central Venous Line Patient location: OR Staff: Placed by: Anesthesiologist: Chip Howe MD Procedure prep: Patient position: Trendelenburg. PPE: provider hand hygiene, provider hat/mask, sterile gloves, sterile gown, large sterile drape, full body drape, sterile gel and sterile probe covers. Prep solution: chlorhexadine/alcohol was applied to area. Ultrasound Evaluation: Ultrasound was prepped into field. Prior to the procedure, the cannulated vein was evaluated by ultrasound and deemed suitably patent for access.This vessel was accessed using real-time ultrasound guidance and an image was placed in the patient's medical record Central line: Laterality: right Site: internal jugular An individually distinct skin insertion site is being utilized for placement of the catheter. Catheter type: introducer sheath Catheter size: 9 Fr. Technique: anatomy identified with surface landmarks, anatomy identified with ultrasound, wire threaded easily, Seldinger technique and wire removed intact Venous verification: ultrasound confirmation Post insertion: all ports aspirated, all ports flushed easily, line sutured in place and occlusive dressing applied Number of attempts: 1 PA catheter placement: PA catheter type: non-oximetric PA catheter size: 7.5 Fr PA catheter laterality: right PA catheter site: internal jugular Placement guided by: pressure tracing changes PA catheter depth 45 cmNo Assessment: Events: patient tolerated procedure well with no complications Chip Howe MD ANESTHESIA ORDERABLES Fin al Result * VA AN PROCEDURE PLACEHOLDER (06/11/2024 11:15 AM FLEET MAINTENANCE FOREMAN) Anatomical Region Laterality Modality Other Narrative 06/11/2024 11:15 AM FLEET MAINTENANCE FOREMAN Chip Howe MD 06/13/2024 1:19 PM LALITA Date/time: Staff: Supervising anesthesiologist: Chip Howe MD Performed by: Anesthesiologist: Chip Howe MD Preprocedure checklist: patient identified, procedure contraindications assessed, risks, benefits and alternatives discussed, monitors and equipment checked, timeout performed and LALITA probe inserted into esophagus using lubricating jelly General procedure Information: Reason for procedure/indications: assessment of surgical repair and hemodynamic instability Performed: personally Procedure performed at surgeon's request: yes Results discussed with surgeon: yes Images submitted to archive: yes Patient location: ICU Intubated: yes Bite blocked placed: yes Probe Insertion: easy Complications: no Probe type: adult Modalities: 2D imaging, color Doppler, continuous wave Doppler and pulsed wave Doppler LALITA machine number: 3 Billing information: Physician requesting echo: Blake Curtis MD CPT code: LALITA placement and diagnostic exam, non-congenital (04798) ICD code(s) for medical necessity: R57.9 - Shock, unspecified Echocardiographic and doppler measurements: Ventricles: Left ventricle: Cavity size: severely dilated Thrombus: No LVEF%: 30-40 Right ventricle: Cavity size: normal Hypertrophy: no RVEF%: 50-60 Interventricular septum: normal Regional function: 1- Basal anteroseptal: hypokinetic 2- Basal anterior: hypokinetic 3- Basal anterolateral: hypokinetic 4- Basal inferolateral: hypokinetic 5- Basal inferior: hypokinetic 6- Basal inferoseptal: hypokinetic 7- Mid anteroseptal: hypokinetic 8- Mid anterior: hypokinetic 9- Mid anterolateral: hypokinetic 10- Mid inferolateral: hypokinetic 11- Mid inferior: hypokinetic 12- Mid inferoseptal: hypokinetic 13- Apical anterior: hypokinetic 14- Apical lateral: hypokinetic 15- Apical inferior: hypokinetic 16- Apical septal: hypokinetic 17- [place]: hypokinetic Valves: Aortic Valve: Regurgitation: severe Mitral valve: Regurgitation: mild Tricuspid valve: Regurgitation: trace Pulmonic valve: Regurgitation: absent Aorta: Ascending aorta: Size: normal Dissection: no Plaque mobile: no Aortic arch: Size: normal Dissection: no Plaque mobile: no Descending aorta: Size: normal Dissection: no Plaque thickness(mm): 0-3 Plaque mobile: no Atria: Right atrium: Size: normal Thrombus: no Mass: No Left atrium: Size: normal (normal) Thrombus: no Mass: No Left atrial appendage: normal Interatrial septum: normal Diastolic function and other findings: Pericardium: normal Left pleural effusion: none Right pleural effusion: normal Pre-procedure LALITA exam summary: Decreased LV systolic function, LVEF approx 40%. Normal RV function. Severe AI, with prolapse of R coronary cusp. Trace MR/TR. LAE. Dilated LV. No PFO by color. Postprocedure (follow-up) LALITA exam: Postprocedure (follow-up) LALITA exam comments: Mechanical Valve in aortic position, mean gradient approx 8mmHg. No PVL. Valves and function otherwise unchanged, on 5mcg/kg/min dobutamine. Atrial appendage visualized w/ fluid and gas; cannot exclude gas bubbles emptying into LA. Attestation Statement: By signing this report the attending anesthesiologist certifies that he or she has personally reviewed and interpreted the echocardiogram and has reviewed and or edited and agrees with the written comments contained within the report. us Chip Howe MD ANESTHESIA ORDERABLES Fin al Result * (ABNORMAL) Manual Differential (06/11/2024 10:52 AM FLEET MAINTENANCE FOREMAN) RBC morphology Normal Platelet estimate Decreased(A ) [facility] Morphology scrn See Comment [facility] CABALLERO Comment:PLT: Platelet morpho logy normal Automated count confirmed by smear review Blood 06/11/2024 10:5 2 AM FLEET MAINTENANCE FOREMAN 06/11/2024 10:52 AM FLEET MAINTENANCE FOREMAN us Blake Curtis MD LAB BLOOD ORDERABLES Fin al Result [facility] [address] [facility] [place] [address] * aPTT (06/11/2024 10:52 AM FLEET MAINTENANCE FOREMAN) aPTT 28 28 - 38 sec Comment: Interpretive Data Heparin therapeutic range: 66.0 - 100.0 seconds. Range based on correlation with therapeutic heparin activity range of 0.3 - 0.7 Units/mL. Current interpretive data was last revised on 2023. Blood 06/11/2024 10:5 2 AM FLEET MAINTENANCE FOREMAN 06/11/2024 10:52 AM FLEET MAINTENANCE FOREMAN Blake Curtis MD LAB BLOOD ORDERABLES Fin al Result Performing Organization Address [facility] Co de Phone Number [facility] [address] [facility] [place] [address] * (ABNORMAL) Protime-INR (06/11/2024 10:52 AM FLEET MAINTENANCE FOREMAN) Pathologist [facility] PT 20.3(H) 9.7 - 13.0 sec INR 1.86(H) 0.90 - 1.20 [facility] Comment: Interpretive data Oral anticoagulant therapeutic ranges: Venous thromboembolism prophylaxis or treatment: 2.0-3.0 CARDIOLOGY Standard range: 2.0-3.0 High-intensity range: 2.5-3.5 Refer to indication-specific guidelines for appropriate target ranges for prosthetic heart valve replacement. Current interpretive data was last revised on 2019. Blood 06/11/2024 10:5 2 AM FLEET MAINTENANCE FOREMAN 06/11/2024 10:52 AM FLEET MAINTENANCE FOREMAN Blake Curtis MD LAB BLOOD ORDERABLES Fin al Result Performing Organization Address [facility] Co de Phone Number [facility] [address] [facility] [place] [address] * Fibrinogen (06/11/2024 10:52 AM FLEET MAINTENANCE FOREMAN) Fibrinogen 175 170 - 400 mg/dL Blood 06/11/2024 10:5 2 AM FLEET MAINTENANCE FOREMAN 06/11/2024 10:52 AM FLEET MAINTENANCE FOREMAN Blake Curtis MD LAB BLOOD ORDERABLES Fin al Result Performing Organization Address [facility] Co de Phone Number [facility] [address] [place] [address] * (ABNORMAL) CBC without differential (06/11/2024 10:52 AM FLEET MAINTENANCE FOREMAN) [facility] WBC 9.3 3.8 - 9.9 K/cumm Hgb 10.3(L) 13.0 - 17.5 g/dL [facility] Hct 33.4(L) 38.9 - 50.3 % [facility] Plt 85(L) 150 - 400 K/cumm [facility] MPV 11.1 9.1 - 12.3 fL [facility] RBC 3.61(L) 4.30 - 5.80 M/cumm [facility] MCV 92.5 81.3 - 96.4 fL [facility] MCH 28.5 27.1 - 33.3 pg [facility] MCHC 30.8(L) 32.3 - 35.7 g/dL [facility] RDW CV 13.1 11.1 - 14.9 % [facility] RDW SD 44.3 35.7 - 48.1 fL [facility] NRBC abs 0.00 0.00 - 0.01 K/cumm [facility] Blood 06/11/2024 10:5 2 AM FLEET MAINTENANCE FOREMAN 06/11/2024 10:52 AM FLEET MAINTENANCE FOREMAN Blake Curtis MD LAB BLOOD ORDERABLES Fin al Result Performing Organization Address [facility]/ZIP Co de Phone Number [facility] [address] Department [employer] [place], [place] [id number] * (ABNORMAL) POC Blood Gas and Chemistries, Arterial - (06/11/2024 10:34 AM FLEET MAINTENANCE FOREMAN) pH, Art POC 7.38 7.35 - 7.45 pCO2, Art POC 37 35 - 45 mmHg [facility] pO2, Art POC 265(H) 80 - 108 mmHg [facility] Na, POC 137 135 - 145 mmol/L [facility] K POC 5.6(H) 3.3 - 4.9 mmol/L [facility] Comment: Interpretive Data This method is not able to assess for hemolysis, which may falsely increase potassium concentrations. If further testing is needed to evaluate this result, consider in-laboratory plasma potassium. Current Interpretive Data was last revised on 2022. Cl, POC 111(H) 97 - 110 mmol/L [facility] Ionized Ca, POC 5.27(H) 4.50 - 5.10 mg/dL [facility] Glucose, POC 117 70 - 199 mg/dL [facility] Lactate, POC 2.5(H) 0.7 - 2.0 mmol/L [facility] O2Hb, Art POC 97.1(H) 90.0 - 95.0 % [facility] Carboxhgb fract 0.8 0.0 - 2.9 % [facility] Methemoglobin 1.3 0.0 - 1.9 % [facility] HHb, POC 0.7 0.0 - 5.0 % [facility] SO2 (preethi) arterial 99(H) 90 - 95 % [facility] Total CO2, Art POC 23 22 - 32 mmol/L [facility] BE, art, POC -2.9(L) -2.0 - 2.0 mmol/L [facility] HCO3, Art POC 23 20 - 30 mmol/L [facility] Hct, POC 32.0(L) 38.9 - 50.3 % [facility] Total Hb, POC 10.7(L) 13.0 - 17.5 g/dL [facility] Blood 06/11/2024 10:3 4 AM [employer] 06/11/2024 10:34 AM FLEET MAINTENANCE FOREMAN us Blake Curtis MD LAB POCT ORDERABLES - DE VICE Final Result [facility] [address] Department of [place] [address] * POC Activated Clotting Time, High Range (06/11/2024 10:33 AM FLEET MAINTENANCE FOREMAN) ACT 119 87 - 138 sec Blood 06/11/2024 10:3 3 AM [employer] MAINTENAN[employer]EMAN 06/11/2024 10:33 AM FLEET MAINTENANCE FOREMAN us Blake Curtis MD LAB BLOOD ORDERABLES Fin al Result [facility] [address] Department of [place] [address] * (ABNORMAL) POC Blood Gas and Chemistries, Arterial - (06/11/2024 9:44 AM FLEET MAINTENANCE FOREMAN) [facility] pH, Art POC 7.39 7.35 - 7.45 pCO2, Art POC 38 35 - 45 mmHg [facility] pO2, Art POC 317(H) 80 - 108 mmHg [facility] Na, POC 136 135 - 145 mmol/L [facility] K POC 5.9(H) 3.3 - 4.9 mmol/L [facility] Comment: Interpretive Data This method is not able to assess for hemolysis, which may falsely increase potassium concentrations. If further testing is needed to evaluate this result, consider in-laboratory plasma potassium. Current Interpretive Data was last revised on 2022. Cl, POC 109 97 - 110 mmol/L [facility] Ionized Ca, POC 4.50 4.50 - 5.10 mg/dL [facility] Glucose, POC 132 70 - 199 mg/dL [facility] Lactate, POC 1.3 0.7 - 2.0 mmol/L [facility] O2Hb, Art POC 97.8(H) 90.0 - 95.0 % [facility] Carboxhgb fract 1.1 0.0 - 2.9 % [facility] Methemoglobin 1.0 0.0 - 1.9 % [facility] HHb, POC 0.1 0.0 - 5.0 % [facility] SO2 (preethi) arterial 100(H) 90 - 95 % [facility] Total CO2, Art POC 24 22 - 32 mmol/L [facility] BE, art, POC -1.7 -2.0 - 2.0 mmol/L [facility] HCO3, Art POC 24 20 - 30 mmol/L [facility] Hct, POC 32.0(L) 38.9 - 50.3 % [facility] Total Hb, POC 10.5(L) 13.0 - 17.5 g/dL [facility] Blood 06/11/2024 9:44 AM [employer]INTENA[employer] 06/11/2024 9:44 AM FLE[employer] MAINTENANCE [employer]EMAN Blake Curtis MD LAB POCT ORDERABLES - DE VICE Final Result Performing Organization Address City/[facility]/ZIP Co de Phone Number [facility] [address] [employer] [place] [address] * (ABNORMAL) POC Activated Clotting Time, High Range (06/11/2024 9:43 AM FLEET MAINTENANCE FOREMAN) ACT 529(H) 87 - 138 sec Blood 06/11/2024 9:43 AM FLEET MAINTENANCE [employer]EMAN 06/11/2024 9:43 AM FLEET MAINTENAN[employer]EMAN Blake Curtis MD LAB BLOOD ORDERABLES Fin al Result Performing Organization Address [facility]/ZIP Co de Phone Number [facility] [address] Department [place] [address] * (ABNORMAL) POC Blood Gas and Chemistries, Venous - (06/11/2024 9:24 AM FLEET MAINTENANCE FOREMAN) pH, Ross POC 7.33 7.32 - 7.45 pCO2, ross POC 51(H) 40 - 50 mmHg [facility] pO2, ross POC 46(H) 35 - 42 mmHg [facility] Na, POC 139 135 - 145 mmol/L [facility] K POC 5.6(H) 3.3 - 4.9 mmol/L [facility] Comment: Interpretive Data This method is not able to assess for hemolysis, which may falsely increase potassium concentrations. If further testing is needed to evaluate this result, consider in-laboratory plasma potassium. Current Interpretive Data was last revised on 2022. Cl, POC 110 97 - 110 mmol/L [facility] Ionized Ca, POC 4.55 4.50 - 5.10 mg/dL [facility] Glucose, POC 141 70 - 199 mg/dL [facility] Lactate, POC 1.2 0.7 - 2.0 mmol/L [facility] O2Hb, Ross POC 76.6(L) 90.0 - 95.0 % [facility] Carboxhgb fract 1.1 0.0 - 2.9 % [facility] Methemoglobin 0.9 0.0 - 1.9 % [facility] HHb, POC 21.4(H) 0.0 - 5.0 % [facility] O2 Sat, Ross POC (Preethi) 78(H) 68 - 77 % [facility] Total CO2, ross POC 28 22 - 32 mmol/L [facility] Base excess, ross POC 0.4 mmol/L [facility] HCO3, Ross POC 25 20 - 30 mmol/L [facility] Hct, POC 32.0(L) 38.9 - 50.3 % [facility] Total Hb, POC 10.8(L) 13.0 - 17.5 g/dL [facility] Blood 06/11/2024 9:24 AM FLE[employer]TENA[employer] 06/11/2024 9:24 AM FLEET MAINTENANCE [employer]EMAN us Blake Curtis MD LAB POCT ORDERABLES - DE VICE Final Result [facility] [address] [place] [address] * (ABNORMAL) POC Blood Gas and Chemistries, Arterial - (06/11/2024 9:16 AM FLEET MAINTENANCE [employer]EMAN) pH, Art POC 7.31(L) 7.35 - 7.45 pCO2, Art POC 44 35 - 45 mmHg [facility] pO2, Art POC 359(H) 80 - 108 mmHg [facility] Na, POC 137 135 - 145 mmol/L [facility] K POC 5.8(H) 3.3 - 4.9 mmol/L [facility] Comment: Interpretive Data This method is not able to assess for hemolysis, which may falsely increase potassium concentrations. If further testing is needed to evaluate this result, consider in-laboratory plasma potassium. Current Interpretive Data was last revised on 2022. Cl, POC 111(H) 97 - 110 mmol/L [facility] Ionized Ca, POC 4.66 4.50 - 5.10 mg/dL [facility] Glucose, POC 143 70 - 199 mg/dL [facility] Lactate, POC 1.3 0.7 - 2.0 mmol/L [facility] O2Hb, Art POC 97.6(H) 90.0 - 95.0 % [facility] Carboxhgb fract 0.8 0.0 - 2.9 % [facility] Methemoglobin 1.1 0.0 - 1.9 % [facility] HHb, POC 0.6 0.0 - 5.0 % [facility] SO2 (preethi) arterial 99(H) 90 - 95 % [facility] Total CO2, Art POC 24 22 - 32 mmol/L [facility] BE, art, POC -4.0(L) -2.0 - 2.0 mmol/L [facility] HCO3, Art POC 22 20 - 30 mmol/L [facility] Hct, POC 33.0(L) 38.9 - 50.3 % [facility] Total Hb, POC 10.9(L) 13.0 - 17.5 g/dL [facility] Blood 06/11/2024 9:16 AM F[employer] MAINTENA[employer] 06/11/2024 9:16 AM FLE[employer] MAINTENAN[employer]EM[employer] us Blake Curtis MD LAB POCT ORDERABLES - DE VICE Final Result [facility] [address] [place] [address] * (ABNORMAL) POC Activated Clotting Time, High Range (06/11/2024 9:15 AM FLEET MAINTENANCE FOREMAN) ACT 705(H) 87 - 138 sec Blood 06/11/2024 9:15 AM FLE[employer] MAINTENAN[employer]EMAN 06/11/2024 9:15 AM FLE[employer] MAINTENANCE FOREMAN us Blake Curtis MD LAB BLOOD ORDERABLES Fin al Result [facility] [address] Department [place] [address] * (ABNORMAL) POC Blood Gas and Chemistries, Arterial - (06/11/2024 8:56 AM FLEET MAINTENANCE FOREMAN) pH, Art POC 7.32(L) 7.35 - 7.45 pCO2, Art POC 43 35 - 45 mmHg [facility] pO2, Art POC 160(H) 80 - 108 mmHg [facility] Na, POC 136 135 - 145 mmol/L [facility] K POC 5.0(H) 3.3 - 4.9 mmol/L [facility] Comment: Interpretive Data This method is not able to assess for hemolysis, which may falsely increase potassium concentrations. If further testing is needed to evaluate this result, consider in-laboratory plasma potassium. Current Interpretive Data was last revised on 2022. Cl, POC 108 97 - 110 mmol/L [facility] Ionized Ca, POC 4.73 4.50 - 5.10 mg/dL [facility] Glucose, POC 135 70 - 199 mg/dL [facility] Lactate, POC 1.5 0.7 - 2.0 mmol/L [facility] O2Hb, Art POC 97.2(H) 90.0 - 95.0 % [facility] Carboxhgb fract 1.2 0.0 - 2.9 % [facility] Methemoglobin 1.0 0.0 - 1.9 % [facility] HHb, POC 0.7 0.0 - 5.0 % [facility] SO2 (preethi) arterial 99(H) 90 - 95 % [facility] Total CO2, Art POC 24 22 - 32 mmol/L [facility] BE, art, POC -3.8(L) -2.0 - 2.0 mmol/L [facility] HCO3, Art POC 22 20 - 30 mmol/L [facility] Hct, POC 38.0(L) 38.9 - 50.3 % [facility] Total Hb, POC 12.5(L) 13.0 - 17.5 g/dL [facility] Blood 06/11/2024 8:56 AM FLE[employer] MAINTE[employer] 06/11/2024 8:56 AM FLEET MAINTENANCE FOREMAN Result [facility] Blake Curtis MD LAB POCT ORDERABLES - DE VICE Final Result Performing Organization Address [facility] Co de Phone Number [facility] [address] [facility] [place] [address] * (ABNORMAL) POC Activated Clotting Time, High Range (06/11/2024 8:55 AM FLEET MAINTENANCE FOREMAN) ACT 682(H) 87 - 138 sec Blood 06/11/2024 8:55 AM FLE[employer] MAINTENANCE FOREMAN 06/11/2024 8:55 AM FLEET MAINTENANCE FOREMAN Result [facility] Blake Curtis MD LAB BLOOD ORDERABLES Fin al Result Performing Organization Address [facility] Co in Phone Number [facility] [address] [facility] [place] [address] * VA AN PROCEDURE PLACEHOLDER (06/11/2024 8:44 AM FLEET MAINTENANCE FOREMAN) Narrative Chip Howe MD - 06/11/2024 8:44 AM FLE[employer] MAINTENANCE FOREMAN Chip Howe MD 06/11/2024 8:44 AM Arterial Line Patient location: OR Staff: Placed by: Anesthesiologist: Chip Howe MD Procedure prep: Prep solution: chlorhexadine/alcohol Prep: sterile gloves Arterial line: Catheter size: 20 gauge Catheter length: 1 and 3/4 inch Catheter type: wire-guided catheter Seldinger technique: yes Laterality: left Site: radial artery Line secured: tape and Tegaderm Results: good waveform and good blood return Number of attempts: 1 Assessment: Events: patient tolerated procedure well with no complications Chip Howe MD ANESTHESIA ORDERABLES Fin al Result * VA AN ELECTIVE ENDOTRACHEAL AIRWAY, VA AN PROCEDURE PLACEHOLDER (06/11/2024 8:44 AM FLEET MAINTENANCE FOREMAN) Chip Lim MD - 06/11/2024 8:44 AM FLEET MAINTENANCE FOREMAN Chip Howe MD 06/11/2024 8:44 AM Airway Patient location: OR Urgency: elective Indications for airway management: anesthesia Difficult airway: no Staff: Placed by: Anesthesiologist: Chip Howe MD Emergent airway documentation: Risks and benefits discussed: yes Consent obtained: yes Airway prep: Preoxygenated: yes Patient position: sniffing Mask difficulty assessment: 0 - not attempted Sedation level during airway: GA Final airway details: Final airway type: endotracheal airway Tube type: ETT ETT size: 8.0 mm Cuffed: yes Technique used for successful ETT placement: video laryngoscopy Insertion site: oral Video blade type: Carmona Blade size: 3 Cormack-Lehane (video): grade I - full view of glottis Initial cuff pressure: 21 cm H2O Cuff inflated with: air ETT to lips: 23 cm Placement verified by: auscultation and CO2 detection Airway secured with: silk tape Number of attempts: 1no us Chip Howe MD ANESTHESIA ORDERABLES Fin al Result * POC Blood Gas and Chemistries, Arterial - (06/11/2024 8:03 AM FLEET MAINTENANCE FOREMAN) Glucose, POC 101 70 - 199 mg/dL Blood 06/11/2024 8:03 AM FLE[employer] MAINTENANCE [employer]EMAN 06/11/2024 8:03 AM FLEET MAINTENANCE FOREMAN us Blake Curtis MD LAB POCT ORDERABLES - DE VICE Final Result Performing Organization Address [facility] Co de Phone Number [facility] [address] [place] [address] * POC Activated Clotting Time, High Range (06/11/2024 8:02 AM FLEET MAINTENANCE FOREMAN) ACT 116 87 - 138 sec Blood 06/11/2024 8:02 AM FLEET MAINTENANCE FOREMAN 06/11/2024 8:02 AM FLEET MAINTENANCE FOREMAN Blake Curtis MD LAB BLOOD ORDERABLES Fin al Result [facility] [address] [facility] [place] [address] * aPTT (06/11/2024 7:32 AM FLEET MAINTENANCE FOREMAN) Pathologist [facility] aPTT 33 28 - 38 sec Comment: Interpretive Data Heparin therapeutic range: 66.0 - 100.0 seconds. Range based on correlation with therapeutic heparin activity range of 0.3 - 0.7 Units/mL. Current interpretive data was last revised on 2023. Blood 06/11/2024 7:32 AM FLEET MAINTENANCE FOREMAN 06/11/2024 7:41 AM FLEET MAINTENANCE FOREMAN Steff Cummings NP LAB BLOOD ORDERABLES Julieta l Result Performing Organization Address [facility] de Phone Number [facility] [address] [facility] [place] [address] * (ABNORMAL) Protime-INR (06/11/2024 7:32 AM FLEET MAINTENANCE FOREMAN) Pathologist [facility] PT 13.5(H) 9.7 - 13.0 sec INR 1.24(H) 0.90 - 1.20 [facility] Comment: Interpretive data Oral anticoagulant therapeutic ranges: Venous thromboembolism prophylaxis or treatment: 2.0-3.0 CARDIOLOGY Standard range: 2.0-3.0 High-intensity range: 2.5-3.5 Refer to indication-specific guidelines for appropriate target ranges for prosthetic heart valve replacement. Current interpretive data was last revised on 2019. Blood 06/11/2024 7:32 AM FLEET MAINTENANCE FOREMAN 06/11/2024 7:41 AM FLEET MAINTENANCE FOREMAN Steff Cummings NP LAB BLOOD ORDERABLES Julieta l Result Performing Organization Address [facility] Co de Phone Number [facility] [address] [facility] [place] [address] * Type and screen (06/11/2024 7:32 AM FLEET MAINTENANCE FOREMAN) Pathologist [facility] Edd, indirect Negative ABO Rh B Positive [facility] Blood 06/11/2024 7:32 AM FLEET MAINTENANCE FOREMAN 06/11/2024 8:08 AM FLEET MAINTENANCE FOREMAN Narrative [facility] - 06/11/2024 8:57 AM FLEET MAINTENANCE FOREMAN Has the patient had Daratumumab or Isatuximab in the past 6 months?->Unknown Steff Cummings NP LAB BLOOD BANK TEST ORDER FELICIA Final Result Performing Organization Address [facility] de Phone Number [facility] [address] Department [place] [address] * Hemoglobin A1c (06/11/2024 7:32 AM FLEET MAINTENANCE FOREMAN) [facility] Hgb A1C 5.2 4.0 - 5.6 % Estimated Average Glucose 103 mg/dL [facility] Comment: The ADA recommends reporting an estimated Average Glucose (eAG) with all Hemoglobin A1c results using the equation derived from a study of 507 normal and diabetic adults. Minority populations were underrepresented and children were not included. (Diabetes Care 31:5856-8832, 2008). The eAG is not equivalent to a fasting glucose. Blood 06/11/2024 7:32 AM FLEET MAINTENANCE FOREMAN 06/11/2024 8:01 AM FLEET MAINTENANCE FOREMAN Steff Cummings NP LAB BLOOD ORDERABLES Julieta l Result Performing Organization Address [facility] de Phone Number [facility] [address] Department [place] [address] * LALITA Add-On For OR (06/11/2024 6:57 AM FLEET MAINTENANCE FOREMAN) Narrative [facility] - 06/11/2024 6:57 AM FLEET MAINTENANCE FOREMAN Procedure Auto Finalized by Rule: BW CV LALITA DURING CASE OR Please see the Anesthesiologist's Procedure Note for the results. Jasbir Mason MD CV ECHO PROCEDURES Fin al Result Performing Organization Address [facility]/State/ZIP Co de Phone Number [facility] * Prepare RBC: 4 Units (06/11/2024 6:51 AM FLEET MAINTENANCE FOREMAN) Product code [id number] [facility] Unit Number [id number] 4-K [facility] Product Blood Type BPOS [facility] Dispense Status RETURNED [facility] Product code [id number] [facility] Unit Number [id number] 7-S [facility] Product Blood Type BPOS [facility] Dispense Status RETURNED [facility] Product code [id number] [facility] Unit Number [id number] 8-O [facility] Product Blood Type BPOS [facility] Dispense Status RETURNED [facility] Product code [id number] Unit Number [id number] 3-7 [facility] Product Blood Type BPOS [facility] Dispense Status RETURNED [facility] Blood 06/11/2024 6:51 AM FLEET MAINTENANCE FOREMAN Narrative [facility] - 06/18/2024 12:10 AM FLEET MAINTENANCE FOREMAN Specify Procedure:->cardiac surgery Are special requirements needed? (All products are leukoreduced and CMV- safe)- >No Date required:-[id number] LRRBC # of [id number] Reasons:-Hold for procedure (specify procedure)} Steff Cummings NP BLOOD BANK PRODUCT ORDERA BLES Final Result [facility] [address] Department [place] [address] * (ABNORMAL) eGFR (05/21/2024 3:47 PM FLEET MAINTENANCE FOREMAN) Pathologist [facility] eGFR 38(L) >=60 mL/min/1. 73 m2 Comment: Interpretive Data Reference Interval Normal >/= 90 mL/min/1.73m2 Mildly decreased* 60 - 89 mL/min/1.73m2 Mildly to moderately decreased 45 - 59 mL/min/1.73m2 Moderately to severely decreased 30 - 44 mL/min/1.73m2 Severely decreased 15 - 29 mL/min/1.73m2 Kidney Failure < 15 mL/min/1.73m2 *Relative to young adult level Estimated glomerular filtration rate is determined by the 2020 CKD-EPI equation recommended by the National Kidney Foundation (A Unifying Approach to GFR Estimation: Recommendations of the NKF-ASK Task Force on Reassessing the Inclusion of Race in Diagnosing Kidney Disease, JASN 2020). The CKD-EPI equation should not be used for patients with unstable renal function and has not been validated in children and those over 70. Current interpretive data was last reviewed 2021. Testing performed by: [address] [address] Blood 05/21/2024 3:47 PM FLEET MAINTENANCE FOREMAN 05/21/2024 3:54 PM FLEET MAINTENANCE FOREMAN us Steff Cummings NP LAB BLOOD ORDERABLES Julieta garza Result [facility] Department [place] [address] * Differential, auto (05/21/2024 3:47 PM FLEET MAINTENANCE FOREMAN) Neutrophil abs 3.0 1.5 - 6.5 K/cumm Comment:Testing performed by : [address] [address] Imm gran abs 0.0 0.0 - 0.1 K/cumm [facility] Comment:Testing performed by : [address] [address] Lymphocyte abs 2.3 0.8 - 3.3 K/cumm [facility] Comment:Testing performed by : [address] [address] Monocyte abs 0.4 0.2 - 0.8 K/cumm [facility] Comment:Testing performed by : [address] [address] Eosinophil abs 0.1 0.0 - 0.5 K/cumm [facility] Comment:Testing performed by : [address] [address] Basophil abs 0.0 0.0 - 0.1 K/cumm [facility] Comment:Testing performed by : [address] [address] Neutrophil pct 51.8 % [facility] Comment: Interpretive Data Percent cell count reference ranges are not reported, since discordance with absolute values may lead to misinterpretation of CBC data. Current Interpretive Data was last revised on 2017. Testing performed by: [address] [address] Imm gran pct 0.3 % [facility] Comment: Interpretive Data Percent cell count reference ranges are not reported, since discordance with absolute values may lead to misinterpretation of CBC data. Current Interpretive Data was last revised on 2017. Testing performed by: [address] [address] Lymphocyte pct 39.0 % [facility] Comment: Interpretive Data Percent cell count reference ranges are not reported, since discordance with absolute values may lead to misinterpretation of CBC data. Current Interpretive Data was last revised on 2017. Testing performed by: [address] [address] Monocyte pct 7.6 % [facility] Comment: Interpretive Data Percent cell count reference ranges are not reported, since discordance with absolute values may lead to misinterpretation of CBC data. Current Interpretive Data was last revised on 2017. Testing performed by: [address] [address] Eosinophil pct 1.0 % [facility] Comment: Interpretive Data Percent cell count reference ranges are not reported, since discordance with absolute values may lead to misinterpretation of CBC data. Current Interpretive Data was last revised on 2017. Testing performed by: [address] [address] Basophil pct 0.3 % [facility] Comment: Interpretive Data Percent cell count reference ranges are not reported, since discordance with absolute values may lead to misinterpretation of CBC data. Current Interpretive Data was last revised on 2017. Testing performed by: [address] [address] Blood 05/21/2024 3:47 PM FLEET MAINTENANCE FOREMAN 05/21/2024 3:53 PM FLEET MAINTENANCE FOREMAN us Steff Cummings [employer] LAB BLOOD ORDERABLES Julieta garza Result [facility] [address] [facility] Department [place] [address] * (ABNORMAL) CBC with auto differential (05/21/2024 3:47 PM FLEET MAINTENANCE FOREMAN) WBC 5.8 3.8 - 9.9 K/cumm Comment:Testing performed by : [address] [address] Hgb 13.6 13.0 - 17.5 g/dL [facility] Comment:Testing performed by : [address] [address] Hct 43.8 38.9 - 50.3 % [facility] Comment:Testing performed by : [address] [address] Plt 185 150 - 400 K/cumm [facility] Comment:Testing performed by : [address] [address] MPV 11.2 9.1 - 12.3 fL [facility] Comment:Testing performed by : [address] [address] RBC 4.70 4.30 - 5.80 M/cumm [facility] Comment:Testing performed by : [address] [address] MCV 93.2 81.3 - 96.4 fL [facility] Comment:Testing performed by : [address] [address] MCH 28.9 27.1 - 33.3 pg [facility] Comment:Testing performed by : [address] [address] MCHC 31.1(L) 32.3 - 35.7 g/dL [facility] Comment:Testing performed by : [address] [address] RDW CV 13.6 11.1 - 14.9 % [facility] Comment:Testing performed by : [address] [address] RDW SD 46.9 35.7 - 48.1 fL [facility] Comment:Testing performed by : [address] [address] NRBC abs 0.00 0.00 - 0.01 K/cumm [facility] Comment:Testing performed by : [address] [address] Blood 05/21/2024 3:47 PM FLEET MAINTENANCE [employer]EMAN 05/21/2024 3:53 PM FLEET MAINTENANCE FOREMAN us Steff Cummings NP LAB BLOOD ORDERABLES Julieta garza Result [facility] [address] [facility] Department [place] [address] * (ABNORMAL) Basic metabolic panel (05/21/2024 3:47 PM FLEET MAINTENANCE FOREMAN) Sodium 142 135 - 145 mmol/L Comment:Testing performed by : [address] [address] Potassium, pl 4.9 3.3 - 4.9 mmol/L ARMANDO HIGH Comment:Testing performed by : [address] [address] Chloride 107 97 - 110 mmol/L ARMANDO HIGH Comment:Testing performed by : [address] [address] CO2 26 22 - 32 mmol/L ARMANDO Comment:Testing performed by : [address] [address] Anion gap 9 2 - 15 mmol/L ARMANDO Comment:Testing performed by : [address] [address] BUN 27(H) 6 - 25 mg/dL ARMANDO HIGH Comment:Testing performed by : [address] [address] Creatinine 2.00(H) 0.80 - 1.30 mg/dL ARMANDO HIGH Comment:Testing performed by : [address] [address] Glucose 117 70 - 199 mg/dL ARMANDO Comment: Interpretive Data Fasting glucose >/= 126 mg/dl is diagnostic for diabetes. Fasting is defined as no caloric intake for at least 8 hours. Fasting glucose between 100 mg/dl to 125 mg/dl is diagnostic of prediabetes. In a patient with classic symptoms of hyperglycemia or hyperglycemic crisis, a random glucose >/= 200 mg/dl is diagnostic for diabetes. In the absence of unequivocal hyperglycemia, results should be confirmed by repeat testing. The classification and Diagnosis of Diabetes Diabetes Care 2021; 46: S19-S40. Current interpretive data was last revised 2022. Testing performed by: [facility], [address] [place] [address]., [address] Calcium 9.3 8.5 - 10.3 mg/dL ARMANDO Comment:Testing performed by : [facility], [address] [place] [address]., [address] Blood 05/21/2024 3:47 PM [employer]LEET MAINTENANCE FOREMAN 05/21/2024 3:53 PM FLEET MAINTENANCE FOREMAN us Steff Cummings CREASING AND CUTTING PRESS FEEDER LAB BLOOD ORDERABLES Julieta l Result Performing Organization Address City/[facility]/ZIP Co de Phone Number [facility] [address] [facility] Department of Laboratories [place], [place] [id number] * CT Body Outside Reference (04/30/2024 12:00 AM FLEET MAINTENANCE FOREMAN) Narrative RAD_PACS_OUTSIDE_FILM_[facility] - 05/06/2024 7:11 AM FLEET MAINTENANCE FOREMAN This order has been auto-finalized and does not contain a result. us Provider Transcribed Order IMG CT PROCEDURES Fin al Result Performing Organization Address City/[facility]/ZIP Co de Phone Number RAD_PACS_OUTSIDE_FILM_[facility] * SCAN - RADIOLOGY/IMAGING (04/30/2024) Anatomical Region Laterality Modality Other us Navdeep Arredondo MD Final Re sult * Cardiology Document Scan (04/27/2024 9:42 AM FLEET MAINTENANCE FOREMAN) Anatomical Region Laterality Modality Other Oscar Lau MD CV CARDIAC SERVICES PROCEDURES F inal Result * XR Outside Reference (04/27/2024 12:00 AM FLEET MAINTENANCE FOREMAN) Narrative RAD_PACS_OUTSIDE_FILM_[facility] - 05/18/2024 6:54 AM FLEET MAINTENANCE FOREMAN This order has been auto-finalized and does not contain a result. us Provider Transcribed Order IMG XR PROCEDURES Fin al Result RAD_PACS_OUTSIDE_FILM_[facility] from Last 3 Months Insurance [employer] [place] [place] [employer] [place] ON LICENSE OF [facility] Advance Directives For more information, please contact: [phone] * Full Code (Latest Code Status on File) Date Activated Date Inactivated Comments 06/11/2024 11:30 AM 06/18/2024 5:14 PM Care Teams Hotel Maintenance Worker Relationship Specialty Start Date End Date Aly Ward MD [address] [place] [id number] PCP - General Family Medicine 04/13/24 Navdeep Laurent MD [address] [facility] [address] [place] [address] Consulting Physician Cardiothoracic Surgery 03/11/24 Navdeep Arredondo MD [address] [place] [address] [address] [place] [address] Referring Physician Cardiology 03/11/24
--- OUTSIDE RECORDS SUMMARY | 2024-07-16 01:48 | XMS_ITS | Encounter Summary ---
Author Organization [facility] Address [address] [place] [address] Care Team Providers Care Machine Filler Name Role Phone Navdeep Laurent MD Unavailable [phone] Navdeep Arredondo MD Unavailable [phone] Aly Ward MD Primary Care Provider [phone] Reason for Visit * Reason Onset Date Comments INR Report 07/15/2024 Encounter Details Date Type Department Care Team (Late st Contact Info) Description 07/15/2024 Telephone Cardiovascular and Thoracic Surgery [address] [facility] [address] [place] [address] Blake Curtis MD [address] [facility] [address] [place] [address] INR Report Social History Tobacco Use Types Packs/Day Years Used Date Smoking Tobacco: Never Smokeless Tobacco: Never OASIS [id number]: Social Isolation Answer Da te Recorded Frequency of experiencing loneliness or isolatio n Never 06/21/2024 [facility] Utilities Answer Date Recorded In the past 12 months has e [employer], gas, oil, or water company threatened to shut off services in your [...] often do you attend chur ch or adventism services? More than 4 times per year 06/12/2024 Do you belong to any clubs o r organizations such as bahai groups, unions, fraternal or athletic groups, or [...] any time in the past [address] [facility], were you homeless or living in a nursing home (including now)? No 06/12/2024 Personal Safety Answer Date Recorded Have you ever been in or are you currently in a harmful physical or emotional relationship or is someone making you feel afraid or unsafe? Denies 06/11/2024 Sex and Gender Information Value Date Recorded Sex Assigned at Not on file Legal Sex Male 7:59 PM CONSERVATION SCIENTIST Gender Identity Not on file Sexual Orientation Not on file documented as of this encounter Miscellaneous Notes * Telephone Encounter - Jacob De La Cruz RN - 07/15/2024 2:20 PM CST I returned the call to Jennifer Rn with [facility], and left a message indicating she may discharge Spike from services. I told her I will call him regarding the reported INR of 1.8 obtained today, with the instructions to increase to Warfarin 4 mg Q -- and 3 mg all other days. I called Spike and gave him the above instructions. I asked he call Dr. Arredondo's office and inquire if Dr. Arredondo will assume management of his INR given his Warfarin will be intermodal customer service. I asked he have an INR done in approximately 1 week. I told him his current target INR is 2.0-2.5, and after3 months post surgery his INR may be 1.5-2.0 I asked he call me back if he has any issue with getting his INR management transferred to cardiology. He verbalized understanding of my instructions. ERVATION SCIENTIST * Telephone Encounter - Juana Hall - 07/15/2024 10:19 AM CST Jennifer, with [facility], called to report an INR for the patient. INR is 1.8 and he is on 3mg of coumadin daily. She said she would like to discharge him from home health today [facility] ERVATION SCIENTIST documented in this encounter Plan of Treatment Not on file documented as of this encounter Visit Diagnoses Not on filedocumented in this encounter Care Teams Machine Filler Relationship Specialty Start Date End Date Aly Ward MD [facility] [place] [address] PCP - General Family Medicine 04/13/24 Navdeep Laurent MD [address] [facility] [address] [place] [address] Consulting Physician Cardiothoracic Surgery 03/11/24 Navdeep Arredondo MD [address] [address] Referring Physician Cardiology 03/11/24 documented as of this encounter
--- OUTSIDE RECORDS SUMMARY | 2024-07-16 01:48 | XMS_ITS | Clinical Summary ---
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 Name Role Phone Navdeep Laurent MD Unavailable [phone] Navdeep Arredondo MD Unavailable [phone] Aly Ward MD Primary Care Provider [phone] Allergies Active Allergy Reactions Criticality Noted Date [...] times a day 60 tablet 2 07/09/19 25 Active sacubitriL-valsart an (ENTRESTO) 49-51 mg tabletIndications: [...] Dilated cardiomyopathy (CMS/HCC) 10/12/2021 Aortic valve regurgitation Encounters Date Type Department Care Team Description 07/15/2024 9:30 AM CONDOMINIUM PROPERTY MANAGER Home Care Visit [address] [place] [address] Isha Hughes RN SN NON OASIS DISCHARGE 07/15/2024 Telephone Cardiovascular and Thoracic Surgery [address] [place] [address] [address], [place] [address] Blake Curtis MD INR Report 07/11/2024 Orders Only Cardiovascular and Thoracic Surgery [address] [place] [address] [address], [place] [address] Blake Curtis MD 07/10/2024 10:00 AM CONDOMINIUM PROPERTY MANAGER Home Care Visit [address] [address] [address] [place] [address] Isha Hughes RN SN HOME VISIT 07/10/2024 Telephone Cardiovascular and Thoracic Surgery [address] [place] [address] [address], [place] [address] Blake Curtis MD INR/Home Health 07/09/2024 11:30 AM CONDOMINIUM PROPERTY MANAGER Office Visit [facility] Medical [facility] Cardiology [address] [place] [phone] Yany Renee NP Atrial fibrillation with rapid ventricular response (CMS/HCC) (HCC) (Primary Dx); Status post mechanical aortic valve replacement; Dilated cardiomyopathy (CMS/HCC) (HCC); Hospital discharge follow-up 07/09/2024 Telephone [facility] Cardiology [address] [place] [phone] Yany Renee NP 07/06/2024 12:00 PM CONDOMINIUM PROPERTY MANAGER Home Care Visit [place] [address] [place] [address] Julio Levi RN SN HOME VISIT 07/06/2024 Telephone Cardiovascular and Thoracic Surgery [address] [place] [address] [address] [place] [address] Blake Curtis MD INR Report 07/02/2024 10:00 AM CONDOMINIUM PROPERTY MANAGER Home Care Visit [address] [address] [address] [place] [address] Mariaelena Huntley RN SN HOME VISIT 07/02/2024 Telephone Cardiovascular and Thoracic Surgery [address] [place] [address] [address] [place] [address] Blake Curtis MD Anticoagulation 07/02/2024 Telephone Cardiovascular and Thoracic Surgery [address] [place] [address] [address] [place] [address] Juana Hall IamConcepción Disabilty Claims 06/30/2024 10:00 AM CONDOMINIUM PROPERTY MANAGER Home Care Visit [address] [address] [address] [place] [address] Isha Hughes, MALU SN HOME VISIT 06/30/2024 Telephone Cardiovascular and Thoracic Surgery [address] [place] [address] [place] [address] Blake Curtis MD Anticoagulation 06/25/2024 10:30 AM CONDOMINIUM PROPERTY MANAGER Home Care Visit [address] [address] [address] [place] [address] Isha Hughes, MALU SN HOME VISIT 06/25/2024 Telephone Cardiovascular and Thoracic Surgery [address] [place] [address] [address] [address] Blake Curtis MD Test Results (INR); Anticoagulation 06/24/2024 Home Care Visit [place] [address] [address] [place] [address] Isha Hughes RN CARE CONFERENCE 06/23/2024 9:30 AM CONDOMINIUM PROPERTY MANAGER Home Care Visit [address] [address] [address] [place] [address] Isha Hughes RN SN HOME VISIT 06/23/2024 Telephone Cardiovascular and Thoracic Surgery [address] [place] [address] [address] [place] [address] Blake Curtis MD Test Results (INR) 06/21/2024 11:30 AM CONDOMINIUM PROPERTY MANAGER Home Care Visit [address] [address] [address] [place] [address] Augusta Herrera, MALU SN NON OASIS START OF CARE 06/21/2024 Anticoagulation Telephone Call [address] [phone] Shayy Ames PA 06/21/2024 Plan of Care Documentation [address] [place] [address] 06/20/[address] [address] Shayy Ames PA 06/20/2024 Home Care Visit [place] [address] [address] [place] [address] Jane Epstein, MALU TELEPHONE ENCOUNTER 06/19/2024 Telephone Cardiovascular and Thoracic Surgery [address] [place] [address] [place] [phone] Jacob De La Cruz, RN Home health inquiry 06/18/2024 Telephone [facility] Home Care Services [address] [place] [address] Bibiana Ambrocio 06/17/2024 10:11 AM CONDOMINIUM PROPERTY MANAGER Anesthesia Event [facility] [address] [place] [phone] Emeterio Laguna DO [place], Miranda Louise, JUDY 06/12/2024 Telephone Cardiovascular and Thoracic Surgery [address] [place] [address] [place] [phone] Blake Curtis MD Post-op Problem 06/11/2024 8:00 AM CONDOMINIUM PROPERTY MANAGER - 06/11/2024 1:05 PM CONDOMINIUM PROPERTY MANAGER Surgery [facility] Operating Room [address] [place] [phone] Blake Curtis MD Aortic Valve Replacement and Left Atrial Appendage Clip 06/11/2024 7:47 AM CONDOMINIUM PROPERTY MANAGER Anesthesia Event [facility] Operating Room [facility] [place] [address] Chip Howe MD Cur[place], Nicholas Christopher, JUDY 06/11/2024 7:00 AM CONDOMINIUM PROPERTY MANAGER Ancillary Procedure [facility] Operating Room [address] [place] [phone] 06/11/2024 6:03 AM CONDOMINIUM PROPERTY MANAGER - 06/18/2024 1:14 PM CONDOMINIUM PROPERTY MANAGER Hospital Encounter [address] [address] Blake Curtis MD Paroxysmal atrial fibrillation (CMS/HCC) (HCC) (Primary Dx); Nonrheumatic aortic valve insufficiency; Severe aortic valve regurgitation; S/P AVR (aortic valve replacement); Persistent atrial fibrillation (HCC) Discharge Disposition: Discharge to home, home health skilled care 06/10/2024 Documentation Cardiovascular and Thoracic Surgery [address] [place] [address] [place] [phone] Steff Cummings NP 05/21/2024 3:35 PM CONDOMINIUM PROPERTY MANAGER Lab [facility] Lab [address] [place] [address] Aortic valve insufficiency, etiology of cardiac valve disease unspecified; Pre-op evaluation 05/18/2024 Telephone Cardiovascular and Thoracic Surgery [address] [place] [address] [place] [phone] Blake Curtis MD 05/15/2024 Documentation Cardiovascular and Thoracic Surgery [address] [place] [address] [place] [phone] Anel Ross 05/14/2024 Orders Only Cardiovascular and Thoracic Surgery [address] [place] [address] [address], [place] [address] Steff Cummings NP Aortic valve insufficiency, etiology of cardiac valve disease unspecified (Primary Dx); Pre-op evaluation 05/11/2024 Orders Only [facility] Medical Group Cardiology [address] [place] [address] Oscar Lau MD 05/01/2024 Telephone Cardiovascular and Thoracic Surgery [address] [place] [address] Navdeep Laurent MD Surgery Confirmation 04/30/2024 - 04/30/2024 11:59 PM CONDOMINIUM PROPERTY MANAGER Hospital Encounter [facility] - Imaging [phone] Aortic valve insufficiency, etiology of cardiac valve disease unspecified Discharge Disposition: Discharge to home or self care 04/30/2024 Orders Only [facility] [place] [address] [place] [address] Navdeep Arredondo MD 04/27/2024 - 04/27/2024 11:59 PM CONDOMINIUM PROPERTY MANAGER Hospital Encounter [facility] - [facility] [phone] Discharge Disposition: Discharge to home or self care 04/21/2024 Orders Only Cardiovascular and Thoracic Surgery [address] [place] [address] Steff Cummings NP Dilated cardiomyopathy (CMS/HCC) (HCC) (Primary Dx); Aortic valve insufficiency, etiology of cardiac valve disease unspecified; Pre-op evaluation 04/20/2024 Telephone Cardiovascular and Thoracic Surgery [address] [place] [address] Blake Curtis MD from Last 3 Months Surgical History Surgery Date Site/Laterality Comments HIP ARTHROPLASTY 05/20/1982 - 05/19/1983 Left CARDIAC CATHETERIZATION 12/18/2021 - 01/17/2022 TOTAL HIP ARTHROPLASTY 08/18/2022 - 09/16/2022 Left SHOULDER SURGERY Left Medical History Medical History Date Comments Hypertension Gout Atrial fibrillation (CMS/HCC) (HCC) Aortic valve regurgitation Arthritis Family History Medical History Relation Name Comments Hypertension Brother 1 Heart failure Brother 2 Kidney failure Brother 2 Cancer Father Dion Mckenzieoaliang Heart disease Father Dion Everett Hypertension Father Dion Everett Cancer Mother Elayne Becoats Heart disease Mother Elayne Becoats Heart failure Mother Elayne Becoats Hypertension Mother Elayne Becoats Hypertension Sister Relation Name Status Comments Brother 1 Brother 2 Father Dion Everett Mother Elayne Everett Sister Social History Tobacco Use Types Packs/Day Years Used Date Smoking Tobacco: Never Smokeless Tobacco: Never Tobacco Cessation:Counseling Given: Not Answered OASIS D0700: Social Isolation Answer Da te Recorded Frequency of experiencing loneliness or isolatio n Never 06/21/2024 [facility] Utilities Answer Date Recorded In the past 12 months has e [employer], gas, oil, or water [employer] threatened to shut off services in your [...] often do you attend chur ch or spiritism services? More than 4 times per year 06/12/2024 Do you belong to any clubs o r organizations such as anabaptism groups, unions, fraternal or athletic groups, or [...] time in the past 12 m [facility], were you homeless or living in a half-way (including now)? No 06/12/2024 Personal Safety Answer Date Recorded Have you ever been in or are you currently in a harmful physical or emotional relationship or is someone making you feel afraid or unsafe? Denies 06/11/2024 Sex and Gender Information Value Date Recorded Sex Assigned at Not on file Legal Sex Male 7:59 PM CONDOMINIUM PROPERTY MANAGER Gender Identity Not on file Sexual Orientation Not on file Obstetrics History Last Filed Vital Signs Vital Sign Reading Time Taken Comments Blood Pressure 108/70 07/15/2024 10:19 AM CONDOMINIUM PROPERTY MANAGER Pulse 56 07/15/2024 10:19 AM CONDOMINIUM PROPERTY MANAGER Temperature 36.2 C (97.2 F) 07/15/2024 10:19 AM CONDOMINIUM PROPERTY MANAGER Respiratory Rate 18 07/15/2024 10:19 AM CONDOMINIUM PROPERTY MANAGER Oxygen Saturation 99% 07/15/2024 10:19 AM CONDOMINIUM PROPERTY MANAGER Inhaled Oxygen Concentration - - Weight 121.6 kg (268 lb) 07/09/2024 11:41 AM CONDOMINIUM PROPERTY MANAGER Height 180.3 cm (5' 11 ) 07/09/2024 11:41 AM CONDOMINIUM PROPERTY MANAGER Body Mass Index 37.38 07/09/2024 11:41 AM CONDOMINIUM PROPERTY MANAGER Plan of Treatment Health Maintenance Due Date Last Done Comments Colon Cancer Screening-Colonoscopy 1968 Depression Screening 1968 Hepatitis C Screening 1968 Prostate Cancer Screening-PSA 1968 DTaP/Tdap/Td Vaccine (1 - Tdap) 1979 Hepatitis B Screening 1986 Regular Well Visit/Exam 18-64 1986 Pneumococcal vaccine <65 (1 of 2 - PCV) 1987 Zoster Vaccine (1 of 2) 2018 Covid-19 Vaccine (4 - 2023- season) 2024 04/05/2021, 09/11/2020, 08/14/2020 Influenza Vaccine (#1) 2024 Medical Devices Implanted Type Area Seam Stay Stitcher Device Identifier Shelf Expiration Date Model / Serial / Lot Atricure Device Left Atrial Appendage Malleable Shaft 180 Degree Rotation White Atriclip Flex V 40mm Flexv40 [id number] - [id number] Implanted:Qty : 1 on 06/11/2024 by Blake Curtis MD at [facility] Clip Left: Atrial Appendage Atricure 02/17/2027 [id number] / / [id number] On-X Intrnl Valve Coronary Aortic Mechanical On X 27-29mm Onxane- - [id number] - [id number] Implanted:Qty : 1 on 06/11/2024 by Blake Curtis MD at [facility] Prosthetic Valve N/A: Aortic Valve On-X Intrnl 04/05/2028 ONXANE-2 12/15 / [id number] / [employer] Device Closure Fibertape Sternal Cerclage Blunt Needle Ar-[id number] - [id number] Implanted:Qty : 1 on 06/11/2024 by Blake Curtis MD at [facility] N/A: Sternum [employer] 03/19/2029 AR-[id number] / / [id number] [employer] Device Closure Fibertape Sternal Cerclage Blunt Needle Ar-7289 - [id number] Implanted:Qty : 1 on 06/11/2024 by Blake Curtis MD at [facility] N/A: Sternum [employer] 03/19/2029 AR-[id number] / / [id number] Procedures Procedure Name Priority Date/Time Associated Diagnosis Comments POCT PROTHROMBIN TIME/INR Routine 07/15/2024 10:12 AM CONDOMINIUM PROPERTY MANAGER POCT PROTHROMBIN TIME/INR Routine 07/10/2024 10:32 AM CONDOMINIUM PROPERTY MANAGER ECG 12-LEAD Routine 07/09/2024 12:28 PM CONDOMINIUM PROPERTY MANAGER Atrial fibrillation with rapid ventricular response (CMS/HCC) (HCC) POCT PROTHROMBIN TIME/INR Routine 07/06/2024 12:39 PM CONDOMINIUM PROPERTY MANAGER XR CHEST 1 VIEW IP Routine 06/18/2024 6:33 AM CONDOMINIUM PROPERTY MANAGER EGFR Routine 06/18/2024 12:59 AM CONDOMINIUM PROPERTY MANAGER APTT Routine 06/18/2024 12:59 AM CONDOMINIUM PROPERTY MANAGER PROTIME-INR Routine 06/18/2024 12:59 AM CONDOMINIUM PROPERTY MANAGER MAGNESIUM Routine 06/18/2024 12:59 AM CONDOMINIUM PROPERTY MANAGER RENAL FUNCTION PANEL Routine 06/18/2024 12:59 AM CONDOMINIUM PROPERTY MANAGER CBC WITHOUT DIFFERENTIAL Routine 06/18/2024 12:59 AM CONDOMINIUM PROPERTY MANAGER PROTIME-INR Routine 06/17/2024 3:36 PM CONDOMINIUM PROPERTY MANAGER TRANSESOPHAGEAL ECHO (LALITA) WO DOPPLER/CF W CARDIOVERSION W CONTRAST Routine 06/17/2024 11:17 AM CONDOMINIUM PROPERTY MANAGER Persistent atrial fibrillation (HCC) TRANSESOPHAGEAL ECHO (LALITA) WO DOPPLER/CF W CARDIOVERSION Routine 06/17/2024 11:17 AM CONDOMINIUM PROPERTY MANAGER Persistent atrial fibrillation (HCC) TRANSESOPHAGEAL ECHO (LALITA) W LTD DOPPLER/CF W CARDIOVERSION W CONTRAST Routine 06/17/2024 11:17 AM CONDOMINIUM PROPERTY MANAGER Persistent atrial fibrillation (HCC) TRANSESOPHAGEAL ECHO (LALITA) W LTD DOPPLER/CF W CARDIOVERSION Routine 06/17/2024 11:17 AM CONDOMINIUM PROPERTY MANAGER Persistent atrial fibrillation (HCC) TRANSESOPHAGEAL ECHO (LALITA) W DOPPLER/CF W CARDIOVERSION W CONTRAST Routine 06/17/2024 11:17 AM CONDOMINIUM PROPERTY MANAGER Persistent atrial fibrillation (HCC) TRANSESOPHAGEAL ECHO (LALITA) W DOPPLER/CF W CARDIOVERSION Routine 06/17/2024 11:17 AM CONDOMINIUM PROPERTY MANAGER Persistent atrial fibrillation (HCC) ECG 12-LEAD STAT 06/17/2024 10:51 AM CONDOMINIUM PROPERTY MANAGER TRANSESOPHAGEAL ECHO (LALITA) W DOPPLER/CF W CARDIOVERSION Routine 06/17/2024 10:40 AM CONDOMINIUM PROPERTY MANAGER XR CHEST 1 VIEW IP Routine 06/17/2024 5:22 AM CONDOMINIUM PROPERTY MANAGER EGFR Routine 06/17/2024 12:32 AM CONDOMINIUM PROPERTY MANAGER APTT Routine 06/17/2024 12:32 AM CONDOMINIUM PROPERTY MANAGER PROTIME-INR Routine 06/17/2024 12:32 AM CONDOMINIUM PROPERTY MANAGER MAGNESIUM Routine 06/17/2024 12:32 AM CONDOMINIUM PROPERTY MANAGER RENAL FUNCTION PANEL Routine 06/17/2024 12:32 AM CONDOMINIUM PROPERTY MANAGER CBC WITHOUT DIFFERENTIAL Routine 06/17/2024 12:32 AM CONDOMINIUM PROPERTY MANAGER XR CHEST 1 VIEW IP Routine 06/16/2024 6:01 AM CONDOMINIUM PROPERTY MANAGER EGFR Routine 06/16/2024 12:45 AM CONDOMINIUM PROPERTY MANAGER PROTIME-INR Routine 06/16/2024 12:45 AM CONDOMINIUM PROPERTY MANAGER APTT Routine 06/16/2024 12:45 AM CONDOMINIUM PROPERTY MANAGER MAGNESIUM Routine 06/16/2024 12:45 AM CONDOMINIUM PROPERTY MANAGER RENAL FUNCTION PANEL Routine 06/16/2024 12:45 AM CONDOMINIUM PROPERTY MANAGER CBC WITHOUT DIFFERENTIAL Routine 06/16/2024 12:45 AM CONDOMINIUM PROPERTY MANAGER XR CHEST 1 VIEW IP Routine 06/15/2024 6:47 AM CONDOMINIUM PROPERTY MANAGER APTT Routine 06/15/2024 1:38 AM CONDOMINIUM PROPERTY MANAGER EGFR Routine 06/15/2024 1:38 AM CONDOMINIUM PROPERTY MANAGER PROTIME-INR Routine 06/15/2024 1:38 AM CONDOMINIUM PROPERTY MANAGER MAGNESIUM Routine 06/15/2024 1:38 AM CONDOMINIUM PROPERTY MANAGER RENAL FUNCTION PANEL Routine 06/15/2024 1:38 AM CONDOMINIUM PROPERTY MANAGER CBC WITHOUT DIFFERENTIAL Routine 06/15/2024 1:38 AM CONDOMINIUM PROPERTY MANAGER APTT STAT 06/14/2024 2:16 PM CONDOMINIUM PROPERTY MANAGER APTT Timed 06/14/2024 7:07 AM CONDOMINIUM PROPERTY MANAGER XR CHEST 1 VIEW IP Routine 06/14/2024 6:22 AM CONDOMINIUM PROPERTY MANAGER EGFR Routine 06/14/2024 12:52 AM CONDOMINIUM PROPERTY MANAGER PROTIME-INR Timed 06/14/2024 12:52 AM CONDOMINIUM PROPERTY MANAGER APTT Timed 06/14/2024 12:52 AM CONDOMINIUM PROPERTY MANAGER MAGNESIUM Routine 06/14/2024 12:52 AM CONDOMINIUM PROPERTY MANAGER RENAL FUNCTION PANEL Routine 06/14/2024 12:52 AM CONDOMINIUM PROPERTY MANAGER CBC WITHOUT DIFFERENTIAL Routine 06/14/2024 12:52 AM CONDOMINIUM PROPERTY MANAGER POCT GLUCOSE DEVICE Routine 06/13/2024 5 :27 PM CONDOMINIUM PROPERTY MANAGER APTT Timed 06/13/2024 1:10 PM CONDOMINIUM PROPERTY MANAGER POCT GLUCOSE DEVICE Routine 06/13/2024 12:44 PM CONDOMINIUM PROPERTY MANAGER CRITICAL CARE Routine 06/13/2024 11:57 AM CONDOMINIUM PROPERTY MANAGER Paroxysmal atrial fibrillation (CMS/HCC) (HCC) POCT GLUCOSE DEVICE Routine 06/13/2024 8 :04 AM CONDOMINIUM PROPERTY MANAGER XR CHEST 1 VIEW IP Routine 06/13/2024 5:49 AM CONDOMINIUM PROPERTY MANAGER APTT Routine 06/13/2024 4:55 AM CONDOMINIUM PROPERTY MANAGER POCT GLUCOSE DEVICE Routine 06/13/2024 4 :54 AM CONDOMINIUM PROPERTY MANAGER POCT GLUCOSE DEVICE Routine 06/13/2024 12:14 AM CONDOMINIUM PROPERTY MANAGER EGFR Routine 06/13/2024 12:11 AM CONDOMINIUM PROPERTY MANAGER PROTIME-INR Routine 06/13/2024 12:11 AM CONDOMINIUM PROPERTY MANAGER MAGNESIUM Routine 06/13/2024 12:11 AM CONDOMINIUM PROPERTY MANAGER CALCIUM, IONIZED Routine 06/13/2024 12:11 AM CONDOMINIUM PROPERTY MANAGER RENAL FUNCTION PANEL Routine 06/13/2024 12:11 AM CONDOMINIUM PROPERTY MANAGER CBC WITHOUT DIFFERENTIAL Routine 06/13/2024 12:11 AM CONDOMINIUM PROPERTY MANAGER APTT Routine 06/12/2024 10:27 PM CONDOMINIUM PROPERTY MANAGER CRITICAL CARE Routine 06/12/2024 8:58 PM CONDOMINIUM PROPERTY MANAGER Paroxysmal atrial fibrillation (CMS/HCC) (HCC) POCT GLUCOSE DEVICE Routine 06/12/2024 7 :33 PM CONDOMINIUM PROPERTY MANAGER POCT GLUCOSE DEVICE Routine 06/12/2024 5 :00 PM CONDOMINIUM PROPERTY MANAGER APTT STAT 06/12/2024 3:46 PM CONDOMINIUM PROPERTY MANAGER POCT GLUCOSE DEVICE Routine 06/12/2024 11:33 AM CONDOMINIUM PROPERTY MANAGER POCT GLUCOSE DEVICE Routine 06/12/2024 7 :43 AM CONDOMINIUM PROPERTY MANAGER ADD ON LAB TEST Add-On 06/12/2024 7:11 AM CONDOMINIUM PROPERTY MANAGER CRITICAL CARE Routine 06/12/2024 7:06 AM CONDOMINIUM PROPERTY MANAGER Paroxysmal atrial fibrillation (CMS/HCC) (HCC) XR CHEST 1 VIEW IP Routine 06/12/2024 5:40 AM CONDOMINIUM PROPERTY MANAGER TRANSFUSE PLATELETS Timed 06/12/2024 1 :36 AM CONDOMINIUM PROPERTY MANAGER PREPARE PLATELETS STAT 06/12/2024 1:0 9 AM CONDOMINIUM PROPERTY MANAGER FIBRINOGEN Routine 06/12/2024 12:19 AM CONDOMINIUM PROPERTY MANAGER PROTIME-INR Routine 06/12/2024 12:19 AM CONDOMINIUM PROPERTY MANAGER OXYHEMOGLOBIN, PULMONARY ARTERY Routine 06/11/2024 11:57 PM CONDOMINIUM PROPERTY MANAGER LIPID PANEL Routine 06/11/2024 11:56 PM CONDOMINIUM PROPERTY MANAGER EGFR Routine 06/11/2024 11:56 PM CONDOMINIUM PROPERTY MANAGER LACTATE Routine 06/11/2024 11:56 PM CONDOMINIUM PROPERTY MANAGER MAGNESIUM Routine 06/11/2024 11:56 PM CONDOMINIUM PROPERTY MANAGER CALCIUM, IONIZED Routine 06/11/2024 11:56 PM CONDOMINIUM PROPERTY MANAGER RENAL FUNCTION PANEL Routine 06/11/2024 11:56 PM CONDOMINIUM PROPERTY MANAGER CBC WITHOUT DIFFERENTIAL Routine 06/11/2024 11:56 PM CONDOMINIUM PROPERTY MANAGER CRITICAL CARE Routine 06/11/2024 6:51 PM CONDOMINIUM PROPERTY MANAGER Nonrheumatic aortic valve insufficiency EGFR Timed 06/11/2024 4:36 PM CONDOMINIUM PROPERTY MANAGER RENAL FUNCTION PANEL Timed 06/11/2024 4:36 PM CONDOMINIUM PROPERTY MANAGER POCT GLUCOSE DEVICE Routine 06/11/2024 2 :20 PM CONDOMINIUM PROPERTY MANAGER OXYHEMOGLOBIN, CENTRAL VENOUS STAT 06/11/2024 2:10 PM CONDOMINIUM PROPERTY MANAGER OXYHEMOGLOBIN, PULMONARY ARTERY Routine 06/11/2024 2:10 PM CONDOMINIUM PROPERTY MANAGER EXTUBATION Routine 06/11/2024 1:27 PM CONDOMINIUM PROPERTY MANAGER POCT GLUCOSE DEVICE Routine 06/11/2024 12:45 PM CONDOMINIUM PROPERTY MANAGER BLOOD GAS, ARTERIAL STAT 06/11/2024 12:44 PM CONDOMINIUM PROPERTY MANAGER XR CHEST 1 VIEW ED Urgent/IP Urgent 06/11/2024 11:51 AM CONDOMINIUM PROPERTY MANAGER EGFR STAT 06/11/2024 11:37 AM CONDOMINIUM PROPERTY MANAGER APTT STAT 06/11/2024 11:37 AM CONDOMINIUM PROPERTY MANAGER PROTIME-INR STAT 06/11/2024 11:37 AM CONDOMINIUM PROPERTY MANAGER CBC WITHOUT DIFFERENTIAL STAT 06/11/2024 11:37 AM CONDOMINIUM PROPERTY MANAGER BLOOD GAS, ARTERIAL STAT 06/11/2024 11:37 AM CONDOMINIUM PROPERTY MANAGER CALCIUM, IONIZED STAT 06/11/2024 11:37 AM CONDOMINIUM PROPERTY MANAGER MAGNESIUM STAT 06/11/2024 11:37 AM CONDOMINIUM PROPERTY MANAGER BASIC METABOLIC PANEL STAT 06/11/2024 11:37 AM CONDOMINIUM PROPERTY MANAGER PHOSPHORUS STAT 06/11/2024 11:37 AM CONDOMINIUM PROPERTY MANAGER CRITICAL CARE Routine 06/11/2024 11:33 AM CONDOMINIUM PROPERTY MANAGER POCT GLUCOSE DEVICE Routine 06/11/2024 11:33 AM CONDOMINIUM PROPERTY MANAGER NE AN PROCEDURE PLACEHOLDER Routine 06/11/2024 11:32 AM CONDOMINIUM PROPERTY MANAGER NE AN CENTRAL LINE QUADRUPLE LUMEN Routine 06/11/2024 11:32 AM CONDOMINIUM PROPERTY MANAGER NE AN PROCEDURE PLACEHOLDER Routine 06/11/2024 11:32 AM CONDOMINIUM PROPERTY MANAGER PULMONARY ARTERY CATH Routine 06/11/2024 11:32 AM CONDOMINIUM PROPERTY MANAGER BW AN SHEATH INTRODUCER PERFORMABLE Routine 06/11/2024 11:32 AM CONDOMINIUM PROPERTY MANAGER NE AN PROCEDURE PLACEHOLDER Routine 06/11/2024 11:15 AM CONDOMINIUM PROPERTY MANAGER MANUAL DIFFERENTIAL STAT 06/11/2024 10:52 AM CONDOMINIUM PROPERTY MANAGER PROTIME-INR STAT 06/11/2024 10:52 AM CONDOMINIUM PROPERTY MANAGER FIBRINOGEN STAT 06/11/2024 10:52 AM CONDOMINIUM PROPERTY MANAGER CBC WITHOUT DIFFERENTIAL STAT 06/11/2024 10:52 AM CONDOMINIUM PROPERTY MANAGER APTT STAT 06/11/2024 10:52 AM CONDOMINIUM PROPERTY MANAGER POC BLOOD GAS AND CHEMISTRIES, ARTERIAL Routine 06/11/2024 10:34 AM CONDOMINIUM PROPERTY MANAGER POCT ACTIVATED CLOTTING TIME, HIGH RANGE Routine 06/11/2024 10:33 AM CONDOMINIUM PROPERTY MANAGER POC BLOOD GAS AND CHEMISTRIES, ARTERIAL Routine 06/11/2024 9:44 AM CONDOMINIUM PROPERTY MANAGER POCT ACTIVATED CLOTTING TIME, HIGH RANGE Routine 06/11/2024 9:43 AM CONDOMINIUM PROPERTY MANAGER POC BLOOD GAS AND CHEMISTRIES, VENOUS Routine 06/11/2024 9:24 AM CONDOMINIUM PROPERTY MANAGER POC BLOOD GAS AND CHEMISTRIES, ARTERIAL Routine 06/11/2024 9:16 AM CONDOMINIUM PROPERTY MANAGER POCT ACTIVATED CLOTTING TIME, HIGH RANGE Routine 06/11/2024 9:15 AM CONDOMINIUM PROPERTY MANAGER POC BLOOD GAS AND CHEMISTRIES, ARTERIAL Routine 06/11/2024 8:56 AM CONDOMINIUM PROPERTY MANAGER POCT ACTIVATED CLOTTING TIME, HIGH RANGE Routine 06/11/2024 8:55 AM CONDOMINIUM PROPERTY MANAGER NE AN PROCEDURE PLACEHOLDER Routine 06/11/2024 8:44 AM CONDOMINIUM PROPERTY MANAGER NE AN PROCEDURE PLACEHOLDER Routine 06/11/2024 8:44 AM CONDOMINIUM PROPERTY MANAGER NE AN ELECTIVE ENDOTRACHEAL AIRWAY Routine 06/11/2024 8:44 AM CONDOMINIUM PROPERTY MANAGER POC BLOOD GAS AND CHEMISTRIES, ARTERIAL Routine 06/11/2024 8:03 AM CONDOMINIUM PROPERTY MANAGER POCT ACTIVATED CLOTTING TIME, HIGH RANGE Routine 06/11/2024 8:02 AM CONDOMINIUM PROPERTY MANAGER REPLACEMENT AORTIC VALVE 06/11/2024 7:47 AM CONDOMINIUM PROPERTY MANAGER Severe aortic valve regurgitation HEMOGLOBIN A1C STAT 06/11/2024 7:32 AM CONDOMINIUM PROPERTY MANAGER PROTIME-INR STAT 06/11/2024 7:32 AM CONDOMINIUM PROPERTY MANAGER TYPE AND SCREEN STAT 06/11/2024 7:32 AM CONDOMINIUM PROPERTY MANAGER APTT STAT 06/11/2024 7:32 AM CONDOMINIUM PROPERTY MANAGER LALITA ADD-ON FOR OR Routine 06/11/2024 6:5 7 AM CONDOMINIUM PROPERTY MANAGER PREPARE RBC STAT 06/11/2024 6:51 AM CONDOMINIUM PROPERTY MANAGER EGFR Routine 05/21/2024 3:47 PM CONDOMINIUM PROPERTY MANAGER Aortic valve insufficiency, etiology of cardiac valve disease unspecified Pre-op evaluation DIFFERENTIAL AUTO Routine 05/21/2024 3:4 7 PM CONDOMINIUM PROPERTY MANAGER Aortic valve insufficiency, etiology of cardiac valve disease unspecified Pre-op evaluation BASIC METABOLIC PANEL Routine 05/21/2024 3:47 PM CONDOMINIUM PROPERTY MANAGER Aortic valve insufficiency, etiology of cardiac valve disease unspecified Pre-op evaluation CBC WITH AUTO DIFFERENTIAL Routine 05/21/2024 3:47 PM CONDOMINIUM PROPERTY MANAGER Aortic valve insufficiency, etiology of cardiac valve disease unspecified Pre-op evaluation CT BODY OUTSIDE REFERENCE Routine 04/30/2024 12:00 AM CONDOMINIUM PROPERTY MANAGER SCAN - RADIOLOGY/IMAGING 04/30/2024 CARDIOLOGY DOCUMENT SCAN Routine 04/27/2024 9:42 AM CONDOMINIUM PROPERTY MANAGER XR TRANSFER OF OUTSIDE FILMS Routine 04/27/2024 12:00 AM CONDOMINIUM PROPERTY MANAGER from Last 3 Months Results * POCT PT/INR (07/15/2024 10:12 AM CONDOMINIUM PROPERTY MANAGER) INR, POC 1.80 [facility] Comment:2-3 Blood 07/15/2024 10:1 2 AM CONDOMINIUM PROPERTY MANAGER Blake Curtis MD POINT OF CARE TEST ORDER FELICIA Final Result Performing Organization Address [facility] [[email or web address]] de Phone Number [facility] * POCT PT/INR (07/10/2024 10:32 AM CONDOMINIUM PROPERTY MANAGER) INR, POC 2.30 HH [facility] Comment:INR, 3mg coumadin Blood 07/10/2024 10:3 2 AM CONDOMINIUM PROPERTY MANAGER Blake Curtis MD POINT OF CARE TEST ORDER FELICIA Final Result Performing Organization Address [facility] Co de Phone Number [facility] * ECG 12 lead (07/09/2024 12:28 PM CONDOMINIUM PROPERTY MANAGER) 07/09/2024 12:2 8 PM CONDOMINIUM PROPERTY MANAGER Yany Renee PRESS ROOM SUPERVISOR ECG ORDERABLES Edited Re sult - Final * POCT PT/INR (07/06/2024 12:39 PM CONDOMINIUM PROPERTY MANAGER) INR, POC 2.30 HH [facility] Comment:PT TAKING 3MG COUMAD IN Q EVENING Blood 07/06/2024 12:3 9 PM CONDOMINIUM PROPERTY MANAGER Blake Curtis MD POINT OF CARE TEST ORDER FELICIA Final Result HH [facility] RESULT[facility] * XR Chest 1 View - Portable - in AM (06/18/2024 6:33 AM CONDOMINIUM PROPERTY MANAGER) Anatomical Region Laterality Modality Body, Chest N/A Computed Radiogr aphy 06/18/2024 7:31 AM CONDOMINIUM PROPERTY MANAGER Impressions 06/18/2024 7:31 AM CONDOMINIUM PROPERTY MANAGER A right internal jugular central venous catheter [...] Bayron Irwin M.D. Narrative 06/18/2024 7:31 AM CONDOMINIUM PROPERTY MANAGER EXAMINATION: XR CHEST 1 VIEW COMPARISON: 06/17/2024 [...] noted. Electronically signed by: Bayron Irwin M.D. Krishan Causey MD PhD IMG XR PROCEDURES Final Re sult * (ABNORMAL) eGFR (06/18/2024 12:59 AM CONDOMINIUM PROPERTY MANAGER) eGFR 42(L) >=60 mL/min/1. 73 m2 Comment: [...] reviewed 2021. Blood 06/18/2024 12:5 9 AM CONDOMINIUM PROPERTY MANAGER 06/18/2024 1:08 AM CONDOMINIUM PROPERTY MANAGER Krishan Causey MD PhD LAB BLOOD ORDERABLES Final Result [facility] [address] Department [place] [address] * aPTT (06/18/2024 12:59 AM CONDOMINIUM PROPERTY MANAGER) aPTT 36 28 - 38 sec Comment: Interpretive Data Heparin therapeutic range: 66.0 - 100.0 seconds. Range based on correlation with therapeutic heparin activity range of 0.3 - 0.7 Units/mL. Current interpretive data was last revised on 2023. Blood 06/18/2024 12:5 9 AM CONDOMINIUM PROPERTY MANAGER 06/18/2024 1:00 AM CONDOMINIUM PROPERTY MANAGER us Blake Curtis MD LAB BLOOD ORDERABLES Fin al Result [facility] [address] Department [place] [address] * (ABNORMAL) Protime-INR (06/18/2024 12:59 AM CONDOMINIUM PROPERTY MANAGER) Pathologist [facility] PT 27.7(H) 9.7 - 13.0 sec INR 2.52(H) 0.90 - 1.20 [facility] Comment: Interpretive data Oral anticoagulant therapeutic ranges: Venous thromboembolism prophylaxis or treatment: 2.0-3.0 CARDIOLOGY Standard range: 2.0-3.0 High-intensity range: 2.5-3.5 Refer to indication-specific guidelines for appropriate target ranges for prosthetic heart valve replacement. Current interpretive data was last revised on 2019. Blood 06/18/2024 12:5 9 AM CONDOMINIUM PROPERTY MANAGER 06/18/2024 1:09 AM CONDOMINIUM PROPERTY MANAGER us Krishan Causey MD PhD LAB BLOOD ORDERABLES Final Result [facility] [address] Department [place] [address] * (ABNORMAL) CBC without differential (06/18/2024 12:59 AM CONDOMINIUM PROPERTY MANAGER) Pathologist [facility] WBC 8.1 3.8 - 9.9 K/cumm Hgb 9.3(L) 13.0 - 17.5 g/dL [facility] Hct 29.6(L) 38.9 - 50.3 % [facility] Plt 216 150 - 400 K/cumm [facility] MPV 10.3 9.1 - 12.3 fL [facility] RBC 3.28(L) 4.30 - 5.80 M/cumm [facility] MCV 90.2 81.3 - 96.4 fL [facility] MCH 28.4 27.1 - 33.3 pg [facility] MCHC 31.4(L) 32.3 - 35.7 g/dL [facility] RDW CV 13.1 11.1 - 14.9 % [facility] RDW SD 43.1 35.7 - 48.1 fL [facility] NRBC abs 0.06(H) 0.00 - 0.01 K/cumm [facility] Blood 06/18/2024 12:5 9 AM CONDOMINIUM PROPERTY MANAGER 06/18/2024 1:09 AM CONDOMINIUM PROPERTY MANAGER Krishan Causey MD PhD LAB BLOOD ORDERABLES Final Result Performing Organization Address City/[facility]/ZIP Co de Phone Number [facility] [address] [place] [address] * Magnesium (06/18/2024 12:59 AM CONDOMINIUM PROPERTY MANAGER) [facility] Magnesium 2.2 1.4 - 2.5 mg/dL Blood 06/18/2024 12:5 9 AM CONDOMINIUM PROPERTY MANAGER 06/18/2024 1:08 AM CONDOMINIUM PROPERTY MANAGER Krishan Causey MD PhD LAB BLOOD ORDERABLES Final Result Performing Organization Address City/[facility] Co de Phone Number [facility] [address] [place] [employer] [place] [address] * (ABNORMAL) Renal function panel (06/18/2024 12:59 AM CONDOMINIUM PROPERTY MANAGER) Pathologist [facility] Sodium 140 135 - 145 mmol/L Potassium, pl 4.1 3.3 - 4.9 mmol/L [facility] Chloride 106 97 - 110 mmol/L [facility] CO2 22 22 - 32 mmol/L [facility] Anion gap 12 2 - 15 mmol/L [facility] BUN 36(H) 6 - 25 mg/dL [facility] Creatinine 1.87(H) 0.80 - 1.30 mg/dL [facility] Glucose 115 70 - 199 mg/dL [facility] Comment: Interpretive Data Fasting glucose >/= 126 [...] 2022. Calcium 8.7 8.5 - 10.3 mg/dL [facility] Phosphorus, pl 3.4 2.3 - 4.5 mg/dL [facility] Albumin 3.3(L) 3.5 - 5.0 g/dL [facility] Blood 06/18/2024 12:5 9 AM CONDOMINIUM PROPERTY MANAGER 06/18/2024 1:08 AM CONDOMINIUM PROPERTY MANAGER us Krishan Causey MD PhD LAB BLOOD ORDERABLES Final Result Performing Organization Address [facility] Co de Phone Number [facility] [address] [employer] [place], [place] [id number] * (ABNORMAL) Protime-INR (06/17/2024 3:36 PM CONDOMINIUM PROPERTY MANAGER) PT 28.4(H) 9.7 - 13.0 sec INR 2.58(H) 0.90 - 1.20 [facility] Comment: Interpretive data Oral anticoagulant therapeutic ranges: Venous thromboembolism prophylaxis or treatment: 2.0-3.0 CARDIOLOGY Standard range: 2.0-3.0 High-intensity range: 2.5-3.5 Refer to indication-specific guidelines for appropriate target ranges for prosthetic heart valve replacement. Current interpretive data was last revised on 2019. Blood 06/17/2024 3:36 PM CONDOMINIUM PROPERTY MANAGER 06/17/2024 3:59 PM CONDOMINIUM PROPERTY MANAGER Blake Curtis MD LAB BLOOD ORDERABLES Fin al Result Performing Organization Address [facility]/ZIP Co de Phone Number [facility] [address] [place] [address] * TRANSESOPHAGEAL ECHO (LALITA) W DOPPLER/CF W CARDIOVERSION, TRANSESOPHAGEAL ECHO (LALITA) W DOPPLER/CF W CARDIOVERSION W CONTRAST, TRANSESOPHAGEAL ECHO (LALITA) W LTD DOPPLER/CF W CARDIOVERSION, TRANSESOPHAGEAL ECHO (LALITA) W LTD DOPPLER/CF W CARDIOVERSION W CONTRAST, TRANSESOPHAGEAL ECHO (LALITA) WO DOPPLER/CF W CARDIOVERSION, TRANSESOPHAGEAL ECHO (LALITA) WO DOPPLER/CF W CARDIOVERSION W CONTRAST (06/17/2024 11:17 AM CONDOMINIUM PROPERTY MANAGER) Anatomical Region Laterality Modality Ultrasound Narrative 06/17/2024 11:17 AM CONDOMINIUM PROPERTY MANAGER Emeterio Bower MD 06/17/2024 11:19 AM Transesophageal [...] to verify the correct patient, procedure, equipment, help desk support and site/side marked as required. Sedation: Patient [...] * ECG 12 lead (06/17/2024 10:51 AM CONDOMINIUM PROPERTY MANAGER) 06/17/2024 10:5 1 AM CONDOMINIUM PROPERTY MANAGER Narrative [facility] - 06/18/2024 9:23 AM CONDOMINIUM PROPERTY MANAGER Vent Rate: 71 bpm RR Interval: 841 msec NE Interval: 252 msec QRS Duration: 158 msec QT Interval: 456 msec QTC Interval: 478 msec P-R-T Thornton: 49 - -51 - 108 degrees IMPRESSION: SINUS RHYTHM WITH FIRST DEGREE AV BLOCK LEFT AXIS DEVIATION LEFT BUNDLE BRANCH BLOCK ABNORMAL ECG Electronically Signed By: Emeterio Dial MD PhD us Emeterio Bower MD ECG ORDERABLES Final Resul t [facility] * TRANSESOPHAGEAL ECHO (LALITA) W DOPPLER/CF W CARDIOVERSION (06/17/2024 10:40 AM CONDOMINIUM PROPERTY MANAGER) LV EF 25-30 % CONS SCIMAGE Anatomical Region Laterality Modality Echocardiography 06/17/2024 10:0 6 AM CONDOMINIUM PROPERTY MANAGER Narrative 06/17/2024 9:41 PM CONDOMINIUM PROPERTY MANAGER [id number] [place] [address] TRANSESOPHAGEAL ECHOCARDIOGRAM Patient Name: PABLO EVERETT : 1970 (54y 2m) Gender: M Study Date: 06/17/2024 10:06:58 AM Ht(Inch): 72 Wt(Lb): 275.99 BSA: 2.52 Working Second Hand: Location: [address] Order Provider: AUGUSTA GU BMI: 37.43 BP: [...] current cardioversion was performed successfully resulting in [facility] of sinus rhythm. Electronically Signed By: Emeterio Bower MD [facility] 06/17/2024 9:40:46 PM CONDOMINIUM PROPERTY MANAGER Procedure Note Emeteroi Bower MD - 06/17/2024 [facility] [address] [place] [address] TRANSESOPHAGEAL ECHOCARDIOGRAM Patient Name: PABLO EVERETT : 1970 (54y 2m) Gender: M Study Date: 06/17/2024 10:06:58 AM Ht(Inch): 72 Wt(Lb): 275.99 BSA: 2.52 Working Second Hand: Location: [address] Order Provider: AUGUSTA GU BMI: 37.43 BP: [...] rhythm. Electronically Signed By: Emeterio Bower MD [facility] 06/17/2024 9:40:46 PM CONDOMINIUM PROPERTY MANAGER [place] LAM CV ECHO PROCEDURES Final Result * XR Chest 1 View - Portable - in AM (06/17/2024 5:22 AM CONDOMINIUM PROPERTY MANAGER) Anatomical Region Laterality Modality Body, Chest N/A Computed Radiogr aphy 06/17/2024 7:12 AM CONDOMINIUM PROPERTY MANAGER Impressions 06/17/2024 7:12 AM CONDOMINIUM PROPERTY MANAGER Comparison is made to 06/08/2024. Replaced aortic valve unchanged in position. Surgeries catheter and mediastinal wires unchanged in position. There is likely some posterior layering left-sided pleural fluid with left basilar retrocardiac atelectasis. No pneumothorax or pneumonic consolidation. Stable cardiomegaly. Electronically signed by: Finesse Oleary M.D. [facility] 06/17/2024 7:12 AM CONDOMINIUM PROPERTY MANAGER Examination: Chest 1 view Procedure Note Finesse Oleary MD - 06/17/2024 Examination: Chest 1 view IMPRESSION: Comparison is made to 06/08/2024. Replaced aortic valve unchanged in position. Surgeries catheter and mediastinal wires unchanged in position. There is likely some posterior layering left-sided pleural fluid with left basilar retrocardiac atelectasis. No pneumothorax or pneumonic consolidation. Stable cardiomegaly. Electronically signed by: Finesse Oleary M.D. Krishan Causey MD PhD IMG XR PROCEDURES Final Re sult * (ABNORMAL) eGFR (06/17/2024 12:32 AM CONDOMINIUM PROPERTY MANAGER) eGFR 41(L) >=60 mL/min/1. 73 m2 Comment: [...] reviewed 2021. Blood 06/17/2024 12:3 2 AM CONDOMINIUM PROPERTY MANAGER 06/17/2024 12:43 AM CONDOMINIUM PROPERTY MANAGER Krishan Causey MD PhD LAB BLOOD ORDERABLES Final Result [facility] [address] Department [place] [address] * (ABNORMAL) aPTT (06/17/2024 12:32 AM CONDOMINIUM PROPERTY MANAGER) aPTT 49(H) 28 - 38 sec Comment: Interpretive Data Heparin therapeutic range: 66.0 - 100.0 seconds. Range based on correlation with therapeutic heparin activity range of 0.3 - 0.7 Units/mL. Current interpretive data was last revised on 2023. Blood 06/17/2024 12:3 2 AM CONDOMINIUM PROPERTY MANAGER 06/17/2024 12:41 AM CONDOMINIUM PROPERTY MANAGER Blake Curtis MD LAB BLOOD ORDERABLES Fin al Result Performing Organization Address [facility]/ZIP Co de Phone Number [facility] [address] [place] [address] * (ABNORMAL) Protime-INR (06/17/2024 12:32 AM CONDOMINIUM PROPERTY MANAGER) Pathologist [facility] PT 25.5(H) 9.7 - 13.0 sec INR 2.32(H) 0.90 - 1.20 [facility] Comment: Interpretive data Oral anticoagulant therapeutic ranges: Venous thromboembolism prophylaxis or treatment: 2.0-3.0 CARDIOLOGY Standard range: 2.0-3.0 High-intensity range: 2.5-3.5 Refer to indication-specific guidelines for appropriate target ranges for prosthetic heart valve replacement. Current interpretive data was last revised on 2019. Blood 06/17/2024 12:3 2 AM CONDOMINIUM PROPERTY MANAGER 06/17/2024 12:41 AM CONDOMINIUM PROPERTY MANAGER Krishan Causey MD PhD LAB BLOOD ORDERABLES Final Result Performing Organization Address City/[facility]/ZIP Co de Phone Number [facility] [address] [place] [address] * (ABNORMAL) CBC without differential (06/17/2024 12:32 AM CONDOMINIUM PROPERTY MANAGER) Pathologist [facility] WBC 9.1 3.8 - 9.9 K/cumm Hgb 9.4(L) 13.0 - 17.5 g/dL [facility] Hct 29.9(L) 38.9 - 50.3 % [facility] Plt 177 150 - 400 K/cumm [facility] MPV 10.9 9.1 - 12.3 fL [facility] RBC 3.31(L) 4.30 - 5.80 M/cumm [facility] MCV 90.3 81.3 - 96.4 fL [facility] MCH 28.4 27.1 - 33.3 pg [facility] MCHC 31.4(L) 32.3 - 35.7 g/dL [facility] RDW CV 12.9 11.1 - 14.9 % [facility] RDW SD 42.7 35.7 - 48.1 fL [facility] NRBC abs 0.05(H) 0.00 - 0.01 K/cumm [facility] Blood 06/17/2024 12:3 2 AM CONDOMINIUM PROPERTY MANAGER 06/17/2024 12:43 AM CONDOMINIUM PROPERTY MANAGER Krishan Causey MD PhD LAB BLOOD ORDERABLES Final Result Performing Organization Address [facility]/ZIP Co de Phone Number [facility] [address] [place] [address] * Magnesium (06/17/2024 12:32 AM CONDOMINIUM PROPERTY MANAGER) [facility] Magnesium 2.1 1.4 - 2.5 mg/dL Blood 06/17/2024 12:3 2 AM CONDOMINIUM PROPERTY MANAGER 06/17/2024 12:43 AM CONDOMINIUM PROPERTY MANAGER Krishan Causey MD PhD LAB BLOOD ORDERABLES Final Result [facility] [address] [place] [address] * (ABNORMAL) Renal function panel (06/17/2024 12:32 AM CONDOMINIUM PROPERTY MANAGER) [facility] Sodium 140 135 - 145 mmol/L Potassium, pl 4.0 3.3 - 4.9 mmol/L [facility] Chloride 106 97 - 110 mmol/L [facility] CO2 21(L) 22 - 32 mmol/L [facility] Anion gap 13 2 - 15 mmol/L [facility] BUN 40(H) 6 - 25 mg/dL [facility] Creatinine 1.90(H) 0.80 - 1.30 mg/dL [facility] Glucose 135 70 - 199 mg/dL [facility] Comment: Interpretive Data Fasting glucose >/= 126 [...] 2022. Calcium 8.7 8.5 - 10.3 mg/dL [facility] Phosphorus, pl 3.0 2.3 - 4.5 mg/dL [facility] Albumin 3.4(L) 3.5 - 5.0 g/dL [facility] Blood 06/17/2024 12:3 2 AM CONDOMINIUM PROPERTY MANAGER 06/17/2024 12:43 AM CONDOMINIUM PROPERTY MANAGER us Krishan Causey MD PhD LAB BLOOD ORDERABLES Final Result [facility] [address] Department [place] [address] * XR Chest 1 View - Portable - in AM (06/16/2024 6:01 AM CONDOMINIUM PROPERTY MANAGER) Anatomical Region Laterality Modality Body, Chest N/A Computed Radiogr aphy 06/16/2024 11:4 4 AM CONDOMINIUM PROPERTY MANAGER Impressions 06/16/2024 11:44 AM CONDOMINIUM PROPERTY MANAGER Comparison yesterday Right internal jugular catheter tip [...] Amos Medeiros M.D. Narrative 06/16/2024 11:44 AM CONDOMINIUM PROPERTY MANAGER EXAMINATION: XR CHEST 1 VIEW HISTORY: Pleural [...] yesterday. Electronically signed by: Amos Medeiros M.D. us Krishan Causey MD PhD IMG XR PROCEDURES Final Re sult * (ABNORMAL) eGFR (06/16/2024 12:45 AM CONDOMINIUM PROPERTY MANAGER) eGFR 49(L) >=60 mL/min/1. 73 m2 Comment: [...] reviewed 2021. Blood 06/16/2024 12:4 5 AM CONDOMINIUM PROPERTY MANAGER 06/16/2024 1:21 AM CONDOMINIUM PROPERTY MANAGER Result [facility] Krishan Causey MD PhD LAB BLOOD ORDERABLES Final Result Performing Organization Address [facility] [[email or web address]] de Phone Number [facility] [address] [place] [address] * (ABNORMAL) aPTT (06/16/2024 12:45 AM CONDOMINIUM PROPERTY MANAGER) aPTT 78(H) 28 - 38 sec Comment: Interpretive Data Heparin therapeutic range: 66.0 - 100.0 seconds. Range based on correlation with therapeutic heparin activity range of 0.3 - 0.7 Units/mL. Current interpretive data was last revised on 2023. Blood 06/16/2024 12:4 5 AM CONDOMINIUM PROPERTY MANAGER 06/16/2024 1:20 AM CONDOMINIUM PROPERTY MANAGER Result [facility] Blake Curtis MD LAB BLOOD ORDERABLES Fin al Result Performing Organization Address [facility] de Phone Number [facility] [address] [place] [address] * (ABNORMAL) Protime-INR (06/16/2024 12:45 AM CONDOMINIUM PROPERTY MANAGER) PT 16.3(H) 9.7 - 13.0 sec INR 1.50(H) 0.90 - 1.20 [facility] Comment: Interpretive data Oral anticoagulant therapeutic ranges: Venous thromboembolism prophylaxis or treatment: 2.0-3.0 CARDIOLOGY Standard range: 2.0-3.0 High-intensity range: 2.5-3.5 Refer to indication-specific guidelines for appropriate target ranges for prosthetic heart valve replacement. Current interpretive data was last revised on 2019. Blood 06/16/2024 12:4 5 AM CONDOMINIUM PROPERTY MANAGER 06/16/2024 12:45 AM CONDOMINIUM PROPERTY MANAGER Result [facility] Blake Curtis MD LAB BLOOD ORDERABLES Fin al Result Performing Organization Address [facility] [[email or web address]] de Phone Number [facility] [address] [place] [address] * (ABNORMAL) CBC without differential (06/16/2024 12:45 AM CONDOMINIUM PROPERTY MANAGER) WBC 10.0(H) 3.8 - 9.9 K/cumm Hgb 9.9(L) 13.0 - 17.5 g/dL [facility] Hct 32.1(L) 38.9 - 50.3 % [facility] Plt 167 150 - 400 K/cumm [facility] MPV 11.7 9.1 - 12.3 fL [facility] RBC 3.49(L) 4.30 - 5.80 M/cumm [facility] MCV 92.0 81.3 - 96.4 fL [facility] MCH 28.4 27.1 - 33.3 pg [facility] MCHC 30.8(L) 32.3 - 35.7 g/dL [facility] RDW CV 12.9 11.1 - 14.9 % [facility] RDW SD 43.1 35.7 - 48.1 fL [facility] NRBC abs 0.00 0.00 - 0.01 K/cumm [facility] Blood 06/16/2024 12:4 5 AM CONDOMINIUM PROPERTY MANAGER 06/16/2024 1:20 AM CONDOMINIUM PROPERTY MANAGER us Krishan Causey MD PhD LAB BLOOD ORDERABLES Final Result Performing Organization Address City/[facility]/ZIP Co de Phone Number [facility] [address] [facility] [place] [address] * Magnesium (06/16/2024 12:45 AM CONDOMINIUM PROPERTY MANAGER) Pathologist [facility] Magnesium 2.0 1.4 - 2.5 mg/dL Blood 06/16/2024 12:4 5 AM CONDOMINIUM PROPERTY MANAGER 06/16/2024 1:21 AM CONDOMINIUM PROPERTY MANAGER Krishan Causey MD PhD LAB BLOOD ORDERABLES Final Result [facility] [address] Department [place] [address] * (ABNORMAL) Renal function panel (06/16/2024 12:45 AM CONDOMINIUM PROPERTY MANAGER) Sodium 139 135 - 145 mmol/L Potassium, pl 4.3 3.3 - 4.9 mmol/L [facility] Chloride 106 97 - 110 mmol/L [facility] CO2 20(L) 22 - 32 mmol/L [facility] Anion gap 13 2 - 15 mmol/L [facility] BUN 41(H) 6 - 25 mg/dL [facility] Creatinine 1.64(H) 0.80 - 1.30 mg/dL [facility] Glucose 134 70 - 199 mg/dL [facility] Comment: Interpretive Data Fasting glucose >/= 126 [...] 2022. Calcium 8.5 8.5 - 10.3 mg/dL [facility] Phosphorus, pl 2.6 2.3 - 4.5 mg/dL [facility] Albumin 3.2(L) 3.5 - 5.0 g/dL [facility] Blood 06/16/2024 12:4 5 AM CONDOMINIUM PROPERTY MANAGER 06/16/2024 1:21 AM CONDOMINIUM PROPERTY MANAGER us Krishan Causey MD PhD LAB BLOOD ORDERABLES Final Result [facility] [address] [place] [address] * XR Chest 1 View - Portable - in AM (06/15/2024 6:47 AM CONDOMINIUM PROPERTY MANAGER) Anatomical Region Laterality Modality Body, Chest N/A Computed Radiogr aphy 06/15/2024 8:40 AM CONDOMINIUM PROPERTY MANAGER Impressions 06/15/2024 8:40 AM CONDOMINIUM PROPERTY MANAGER Median sternotomy wires and aortic valve prosthesis again seen. Right internal jugular catheter tip in superior vena cava. Stable enlargement the cardiac silhouette. Left basilar opacity Large part to the enlarged cardiac silhouette probable mild left basilar atelectasis. Mild right base atelectasis unchanged. No pulmonary edema, new consolidation, or pneumothorax. Electronically signed by: Amos Lema M.D. Narrative 06/15/2024 8:40 AM CONDOMINIUM PROPERTY MANAGER EXAMINATION: Chest 1 view COMPARISON: 06/14/2024 Procedure Note Amos Lema MD - 06/15/2024 EXAMINATION: Chest 1 view [...] sult * (ABNORMAL) eGFR (06/15/2024 1:38 AM CONDOMINIUM PROPERTY MANAGER) eGFR 45(L) >=60 mL/min/1. 73 m2 Comment: [...] Inclusion of Race in Diagnosing Kidney Disease, LORE 2020). The CKD-EPI equation should not be used for patients with unstable renal function and has not been validated in children and those over 70. Current interpretive data was last reviewed 2021. Blood 06/15/2024 1:38 AM CONDOMINIUM PROPERTY MANAGER 06/15/2024 1:38 AM CONDOMINIUM PROPERTY MANAGER Krishan Causey MD PhD LAB BLOOD ORDERABLES Final Result Performing Organization Address [facility] Co de Phone Number [facility] [address] Department of [employer] [place], [place] [id number] * (ABNORMAL) aPTT (06/15/2024 1:38 AM CONDOMINIUM PROPERTY MANAGER) aPTT 68(H) 28 - 38 sec Comment: Interpretive Data Heparin therapeutic range: 66.0 - 100.0 seconds. Range based on correlation with therapeutic heparin activity range of 0.3 - 0.7 Units/mL. Current interpretive data was last revised on 2023. Blood 06/15/2024 1:38 AM CONDOMINIUM PROPERTY MANAGER 06/15/2024 1:38 AM CONDOMINIUM PROPERTY MANAGER Blake Curtis MD LAB BLOOD ORDERABLES Fin al Result Performing Organization Address [facility] [[email or web address]] de Phone Number [facility] [address] [place] [place] [address] * (ABNORMAL) Protime-INR (06/15/2024 1:38 AM CONDOMINIUM PROPERTY MANAGER) PT 14.2(H) 9.7 - 13.0 sec INR 1.31(H) 0.90 - 1.20 [facility] Comment: Interpretive data Oral anticoagulant therapeutic ranges: Venous thromboembolism prophylaxis or treatment: 2.0-3.0 CARDIOLOGY Standard range: 2.0-3.0 High-intensity range: 2.5-3.5 Refer to indication-specific guidelines for appropriate target ranges for prosthetic heart valve replacement. Current interpretive data was last revised on 2019. Blood 06/15/2024 1:38 AM CONDOMINIUM PROPERTY MANAGER 06/15/2024 1:38 AM CONDOMINIUM PROPERTY MANAGER Krishan Causey MD PhD LAB BLOOD ORDERABLES Final Result Performing Organization Address [facility]/ZIP Co de Phone Number [facility] [address] [place] [address] * (ABNORMAL) CBC without differential (06/15/2024 1:38 AM CONDOMINIUM PROPERTY MANAGER) WBC 10.6(H) 3.8 - 9.9 K/cumm Hgb 10.6(L) 13.0 - 17.5 g/dL [facility] Hct 34.4(L) 38.9 - 50.3 % [facility] Plt 140(L) 150 - 400 K/cumm [facility] MPV 12.2 9.1 - 12.3 fL [facility] RBC 3.75(L) 4.30 - 5.80 M/cumm [facility] MCV 91.7 81.3 - 96.4 fL [facility] MCH 28.3 27.1 - 33.3 pg [facility] MCHC 30.8(L) 32.3 - 35.7 g/dL [facility] RDW CV 12.9 11.1 - 14.9 % [facility] RDW SD 43.6 35.7 - 48.1 fL [facility] NRBC abs 0.00 0.00 - 0.01 K/cumm [facility] Blood 06/15/2024 1:38 AM CONDOMINIUM PROPERTY MANAGER 06/15/2024 1:38 AM CONDOMINIUM PROPERTY MANAGER Krishan Causey MD PhD LAB BLOOD ORDERABLES Final Result [facility] [address] [place] [address] * Magnesium (06/15/2024 1:38 AM CONDOMINIUM PROPERTY MANAGER) Pathologist [facility] Magnesium 2.0 1.4 - 2.5 mg/dL Blood 06/15/2024 1:38 AM CONDOMINIUM PROPERTY MANAGER 06/15/2024 1:38 AM CONDOMINIUM PROPERTY MANAGER Krishan Causey MD PhD LAB BLOOD ORDERABLES Final Result [facility] [address] Department [place] [address] * (ABNORMAL) Renal function panel (06/15/2024 1:38 AM CONDOMINIUM PROPERTY MANAGER) Pathologist [facility] Sodium 138 135 - 145 mmol/L Potassium, pl 4.3 3.3 - 4.9 mmol/L [facility] Chloride 106 97 - 110 mmol/L [facility] CO2 22 22 - 32 mmol/L [facility] Anion gap 10 2 - 15 mmol/L [facility] BUN 43(H) 6 - 25 mg/dL [facility] Creatinine 1.77(H) 0.80 - 1.30 mg/dL [facility] Glucose 117 70 - 199 mg/dL [facility] Comment: Interpretive Data Fasting glucose >/= 126 [...] 2022. Calcium 8.7 8.5 - 10.3 mg/dL [facility] Phosphorus, pl 1.9(L) 2.3 - 4.5 mg/dL [facility] Albumin 3.5 3.5 - 5.0 g/dL [facility] Blood 06/15/2024 1:38 AM CONDOMINIUM PROPERTY MANAGER 06/15/2024 1:38 AM CONDOMINIUM PROPERTY MANAGER Krishan Causey MD PhD LAB BLOOD ORDERABLES Final Result [facility] [address] [facility] [place] [address] * (ABNORMAL) aPTT (06/14/2024 2:16 PM CONDOMINIUM PROPERTY MANAGER) aPTT 80(H) 28 - 38 sec Comment: Interpretive Data Heparin therapeutic range: 66.0 - 100.0 seconds. Range based on correlation with therapeutic heparin activity range of 0.3 - 0.7 Units/mL. Current interpretive data was last revised on 2023. Blood 06/14/2024 2:16 PM CONDOMINIUM PROPERTY MANAGER 06/14/2024 2:25 PM CONDOMINIUM PROPERTY MANAGER us Jose LAM LAB BLOOD ORDERABLES Final R esult Performing Organization Address [facility] Co de Phone Number [facility] [address] [facility] [place] [address] * (ABNORMAL) aPTT (06/14/2024 7:07 AM CONDOMINIUM PROPERTY MANAGER) aPTT 71(H) 28 - 38 sec Comment: Interpretive Data Heparin therapeutic range: 66.0 - 100.0 seconds. Range based on correlation with therapeutic heparin activity range of 0.3 - 0.7 Units/mL. Current interpretive data was last revised on 2023. Blood 06/14/2024 7:07 AM CONDOMINIUM PROPERTY MANAGER 06/14/2024 7:07 AM CONDOMINIUM PROPERTY MANAGER us Blake Curtis MD LAB BLOOD ORDERABLES Fin al Result Performing Organization Address City/[facility]/ZIP Co de Phone Number [facility] [address] [facility] [place] [address] * XR Chest 1 View - Portable - in AM (06/14/2024 6:22 AM CONDOMINIUM PROPERTY MANAGER) Anatomical Region Laterality Modality Body, Chest N/A Computed Radiogr aphy 06/14/2024 7:24 AM CONDOMINIUM PROPERTY MANAGER Impressions 06/14/2024 7:24 AM CONDOMINIUM PROPERTY MANAGER Right internal jugular central venous catheter terminates at the superior cavoatrial junction. There is a mediastinal drain present. Median sternotomy. Moderate cardiomegaly. Bibasilar subsegmental atelectasis. Questionable trace left pleural effusion. No pneumothorax. Electronically signed by: Andre Lynn M.D. Narrative 06/14/2024 7:24 AM CONDOMINIUM PROPERTY MANAGER PORTABLE CHEST RADIOGRAPH INDICATION: pleural effusion COMPARISON: [...] pneumothorax. Electronically signed by: Andre Lynn M.D. Krishan Causey MD PhD IMG XR PROCEDURES Final Re sult * (ABNORMAL) eGFR (06/14/2024 12:52 AM CONDOMINIUM PROPERTY MANAGER) eGFR 53(L) >=60 mL/min/1. 73 m2 Comment: [...] reviewed 2021. Blood 06/14/2024 12:5 2 AM CONDOMINIUM PROPERTY MANAGER 06/14/2024 12:52 AM CONDOMINIUM PROPERTY MANAGER Result [facility] Krishan Causey MD PhD LAB BLOOD ORDERABLES Final Result Performing Organization Address [facility] Co de Phone Number [facility] [address] [facility] [address] * (ABNORMAL) aPTT (06/14/2024 12:52 AM CONDOMINIUM PROPERTY MANAGER) aPTT 54(H) 28 - 38 sec Comment: Interpretive Data Heparin therapeutic range: 66.0 - 100.0 seconds. Range based on correlation with therapeutic heparin activity range of 0.3 - 0.7 Units/mL. Current interpretive data was last revised on 2023. Blood 06/14/2024 12:5 2 AM CONDOMINIUM PROPERTY MANAGER 06/14/2024 12:52 AM CONDOMINIUM PROPERTY MANAGER Result [facility] Blake Curtis MD LAB BLOOD ORDERABLES Fin al Result Performing Organization Address [facility] Co de Phone Number [facility] [address] [facility] [address] * (ABNORMAL) Protime-INR (06/14/2024 12:52 AM CONDOMINIUM PROPERTY MANAGER) PT 14.6(H) 9.7 - 13.0 sec INR 1.34(H) 0.90 - 1.20 [facility] Comment: Interpretive data Oral anticoagulant therapeutic ranges: Venous thromboembolism prophylaxis or treatment: 2.0-3.0 CARDIOLOGY Standard range: 2.0-3.0 High-intensity range: 2.5-3.5 Refer to indication-specific guidelines for appropriate target ranges for prosthetic heart valve replacement. Current interpretive data was last revised on 2019. Blood 06/14/2024 12:5 2 AM CONDOMINIUM PROPERTY MANAGER 06/14/2024 12:52 AM CONDOMINIUM PROPERTY MANAGER Result [facility] Blake Curtis MD LAB BLOOD ORDERABLES Fin al Result Performing Organization Address City/[facility]/ZIP Co de Phone Number [facility] [address] Department [place] [address] * (ABNORMAL) CBC without differential (06/14/2024 12:52 AM CONDOMINIUM PROPERTY MANAGER) WBC 12.9(H) 3.8 - 9.9 K/cumm Hgb 11.4(L) 13.0 - 17.5 g/dL [facility] Hct 36.5(L) 38.9 - 50.3 % [facility] Plt 110(L) 150 - 400 K/cumm [facility] Comment:Consistent with prev ious result. MPV 11.8 9.1 - 12.3 fL [facility] RBC 3.99(L) 4.30 - 5.80 M/cumm [facility] MCV 91.5 81.3 - 96.4 fL [facility] MCH 28.6 27.1 - 33.3 pg [facility] MCHC 31.2(L) 32.3 - 35.7 g/dL [facility] RDW CV 13.2 11.1 - 14.9 % [facility] RDW SD 44.6 35.7 - 48.1 fL [facility] NRBC abs 0.00 0.00 - 0.01 K/cumm [facility] Blood 06/14/2024 12:5 2 AM CONDOMINIUM PROPERTY MANAGER 06/14/2024 12:52 AM CONDOMINIUM PROPERTY MANAGER Krishan Causey MD PhD LAB BLOOD ORDERABLES Final Result [facility] [address] [place] [address] * Magnesium (06/14/2024 12:52 AM CONDOMINIUM PROPERTY MANAGER) Magnesium 2.0 1.4 - 2.5 mg/dL Blood 06/14/2024 12:5 2 AM CONDOMINIUM PROPERTY MANAGER 06/14/2024 12:52 AM CONDOMINIUM PROPERTY MANAGER Krishan Causey MD PhD LAB BLOOD ORDERABLES Final Result Performing Organization Address City/[facility]/ZIP Co de Phone Number [facility] [address] [place] [employer] [place] [address] * (ABNORMAL) Renal function panel (06/14/2024 12:52 AM CONDOMINIUM PROPERTY MANAGER) Sodium 137 135 - 145 mmol/L Potassium, pl 4.6 3.3 - 4.9 mmol/L [facility] Chloride 104 97 - 110 mmol/L [facility] CO2 23 22 - 32 mmol/L [facility] Anion gap 10 2 - 15 mmol/L [facility] BUN 33(H) 6 - 25 mg/dL [facility] Creatinine 1.53(H) 0.80 - 1.30 mg/dL [facility] Glucose 113 70 - 199 mg/dL [facility] Comment: Interpretive Data Fasting glucose >/= 126 [...] 2022. Calcium 8.6 8.5 - 10.3 mg/dL [facility] Phosphorus, pl 2.4 2.3 - 4.5 mg/dL [facility] Albumin 3.3(L) 3.5 - 5.0 g/dL [facility] Blood 06/14/2024 12:5 2 AM CONDOMINIUM PROPERTY MANAGER 06/14/2024 12:52 AM CONDOMINIUM PROPERTY MANAGER Krishan Causey MD PhD LAB BLOOD ORDERABLES Final Result Performing Organization Address City/[facility]/ZIP Co de Phone Number [facility] [address] [place] [address] * POCT glucose (06/13/2024 5:27 PM CONDOMINIUM PROPERTY MANAGER) Glucose, POC 154 70 - 199 mg/dL Comment: For Glucose values <35 mg/dl when Hematocrit is >60 mg/dl,the test may not accurately detect significant hypoglycemia,and testing in the Laboratory should be considered if clinically indicated. Blood 06/13/2024 5:27 PM CONDOMINIUM PROPERTY MANAGER 06/13/2024 5:27 PM CONDOMINIUM PROPERTY MANAGER Blake Curtis MD LAB POCT ORDERABLES - DE VICE Final Result Performing Organization Address [facility] Co de Phone Number [facility] [address] [facility] [place] [address] * aPTT (06/13/2024 1:10 PM CONDOMINIUM PROPERTY MANAGER) [facility] aPTT 29 28 - 38 sec Comment: Interpretive Data Heparin therapeutic range: 66.0 - 100.0 seconds. Range based on correlation with therapeutic heparin activity range of 0.3 - 0.7 Units/mL. Current interpretive data was last revised on 2023. Blood 06/13/2024 1:10 PM CONDOMINIUM PROPERTY MANAGER 06/13/2024 1:44 PM CONDOMINIUM PROPERTY MANAGER Cammy Lucero PRESS ROOM SUPERVISOR LAB BLOOD ORDERABLES Julieta l Result Performing Organization Address [facility]/ZIP Co de Phone Number [facility] [address] [facility] [place] [address] * POCT glucose (06/13/2024 12:44 PM CONDOMINIUM PROPERTY MANAGER) Glucose, POC 150 70 - 199 mg/dL Comment: For Glucose values <35 mg/dl when Hematocrit is >60 mg/dl,the test may not accurately detect significant hypoglycemia,and testing in the Laboratory should be considered if clinically indicated. Blood 06/13/2024 12:4 4 PM CONDOMINIUM PROPERTY MANAGER 06/13/2024 12:44 PM CONDOMINIUM PROPERTY MANAGER Blake Curtis MD LAB POCT ORDERABLES - DE VICE Final Result Performing Organization Address [facility]/ZIP Co de Phone Number [facility] [address] [place] [address] * Critical Care (06/13/2024 11:57 AM CONDOMINIUM PROPERTY MANAGER) Narrative Krishan Causey MD PhD - 06/13/2024 11:57 AM CONDOMINIUM PROPERTY MANAGER Cammy Lucero NP 06/13/2024 5:19 PM Critical Care Performed by: Cammy Lucero NP Authorized by: Cammy Lucero NP CRITICAL CARE: Team: [facility] CT Shift: AM Level of Billing: Subsequent [...] plan with the patient's team and other medical/wardrobe image consultant staff. This time was in addition [...] in the medical record us Cammy Lucero PRESS ROOM SUPERVISOR IN CLINIC/BEDSIDE ORDERAB LES Final Result * POCT glucose (06/13/2024 8:04 AM CONDOMINIUM PROPERTY MANAGER) [facility] Glucose, POC 134 70 - 199 mg/dL Comment: For Glucose values <35 mg/dl when Hematocrit is >60 mg/dl,the test may not accurately detect significant hypoglycemia,and testing in the Laboratory should be considered if clinically indicated. Blood 06/13/2024 8:04 AM CONDOMINIUM PROPERTY MANAGER 06/13/2024 8:04 AM CONDOMINIUM PROPERTY MANAGER us Blake Curtis MD LAB POCT ORDERABLES - DE VICE Final Result Performing Organization Address [facility]/ZIP Co de Phone Number [facility] [address] Department [place] [address] * XR Chest 1 View - Portable - in AM (06/13/2024 5:49 AM CONDOMINIUM PROPERTY MANAGER) Anatomical Region Laterality Modality Body, Chest N/A Computed Radiogr aphy 06/13/2024 9:40 AM CONDOMINIUM PROPERTY MANAGER Impressions 06/13/2024 9:40 AM CONDOMINIUM PROPERTY MANAGER Interval removal of Elizabeth-Magdiel catheter. Mediastinal drain and right internal jugular central venous catheter remain in place. Median sternotomy wires are intact. Moderate cardiomegaly similar to prior. Left basilar consolidation likely represents small effusion and associated atelectasis. No new focal pulmonary consolidation. No acute osseous abnormality. Left atrial appendage clip. Aortic valve replacement. Electronically signed by: Lopez Hernández D.O. Narrative 06/13/2024 9:40 AM CONDOMINIUM PROPERTY MANAGER EXAMINATION: XR CHEST 1 VIEW Procedure Note Lopez Hernández, DO - 06/13/2024 EXAMINATION: XR CHEST 1 VIEW IMPRESSION: Interval removal of Elizabeth-Magdiel catheter. Mediastinal drain and right internal jugular central venous catheter remain in place. Median sternotomy wires are intact. Moderate cardiomegaly similar to prior. Left basilar consolidation likely represents small effusion and associated atelectasis. No new focal pulmonary consolidation. No acute osseous abnormality. Left atrial appendage clip. Aortic valve replacement. Electronically signed by: Lopez Hernández D.O. Krishan Causey MD PhD IMG XR PROCEDURES Final Re sult * (ABNORMAL) aPTT (06/13/2024 4:55 AM CONDOMINIUM PROPERTY MANAGER) aPTT 61(H) 28 - 38 sec Comment: Interpretive Data Heparin therapeutic range: 66.0 - 100.0 seconds. Range based on correlation with therapeutic heparin activity range of 0.3 - 0.7 Units/mL. Current interpretive data was last revised on 2023. Blood 06/13/2024 4:55 AM CONDOMINIUM PROPERTY MANAGER 06/13/2024 5:23 AM CONDOMINIUM PROPERTY MANAGER Stephany Arreola PRESS ROOM SUPERVISOR LAB BLOOD ORDERABLES Julieta l Result Performing Organization Address [facility] Co de Phone Number [facility] [address] [facility] [employer] [place], [place] [id number] * POCT glucose (06/13/2024 4:54 AM CONDOMINIUM PROPERTY MANAGER) Pathologist [facility] Glucose, POC 122 70 - 199 mg/dL Comment: For Glucose values <35 mg/dl when Hematocrit is >60 mg/dl,the test may not accurately detect significant hypoglycemia,and testing in the Laboratory should be considered if clinically indicated. Blood 06/13/2024 4:54 AM CONDOMINIUM PROPERTY MANAGER 06/13/2024 4:54 AM CONDOMINIUM PROPERTY MANAGER Blake Curtis MD LAB POCT ORDERABLES - DE VICE Final Result Performing Organization Address [facility] Co de Phone Number [facility] [address] [facility] [place] [address] * POCT glucose (06/13/2024 12:14 AM CONDOMINIUM PROPERTY MANAGER) [facility] Glucose, POC 140 70 - 199 mg/dL Comment: For Glucose values <35 mg/dl when Hematocrit is >60 mg/dl,the test may not accurately detect significant hypoglycemia,and testing in the Laboratory should be considered if clinically indicated. Blood 06/13/2024 12:1 4 AM CONDOMINIUM PROPERTY MANAGER 06/13/2024 12:14 AM CONDOMINIUM PROPERTY MANAGER Blake Curtis MD LAB POCT ORDERABLES - DE VICE Final Result Performing Organization Address [facility] Co de Phone Number [facility] [address] [place] [address] * (ABNORMAL) eGFR (06/13/2024 12:11 AM CONDOMINIUM PROPERTY MANAGER) Pathologist [facility] eGFR 57(L) >=60 mL/min/1. 73 m2 Comment: [...] reviewed 2021. Blood 06/13/2024 12:1 1 AM CONDOMINIUM PROPERTY MANAGER 06/13/2024 12:21 AM CONDOMINIUM PROPERTY MANAGER Steff Davila NP LAB BLOOD ORDERABLES Julieta l Result Performing Organization Address [facility] Co de Phone Number [facility] [address] [place] [address] * Calcium, ionized (06/13/2024 12:11 AM CONDOMINIUM PROPERTY MANAGER) Pathologist [facility] Calcium, Ionized 4.62 4.50 - 5.10 mg/dL Blood 06/13/2024 12:1 1 AM CONDOMINIUM PROPERTY MANAGER 06/13/2024 12:14 AM CONDOMINIUM PROPERTY MANAGER Steff Davila NP LAB BLOOD ORDERABLES Julieta l Result Performing Organization Address [facility] Co de Phone Number [facility] [address] [place] [address] * (ABNORMAL) Protime-INR (06/13/2024 12:11 AM CONDOMINIUM PROPERTY MANAGER) PT 16.9(H) 9.7 - 13.0 sec INR 1.55(H) 0.90 - 1.20 [facility] Comment: Interpretive data Oral anticoagulant therapeutic ranges: Venous thromboembolism prophylaxis or treatment: 2.0-3.0 CARDIOLOGY Standard range: 2.0-3.0 High-intensity range: 2.5-3.5 Refer to indication-specific guidelines for appropriate target ranges for prosthetic heart valve replacement. Current interpretive data was last revised on 2019. Blood 06/13/2024 12:1 1 AM CONDOMINIUM PROPERTY MANAGER 06/13/2024 12:21 AM CONDOMINIUM PROPERTY MANAGER Krishan Causey MD PhD LAB BLOOD ORDERABLES Final Result Performing Organization Address City/[facility]/ZIP Co de Phone Number [facility] [address] [place] [employer] [place] [address] * (ABNORMAL) CBC without differential (06/13/2024 12:11 AM CONDOMINIUM PROPERTY MANAGER) WBC 12.5(H) 3.8 - 9.9 K/cumm Hgb 12.4(L) 13.0 - 17.5 g/dL [facility] Hct 38.5(L) 38.9 - 50.3 % [facility] Plt 101(L) 150 - 400 K/cumm [facility] MPV 11.5 9.1 - 12.3 fL [facility] RBC 4.28(L) 4.30 - 5.80 M/cumm [facility] MCV 90.0 81.3 - 96.4 fL [facility] MCH 29.0 27.1 - 33.3 pg [facility] MCHC 32.2(L) 32.3 - 35.7 g/dL [facility] RDW CV 13.4 11.1 - 14.9 % [facility] RDW SD 44.1 35.7 - 48.1 fL [facility] NRBC abs 0.00 0.00 - 0.01 K/cumm [facility] Blood 06/13/2024 12:1 1 AM CONDOMINIUM PROPERTY MANAGER 06/13/2024 12:21 AM CONDOMINIUM PROPERTY MANAGER us Krishan Causey MD PhD LAB BLOOD ORDERABLES Final Result Performing Organization Address City/[facility]/ZIP Co de Phone Number [facility] [address] [place] [address] * Magnesium (06/13/2024 12:11 AM CONDOMINIUM PROPERTY MANAGER) Pathologist [facility] Magnesium 2.0 1.4 - 2.5 mg/dL Blood 06/13/2024 12:1 1 AM CONDOMINIUM PROPERTY MANAGER 06/13/2024 12:21 AM CONDOMINIUM PROPERTY MANAGER us Krishan Causey MD PhD LAB BLOOD ORDERABLES Final Result [facility] [address] Department [place] [address] * (ABNORMAL) Renal function panel (06/13/2024 12:11 AM CONDOMINIUM PROPERTY MANAGER) Pathologist [facility] Sodium 136 135 - 145 mmol/L Potassium, pl 4.2 3.3 - 4.9 mmol/L [facility] Chloride 103 97 - 110 mmol/L [facility] CO2 22 22 - 32 mmol/L [facility] Anion gap 11 2 - 15 mmol/L [facility] BUN 25 6 - 25 mg/dL [facility] Creatinine 1.45(H) 0.80 - 1.30 mg/dL [facility] Glucose 156 70 - 199 mg/dL [facility] Comment: Interpretive Data Fasting glucose >/= 126 [...] 2022. Calcium 8.8 8.5 - 10.3 mg/dL [facility] Phosphorus, pl 2.8 2.3 - 4.5 mg/dL [facility] Albumin 3.6 3.5 - 5.0 g/dL [facility] Blood 06/13/2024 12:1 1 AM CONDOMINIUM PROPERTY MANAGER 06/13/2024 12:21 AM CONDOMINIUM PROPERTY MANAGER us Krishan Causey MD PhD LAB BLOOD ORDERABLES Final Result Performing Organization Address [facility] Co de Phone Number [facility] [address] [place] [address] * (ABNORMAL) aPTT (06/12/2024 10:27 PM CONDOMINIUM PROPERTY MANAGER) aPTT 50(H) 28 - 38 sec Comment: Interpretive Data Heparin therapeutic range: 66.0 - 100.0 seconds. Range based on correlation with therapeutic heparin activity range of 0.3 - 0.7 Units/mL. Current interpretive data was last revised on 2023. Blood 06/12/2024 10:2 7 PM CONDOMINIUM PROPERTY MANAGER 06/12/2024 11:00 PM CONDOMINIUM PROPERTY MANAGER Stephany Arreola PRESS ROOM SUPERVISOR LAB BLOOD ORDERABLES Julieta l Result Performing Organization Address [facility] Co de Phone Number [facility] [address] [place] [address] * Critical Care (06/12/2024 8:58 PM CONDOMINIUM PROPERTY MANAGER) Narrative Krishan Causey MD PhD - 06/12/2024 8:58 PM CONDOMINIUM PROPERTY MANAGER Stephany Arreola NP 06/13/2024 4:40 AM Critical Care Performed by: Stephany Arreola NP Authorized by: Stephany Arreola NP CRITICAL CARE: Team: [facility] CT Shift: PM Level of Billing: Critical [...] plan with the ICU team and other medical/wardrobe image consultant staff, making frequent assessments and decisions [...] from bedside monitors, laboratory results, and imaging Stephany Arreola PRESS ROOM SUPERVISOR IN CLINIC/BEDSIDE ORDERAB LES Final Result * POCT glucose (06/12/2024 7:33 PM CONDOMINIUM PROPERTY MANAGER) Glucose, POC 129 70 - 199 mg/dL Comment: For Glucose values <35 mg/dl when Hematocrit is >60 mg/dl,the test may not accurately detect significant hypoglycemia,and testing in the Laboratory should be considered if clinically indicated. Blood 06/12/2024 7:33 PM CONDOMINIUM PROPERTY MANAGER 06/12/2024 7:33 PM CONDOMINIUM PROPERTY MANAGER Blake Curtis MD LAB POCT ORDERABLES - DE VICE Final Result Performing Organization Address [facility] Co de Phone Number [facility] [address] [place] [employer] [place] [address] * POCT glucose (06/12/2024 5:00 PM CONDOMINIUM PROPERTY MANAGER) Pathologist [facility] Glucose, POC 134 70 - 199 mg/dL Comment: For Glucose values <35 mg/dl when Hematocrit is >60 mg/dl,the test may not accurately detect significant hypoglycemia,and testing in the Laboratory should be considered if clinically indicated. Blood 06/12/2024 5:00 PM CONDOMINIUM PROPERTY MANAGER 06/12/2024 5:00 PM CONDOMINIUM PROPERTY MANAGER Blake Curtis MD LAB POCT ORDERABLES - DE VICE Final Result Performing Organization Address [facility] Co de Phone Number [facility] [address] [employer] [place], [place] [id number] * (ABNORMAL) aPTT (06/12/2024 3:46 PM CONDOMINIUM PROPERTY MANAGER) [facility] aPTT 40(H) 28 - 38 sec Comment: Interpretive Data Heparin therapeutic range: 66.0 - 100.0 seconds. Range based on correlation with therapeutic heparin activity range of 0.3 - 0.7 Units/mL. Current interpretive data was last revised on 2023. Blood 06/12/2024 3:46 PM CONDOMINIUM PROPERTY MANAGER 06/12/2024 3:57 PM CONDOMINIUM PROPERTY MANAGER Narrative [facility] - 06/12/2024 4:07 PM CONDOMINIUM PROPERTY MANAGER STAT PTT timing: - Draw 6 hours [...] must be drawn peripherally (not from [facility]). Krishan Causey MD PhD LAB BLOOD ORDERABLES Final Result Performing Organization Address City/[facility]/ZIP Co de Phone Number [facility] [address] [place] [employer] [place] [address] * POCT glucose (06/12/2024 11:33 AM CONDOMINIUM PROPERTY MANAGER) [facility] Glucose, POC 141 70 - 199 mg/dL Comment: For Glucose values <35 mg/dl when Hematocrit is >60 mg/dl,the test may not accurately detect significant hypoglycemia,and testing in the Laboratory should be considered if clinically indicated. Blood 06/12/2024 11:3 3 AM CONDOMINIUM PROPERTY MANAGER 06/12/2024 11:33 AM CONDOMINIUM PROPERTY MANAGER Blake Curtis MD LAB POCT ORDERABLES - DE VICE Final Result Performing Organization Address City/[facility]/ZIP Co de Phone Number [facility] [address] [employer] [place], [place] [id number] * POCT glucose (06/12/2024 7:43 AM CONDOMINIUM PROPERTY MANAGER) Pathologist [facility] Glucose, POC 131 70 - 199 mg/dL Comment: For Glucose values <35 mg/dl when Hematocrit is >60 mg/dl,the test may not accurately detect significant hypoglycemia,and testing in the Laboratory should be considered if clinically indicated. Blood 06/12/2024 7:43 AM CONDOMINIUM PROPERTY MANAGER 06/12/2024 7:43 AM CONDOMINIUM PROPERTY MANAGER Blake Curtis MD LAB POCT ORDERABLES - DE VICE Final Result Performing Organization Address City/[facility]/ZIP Co de Phone Number [facility] [address] [place] [address] * Lipid panel - Add on lab test (06/12/2024 7:11 AM CONDOMINIUM PROPERTY MANAGER) [facility] Acceptable Yes Blood 06/12/2024 7:1 1 AM CONDOMINIUM PROPERTY MANAGER 06/12/2024 7:11 AM CONDOMINIUM PROPERTY MANAGER Narrative [facility] - 06/12/2024 7:12 AM CONDOMINIUM PROPERTY MANAGER Name of Test->Lipid panel Blake Curtis MD LAB BLOOD ORDERABLES Fin al Result Performing Organization Address City/[facility]/ZIP Co de Phone Number [facility] [address] [place] [address] * Critical Care (06/12/2024 7:06 AM CONDOMINIUM PROPERTY MANAGER) Narrative Rene Laurent MD - 06/12/2024 7:06 AM CONDOMINIUM PROPERTY MANAGER Steff Davila NP 06/12/2024 5:20 PM Critical Care Performed by: Steff Davila NP Authorized by: Steff Davila NP CRITICAL CARE: Team: [facility] CT Shift: AM Level of Billing: Critical [...] plan with the ICU team and other medical/wardrobe image consultant staff, making frequent assessments and decisions [...] and the medical staff us Steff Davila PRESS ROOM SUPERVISOR IN CLINIC/BEDSIDE ORDERAB LES Final Result * XR Chest 1 View - Portable - in AM (06/12/2024 5:40 AM CONDOMINIUM PROPERTY MANAGER) Anatomical Region Laterality Modality Body, Chest N/A Computed Radiogr aphy 06/12/2024 8:08 AM CONDOMINIUM PROPERTY MANAGER Impressions 06/12/2024 8:08 AM CONDOMINIUM PROPERTY MANAGER Comparison 06/11/2024 11:48 AM. Median sternotomy wires are aligned and intact. Left atrial appendage clip again seen. Aortic valve replacement again noted. Gastric tube has been removed. Right internal jugular central venous catheter tip overlies superior vena cava. Elizabeth-Magdiel catheter tip projects over the proximal portion of the right pulmonary artery. Mediastinal drain again seen. Cardiomediastinal silhouette stable and in keeping with postoperative change. Left retrocardiac atelectasis again seen. Mild right base atelectasis again noted. No pulmonary edema seen. No pneumothorax seen. Electronically signed by: Colten Joyce M.D. Narrative 06/12/2024 8:08 AM CONDOMINIUM PROPERTY MANAGER EXAMINATION: Chest 1 view Procedure Note Colten Joyce MD - 06/12/2024 EXAMINATION: Chest 1 view IMPRESSION: Comparison 06/11/2024 11:48 AM. Median sternotomy wires are aligned and intact. Left atrial appendage clip again seen. Aortic valve replacement again noted. Gastric tube has been removed. Right internal jugular central venous catheter tip overlies superior vena cava. Elizabeth-Magdiel catheter tip projects over the proximal portion of the right pulmonary artery. Mediastinal drain again seen. Cardiomediastinal silhouette stable and in keeping with postoperative change. Left retrocardiac atelectasis again seen. Mild right base atelectasis again noted. No pulmonary edema seen. No pneumothorax seen. Electronically signed by: Colten Joyce M.D. Krishan Causey MD PhD IMG XR PROCEDURES Final Re sult * Transfuse platelets (06/12/2024 5:12 AM CONDOMINIUM PROPERTY MANAGER) Blood Mario LAM BLOOD TRANSFUSION ORDERAB LES Final Result Performing Organization Address [facility] Co de Phone Number [facility] [address] [place] [employer] [address] * Prepare platelets: 1 Units (06/12/2024 1:09 AM CONDOMINIUM PROPERTY MANAGER) Pathologist [facility] Product code [id number] Unit Number [id number] [facility] Product Blood Type BPOS [facility] Dispense Status PRESUMED TRANSFUSED [facility] Blood (Blood, Venous) 06/12/2024 1:09 AM CONDOMINIUM PROPERTY MANAGER Narrative [facility] - 06/12/2024 10:15 AM CONDOMINIUM PROPERTY MANAGER Are special requirements needed? (all products are leukoreduced)->No Date required:-[id number] PLT # of Units:-1-Units Reasons:-Major active bleeding} Mario LAM BLOOD BANK PRODUCT ORDERA BLES Final Result Performing Organization Address [facility] Co de Phone Number [facility] [address] [place] [address] * (ABNORMAL) Protime-INR (06/12/2024 12:19 AM CONDOMINIUM PROPERTY MANAGER) Pathologist [facility] PT 15.3(H) 9.7 - 13.0 sec INR 1.41(H) 0.90 - 1.20 [facility] Comment: Interpretive data Oral anticoagulant therapeutic ranges: Venous thromboembolism prophylaxis or treatment: 2.0-3.0 CARDIOLOGY Standard range: 2.0-3.0 High-intensity range: 2.5-3.5 Refer to indication-specific guidelines for appropriate target ranges for prosthetic heart valve replacement. Current interpretive data was last revised on 2019. Blood 06/12/2024 12:1 9 AM CONDOMINIUM PROPERTY MANAGER 06/12/2024 12:38 AM CONDOMINIUM PROPERTY MANAGER Mario LAM LAB BLOOD ORDERABLES Julieta l Result Performing Organization Address City/[facility] Co de Phone Number [facility] [address] [facility] [employer] [place], [place] [phone] * Fibrinogen (06/12/2024 12:19 AM CONDOMINIUM PROPERTY MANAGER) Fibrinogen 272 170 - 400 mg/dL Blood 06/12/2024 12:1 9 AM CONDOMINIUM PROPERTY MANAGER 06/12/2024 12:38 AM CONDOMINIUM PROPERTY MANAGER Mario LAM LAB BLOOD ORDERABLES Julieta l Result Performing Organization Address [facility] Co de Phone Number [facility] [address] [facility] [employer] [place], [place] [phone] * Oxyhemoglobin, pulmonary artery (06/11/2024 11:57 PM CONDOMINIUM PROPERTY MANAGER) Oxyhemoglobin, PA 79.0 % Comment: Interpretive Data No reference range established. Current interpretive data was last revised 2019. Blood 06/11/2024 11:5 7 PM CONDOMINIUM PROPERTY MANAGER 06/12/2024 12:23 AM CONDOMINIUM PROPERTY MANAGER Mario LAM LAB BLOOD ORDERABLES Julieta l Result Performing Organization Address City/[facility] Co de Phone Number [facility] [address] [facility] [employer] [place], [place] [phone] * Lactate (06/11/2024 11:56 PM CONDOMINIUM PROPERTY MANAGER) Lactate 1.5 0.7 - 2.0 mmol/L Blood 06/11/2024 11:5 6 PM CONDOMINIUM PROPERTY MANAGER 06/12/2024 12:23 AM CONDOMINIUM PROPERTY MANAGER Mario Araiza PA LAB BLOOD ORDERABLES Julieta l Result Performing Organization Address [facility]/ZIP Co de Phone Number [facility] [address] [employer] [place], [place] [phone] * eGFR (06/11/2024 11:56 PM CONDOMINIUM PROPERTY MANAGER) eGFR 60 >=60 mL/min/1. 73 m2 Comment: [...] reviewed 2021. Blood 06/11/2024 11:5 6 PM CONDOMINIUM PROPERTY MANAGER 06/12/2024 12:38 AM CONDOMINIUM PROPERTY MANAGER Steff Davila PRESS ROOM SUPERVISOR LAB BLOOD ORDERABLES Julieta l Result Performing Organization Address City/[facility]/ZIP Co de Phone Number [facility] [address] [employer] [place], [place] [phone] * (ABNORMAL) Calcium, ionized (06/11/2024 11:56 PM CONDOMINIUM PROPERTY MANAGER) Calcium, Ionized 4.08(L) 4.50 - 5.10 mg/dL Blood 06/11/2024 11:5 6 PM CONDOMINIUM PROPERTY MANAGER 06/12/2024 12:23 AM CONDOMINIUM PROPERTY MANAGER us Steff Davila PRESS ROOM SUPERVISOR LAB BLOOD ORDERABLES Julieta l Result Performing Organization Address [facility]/ZIP Co de Phone Number [facility] [address] [place] [employer] [address] * (ABNORMAL) CBC without differential (06/11/2024 11:56 PM CONDOMINIUM PROPERTY MANAGER) Pathologist [facility] WBC 9.4 3.8 - 9.9 K/cumm Hgb 11.8(L) 13.0 - 17.5 g/dL [facility] Hct 37.3(L) 38.9 - 50.3 % [facility] Plt 93(L) 150 - 400 K/cumm [facility] Comment:Consistent with prev ious result. MPV 11.8 9.1 - 12.3 fL [facility] RBC 4.10(L) 4.30 - 5.80 M/cumm [facility] MCV 91.0 81.3 - 96.4 fL [facility] MCH 28.8 27.1 - 33.3 pg [facility] MCHC 31.6(L) 32.3 - 35.7 g/dL [facility] RDW CV 13.0 11.1 - 14.9 % [facility] RDW SD 43.8 35.7 - 48.1 fL [facility] NRBC abs 0.00 0.00 - 0.01 K/cumm [facility] Blood 06/11/2024 11:5 6 PM CONDOMINIUM PROPERTY MANAGER 06/12/2024 12:38 AM CONDOMINIUM PROPERTY MANAGER us Krishan Causey MD PhD LAB BLOOD ORDERABLES Final Result Performing Organization Address City/[facility]/ZIP Co de Phone Number [facility] [address] [place] [address] * Magnesium (06/11/2024 11:56 PM CONDOMINIUM PROPERTY MANAGER) Magnesium 1.7 1.4 - 2.5 mg/dL Comment:Reviewed Blood 06/11/2024 11:5 6 PM CONDOMINIUM PROPERTY MANAGER 06/12/2024 12:38 AM CONDOMINIUM PROPERTY MANAGER Krishan Causey MD PhD LAB BLOOD ORDERABLES Final Result [facility] [address] Department [place] [address] * (ABNORMAL) Renal function panel (06/11/2024 11:56 PM CONDOMINIUM PROPERTY MANAGER) Sodium 139 135 - 145 mmol/L Potassium, pl 4.4 3.3 - 4.9 mmol/L [facility] Chloride 108 97 - 110 mmol/L [facility] CO2 20(L) 22 - 32 mmol/L [facility] Anion gap 11 2 - 15 mmol/L [facility] BUN 22 6 - 25 mg/dL [facility] Creatinine 1.38(H) 0.80 - 1.30 mg/dL [facility] Glucose 185 70 - 199 mg/dL [facility] Comment: Interpretive Data Fasting glucose >/= 126 [...] 2022. Calcium 8.3(L) 8.5 - 10.3 mg/dL [facility] Phosphorus, pl 3.2 2.3 - 4.5 mg/dL [facility] Albumin 3.8 3.5 - 5.0 g/dL [facility] Blood 06/11/2024 11:5 6 PM CONDOMINIUM PROPERTY MANAGER 06/12/2024 12:38 AM CONDOMINIUM PROPERTY MANAGER Krishan Causey MD PhD LAB BLOOD ORDERABLES Final Result [facility] [address] Department [place] [address] * Lipid panel (06/11/2024 11:56 PM CONDOMINIUM PROPERTY MANAGER) Cholesterol 127 30 - 199 mg/dL Comment: [...] revised on 2018. Triglycerides 90 <=149 mg/dL [facility] Comment: Interpretive Data Ages < or = [...] revised on 2018. HDL 45 >=40 mg/dL [facility] Comment: Interpretive Data Ages < or = [...] on 2018. LDL, calculated 65 <=129 mg/dL [facility] Comment: Interpretive Data Ages < or = [...] NCEP Expert Panel. Circulation 2004;110:227 3. Weston Del Rio al. ROSETTA Cardiol. 2019September 17;5(5):540-548. doi: [email or web address].2020.0013 Current Interpretive Data was last revised on 2024. Non-HDL Cholesterol 82 mg/dL [facility] Comment: Interpretive Data Ages < or = [...] last revised on 2018. Chol/HDL ratio 3 [facility] Blood 06/11/2024 11:5 6 PM CONDOMINIUM PROPERTY MANAGER 06/12/2024 12:38 AM CONDOMINIUM PROPERTY MANAGER us Blake Curtis MD LAB BLOOD ORDERABLES Fin al Result [facility] [address] Department [place] [address] * Critical Care (06/11/2024 6:51 PM CONDOMINIUM PROPERTY MANAGER) Narrative Rene Laurent MD - 06/11/2024 6:51 PM CONDOMINIUM PROPERTY MANAGER Mario Araiza PA 06/12/2024 5:20 AM Critical Care Performed by: Mario Araiza PA Authorized by: Mario Araiza PA CRITICAL CARE: Team: [facility] CT Shift: PM Level of Billing: Critical [...] plan with the ICU team and other medical/wardrobe image consultant staff, making frequent assessments and decisions [...] Final Result * eGFR (06/11/2024 4:36 PM CONDOMINIUM PROPERTY MANAGER) eGFR 61 >=60 mL/min/1. 73 m2 Comment: [...] last reviewed 2021. Blood 06/11/2024 4:36 PM CONDOMINIUM PROPERTY MANAGER 06/11/2024 4:39 PM CONDOMINIUM PROPERTY MANAGER us Steff Davila PRESS ROOM SUPERVISOR LAB BLOOD ORDERABLES Julieta garza Result [facility] [address] Department [place] [address] * (ABNORMAL) Renal function panel (06/11/2024 4:36 PM CONDOMINIUM PROPERTY MANAGER) Sodium 142 135 - 145 mmol/L Potassium, pl 4.3 3.3 - 4.9 mmol/L [facility] Chloride 112(H) 97 - 110 mmol/L [facility] CO2 18(L) 22 - 32 mmol/L [facility] Anion gap 12 2 - 15 mmol/L [facility] BUN 26(H) 6 - 25 mg/dL [facility] Creatinine 1.36(H) 0.80 - 1.30 mg/dL [facility] Glucose 160 70 - 199 mg/dL [facility] Comment: Interpretive Data Fasting glucose >/= 126 [...] 2022. Calcium 7.5(L) 8.5 - 10.3 mg/dL [facility] Phosphorus, pl 2.0(L) 2.3 - 4.5 mg/dL [facility] Albumin 3.5 3.5 - 5.0 g/dL [facility] Blood 06/11/2024 4:36 PM CONDOMINIUM PROPERTY MANAGER 06/11/2024 4:39 PM CONDOMINIUM PROPERTY MANAGER Steff Davila PRESS ROOM SUPERVISOR LAB BLOOD ORDERABLES Julieta l Result Performing Organization Address [facility] Co de Phone Number [facility] [address] [place] [address] * POCT glucose (06/11/2024 2:20 PM CONDOMINIUM PROPERTY MANAGER) Glucose, POC 108 70 - 199 mg/dL Comment: For Glucose values <35 mg/dl when Hematocrit is >60 mg/dl,the test may not accurately detect significant hypoglycemia,and testing in the Laboratory should be considered if clinically indicated. Blood 06/11/2024 2:20 PM CONDOMINIUM PROPERTY MANAGER 06/11/2024 2:20 PM CONDOMINIUM PROPERTY MANAGER Blake Curtis MD LAB POCT ORDERABLES - DE VICE Final Result Performing Organization Address [facility] Co de Phone Number [facility] [address] [facility] [place] [address] * Oxyhemoglobin, central venous (06/11/2024 2:10 PM CONDOMINIUM PROPERTY MANAGER) Oxyhemoglobin, CV 74.3 % Comment: Interpretive Data No reference range established. Current interpretive data was last revised 2019. Blood 06/11/2024 2:10 PM CONDOMINIUM PROPERTY MANAGER 06/11/2024 2:16 PM CONDOMINIUM PROPERTY MANAGER Krishan Causey MD PhD LAB BLOOD ORDERABLES Final Result Performing Organization Address [facility] Co de Phone Number [facility] [address] [facility] [place] [address] * Oxyhemoglobin, pulmonary artery (06/11/2024 2:10 PM CONDOMINIUM PROPERTY MANAGER) Oxyhemoglobin, PA 78.0 % Comment: Interpretive Data No reference range established. Current interpretive data was last revised 2019. Blood 06/11/2024 2:10 PM CONDOMINIUM PROPERTY MANAGER 06/11/2024 2:16 PM CONDOMINIUM PROPERTY MANAGER us Steff Davila NP LAB BLOOD ORDERABLES Julieta l Result Performing Organization Address [facility] Co de Phone Number [facility] [address] Department [place] [address] * POCT glucose (06/11/2024 12:45 PM CONDOMINIUM PROPERTY MANAGER) Pathologist [facility] Glucose, POC 95 70 - 199 mg/dL Comment: For Glucose values <35 mg/dl when Hematocrit is >60 mg/dl,the test may not accurately detect significant hypoglycemia,and testing in the Laboratory should be considered if clinically indicated. Blood 06/11/2024 12:4 5 PM CONDOMINIUM PROPERTY MANAGER 06/11/2024 12:45 PM CONDOMINIUM PROPERTY MANAGER Blake Curtis MD LAB POCT ORDERABLES - DE VICE Final Result Performing Organization Address [facility] Co de Phone Number [facility] [address] Department [place] [address] * (ABNORMAL) Blood gas, arterial (06/11/2024 12:44 PM CONDOMINIUM PROPERTY MANAGER) Pathologist [facility] pH, Art 7.35 7.35 - 7.45 PCO2, Arterial 25(L) 35 - 45 mmHg [facility] PO2, Arterial 116(H) 83 - 108 mmHg [facility] HCO3 Art (Calculated) 14(L) 20 - 30 mmol/L [facility] BE, art -10 mmol/L [facility] Comment: Interpretive Data No Reference Range Established Current Interpretive Data was last revised on 2017 O2 Sat Art (Calculated) 98 94 - 98 % [facility] Blood 06/11/2024 12:4 4 PM CONDOMINIUM PROPERTY MANAGER 06/11/2024 12:50 PM CONDOMINIUM PROPERTY MANAGER Krishan Causey MD PhD LAB BLOOD ORDERABLES Final Result Performing Organization Address [facility] Co de Phone Number [facility] [address] Department [place] [address] * XR Chest 1 View - Portable (06/11/2024 11:51 AM CONDOMINIUM PROPERTY MANAGER) Anatomical Region Laterality Modality Body, Chest N/A Computed Radiogr aphy 06/11/2024 12:0 0 PM CONDOMINIUM PROPERTY MANAGER Impressions 06/11/2024 12:00 PM CONDOMINIUM PROPERTY MANAGER No prior radiograph for comparison. Endotracheal and nasogastric tubes are in place terminating in the mid thoracic trachea and in the distal esophagus, respectively. Recommend advancement of the nasogastric tube by approximately 10 cm. Clear lungs. No pleural effusion or pneumothorax. Right internal jugular central venous and Elizabeth-Magdiel catheters terminate in the superior vena cava and right pulmonary artery, respectively. Surgical changes from median sternotomy and aortic valve replacement are present. Mediastinal drain in place. Mild cardiomegaly. Electronically signed by: Deven Gonzalez M.D. Narrative 06/11/2024 12:00 PM CONDOMINIUM PROPERTY MANAGER EXAMINATION: 1 view chest radiograph Procedure Note [...] pneumothorax. Right internal jugular central venous and Elizabeth-Magdiel catheters terminate in the superior vena cava and right pulmonary artery, respectively. Surgical changes from median sternotomy and aortic valve replacement are present. Mediastinal drain in place. Mild cardiomegaly. Electronically signed by: Deven Gonzalez M.D. us Steff Davila PRESS ROOM SUPERVISOR IMG XR PROCEDURES Final R esult * (ABNORMAL) eGFR (06/11/2024 11:37 AM CONDOMINIUM PROPERTY MANAGER) eGFR 40(L) >=60 mL/min/1. 73 m2 Comment: [...] reviewed 2021. Blood 06/11/2024 11:3 7 AM CONDOMINIUM PROPERTY MANAGER 06/11/2024 12:28 PM CONDOMINIUM PROPERTY MANAGER Steff Davila NP LAB BLOOD ORDERABLES Julieta l Result Performing Organization Address [facility]/ZIP Co de Phone Number [facility] [address] [place] [address] * Calcium, ionized (06/11/2024 11:37 AM CONDOMINIUM PROPERTY MANAGER) Pathologist [facility] Calcium, Ionized 5.07 4.50 - 5.10 mg/dL Blood 06/11/2024 11:3 7 AM CONDOMINIUM PROPERTY MANAGER 06/11/2024 11:49 AM CONDOMINIUM PROPERTY MANAGER Steff Davila NP LAB BLOOD ORDERABLES Julieta l Result Performing Organization Address [facility] Co de Phone Number [facility] [address] [place] [address] * (ABNORMAL) aPTT (06/11/2024 11:37 AM CONDOMINIUM PROPERTY MANAGER) aPTT 26(L) 28 - 38 sec Comment: Interpretive Data Heparin therapeutic range: 66.0 - 100.0 seconds. Range based on correlation with therapeutic heparin activity range of 0.3 - 0.7 Units/mL. Current interpretive data was last revised on 2023. Blood 06/11/2024 11:3 7 AM CONDOMINIUM PROPERTY MANAGER 06/11/2024 12:34 PM CONDOMINIUM PROPERTY MANAGER Steff Davila NP LAB BLOOD ORDERABLES Julieta l Result Performing Organization Address [facility] Co de Phone Number [facility] [address] [facility] [place] [address] * (ABNORMAL) Protime-INR (06/11/2024 11:37 AM CONDOMINIUM PROPERTY MANAGER) PT 16.5(H) 9.7 - 13.0 sec INR 1.51(H) 0.90 - 1.20 [facility] Comment: Interpretive data Oral anticoagulant therapeutic ranges: Venous thromboembolism prophylaxis or treatment: 2.0-3.0 CARDIOLOGY Standard range: 2.0-3.0 High-intensity range: 2.5-3.5 Refer to indication-specific guidelines for appropriate target ranges for prosthetic heart valve replacement. Current interpretive data was last revised on 2019. Blood 06/11/2024 11:3 7 AM CONDOMINIUM PROPERTY MANAGER 06/11/2024 12:34 PM CONDOMINIUM PROPERTY MANAGER Steff Davila NP LAB BLOOD ORDERABLES Julieta l Result Performing Organization Address [facility] Co de Phone Number [facility] [address] [facility] [place] [address] * (ABNORMAL) CBC without differential (06/11/2024 11:37 AM CONDOMINIUM PROPERTY MANAGER) WBC 11.7(H) 3.8 - 9.9 K/cumm Hgb 11.2(L) 13.0 - 17.5 g/dL [facility] Hct 36.1(L) 38.9 - 50.3 % [facility] Plt 105(L) 150 - 400 K/cumm [facility] Comment:Consistent with prev ious result. MPV 11.1 9.1 - 12.3 fL [facility] RBC 3.86(L) 4.30 - 5.80 M/cumm [facility] [facility] MCV 93.5 81.3 - 96.4 fL [facility] MCH 29.0 27.1 - 33.3 pg [facility] MCHC 31.0(L) 32.3 - 35.7 g/dL [facility] RDW CV 13.2 11.1 - 14.9 % [facility] RDW SD 44.7 35.7 - 48.1 fL [facility] NRBC abs 0.00 0.00 - 0.01 K/cumm [facility] Blood 06/11/2024 11:3 7 AM CONDOMINIUM PROPERTY MANAGER 06/11/2024 12:28 PM CONDOMINIUM PROPERTY MANAGER Steff Davila PRESS ROOM SUPERVISOR LAB BLOOD ORDERABLES Julieta l Result Performing Organization Address [facility] Co de Phone Number [facility] [address] [facility] [place] [address] * Phosphorus (06/11/2024 11:37 AM CONDOMINIUM PROPERTY MANAGER) Phosphorus, pl 2.7 2.3 - 4.5 mg/dL Blood 06/11/2024 11:3 7 AM CONDOMINIUM PROPERTY MANAGER 06/11/2024 12:28 PM CONDOMINIUM PROPERTY MANAGER Steff Davila NP LAB BLOOD ORDERABLES Julieta l Result Performing Organization Address City/[facility]/ZIP Co de Phone Number [facility] [address] [place] [address] * Magnesium (06/11/2024 11:37 AM CONDOMINIUM PROPERTY MANAGER) Magnesium 2.5 1.4 - 2.5 mg/dL Blood 06/11/2024 11:3 7 AM CONDOMINIUM PROPERTY MANAGER 06/11/2024 12:28 PM CONDOMINIUM PROPERTY MANAGER Steff Davila NP LAB BLOOD ORDERABLES Julieta l Result Performing Organization Address City/[facility]/ZIP Co de Phone Number [facility] [address] [place] [address] * (ABNORMAL) Blood gas, arterial (06/11/2024 11:37 AM CONDOMINIUM PROPERTY MANAGER) Pathologist [facility] pH, Art 7.31(L) 7.35 - 7.45 PCO2, Arterial 41 35 - 45 mmHg [facility] PO2, Arterial 158(H) 83 - 108 mmHg [facility] HCO3 Art (Calculated) 21 20 - 30 mmol/L [facility] BE, art -5 mmol/L [facility] Comment: Interpretive Data No Reference Range Established Current Interpretive Data was last revised on 2017 O2 Sat Art (Calculated) 99(H) 94 - 98 % [facility] Blood 06/11/2024 11:3 7 AM CONDOMINIUM PROPERTY MANAGER 06/11/2024 11:49 AM CONDOMINIUM PROPERTY MANAGER Steff Davila NP LAB BLOOD ORDERABLES Julieta l Result [facility] [address] [place] [address] * (ABNORMAL) Basic metabolic panel (06/11/2024 11:37 AM CONDOMINIUM PROPERTY MANAGER) [facility] Sodium 145 135 - 145 mmol/L Potassium, pl 5.3(H) 3.3 - 4.9 mmol/L [facility] Chloride 114(H) 97 - 110 mmol/L [facility] CO2 23 22 - 32 mmol/L [facility] Anion gap 8 2 - 15 mmol/L [facility] BUN 34(H) 6 - 25 mg/dL [facility] Creatinine 1.94(H) 0.80 - 1.30 mg/dL [facility] Glucose 108 70 - 199 mg/dL [facility] Comment: Interpretive Data Fasting glucose >/= 126 [...] 2022. Calcium 8.6 8.5 - 10.3 mg/dL [facility] Blood 06/11/2024 11:3 7 AM CONDOMINIUM PROPERTY MANAGER 06/11/2024 12:28 PM CONDOMINIUM PROPERTY MANAGER us Steff Davila NP LAB BLOOD ORDERABLES Julieta l Result [facility] [address] Department [place] [address] * Critical Care (06/11/2024 11:33 AM CONDOMINIUM PROPERTY MANAGER) Narrative Rene Laurent MD - 06/11/2024 11:33 AM CONDOMINIUM PROPERTY MANAGER Steff Davila NP 06/11/2024 5:44 PM Critical Care Performed by: Steff Davila NP Authorized by: Steff Davila NP CRITICAL CARE: Team: [facility] CT Shift: AM Level of Billing: Critical [...] plan with the ICU team and other medical/wardrobe image consultant staff, making frequent assessments and decisions [...] Result * POCT glucose (06/11/2024 11:33 AM CONDOMINIUM PROPERTY MANAGER) Glucose, POC 80 70 - 199 mg/dL Comment: For Glucose values <35 mg/dl when Hematocrit is >60 mg/dl,the test may not accurately detect significant hypoglycemia,and testing in the Laboratory should be considered if clinically indicated. Blood 06/11/2024 11:3 3 AM CONDOMINIUM PROPERTY MANAGER 06/11/2024 11:33 AM CONDOMINIUM PROPERTY MANAGER us Blake Curtis MD LAB POCT ORDERABLES - DE VICE Final Result [facility] [address] Department [place] [address] * NE AN CENTRAL LINE QUADRUPLE LUMEN, NE AN PROCEDURE PLACEHOLDER (06/11/2024 11:32 AM CONDOMINIUM PROPERTY MANAGER) Narrative Chip Howe MD - 06/11/2024 11:32 AM CONDOMINIUM PROPERTY MANAGER Chip Howe MD 06/11/2024 11:32 AM Central Venous Line Patient location: OR Indication: central venous access and CVP monitoring Staff: Placed by: Anesthesiologist: Chip Howe MD [...] AN SHEATH INTRODUCER PERFORMABLE, PULMONARY ARTERY CATH, NE AN PROCEDURE PLACEHOLDER (511:32 AM CONDOMINIUM PROPERTY MANAGER) Narrative Chip Howe MD - 06/11/2024 11:32 AM CONDOMINIUM PROPERTY MANAGER Chip Howe MD 06/11/2024 11:32 AM Central [...] MD ANESTHESIA ORDERABLES Fin al Result * NE AN PROCEDURE PLACEHOLDER (06/11/2024 11:15 AM CONDOMINIUM PROPERTY MANAGER) Anatomical Region Laterality Modality Other Narrative 06/11/2024 11:15 AM CONDOMINIUM PROPERTY MANAGER Chip Howe MD 06/13/2024 1:19 PM LALITA [...] code: LALITA placement and diagnostic exam, non-congenital (99322) ICD code(s) for medical necessity: R57.9 - [...] inferior: hypokinetic 16- Apical septal: hypokinetic 17- Mcintyre: hypokinetic Valves: Aortic Valve: Regurgitation: severe Mitral [...] * (ABNORMAL) Manual Differential (06/11/2024 10:52 AM CONDOMINIUM PROPERTY MANAGER) RBC morphology Normal Platelet estimate Decreased(A ) [facility] Morphology scrn See Comment [facility] Comment:PLT: Platelet morpho logy normal Automated count confirmed by smear review Blood 06/11/2024 10:5 2 AM CONDOMINIUM PROPERTY MANAGER 06/11/2024 10:52 AM CONDOMINIUM PROPERTY MANAGER us Blake Curtis MD LAB BLOOD ORDERABLES Fin al Result [facility] [address] Department [place] [address] * aPTT (06/11/2024 10:52 AM CONDOMINIUM PROPERTY MANAGER) aPTT 28 28 - 38 sec Comment: Interpretive Data Heparin therapeutic range: 66.0 - 100.0 seconds. Range based on correlation with therapeutic heparin activity range of 0.3 - 0.7 Units/mL. Current interpretive data was last revised on 2023. Blood 06/11/2024 10:5 2 AM CONDOMINIUM PROPERTY MANAGER 06/11/2024 10:52 AM CONDOMINIUM PROPERTY MANAGER Blake Curtis MD LAB BLOOD ORDERABLES Fin al Result Performing Organization Address City/[facility]/ZIP Co de Phone Number [facility] [address] [place] [address] * (ABNORMAL) Protime-INR (06/11/2024 10:52 AM CONDOMINIUM PROPERTY MANAGER) PT 20.3(H) 9.7 - 13.0 sec INR 1.86(H) 0.90 - 1.20 [facility] Comment: Interpretive data Oral anticoagulant therapeutic ranges: Venous thromboembolism prophylaxis or treatment: 2.0-3.0 CARDIOLOGY Standard range: 2.0-3.0 High-intensity range: 2.5-3.5 Refer to indication-specific guidelines for appropriate target ranges for prosthetic heart valve replacement. Current interpretive data was last revised on 2019. Blood 06/11/2024 10:5 2 AM CONDOMINIUM PROPERTY MANAGER 06/11/2024 10:52 AM CONDOMINIUM PROPERTY MANAGER Blake Curtis MD LAB BLOOD ORDERABLES Fin al Result Performing Organization Address [facility]/ZIP Co de Phone Number [facility] [address] [place] [address] * Fibrinogen (06/11/2024 10:52 AM CONDOMINIUM PROPERTY MANAGER) Fibrinogen 175 170 - 400 mg/dL Blood 06/11/2024 10:5 2 AM CONDOMINIUM PROPERTY MANAGER 06/11/2024 10:52 AM CONDOMINIUM PROPERTY MANAGER Blake Curtis MD LAB BLOOD ORDERABLES Fin al Result Performing Organization Address City/[facility]/ZIP Co de Phone Number [facility] [address] [place] [address] * (ABNORMAL) CBC without differential (06/11/2024 10:52 AM CONDOMINIUM PROPERTY MANAGER) WBC 9.3 3.8 - 9.9 K/cumm Hgb 10.3(L) 13.0 - 17.5 g/dL [facility] Hct 33.4(L) 38.9 - 50.3 % [facility] Plt 85(L) 150 - 400 K/cumm [facility] MPV 11.1 9.1 - 12.3 fL [facility] RBC 3.61(L) 4.30 - 5.80 M/cumm [facility] MCV 92.5 81.3 - 96.4 fL [facility] MCH 28.5 27.1 - 33.3 pg [facility] MCHC 30.8(L) 32.3 - 35.7 g/dL [facility] RDW CV 13.1 11.1 - 14.9 % [facility] RDW SD 44.3 35.7 - 48.1 fL [facility] NRBC abs 0.00 0.00 - 0.01 K/cumm [facility] Blood 06/11/2024 10:5 2 AM CONDOMINIUM PROPERTY MANAGER 06/11/2024 10:52 AM CONDOMINIUM PROPERTY MANAGER us Blake Curtis MD LAB BLOOD ORDERABLES Fin al Result [facility] [address] Department [place] [address] * (ABNORMAL) POC Blood Gas and Chemistries, Arterial - (06/11/2024 10:34 AM CONDOMINIUM PROPERTY MANAGER) pH, Art POC 7.38 7.35 - 7.45 pCO2, Art POC 37 35 - 45 mmHg [facility] pO2, Art POC 265(H) 80 - 108 mmHg [facility] Na, POC 137 135 - 145 mmol/L [facility] K POC 5.6(H) 3.3 - 4.9 mmol/L [facility] Comment: Interpretive Data This method is not able to assess for hemolysis, which may falsely increase potassium concentrations. If further testing is needed to evaluate this result, consider in-laboratory plasma potassium. Current Interpretive Data was last revised on 2022. Cl, POC 111(H) 97 - 110 mmol/L [facility] Ionized Ca, POC 5.27(H) 4.50 - 5.10 mg/dL [facility] Glucose, POC 117 70 - 199 mg/dL [facility] Lactate, POC 2.5(H) 0.7 - 2.0 mmol/L [facility] O2Hb, Art POC 97.1(H) 90.0 - 95.0 % [facility] Carboxhgb fract 0.8 0.0 - 2.9 % [facility] Methemoglobin 1.3 0.0 - 1.9 % [facility] HHb, POC 0.7 0.0 - 5.0 % [facility] SO2 (preethi) arterial 99(H) 90 - 95 % [facility] Total CO2, Art POC 23 22 - 32 mmol/L [facility] BE, art, POC -2.9(L) -2.0 - 2.0 mmol/L [facility] HCO3, Art POC 23 20 - 30 mmol/L [facility] Hct, POC 32.0(L) 38.9 - 50.3 % [facility] Total Hb, POC 10.7(L) 13.0 - 17.5 g/dL [facility] Blood 06/11/2024 10:3 4 AM CONDOMINIUM PROPERTY MANAGER 06/11/2024 10:34 AM CONDOMINIUM PROPERTY MANAGER Blake Curtis MD LAB POCT ORDERABLES - DE VICE Final Result Performing Organization Address City/[facility]/ZIP Co de Phone Number [facility] [address] [place] [address] * POC Activated Clotting Time, High Range (06/11/2024 10:33 AM CONDOMINIUM PROPERTY MANAGER) ACT 119 87 - 138 sec Blood 06/11/2024 10:3 3 AM CONDOMINIUM PROPERTY MANAGER 06/11/2024 10:33 AM CONDOMINIUM PROPERTY MANAGER Blake Curtis MD LAB BLOOD ORDERABLES Fin al Result [facility] [address] [place] [address] * (ABNORMAL) POC Blood Gas and Chemistries, Arterial - (06/11/2024 9:44 AM CONDOMINIUM PROPERTY MANAGER) pH, Art POC 7.39 7.35 - 7.45 pCO2, Art POC 38 35 - 45 mmHg [facility] pO2, Art POC 317(H) 80 - 108 mmHg [facility] Na, POC 136 135 - 145 mmol/L [facility] K POC 5.9(H) 3.3 - 4.9 mmol/L [facility] Comment: Interpretive Data This method is not able to assess for hemolysis, which may falsely increase potassium concentrations. If further testing is needed to evaluate this result, consider in-laboratory plasma potassium. Current Interpretive Data was last revised on 2022. Cl, POC 109 97 - 110 mmol/L [facility] Ionized Ca, POC 4.50 4.50 - 5.10 mg/dL [facility] Glucose, POC 132 70 - 199 mg/dL [facility] Lactate, POC 1.3 0.7 - 2.0 mmol/L [facility] O2Hb, Art POC 97.8(H) 90.0 - 95.0 % [facility] Carboxhgb fract 1.1 0.0 - 2.9 % [facility] Methemoglobin 1.0 0.0 - 1.9 % [facility] HHb, POC 0.1 0.0 - 5.0 % [facility] SO2 (preethi) arterial 100(H) 90 - 95 % [facility] Total CO2, Art POC 24 22 - 32 mmol/L [facility] BE, art, POC -1.7 -2.0 - 2.0 mmol/L [facility] HCO3, Art POC 24 20 - 30 mmol/L [facility] Hct, POC 32.0(L) 38.9 - 50.3 % [facility] Total Hb, POC 10.5(L) 13.0 - 17.5 g/dL [facility] Blood 06/11/2024 9:44 AM CONDOMINIUM PROPERTY MANAGER 06/11/2024 9:44 AM CONDOMINIUM PROPERTY MANAGER us Blake Curtis MD LAB POCT ORDERABLES - DE VICE Final Result Performing Organization Address City/[facility]/ZIP Co de Phone Number [facility] [address] Department [place] [address] * (ABNORMAL) POC Activated Clotting Time, High Range (06/11/2024 9:43 AM CONDOMINIUM PROPERTY MANAGER) ACT 529(H) 87 - 138 sec Blood 06/11/2024 9:43 AM CONDOMINIUM PROPERTY MANAGER 06/11/2024 9:43 AM CONDOMINIUM PROPERTY MANAGER us Blake Curtis MD LAB BLOOD ORDERABLES Fin al Result Performing Organization Address [facility] Co de Phone Number [facility] [address] Department [place] [address] * (ABNORMAL) POC Blood Gas and Chemistries, Venous - (06/11/2024 9:24 AM CONDOMINIUM PROPERTY MANAGER) Pathologist [facility] pH, Ross POC 7.33 7.32 - 7.45 pCO2, ross POC 51(H) 40 - 50 mmHg [facility] pO2, ross POC 46(H) 35 - 42 mmHg [facility] Na, POC 139 135 - 145 mmol/L [facility] K POC 5.6(H) 3.3 - 4.9 mmol/L [facility] Comment: Interpretive Data This method is not able to assess for hemolysis, which may falsely increase potassium concentrations. If further testing is needed to evaluate this result, consider in-laboratory plasma potassium. Current Interpretive Data was last revised on 2022. Cl, POC 110 97 - 110 mmol/L [facility] Ionized Ca, POC 4.55 4.50 - 5.10 mg/dL [facility] Glucose, POC 141 70 - 199 mg/dL [facility] Lactate, POC 1.2 0.7 - 2.0 mmol/L [facility] O2Hb, Ross POC 76.6(L) 90.0 - 95.0 % [facility] Carboxhgb fract 1.1 0.0 - 2.9 % [facility] Methemoglobin 0.9 0.0 - 1.9 % [facility] HHb, POC 21.4(H) 0.0 - 5.0 % [facility] O2 Sat, Ross POC (Preethi) 78(H) 68 - 77 % [facility] Total CO2, ross POC 28 22 - 32 mmol/L [facility] Base excess, ross POC 0.4 mmol/L [facility] HCO3, Ross POC 25 20 - 30 mmol/L [facility] Hct, POC 32.0(L) 38.9 - 50.3 % [facility] Total Hb, POC 10.8(L) 13.0 - 17.5 g/dL [facility] Blood 06/11/2024 9:24 AM CONDOMINIUM PROPERTY MANAGER 06/11/2024 9:24 AM CONDOMINIUM PROPERTY MANAGER us Blake Curtis MD LAB POCT ORDERABLES - DE VICE Final Result [facility] [address] Department [place] [address] * (ABNORMAL) POC Blood Gas and Chemistries, Arterial - (06/11/2024 9:16 AM CONDOMINIUM PROPERTY MANAGER) pH, Art POC 7.31(L) 7.35 - 7.45 pCO2, Art POC 44 35 - 45 mmHg [facility] pO2, Art POC 359(H) 80 - 108 mmHg [facility] Na, POC 137 135 - 145 mmol/L [facility] K POC 5.8(H) 3.3 - 4.9 mmol/L [facility] Comment: Interpretive Data This method is not able to assess for hemolysis, which may falsely increase potassium concentrations. If further testing is needed to evaluate this result, consider in-laboratory plasma potassium. Current Interpretive Data was last revised on 2022. Cl, POC 111(H) 97 - 110 mmol/L [facility] Ionized Ca, POC 4.66 4.50 - 5.10 mg/dL [facility] Glucose, POC 143 70 - 199 mg/dL [facility] Lactate, POC 1.3 0.7 - 2.0 mmol/L [facility] O2Hb, Art POC 97.6(H) 90.0 - 95.0 % [facility] Carboxhgb fract 0.8 0.0 - 2.9 % [facility] Methemoglobin 1.1 0.0 - 1.9 % [facility] HHb, POC 0.6 0.0 - 5.0 % [facility] SO2 (preethi) arterial 99(H) 90 - 95 % [facility] Total CO2, Art POC 24 22 - 32 mmol/L [facility] BE, art, POC -4.0(L) -2.0 - 2.0 mmol/L [facility] HCO3, Art POC 22 20 - 30 mmol/L [facility] Hct, POC 33.0(L) 38.9 - 50.3 % [facility] Total Hb, POC 10.9(L) 13.0 - 17.5 g/dL [facility] Blood 06/11/2024 9:16 AM CONDOMINIUM PROPERTY MANAGER 06/11/2024 9:16 AM CONDOMINIUM PROPERTY MANAGER Blake Curtis MD LAB POCT ORDERABLES - DE VICE Final Result Performing Organization Address [facility]/ZIP Co de Phone Number [facility] [address] [facility] [employer] [place], [place] [id number] * (ABNORMAL) POC Activated Clotting Time, High Range (06/11/2024 9:15 AM CONDOMINIUM PROPERTY MANAGER) ACT 705(H) 87 - 138 sec Blood 06/11/2024 9:15 AM CONDOMINIUM PROPERTY MANAGER 06/11/2024 9:15 AM CONDOMINIUM PROPERTY MANAGER Blake Curtis MD LAB BLOOD ORDERABLES Fin al Result [facility] [address] [facility] [employer] [place], [place] [id number] * (ABNORMAL) POC Blood Gas and Chemistries, Arterial - (06/11/2024 8:56 AM CONDOMINIUM PROPERTY MANAGER) pH, Art POC 7.32(L) 7.35 - 7.45 pCO2, Art POC 43 35 - 45 mmHg [facility] pO2, Art POC 160(H) 80 - 108 mmHg [facility] Na, POC 136 135 - 145 mmol/L [facility] K POC 5.0(H) 3.3 - 4.9 mmol/L [facility] Comment: Interpretive Data This method is not able to assess for hemolysis, which may falsely increase potassium concentrations. If further testing is needed to evaluate this result, consider in-laboratory plasma potassium. Current Interpretive Data was last revised on 2022. Cl, POC 108 97 - 110 mmol/L [facility] Ionized Ca, POC 4.73 4.50 - 5.10 mg/dL [facility] Glucose, POC 135 70 - 199 mg/dL [facility] Lactate, POC 1.5 0.7 - 2.0 mmol/L [facility] O2Hb, Art POC 97.2(H) 90.0 - 95.0 % [facility] Carboxhgb fract 1.2 0.0 - 2.9 % [facility] Methemoglobin 1.0 0.0 - 1.9 % [facility] HHb, POC 0.7 0.0 - 5.0 % [facility] SO2 (preethi) arterial 99(H) 90 - 95 % [facility] Total CO2, Art POC 24 22 - 32 mmol/L [facility] BE, art, POC -3.8(L) -2.0 - 2.0 mmol/L [facility] HCO3, Art POC 22 20 - 30 mmol/L [facility] Hct, POC 38.0(L) 38.9 - 50.3 % [facility] Total Hb, POC 12.5(L) 13.0 - 17.5 g/dL [facility] Blood 06/11/2024 8:56 AM CONDOMINIUM PROPERTY MANAGER 06/11/2024 8:56 AM CONDOMINIUM PROPERTY MANAGER us Blake Curtis MD LAB POCT ORDERABLES - DE VICE Final Result [facility] [address] Department [place] [address] * (ABNORMAL) POC Activated Clotting Time, High Range (06/11/2024 8:55 AM CONDOMINIUM PROPERTY MANAGER) ACT 682(H) 87 - 138 sec Blood 06/11/2024 8:55 AM CONDOMINIUM PROPERTY MANAGER 06/11/2024 8:55 AM CONDOMINIUM PROPERTY MANAGER Blake Curtis MD LAB BLOOD ORDERABLES Fin al Result [facility] [address] Department [place] [address] * NE AN PROCEDURE PLACEHOLDER (06/11/2024 8:44 AM CONDOMINIUM PROPERTY MANAGER) Narrative Chip Howe MD - 06/11/2024 8:44 AM CONDOMINIUM PROPERTY MANAGER Chip Howe MD 06/11/2024 8:44 AM Arterial [...] patient tolerated procedure well with no complications Result [facility] Chip Howe MD ANESTHESIA ORDERABLES Fin al Result * NE AN ELECTIVE ENDOTRACHEAL AIRWAY, NE AN PROCEDURE PLACEHOLDER (06/11/2024 8:44 AM CONDOMINIUM PROPERTY MANAGER) Narrative Chip Howe MD - 06/11/2024 8:44 AM CONDOMINIUM PROPERTY MANAGER Chip Howe MD 06/11/2024 8:44 AM Airway [...] and Chemistries, Arterial - (06/11/2024 8:03 AM CONDOMINIUM PROPERTY MANAGER) Glucose, POC 101 70 - 199 mg/dL Blood 06/11/2024 8:03 AM CONDOMINIUM PROPERTY MANAGER 06/11/2024 8:03 AM CONDOMINIUM PROPERTY MANAGER Blake Curtis MD LAB POCT ORDERABLES - DE VICE Final Result Performing Organization Address [facility] Co de Phone Number [facility] [address] [facility] [employer] [place], [place] [phone] * POC Activated Clotting Time, High Range (06/11/2024 8:02 AM CONDOMINIUM PROPERTY MANAGER) ACT 116 87 - 138 sec Blood 06/11/2024 8:02 AM CONDOMINIUM PROPERTY MANAGER 06/11/2024 8:02 AM CONDOMINIUM PROPERTY MANAGER Blake Curtis MD LAB BLOOD ORDERABLES Fin al Result Performing Organization Address City/[facility] Co de Phone Number [facility] [address] [place] [address] * aPTT (06/11/2024 7:32 AM CONDOMINIUM PROPERTY MANAGER) Pathologist [facility] aPTT 33 28 - 38 sec Comment: Interpretive Data Heparin therapeutic range: 66.0 - 100.0 seconds. Range based on correlation with therapeutic heparin activity range of 0.3 - 0.7 Units/mL. Current interpretive data was last revised on 2023. Blood 06/11/2024 7:32 AM CONDOMINIUM PROPERTY MANAGER 06/11/2024 7:41 AM CONDOMINIUM PROPERTY MANAGER Steff Cummings NP LAB BLOOD ORDERABLES Julieta l Result Performing Organization Address City/[facility]/ZIP Co de Phone Number [facility] [address] [employer] [place], [place] [id number] * (ABNORMAL) Protime-INR (06/11/2024 7:32 AM CONDOMINIUM PROPERTY MANAGER) PT 13.5(H) 9.7 - 13.0 sec INR 1.24(H) 0.90 - 1.20 [facility] Comment: Interpretive data Oral anticoagulant therapeutic ranges: Venous thromboembolism prophylaxis or treatment: 2.0-3.0 CARDIOLOGY Standard range: 2.0-3.0 High-intensity range: 2.5-3.5 Refer to indication-specific guidelines for appropriate target ranges for prosthetic heart valve replacement. Current interpretive data was last revised on 2019. Blood 06/11/2024 7:32 AM CONDOMINIUM PROPERTY MANAGER 06/11/2024 7:41 AM CONDOMINIUM PROPERTY MANAGER Steff Cummings NP LAB BLOOD ORDERABLES Julieta l Result Performing Organization Address [facility] Co de Phone Number [facility] [address] [facility] [place] [address] * Type and screen (06/11/2024 7:32 AM CONDOMINIUM PROPERTY MANAGER) Edd, indirect Negative ABO Rh B Positive [facility] Blood 06/11/2024 7:32 AM CONDOMINIUM PROPERTY MANAGER 06/11/2024 8:08 AM CONDOMINIUM PROPERTY MANAGER Narrative [facility] - 06/11/2024 8:57 AM CONDOMINIUM PROPERTY MANAGER Has the patient had Daratumumab or Isatuximab in the past 6 months?->Unknown Steff Cummings NP LAB BLOOD BANK TEST ORDER FELICIA Final Result Performing Organization Address City/[facility]/ZIP Co de Phone Number [facility] [address] [place] [address] * Hemoglobin A1c (06/11/2024 7:32 AM CONDOMINIUM PROPERTY MANAGER) Hgb A1C 5.2 4.0 - 5.6 % Estimated Average Glucose 103 mg/dL [facility] Comment: The ADA recommends reporting an estimated Average Glucose (eAG) with all Hemoglobin A1c results using the equation derived from a study of 507 normal and diabetic adults. Minority populations were underrepresented and children were not included. (Diabetes Care 31:[id number], 2008). The eAG is not equivalent to a fasting glucose. Blood 06/11/2024 7:32 AM CONDOMINIUM PROPERTY MANAGER 06/11/2024 8:01 AM CONDOMINIUM PROPERTY MANAGER us Steff Cummings NP LAB BLOOD ORDERABLES Julieta l Result [facility] [address] Department [place] [address] * LALITA Add-On For OR (06/11/2024 6:57 AM CONDOMINIUM PROPERTY MANAGER) Narrative CONS SCIMAGE - 06/11/2024 6:57 AM CONDOMINIUM PROPERTY MANAGER Procedure Auto Finalized by Rule: BW CV LALITA DURING CASE OR Please see the Anesthesiologist's Procedure Note for the results. us Jasbir Mason MD CV ECHO PROCEDURES Fin al Result Performing Organization Address City/[facility]/ZIP Co de Phone Number CONS SCIMAGE * Prepare RBC: 4 Units (06/11/2024 6:51 AM CONDOMINIUM PROPERTY MANAGER) Product code [id number] [facility] Unit Number [id number] 4-K [facility] Product Blood Type BPOS [facility] Dispense Status RETURNED [facility] Product code [id number] [facility] Unit Number [id number] 7-S [facility] Product Blood Type BPOS [facility] Dispense Status RETURNED [facility] Product code [id number] [facility] Unit Number [id number] 8-O [facility] Product Blood Type BPOS [facility] Dispense Status RETURNED [facility] Product code [id number] Unit Number [id number] 3-7 [facility] Product Blood Type [facility] Dispense Status RETURNED [facility] Blood 06/11/2024 6:51 AM CONDOMINIUM PROPERTY MANAGER Narrative [facility] - 06/18/2024 12:10 AM CONDOMINIUM PROPERTY MANAGER Specify Procedure:->cardiac surgery Are special requirements needed? (All products are leukoreduced and CMV- safe)- >No Date required:-[id number] LRRBC # of [id number] Reasons:-Hold for procedure (specify procedure)} us Steff Cummings NP BLOOD BANK PRODUCT ORDERA BLES Final Result [facility] [address] Department [place] [address] * (ABNORMAL) eGFR (05/21/2024 3:47 PM CONDOMINIUM PROPERTY MANAGER) eGFR 38(L) >=60 mL/min/1. 73 m2 Comment: [...] was last reviewed 2021. Testing performed by: [facility], [address] [place] [address]., [address] Blood 05/21/2024 3:47 PM CONDOMINIUM PROPERTY MANAGER 05/21/2024 3:54 PM CONDOMINIUM PROPERTY MANAGER us Steff Cummings PRESS ROOM SUPERVISOR LAB BLOOD ORDERABLES Julieta garza Result [facility] [address] [facility] Department [place] [address] * Differential, auto (05/21/2024 3:47 PM CONDOMINIUM PROPERTY MANAGER) Neutrophil abs 3.0 1.5 - 6.5 K/cumm Comment:Testing performed by : [address] [address] Imm gran abs 0.0 0.0 - 0.1 K/cumm [facility] Comment:Testing performed by : [address] [address] Lymphocyte abs 2.3 0.8 - 3.3 K/cumm [place]O Comment:Testing performed by : [address] [address] Monocyte abs 0.4 0.2 - 0.8 K/cumm [place] Comment:Testing performed by : [address] [address] Eosinophil abs 0.1 0.0 - 0.5 K/cumm [place] Comment:Testing performed by : [address] [address] Basophil abs 0.0 0.0 - 0.1 K/cumm [facility] Comment:Testing performed by : [address] [address] Neutrophil pct 51.8 % [facility] Comment: Interpretive Data Percent cell count reference ranges are not reported, since discordance with absolute values may lead to misinterpretation of CBC data. Current Interpretive Data was last revised on 2017. Testing performed by: [address] [address] Imm gran pct 0.3 % [facility] Comment: Interpretive Data Percent cell count reference ranges are not reported, since discordance with absolute values may lead to misinterpretation of CBC data. Current Interpretive Data was last revised on 2017. Testing performed by: [address] [address] Lymphocyte pct 39.0 % [facility] Comment: Interpretive Data Percent cell count reference ranges are not reported, since discordance with absolute values may lead to misinterpretation of CBC data. Current Interpretive Data was last revised on 2017. Testing performed by: [address] [address] Monocyte pct 7.6 % [facility] Comment: Interpretive Data Percent cell count reference ranges are not reported, since discordance with absolute values may lead to misinterpretation of CBC data. Current Interpretive Data was last revised on 2017. Testing performed by: [address] [address] Eosinophil pct 1.0 % [facility] Comment: Interpretive Data Percent cell count reference ranges are not reported, since discordance with absolute values may lead to misinterpretation of CBC data. Current Interpretive Data was last revised on 2017. Testing performed by: [address] [address] Basophil pct 0.3 % [facility] Comment: Interpretive Data Percent cell count reference ranges are not reported, since discordance with absolute values may lead to misinterpretation of CBC data. Current Interpretive Data was last revised on 2017. Testing performed by: [address] [address] Blood 05/21/2024 3:47 PM CONDOMINIUM PROPERTY MANAGER 05/21/2024 3:53 PM CONDOMINIUM PROPERTY MANAGER us Steff Cummings PRESS ROOM SUPERVISOR LAB BLOOD ORDERABLES Julieta l Result [facility] [address] [facility] Department [place] [address] * (ABNORMAL) CBC with auto differential (05/21/2024 3:47 PM CONDOMINIUM PROPERTY MANAGER) Pathologist [facility] WBC 5.8 3.8 - 9.9 K/cumm Comment:Testing performed by : [address] [address] Hgb 13.6 13.0 - 17.5 g/dL [facility] Comment:Testing performed by : [address], [address] Hct 43.8 38.9 - 50.3 % [facility] Comment:Testing performed by : [address] [address] Plt 185 150 - 400 K/cumm [place]O Comment:Testing performed by : [address] [address] MPV 11.2 9.1 - 12.3 fL [facility] Comment:Testing performed by : [address], [address] RBC 4.70 4.30 - 5.80 M/cumm [place] Comment:Testing performed by : [address], [address] MCV 93.2 81.3 - 96.4 fL [facility] Comment:Testing performed by : [address] [address] MCH 28.9 27.1 - 33.3 pg [facility] Comment:Testing performed by : [address] [address] MCHC 31.1(L) 32.3 - 35.7 g/dL [facility] Comment:Testing performed by : [address], [address] RDW CV 13.6 11.1 - 14.9 % [facility] Comment:Testing performed by : [address], [address] RDW SD 46.9 35.7 - 48.1 fL [facility] Comment:Testing performed by : [address] [address] NRBC abs 0.00 0.00 - 0.01 K/cumm [place] Comment:Testing performed by : [address] [address] Blood 05/21/2024 3:47 PM CONDOMINIUM PROPERTY MANAGER 05/21/2024 3:53 PM CONDOMINIUM PROPERTY MANAGER us Steff Cummings PRESS ROOM SUPERVISOR LAB BLOOD ORDERABLES Julieta garza Result [facility] [address] [facility] Department [place] [address] * (ABNORMAL) Basic metabolic panel (05/21/2024 3:47 PM CONDOMINIUM PROPERTY MANAGER) Sodium 142 135 - 145 mmol/L Comment:Testing performed by : [address] [address] Potassium, pl 4.9 3.3 - 4.9 mmol/L [facility] Comment:Testing performed by : [address] [address] Chloride 107 97 - 110 mmol/L [facility] Comment:Testing performed by : [address] [address] CO2 26 22 - 32 mmol/L [facility] Comment:Testing performed by : [address] [address] Anion gap 9 2 - 15 mmol/L [facility] Comment:Testing performed by : [address] [address] BUN 27(H) 6 - 25 mg/dL [facility] Comment:Testing performed by : [address] [address] Creatinine 2.00(H) 0.80 - 1.30 mg/dL [facility] Comment:Testing performed by : [address] [address] Glucose 117 70 - 199 mg/dL [facility] [...] was last revised 2022. Testing performed by: [address], [place]., [address] Calcium 9.3 8.5 - 10.3 mg/dL [facility] HIGH Comment:Testing performed by : [address] [address] Blood 05/21/2024 3:47 PM CONDOMINIUM PROPERTY MANAGER 05/21/2024 3:53 PM CONDOMINIUM PROPERTY MANAGER us Steff Cummings NP LAB BLOOD ORDERABLES Julieta l Result Performing Organization Address [facility] Co de Phone Number [facility] [address] [facility] Department [place] [address] * CT Body Outside Reference (04/30/2024 12:00 AM CONDOMINIUM PROPERTY MANAGER) Narrative RAD_PACS_OUTSIDE_FILM_[facility] - 05/06/2024 7:11 AM CONDOMINIUM PROPERTY MANAGER This order has been auto-finalized and does not contain a result. us Provider Transcribed Order IMG CT PROCEDURES Fin al Result Performing Organization Address [facility] [[email or web address]] de Phone Number [email or web address] * SCAN - RADIOLOGY/IMAGING (04/30/2024) Anatomical Region Laterality Modality Other us Navdeep Arredondo MD Final Re sult * Cardiology Document Scan (04/27/2024 9:42 AM CONDOMINIUM PROPERTY MANAGER) Anatomical Region Laterality Modality Other us Oscar Lau MD CV CARDIAC SERVICES PROCEDURES F inal Result * XR Outside Reference (04/27/2024 12:00 AM CONDOMINIUM PROPERTY MANAGER) Narrative [facility]_PACS_OUTSIDE_FILM[facility] - 05/18/2024 6:54 AM CONDOMINIUM PROPERTY MANAGER This order has been auto-finalized and does not contain a result. us Provider Transcribed Order IMG XR PROCEDURES Fin al Result Performing Organization Address [facility] Co de Phone Number RAD_[email or web address] from Last 3 Months Insurance [employer] For more information, please contact: [phone] * Full Code (Latest Code Status on File) Date Activated Date Inactivated Comments 06/11/2024 11:30 AM 06/18/2024 5:14 PM Care Teams Fish Egg Packer Relationship Specialty Start Date End Date Aly Ward MD [address] [place] [address] PCP - General Family Medicine 04/13/24 Navdeep Laurent MD [address] [facility] [address] [place] [address] Consulting Physician Cardiothoracic Surgery 03/11/24 Navdeep Arredondo MD [address] [facility] [address] [place] [address] Referring Physician Cardiology 03/11/24
--- OUTSIDE RECORDS SUMMARY | 2024-07-16 01:48 | XMS_ITS | Encounter Summary ---
Author Organization [facility] Healthcare Address [address] [place] [address] Care Team Providers Care Shoe Dyer Name Role Phone Navdeep Laurent MD Unavailable [phone] Navdeep Arredondo MD Unavailable [phone] Aly Ward MD Primary Care Provider [phone] Reason for Visit * Auth/Cert (Routine) Specialty Diagnoses / Procedures Referred By Osiel t Referred To Contact Referral ID Status Reason Start Date Expiration Date Visits Re quested Visits Authorized [id number] 1 15 Encounter Details Date Type Department Care Team (Latest Contact Info) Description 07/15/2024 9:30 AM 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 More than 4 times per year 06/12/2024 Do you belong to any clubs o r organizations such as pentecostalism groups, unions, fraternal or athletic groups, or [...] any time in the past 12 m [facility], were you homeless or living in a half-way (including now)? No 06/12/2024 Personal Safety Answer Date Recorded Have you ever been in or are you currently in a harmful physical or emotional relationship or is someone making you feel afraid or unsafe? 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 Gender Identity Not on file Sexual Orientation Not on file documented as of this encounter Last Filed Vital Signs Vital Sign Reading Time Taken Comments Blood Pressure 108/70 07/15/2024 10:19 AM INSURANCE PRODUCER Pulse 56 07/15/2024 10:19 AM INSURANCE PRODUCER Temperature 36.2 C (97.2 F) 07/15/2024 10:19 AM INSURANCE PRODUCER Respiratory Rate 18 07/15/2024 10:19 AM INSURANCE PRODUCER Oxygen Saturation 99% 07/15/2024 10:19 AM INSURANCE PRODUCER Inhaled Oxygen Concentration - - Weight - - Height - - Body Mass Index - - documented in this encounter Miscellaneous Notes * Home Health Plan for Next Visit - Isha Hughes RN - 07/15/2024 10:01 AM CST Reason for today's visit INR check, discharge Discuss plan of care Pt Discharge planning Pt to follow up with cardiologyLEILA from Plan for next visit NA RANCE PRODUCER documented in this encounter Plan of Treatment Not on file documented as of this encounter Procedures Procedure Name Priority Date/Time Associated Diagnosis Comments POCT PROTHROMBIN TIME/INR Routine 07/15/2024 10:12 AM INSURANCE PRODUCER documented in this encounter Results * POCT PT/INR (07/15/2024 10:12 AM INSURANCE PRODUCER) INR, POC 1.80 POCT RESULTING LABORATORY Comment:2-3 Blood 07/15/2024 10:1 2 AM INSURANCE PRODUCER us Blake Curtis MD POINT OF CARE TEST ORDER FELICIA Final Result POCT RESULTING LABORATORY documented in this encounter Visit Diagnoses Not on filedocumented in this encounter Home Health Visit - Care Plan Visit Details Visit Type -SN Non-OASIS Dis charge Discipline -Mcc Problems Problem Description Start Date Status Goals Interventions Additional Referral Physician Orders Disciplines: All Disciplines Additional Referral Physician Orders 06/20/2024 Active 1 goal linked to scheduled/docume nted intervention Medications Disciplines: Mcc Management of home medications 06/21/2024 Active 1 goal linked to scheduled/docume nted intervention 2 goal interventions scheduled/documen andres in this visit Monitor patient's vital signs every home health visit Disciplines: Skilled Disciplines, SN, PT, OT, VEGETABLE GROWER, FIRE TRUCK DRIVER Monitor patient's vital signs every home health visit. 06/21/2024 Active 1 goal linked to scheduled/docume nted intervention 1 goal intervention scheduled/documen andres in this visit Collect Specimen/Lab Draw Disciplines: Mcc Management of specimen samples, including lab draws, stool, urine, sputum & wound cultures 06/21/2024 Active 1 goal linked to scheduled/docume nted intervention 1 problem intervention scheduled/documen andres in this visit Multidisciplinar y Case Conference Disciplines: Skilled Disciplines Concurrently discusses plan of treatment and coordinate patient centered care 06/21/2024 Active 1 goal linked to scheduled/docume nted intervention Infection Prevention Disciplines: Skilled Disciplines Infection Prevention 06/21/2024 Active 1 goal linked to scheduled/docume nted intervention 2 goal interventions scheduled/documen andres in this visit Fall Precautions/Safe ty Concerns Disciplines: Skilled Disciplines Fall precautions and general safety 06/21/2024 Active 1 goal linked to scheduled/docume nted intervention 1 goal intervention scheduled/documen andres in this visit Potential for post-op complications Disciplines: Mcc Patient at risk for post-operative complications 06/21/2024 Active 1 goal linked to scheduled/docume nted intervention 1 goal intervention scheduled/documen andres in this visit Knowledge deficit Disciplines: Mcc Knowledge deficit relating to coronary artery bypass graft 06/21/2024 Active 1 goal linked to scheduled/docume nted intervention 4 goal interventions scheduled/documen andres in this visit Learning/Shaein g Needs - CHF Disciplines: Mcc Lack of knowledge or resources to effectively manage disease process 06/21/2024 Active 1 goal linked to scheduled/docume nted intervention 1 goal intervention scheduled/documen andres in this visit Goals Goal Associated Problem Outcome Goal Met? Visit Notes Additional Referral Physician Orders Description: Additional Referral Orders from Physician to be sent to plan of care and signed. Additional Referral Physician Orders Progressing No Understand and follow medication therapy Description: Patient/Caregiver will verbalize understanding of purpose, side effects, and medication regimen in 4 weeks as evidenced by taking all medications as prescribed and no medication errors. Medications Progressing No Measure vital signs during every home health visit during episode of care Description: Home behavior clinician to measure vital signs during every home health visit during episode of care. Monitor patient's vital signs every home health visit Progressing No Collect Specimen/Lab Draw Description: Collect specimen / draw labs as ordered Collect Specimen/Lab Draw Progressing No Care team will coordinate care Description: Care team will coordinate care centered on patient needs throughout the episode of care. Multidisciplinary Case Conference Progressing No Verbalize signs of infection Description: Patient/caregiver will demonstrate knowledge of infection prevention strategies by verbalizing signs and symptoms of infection. Infection Prevention Progressing No Demonstrate fall and safety precautions Description: Patient/caregiver maintains safe home environment as evidenced by remaining free from falls, injury due to falls, demonstrating safety precautions, and identifying strategies to reduce falls by 07/17/24 Fall Precautions/Safety Concerns Progressing No Compliance and knowledge of post-op complications Description: Patient will achieve optimal health as evidenced by verbalizing understanding of signs and symptoms of complications and when to report those to provider by the end of episode of care. Potential for post-op complications Progressing No Demonstrate adequate knowledge of follow-up care Description: Patient/caregiver will have adequate knowledge of follow-up care as evidenced by the ability to describe the condition, risk factors, and required life-style adaptations including compliance with meds, diet, and rehabilitatio n program by the end of the episode of care. Knowledge deficit Progressing No Demonstrate knowledge of CHF Description: Patient/caregiver will demonstrate knowledge of congestive heart failure as evidenced by the ability to describe the disease process and the causative factors contributing to signs and symptoms of exacerbation by the end of the episode of care. Learning/Teaching Needs - CHF Progressing No Interventions Intervention Associated Problem/Goal Status Variance Visit Notes Instruct on Medication Management Description: Assess patient/caregiver ability to demonstrate management of medications, steps to obtain new/refills of medications and identification of new or changed medications. Assess patient/caregiver ability to verbalize accurate do se/route/frequency/reaso n for medication, how to evaluate effectiveness of medication, ongoing lab work needed to ensure therapeutic dosing, drug/food interactions, side effects/adverse reactions, contraindications for medica tions and known drug allergies. Evaluate the effectiveness of current treatment regimen and notify the appropriate healthcare provider for the need for changes in the plan of care. Problem:Medications Goal:Understand and follow medication therapy Completed Pt instructed to follow up with [facility] Exchange Service Advisor for further INR checks and coumadin dosage. Pt verbalized understanding Instruct on High Risk Medications Description: Instruct patient/caregiver on oral or injectable high-risk medications, including: anticonvulsant, antiretroviral, anticoagulant, antibiotics, chemotherapeutic, hypoglycemic including insulin, immunosuppressant, antipsychotic , and opioids. Problem:Medications Goal:Understand and follow medication therapy Scheduled Monitor Vital Signs Description: Monitor blood pressure, pulse, oxygen saturation, respirations Problem:Monitor patient's vital signs every home health visit Goal:Measure vital signs during every home health visit during episode of care Completed VS Stable Collect Specimen/Lab Draw Description: Lab Draw: SN to draw labs INR twice weekly and PRN via fingerstick per coagulation device, Results to Dr. Curtis office [phone] Starting week of 07/10, Draw INR labs once weekly. VORB by Isha Hughes RN from [facility] PROFESSIONAL TUTOR for Dr. Curtis on 07/10/24 Problem:Collect Specimen/Lab Draw Completed SN sonia INR via coagucheck fingerstick. Pressure applied and covered with gauze. Pt tolerated well. INR 1.8, coumadin dose of [address] Curtis's office. Pt to alternate 4mg coumadin, MWF and 3mg SuTuesThSa. VORB by Isha Hughes RN from [facility] for Dr. Curtis on 07/15/24 at 2:00pm Educate Patient on Infection Prevention Description: Instruct patient on signs and symptoms of infection IE: fever, odor, change in color, increased amount of drainage, purulent drainage, warmth. Problem:Infection Prevention Goal:Verbalize signs of infection Scheduled Educate Family on Infection Prevention Description: Instructed family on signs and symptoms of infection IE: fever, odor, change in color, increased amount of drainage, purulent drainage, warmth. Problem:Infection Prevention Goal:Verbalize signs of infection Scheduled [place] Fall Precautions Description: Instruct patient/caregiver to use proper lighting in all areas, stand/sit up slowly, use appropriate footwear when walking, use proper assistive devices, keep pathways clear of cords and clutter to prevent falls, what to do in the event of a fall and to report any falls to the home health agency. Problem:Fall Precautions/Safety Concerns Goal:Demonstrate fall and safety precautions Scheduled Instruct postop care Description: Instruct patient on signs/symptoms of post-operative complications (wound infection, DVT,UTI, pneumonia). Teach patient to notify Home Care Agency/doctor if tenderness, heat, firmness, localized swelling. Problem:Potential for post-op complications Goal:Compliance and knowledge of post-op complications Scheduled Instruct on anticoagulation therapy Description: Instruct patient/caregiver in anticoagulant medication including side effects, safety precautions, diet precautions, need for lab monitoring. Problem:Knowledge deficit Goal:Demonstrate adequate knowledge of follow-up care Completed Pt instructed to notify MD if pt notices an increase in bruising, pink tinged urine, red or black stool and bloody nose. Pt verbalized understanding. Instruct on Physical Limitations Description: Instruct patient/caregiver on no lifting, pushing, pulling of more than 5-10lbs. Problem:Knowledge deficit Goal:Demonstrate adequate knowledge of follow-up care Scheduled Instruct on heart healthy diet Description: Instruct patient/caregiver on heart healthy diet. Problem:Knowledge deficit Goal:Demonstrate adequate knowledge of follow-up care Scheduled Instruct on daily weighing Description: Instruct patient/caregiver on daily weights, energy conservation, support hose, signs and symptoms of complications, and when to notify Home Care agency and/or physician. Instruct to notify physician/RN if weight gain is 2 pounds or more in 1 day, or 5 pounds or more in 1 week. Problem:Knowledge deficit Goal:Demonstrate adequate knowledge of follow-up care Scheduled Instruct on CHF disease process Description: Instruct patient/caregiver in congestive heart failure disease process. Instruct patient/caregiver in what the specific cause of the heart failure is (CAD, untreated high blood pressure, faulty heart valves, cardiomyopathy, under/over active thyroid, diabetes or kidney disease.) Problem:Learning/Tea alyson Needs - CHF Goal:Demonstrate knowledge of CHF Scheduled documented in this encounter Care Teams Shoe Dyer Relationship Specialty Start Date End Date Aly Ward MD [facility] [place] [address] PCP - General Family Medicine 04/13/24 Navdeep Laurent MD [address] [place] [address] Consulting Physician Cardiothoracic Surgery 03/11/24 Navdeep Arredondo MD [address] [facility] [address] [place] [address] Referring Physician Cardiology 03/11/24 documented as of this encounter
[2024-07-16 11:29] LABS: Anion Gap 14 mmol/L (4-12); Blood Urea Nitrogen 42 mg/dL (9-20); Calcium 9.7 mg/dL (8.4-10.2); Carbon Dioxide 16 mmol/L (22-30); Chloride 111 mmol/L (98-107); Estimated CRCL calculation 41 ml/min; Estimated Glomerular Filt Rate 28; Glucose 107 mg/dL (65-110); Magnesium 2.1 mg/dL (1.6-2.3); Potassium 5.2 mmol/L (3.4-5.0); Sodium 141 mmol/L (137-145)
--- NOTE | 2024-07-16 12:22 | WPDMODSED ---
Moderate Sedation Note-Pt Data Patient Data Diagnosis: Recurrent atrial fibrillation Present Complaint: No complaints Procedure to be performed/Plan: DC cardioversion Allergies Allergy/AdvReac Type Severity Reaction Status Date / Time tetracycline Allergy Unknown Hives Verified 07/16/24 11:11 Home Medications ?Medication ?Instructions ?Recorded ?Confirmed ?Type lancets (Microlet Lancet) #100 ea 12/18/21 11/04/23 Rx amiodarone 200 mg tablet (Pacerone) 200 mg PO DAILY@0800 08/08/22 07/15/24 History blood sugar diagnostic (Contour #100 ea 03/06/23 01/31/24 Rx Next Test Strips) dapagliflozin propanediol 10 mg 10 mg PO DAILY HEARTFAILURE #90 04/29/24 07/15/24 Rx tablet (Farxiga) tabs spironolactone 25 mg tablet 25 mg PO QAM #90 tabs 06/02/24 07/15/24 Rx allopurinol 300 mg tablet 300 mg PO DAILY #90 tabs 06/09/24 07/15/24 Rx acetaminophen 500 mg capsule 500 mg PO Q6H PRN pain 07/15/24 07/15/24 History aspirin 81 mg tablet,delayed 81 mg PO DAILY 07/15/24 07/15/24 History release hydrocodone 5 mg-acetaminophen 325 1 tablet PO Q4H PRN pain 07/15/24 07/15/24 History mg tablet metoprolol tartrate 50 mg tablet 50 mg PO Q12H 07/15/24 07/15/24 History warfarin 2 mg tablet 3 mg PO DAILY 07/15/24 07/15/24 History Current Medications: Active Medications Sodium Chloride (Normal Saline Iv) 1,000 mls @ 30 mls/hr IV CONT .Q24H TOYA Sedation/Anesthesia: No previous sedation/anesthesia problems (including family history). [facility] Past Medical History Medical History Atrial fibrillation with rapid ventricular response Cardiomyopathy Chronic kidney disease Baseline creatinine is around 1.40. DJD of right shoulder Essential hypertension Gout, unspecified Left hip pain Nonischemic cardiomyopathy Ejection fraction was 20% in June 2021, improved to 41% in November 2021 with medical treatment. Obesity (BMI 30-39.9) Type 2 diabetes mellitus without complication, without long-term current use of insulin Surgical History Surgical History History of cardiac catheterization (07/2021) History of hip replacement (08/22/22) History of hip surgery Left hip pinning in the early 80s. History of repair of left rotator cuff 2000 S/P laparoscopic cholecystectomy 09/07/22 S/P total hip arthroplasty S/P total left hip arthroplasty Family History Family History Sibling Family history of gastrointestinal disorder Family history of arthritis Hypertension Mother Family history of heart disease in male family member before age 55, Onset Age: 40 Family history of malignant neoplasm, Onset Age: 40 Patient's mother is , Onset Age: 40 Hypertension Father Family history of malignant neoplasm, Onset Age: 70 Patient's father is , Onset Age: 70 Hypertension Social History Social History Social History: Surrogate medical decision maker: Alesia Quiros, sister. Code status: Full code. Smoking packs per day: 0 Smoking cigarettes per day: 0.0 Smoking status: Never smoker Second hand tobacco smoke exposure: Yes Additional smoking assessment comments: DENIES ANY FORM OF TOBACCO USE Alcohol intake: current Drinks per week: 1 Substance use: never Substance use type: does not use Lack of Transportation: No Lack of Food: Never True Current Housing: I Have Housing Concerned About Future Housing: No Difficulty Paying Gas/Electric Bills: No Difficulty Paying for Meds: No Currently Unemployed: No Education: Bachelor's Degree Difficulty w/ Childcare or Family Care: No Living arrangements: with family Occupation/Education: occupation Additional occupation/education comments: [employer]. Gender identity (if verbalized by the patient): Male Sexual Orientation (if Verbalized by the Patient): Straight or Heterosexual Spiritual care concerns: No Mod Sed Physical Exam Physical Exam Pre Procedural Exam: Normal: Appearance, Throat, Airway, Lungs, Heart Size, Neuro Exam and Extremities and Variation: Heart Rate and Heart Rhythm (Tachycardic, irregularly irregular) Hours since solid foods: 12 Hours since liquid intake: 12 Mallampati Classification: class II Internal Medicine - PN: Obj Da Vital Signs Vital Signs: Vital Signs - 24 hr 02/27/25 11:13 Pulse Rate 98 Respiratory Rate 16 Blood Pressure 120/96 H Pulse Oximetry 97 Oxygen Delivery Room Air Meds/Results Medications: Active Medications Generic Name Dose Route Start Last Admin Trade Name Freq PRN Reason Stop Dose Admin Sodium Chloride 1,000 mls @ 30 mls/hr 07/16/24 10:30 Normal Saline Iv IV CONT .Q24H TOYA Labs 07/16/24 11:00 Labs: Laboratory Results - last 24 hr 07/16/24 11:00 Sodium 141 Potassium 5.2 H Chloride 111 H Carbon Dioxide 16 L Anion Gap 14 H BUN 42 H D Creatinine 2.42 H Estim Creat Clear Calc 41 Estimated GFR 28 L Glucose 107 Calcium 9.7 Magnesium 2.1 ASA Classification/Sedation ASA Classification/Sedation ASA Class: III Emergent: No Risks: Risks, benefits and alternatives explained and patient/family accepted plan for sedation. Patient re-evaluated immediately prior to sedation.
--- NOTE | 2024-07-16 12:29 | WPDCARDPROC ---
Cardiac Cath Procedure Note Date of procedure:: 07/16/24 Performing physician:: Navdeep Arredondo MD Indication:: Recurrent atrial fibrillation Brief clinical history:: This is a 54-year-old man with aortic valve regurgitation recently undergoing aortic valve replacement. He has a history of postop AFib which has recently recurred despite amiodarone treatment. With further amiodarone loading another attempt at restoring sinus rhythm electrically has been recommended for today. His only complaint referable to be in AFib is exertional fatigue/shortness of breath Procedure Procedure performed:: DC cardioversion Sedation/Medication given:: Intravenous propofol total dose of 70 mg Estimated blood loss:: No blood loss Procedure note:: Patient was brought to the quality lab assoc holding area in the postabsorptive state. Use in the supine position with defibrillator patches placed in the AP position. The defibrillator was synchronized 200 joules output. Following sedation with propofol he was counter shocked a synchronized fashion x1 which restored normal sinus rhythm. Findings:: As above Conclusion:: Successful uncomplicated DC cardioversion terminating atrial fib, restoring sinus rhythm using 200 joules x1 shock Navdeep Arredondo MD [facility]
== END 2024-07-16 13:31 | disposition home or self-care (01) ==
PROVIDERS: Visit Provider Specialist
PROC: 5A2204Z Restoration of Cardiac Rhythm, Single (ICD-10-PCS; principal; 2024-07-16 12:00)
DX: I48.19 Other persistent atrial fibrillation (principal)
CPT/HCPCS: 36415; 80048; 83735; 92960; J2704; J7030